=== PATIENT | male | born 1935 | race Caucasian/White ===

== ENCOUNTER → 2017-12-27 12:18 | Outpatient (CLI) | payer OTHER, SELFPAY ==
--- NOTE | 2017-12-27 | DI.CT.S_ITS ---
PROCEDURE: CT CHEST W CON INDICATIONS: SNORING CRONIC TECHNIQUE: After the administration of intravenous contrast, 5 mm thick sections acquired from the pulmonary apices to the posterior costophrenic angles. 7 mm thick coronal and sagittal MIP reformats were acquired. For radiation dose reduction, the following was used: automated exposure control, adjustment of mA and/or kV according to patient size. COMPARISON: [facility], CR, CHEST 2VW, 12/29/2011, 12:04. [facility], , CHEST 1 VIEW, 09/20/2012, 13:29. FINDINGS: Image quality: Excellent. Lungs and pleura: No acute air space opacities. There is mild scarring at the base of the lingula which is also apparent on previous plain film from 2012. No pleural effusions or pneumothorax. Central and peripheral airways are patent and normal in caliber. Mediastinum: Heart size is normal with mild coronary artery calcifications. No pericardial effusion. No mediastinal or hilar adenopathy by size criteria. Thoracic aorta is borderline aneurysmal measuring 4.1 cm AP. The central pulmonary arteries are normal in size. Esophagus is normal in caliber. Small hiatal hernia. Bones and chest wall: No suspicious bony lesions. No vertebral body compression fractures. No axillary or supraclavicular adenopathy by size criteria. Thyroid gland contains a 7 mm hypodense nodule in the inferior pole of the right lobe, otherwise unremarkable. Abdomen: Visualized upper abdominal solid organs appear normal. Calcifications are present within the spleen. Upper abdominal bowel loops are normal in caliber. IMPRESSION: 1. Mild lingular scarring otherwise normal CT chest. 2. Splenic calcifications compatible with prior granulomatous infection. 3. Small hiatal hernia. 4. Borderline aneurysmal ascending aorta. Mild coronary artery calcifications. 5. Subcentimeter right thyroid nodule. Dictated by: Medardo Card M.D. on 12/27/2017 at 13:10 Approved by: Medardo Card M.D. on 12/27/2017 at 13:18
== END ==
PROVIDERS: PCP Physician Assistant Medical; Visit Provider Physician Assistant Medical
DX: R06.83 Snoring (principal)
CPT/HCPCS: 71260; Q9967

== ENCOUNTER → 2017-12-31 11:51 | Outpatient (CLI) | payer MEDICARE, OTHER, SELFPAY ==
--- NOTE | 2017-12-31 | DI.US.S_ITS ---
PROCEDURE: US THYROID INDICATIONS: THYROID NODULE TECHNIQUE: Real-time scanning was performed of the thyroid gland, with image documentation. COMPARISON: [facility], CT, CT CHEST W CON, 12/27/2017, 12:34. FINDINGS: Right: The right lobe measures 1.5 x 1.6 x 5.2 cm and is diffusely heterogenic with a 12 x 13 x 21 mm abdominal a solid, hypoechoic nodule with smooth margins and no calcifications at the inferior pole. No increased vascularity. nodules. Left: The left lobe measures 1.1 x 1.2 x 3.8 cm and shows heterogeneous echogenicity with no measurable nodules. Isthmus: 2.3 mm IMPRESSION: Hypoechoic nodule in the lower pole of the right lobe of thyroid is greater than 15 mm in maximum diameter. Ultrasound guided FNA sampling suggested. Dictated by: Medardo Card M.D. on 12/31/2017 at 12:55 Approved by: Medardo Card M.D. on 12/31/2017 at 13:04
== END ==
PROVIDERS: PCP Physician Assistant Medical; Visit Provider Physician Assistant Medical
DX: E04.1 Nontoxic single thyroid nodule (principal)
CPT/HCPCS: 76536

== ENCOUNTER → 2018-02-03 12:11 | Outpatient (CLI) | payer MEDICARE, OTHER, SELFPAY ==
--- NOTE | 2018-02-03 | DI.US.S_ITS ---
PROCEDURE: US FINE NEEDLE ASPIRATION INDICATIONS: RIGHT THYROID NODULE TECHNIQUE: The indications, alternatives, benefits, risks, and complications of the procedure were explained to the patient. Written informed consent was obtained and placed in the chart. The area of interest was examined sonographically and a site was chosen for ultrasound guided percutaneous sampling. The skin was prepared and draped in the usual fashion, and anesthetized with 1% lidocaine infiltrated from the skin down to the lesion. Multiple passes were then performed, with contents emptied into an appropriate pathology specimen container. A bandage was applied to the area of access at completion of the study. COMPARISON: None. FINDINGS: Location(s) of lesion(s) sampled: Lower pole right lobe of thyroid nodule Clio: 25 gauge hypodermic needles. Number of passes: 13 Medications: 1% lidocaine for local anaesthesia. Complications: None. IMPRESSION: Successful ultrasound-guided 25 gauge fine needle aspiration, with cytology results pending. Dictated by: Medardo Card M.D. on 02/03/2018 at 15:21 Approved by: Medardo Card M.D. on 02/03/2018 at 15:22
--- NOTE | 2018-02-03 | PATH_ITS ---
Note [facility] Accession Number: [id number] TESTS RESULT FLAG UNITS REF RANGE LAB Clinician Provided Cytology Information No. of containers..01 ThinPrep Vial No. of containers..06 Previously Prepared Cytology Slide RIGHT THYROID NODULE DIAGNOSIS: RIGHT THYROID NODULE INADEQUATE, INSUFFICIENT CELLS FOR STUDY. BETHESDA CATEGORY I. UNSATISFACTORY. TOO FEW THYROID FOLLICULAR CELL GROUPS PRESENT FOR EVALUATION. Pathologist ICD10: 02 E04.1 02 Gloria Jenkins MD, Pathologist NPI- [id number] Carolann Nur, Assistant Professor Of Physics ([facility]) 01 30 CC, PINK, CLEAR RECEIVED: 8 ALCOHOL FIXED AND 8 QUICK STAINED SLIDES. /VDU FLAG LEGEND: L-Low Normal,H-High Normal,LL-Alert Low,HH-Alert High <-Panic Low,>-Panic High,A-Abnormal,AA-Critical Abnormal Performed at: 01 =Z [facility] [address], [place] [address] Errol Paul MD, 02 [facility] [id number] [place] [id number] Armen Goldstein MD, A duplicate report has been generated due to demographic updates. Performed at: 01 [facility] [address], [place], [place] [id number] MD Errol Paul MD Phone: [phone]
[2018-02-03 14:02] LABS: Hematocrit 43.9 % (41-53); Hemoglobin 15.4 g/dL (13.5-17.5); Mean Corpuscular HGB Conc 34.9 % (30-36); Mean Corpuscular Hemoglobin 32.8 PG (26-34); Mean Corpuscular Volume 93.8 fL (80-100); Platelet Count 161 X10^3/uL (150-400); Red Blood Cell Count 4.69 X10^6/uL (4.5-5.9); Red Cell Distribution Width 13.8 % (11.6-14.8)
[2018-02-03 14:13] LABS: INR 1.2 (0.9-1.3); Prothrombin Time 13.2 SECONDS (10.1-12.7)
== END ==
PROVIDERS: PCP Physician Assistant Medical; Visit Provider Specialist
DX: E04.1 Nontoxic single thyroid nodule (principal); Z79.01 Long term (current) use of anticoagulants
CPT/HCPCS: 10022; 36415; 76942; 85027; 85610

== ENCOUNTER 2018-09-27 15:23 | Emergency (ER) | payer MEDICARE, OTHER, SELFPAY ==
[2018-09-27 15:26] VITALS: BP 119/69; PULSE 87; RESP 18; TEMP 36.8; O2SAT 94
--- NOTE | 2018-09-27 15:29 | DI.RAD.S_ITS ---
PROCEDURE: XR CHEST 2V INDICATIONS: cough/fever/soa TECHNIQUE: 2 views of the chest were acquired. COMPARISON: [facility], , CHEST 1 VIEW, 09/20/2012, 13:29. FINDINGS: Surgical changes and devices: None. Lungs and pleura: No acute consolidation. Scattered subsegmental atelectasis and/or scarring. Mild patchy right basilar opacity. No pleural effusions or pneumothorax. Mediastinum: Mediastinal contours are normal. Heart size is normal. Bones and chest wall: No suspicious bony abnormalities. Soft tissues appear unremarkable. IMPRESSION: Mild patchy right basilar opacity which could reflect low-grade atelectasis/aspiration however cannot entirely exclude early bronchopneumonia. Dictated by: Conor Bryant M.D. on 09/27/2018 at 16:00 Approved by: Conor Bryant M.D. on 09/27/2018 at 16:02
--- NOTE | 2018-09-27 16:39 | ED_ITS ---
HPI - Fever General Chief Complaint: Fever Stated Complaint: FEVER Time Seen by Provider: 09/27/18 16:12 Source: patient and family Mode of arrival: ambulatory Limitations: no limitations History of Present Illness HPI Narrative: 83-year-old male former smoker with history of COPD hypertension and hyperlipidemia presents with his and a chief complaint of upper respiratory complaints including fever with cough since Wednesday. He has had no headache, sore throat nor nausea or vomiting. He has had no shaking chills and is eating and drinking without difficulty. He has not had any profound shortness of breath and is actually doing relatively well. He does take Coumadin for AFib. He had both flu and pneumonia shots MD complaint: fever Onset (ago): day(s) Temperature Source: oral Associated symptoms: cough Relieving factors: nothing Exacerbating factors: nothing Treatments prior to arrival fever: none Related Data Home Medications Medication Instructions Recorded Confirmed tamsulosin [Flomax] 1 cap PO QPM #0 06/29/11 09/27/18 atorvastatin [Lipitor] 10 mg PO BEDTIME #0 09/20/12 09/27/18 albuterol sulfate [Ventolin HFA] 2 puff INH Q4HP PRN #0 03/18/17 01/26/18 latanoprost 1 drp OPHTH BEDTIME #0 03/18/17 09/27/18 levothyroxine [Synthroid] 0.075 mg PO DAILY #0 03/18/17 09/27/18 metformin [Glucophage] 500 mg PO BIDCC #0 03/18/17 09/27/18 warfarin [Coumadin] 5 mg PO #0 03/19/17 01/26/18 diltiazem HCl 240 mg PO DAILY 09/27/18 09/27/18 Previous Rx's Medication Instructions Recorded amoxicillin-pot clavulanate 1 tab PO BID #20 tab 09/27/18 [Augmentin] Allergies Allergy/AdvReac Type Severity Reaction Status Date / Time No Known Drug Allergies Allergy Unverified 01/26/18 09:42 Review of Systems Constitutional Denies chills, Reports fever(s), Denies lethargy and Denies weakness Eyes Denies change in vision, Denies eye discharge, Denies irritation and Denies loss of vision ENT Ears, Nose, Mouth, and Throat: Denies change in voice, Denies neck pain and Denies sore throat Cardiovascular Denies chest pain, Denies irregular heart rhythm, Denies lightheadedness, Denies palpitations, Denies dyspnea, Denies dyspnea on exertion and Denies orthopnea Respiratory Reports cough, Denies dyspnea, Denies dyspnea on exertion and Denies wheezing Gastrointestinal Gastrointestinal: Denies abdominal pain, Denies change in bowel habits, Denies diarrhea, Denies nausea and Denies vomiting Genitourinary Denies hematuria, Denies flank pain, Denies urinary incontinence and Denies uri nary urgency Musculoskeletal Denies neck pain Integumentary/Breasts Denies pruritus, Denies erythema, Denies rash and Denies wounds Neurologic Denies confusion, Denies loss of vision and Denies weakness Psychiatric Denies anxiety, Denies confusion, Denies depression, Denies homicidal ideation and Denies suicidal ideation Endocrine Denies palpitations Hematologic/Lymphatic Denies easy bruising Allergic/Immunologic Denies wheezing [facility] Medical History Aortic aneurysm (Chronic) Atrial fibrillation with controlled ventricular rate (Chronic) COPD (chronic obstructive pulmonary disease) (Chronic) HTN (hypertension) (Chronic) Surgical History History of appendectomy (Resolved) Family History Other Cancer Social History marital status: household members: spouse Smoking Status: Former smoker alcohol intake: never Family History Other Cancer Social History marital status: household members: spouse Smoking Status: Former smoker alcohol intake: never Exam Narrative Exam Narrative: GENERAL: 83-year-old male appears stated age, in no obvious or significant respiratory distress HEAD: Atraumatic. Normocephalic. No temporal or scalp tenderness. EYES: Pupils equal round and reactive. Extraocular motions intact. No scleral icterus. No injection or drainage. ENT: Nose without bleeding, purulent drainage or septal hematoma. Throat without erythema, tonsillar hypertrophy or exudate. Uvula midline. Airway patent. NECK: Trachea midline. No JVD or lymphadenopathy. Supple, nontender, no meningeal signs. CARDIOVASCULAR: Regular rate and rhythm without murmurs, gallops, or rubs. RESPIRATORY: prolonged expiratory phase no wheeze or rhonchi but very faint crackles in right base GASTROINTESTINAL: Abdomen soft, non-tender, nondistended. No hepato- splenomegaly, or palpable masses. No guarding. EXTREMITIES: No clubbing, cyanosis, or edema. No joint tenderness, effusion, or edema noted. BACK: Nontender without deformity or crepitance. No flank tenderness. NEURO: AOx3. SKIN: No rash or erythema. Initial Vital Signs Initial Vital Signs: Vital Signs Temperature 98.2 F 09/27/18 15:26 Pulse Rate 87 09/27/18 15:26 Respiratory Rate 18 09/27/18 15:26 Blood Pressure 119/69 09/27/18 15:26 Pulse Oximetry 94 09/27/18 15:26 Course Orders Ordered: ED Orders 09/27/18 15:29 Chest [XR chest 2V] Stat 09/27/18 15:31 Influenza A and B by PCR Rapid Stat 09/27/18 16:25 Basic Metabolic Panel Stat Complete Blood Count AUTO DIFF Stat Discontinued Medications Amoxicillin/Clavulanate Potassium (Augmentin 875-125 Mg) 1 tab PO NOW ONE Stop: 09/27/18 17:06 Last Admin: 09/27/18 17:12 Dose: 1 tab Vital Signs - 8 hr 09/27/18 15:26 Temperature 98.2 F Pulse Rate 87 Respiratory Rate 18 Blood Pressure 119/69 Pulse Oximetry 94 MDM - Fever Lab Data Result diagrams: 09/27/18 16:25 09/27/18 16:25 Lab Results 09/27/18 09/27/18 09/27/18 Range/Units 15:31 16:25 16:25 WBC 4.9 (4.5-11.0) X10^3/uL RBC 4.86 (4.5-5.9) X10^6/uL Hgb 15.4 (13.5-17.5) g/dL Hct 46.1 (41-53) % MCV 94.9 (80-100) fL MCH 31.7 (26-34) PG MCHC 33.4 (30-36) % RDW 13.9 (11.6-14.8) % Plt Count 129 L (150-400) X10^3/uL Neut % (Auto) 59.6 (50-75) % Lymph % (Auto) 17.9 L (25-40) % Grand % (Auto) 20.0 H (3-14) % Eos % (Auto) 1.9 L (2-4) % Baso % (Auto) 0.6 (0-2) % Neut # (Auto) 2900 (3477-0242) /uL Lymph # (Auto) 900 L (0476-3867) /uL Grand # (Auto) 1000 H (0-900) /uL Eos # (Auto) 100 (0-450) /uL Baso # (Auto) 0 (0-100) /uL Sodium 139 (137-145) mmol/L Potassium 4.2 (3.4-5.1) mmol/L Chloride 103 (98-107) mmol/L Carbon Dioxide 23 (22-32) mmol/L BUN 15 (9-20) mg/dL Creatinine 0.80 (0.66-1.25) mg/dL Estimated GFR > 60.0 (>60) mL/min BUN/Creatinine Ratio 18.8 (6-22) Glucose 120 H (80-110) mg/dL Calcium 9.2 (8.4-10.2) mg/dL Influenza A & B (PCR) Positive, type a A (Negative) Imaging Data Chest x-ray: Radiologist's impression: [address] [address] XRay Report Signed Patient: Marcelo Ledbetter [facility]#: [id number] : 6Acct:[id number] Age/Sex: 83 / MDate of Service: 09/27/18 Loc: ED Accession Number: [id number] Procedure: XR chest 2V Ordering Provider: Fred Vu D.O. PROCEDURE: XR CHEST 2V INDICATIONS: cough/fever/soa TECHNIQUE: 2 views of the chest were acquired. COMPARISON: [facility], , CHEST 1 VIEW, 09/20/2012, 13:29. FINDINGS: Surgical changes and devices: None. Lungs and pleura: No acute consolidation. Scattered subsegmental atelectasis and/or scarring. Mild patchy right basilar opacity. No pleural effusions or pneumothorax. Mediastinum: Mediastinal contours are normal. Heart size is normal. Bones and chest wall: No suspicious bony abnormalities. Soft tissues appear unremarkable. IMPRESSION: Mild patchy right basilar opacity which could reflect low-grade atelectasis/aspiration however cannot entirely exclude early bronchopneumonia. Dictated by: Conor Bryant M.D. on 09/27/2018 at 16:00 Approved by: Conor Bryant M.D. on 09/27/2018 at 16:02 [facility] Narrative Medical decision making narrative: 83-year-old male with multiple medical problems appears quite well given his diagnosis of flu and the possibility of pneumonia. He has stable vital signs, no measurable fever and is not hypoxic. He demonstrates no signs of respiratory distress. Laboratory values are unremarkable and the patient desperately wants to go home. This is appropriate. I have discussed at length with this patient return precautions and the imp ortant for close follow-up particularly given the fact that he is on Coumadin and will be taking antibiotics. He and understand as is evidenced by his verbalization of understanding Discharge Plan Departure Patient Disposition: Home Clinical Impression: Flu Instructions: DI for Pneumonia -- Adult, DI for Influenza -- Adult Activity Restrictions/Additional Instructions: *You have been diagnosed with [influenza a, possible early pneumonia ] *What to do: *Take medications as directed: Your prescription has been electronically transmitted to the [facility] at your request *Follow up with your primary care provider in 2-3 days, call for an appointment. Let them know you were seen in the Emergency Department and that we ask that you be seen in follow up *Return to ER if you should have any new, worsening or concerning symptoms, such as [ worsening shortness of breath, weakness, shaking chills, chest pain or bleeding complications such as blood in vomit, urine, stools or other bothersome symptoms] Prescriptions: New amoxicillin-pot clavulanate [Augmentin] 875-125 mg tablet 1 tab PO BID Qty: 20 RF: 0 No Action tamsulosin [Flomax] 0.4 MG capsule,extended release 24hr 1 cap PO QPM Qty: 0 RF: 0 atorvastatin [Lipitor] 10 MG tablet 10 mg PO BEDTIME Qty: 0 RF: 0 levothyroxine [Synthroid] 75 MCG tablet 0.075 mg PO DAILY Qty: 0 RF: 0 latanoprost 0.005 % drops 1 drp OPHTH BEDTIME Qty: 0 RF: 0 metformin [Glucophage] 500 MG tablet 500 mg PO BIDCC Qty: 0 RF: 0 albuterol sulfate [Ventolin HFA] 90 MCG/PUFF HFA aerosol inhaler 2 puff INH Q4HP PRNQty: 0 RF: 0 warfarin [Coumadin] 5 MG tablet 5 mg PO Qty: 0 RF: 0 diltiazem HCl 240 mg capsule,extended release 24hr 240 mg PO DAILY RF: 0 Referrals: Alexa Humphrey PA-C [Primary Care Provider] -
[2018-09-27 16:56] LABS: Add Manual Diff / Slide Review NO; Basophils Absolute Auto 0 /uL (0-100); Basophils Percent Auto 0.6 % (0-2); Eosinophils Absolute Auto 100 /uL (0-450); Eosinophils Percent Auto 1.9 % (2-4); Hematocrit 46.1 % (41-53); Hemoglobin 15.4 g/dL (13.5-17.5); Lymphocytes Absolute Auto 900 /uL (1100-4500); Lymphocytes Percent Auto 17.9 % (25-40); Mean Corpuscular HGB Conc 33.4 % (30-36); Mean Corpuscular Hemoglobin 31.7 PG (26-34); Mean Corpuscular Volume 94.9 fL (80-100); Monocytes Absolute Auto 1000 /uL (0-900); Neutrophils Absolute Auto 2900 /uL (1500-7000); Neutrophils Percent Auto 59.6 % (50-75); Platelet Count 129 X10^3/uL (150-400); Red Blood Cell Count 4.86 X10^6/uL (4.5-5.9); Red Cell Distribution Width 13.9 % (11.6-14.8); White Blood Cell Count 4.9 X10^3/uL (4.5-11.0)
[2018-09-27 17:00] LABS: BUN Creatinine Ratio 18.8 (6-22); Blood Urea Nitrogen 15 mg/dL (9-20); Calcium 9.2 mg/dL (8.4-10.2); Carbon Dioxide 23 mmol/L (22-32); Chloride 103 mmol/L (98-107); Estimated Glomerular Filt Rate > 60.0 mL/min (>60); Glucose 120 mg/dL (80-110); HEMOLYSIS 43 (0-50); Potassium 4.2 mmol/L (3.4-5.1); Sodium 139 mmol/L (137-145)
[2018-09-27] MEDS: AMOXICILLIN/CLAV 875/125 MG 1 TAB PO (17:12)
== END 2018-09-27 17:53 | disposition home or self-care (01) ==
PROVIDERS: Emergency Provider Emergency Medicine; Family Provider Physician Assistant Medical; PCP Physician Assistant Medical
DX: J11.1 Influenza due to unidentified influenza virus with other respiratory manifestations (principal)
CPT/HCPCS: 71046; 80048; 85025; 87400; 99282; 99284

== ENCOUNTER → 2018-12-23 11:33 | Outpatient (CLI) | payer MEDICARE, OTHER, SELFPAY ==
--- NOTE | 2018-12-23 11:38 | DI.US.S_ITS ---
PROCEDURE: US THYROID INDICATIONS: F/U TO EVALUATED NODULE STABILITY TECHNIQUE: Real-time scanning was performed of the thyroid gland, with image documentation. COMPARISON: [facility], US, US FINE NEEDLE ASPIRATION, 02/03/2018, 14:06. [facility], US, US THYROID, 12/31/2017, 12:22. FINDINGS: Right: The right thyroid lobe measures 1.5 x 1.2 x 3.7 cm and demonstrates a previously present generalized heterogeneity of glandular parenchyma. At the right inferior thyroid gland a previously present solid hypoechoic smoothly marginated nodule without calcification or other echogenic foci measures 1.9 x 1.2 x 1.1 cm, having slightly decreased in size from the prior evaluation 02/03/18 minute as measured 2.1 x 1.2 x 1.3 cm. Left: The left thyroid lobe measures 1.0 x 1.4 x 3.0 cm and again also demonstrates a mild generalized heterogeneity of the glandular parenchyma. Isthmus: 4.0 mm without nodule. IMPRESSION: Slight interval reduction in size of a single thyroid nodule in the inferior right thyroid lobe, with reference to the prior study from January of last year. No new nodule has developed. The structure measures 1.9 cm in maximal dimension. Prior cytology aspiration of this structure was performed 02/03/18. Dictated by: Manuel Galdamez M.D. on 12/23/2018 at 14:33 Approved by: Manuel Galdamez M.D. on 12/23/2018 at 14:37
== END ==
PROVIDERS: Family Provider Physician Assistant Medical; PCP Physician Assistant Medical; Visit Provider Internal Medicine Endocrinology, Diabetes & Metabolism
DX: E04.1 Nontoxic single thyroid nodule (principal)
CPT/HCPCS: 76536

== ENCOUNTER → 2019-01-18 11:38 | Outpatient (CLI) | payer MEDICARE, OTHER, SELFPAY ==
--- NOTE | 2019-01-18 | DI.RAD.S_ITS ---
PROCEDURE: XR CHEST 2V INDICATIONS: Hemoptysis TECHNIQUE: 2 views of the chest were acquired. COMPARISON: [facility], , XR CHEST 2V, 09/27/2018, 15:39. [facility] With [facility], , CHEST 1 VIEW, 09/20/2012, 13:29. FINDINGS: Surgical changes and devices: None. Lungs and pleura: Lungs are abnormal with a chronic mild interstitial prominence. No pleural effusions or pneumothorax. Mediastinum: Mediastinal contours are normal. Heart size is normal. Bones and chest wall: No suspicious bony abnormalities. Soft tissues appear unremarkable. IMPRESSION: Chronic mild interstitial prominence, no trauma found, no underlying infection or neoplasm seen. Dictated by: Manuel Galdamez M.D. on 01/18/2019 at 14:09 Approved by: Manuel Galdamez M.D. on 01/18/2019 at 14:09
== END ==
PROVIDERS: Family Provider Physician Assistant Medical; PCP Physician Assistant Medical; Visit Provider Physician Assistant Medical
DX: R04.2 Hemoptysis (principal)
CPT/HCPCS: 71046

== ENCOUNTER → 2019-11-28 09:26 | Outpatient (CLI) | payer MEDICARE, OTHER, SELFPAY ==
[2019-11-29 15:10] LABS: COVID19 Sendout NOT DETECTED
== END ==
PROVIDERS: Family Provider Physician Assistant Medical; PCP Physician Assistant Medical; Visit Provider Physician Assistant
DX: Z01.818 Encounter for other preprocedural examination (principal)
CPT/HCPCS: 87635

== ENCOUNTER → 2019-12-01 10:41 | Outpatient (CLI) | payer OTHER, SELFPAY ==
--- NOTE | 2019-12-07 09:00 | P.PFT.S_ITS ---
Pulmonary Function Test Referral & Results Date Patient Seen: 12/01/19 Requesting provider: Alexa Humphrey Results: The spirometry demonstrates an FVC of 3.44 L which is 69% of predicted. The FEV1 was measured at 2.80 L which is 79% of predicted. The FEV1/FVC ratio was 82 which is 114% of predicted. Following the administration of bronchodilator there was a 27% improvement in FEF 25-75%, suggesting minor improvement in small airway flow. Lung volumes show an SVC of 3.52 L which is 67% of predicted. The diffusing capacity was measured at 23.65 which is 58% of predicted. No hemoglobin value was provided, so no correction for potential anemia could be m roberto, if appropriate. The maximum voluntary ventilation was normal Interpretation: This study demonstrates very mild obstructive lung disease with some very limited evidence of benefit following bronchodilator administration based on improvement in FEF 25-75% as above There is more significant reduction in lung volumes suggesting more significant restrictive lung disease is also present. In addition there is a modestly severe reduction in diffusing capacity. Altogether this is consistent with a diagnosis of COPD Compared to PFTs performed in July 2017, current study is essentially unchanged although all lung volumes are slightly diminished compared to previous testing suggesting progression of disease in a mild fashion. Clinical correlation suggested
== END ==
PROVIDERS: Family Provider Physician Assistant Medical; PCP Physician Assistant Medical; Referring Provider Physician Assistant Medical; Visit Provider Physician Assistant Medical
DX: J44.9 Chronic obstructive pulmonary disease, unspecified (principal); Z87.891 Personal history of nicotine dependence
CPT/HCPCS: 94060; 94726; 94729

== ENCOUNTER 2021-11-03 11:01 | Inpatient (IN) | payer MEDICARE, OTHER, SELFPAY ==
[2021-11-03] VITALS (17 sets, daily range): BP systolic 112–140; BP diastolic 59–93; PULSE 70–118; RESP 17–32; TEMP 37.1–38.3; O2SAT 93–99; BMI 31.6
--- NOTE | 2021-11-03 11:10 | DI.RAD.S_ITS ---
PROCEDURE: XR CHEST 1V INDICATIONS: weakness TECHNIQUE: One view of the chest was acquired. COMPARISON: [facility], CR, XR CHEST 2V, 01/18/2019, 11:49. FINDINGS: Surgical changes and devices: None. Lungs and pleura: Patchy bibasilar airspace opacities more pronounced on the left. Hazy opacities of the left costophrenic angle may represent a small pleural effusion. No focal consolidation. Mediastinum: Mediastinal contours appear normal. Heart size is normal. Bones and chest wall: No suspicious bony lesions. Overlying soft tissues appear unremarkable. IMPRESSION: Patchy left greater than right bibasilar airspace opacities which may represent atelectasis and/or developing pneumonia. Suspected small left pleural effusion. Recommend follow up chest radiograph 4-6 weeks after treatment to document resolution of findings and/or return to baseline examination. Dictated by: Surinder Ortiz M.D. on 11/03/2021 at 11:38 Approved by: Surinder Ortiz M.D. on 11/03/2021 at 11:40
--- NOTE | 2021-11-03 11:29 | ED.SEPSIS ---
HPI - Sepsis General Chief Complaint: Weakness Mode of arrival: Family Vehicle Source: patient and family Evaluation Sepsis Screen: Possible Severe Sepsis Risk Sepsis Infection Criteria Present: Suspected New Infection Narrative: 86-year-old male former smoker with history of hypertension, hyperlipidemia and COPD presents with with his in the chief complaint of fever, chills, generalized weakness, episodes of uncontrolled shaking and urinary frequency since last night. He's had no chest pain and does not complain of trouble breathing. He denies nausea, vomiting or diarrhea. He has poor appetite and generally feels unwell. He was sent by his primary care provider for evaluation. He denies runny nose, sore throat. He denies abdominal pain Review of Systems Review of Systems Narrative: GENERAL: See HPI HEENT: Denies sinus pain, ear pain, sore throat, difficulty swallowing, dizziness. RESPIRATORY: Denies dyspnea, cough, wheezing, hemoptysis, sputum. CARDIOVASCULAR: Denies chest pain, palpitations, orthopnea, edema, GASTROINTESTINAL: Denies nausea, vomiting, abdominal pain, diarrhea, constipation, melena. : Denies dysuria, frequency, incontinence, hematuria, urinary retention. MUSCULOSKELETAL: denies weakness, joint pain, or bony pain SKIN: Denies rash, skin lesions, or other NEUROLOGIC: Denies weakness, headache, numbness, change in speech, confusion, seizures, incoordination. PSYCHIATRIC: No concerning psychosocial issues. 12 point review of systems is negative except for those stated above Patient History Medical History (Updated 11/03/21 @ 13:04 by Fred Vu DO) Aortic aneurysm Atrial fibrillation with controlled ventricular rate COPD (chronic obstructive pulmonary disease) HTN (hypertension) Surgical History History of appendectomy Family History Other Cancer Social History marital status: household members: spouse Smoking Status: Former smoker alcohol intake: never Smoking Status: Former smoker alcohol intake frequency: 0-2 drinks per day Substance Use Type: does not use Exam Narrative Exam Narrative: GENERAL: 86 year old patient appears stated age. Well-developed patient, in mild distress. No evidence of hypoxemia HEAD: Atraumatic. Normocephalic. EYES: Pupils equal round and reactive. Extraocular motions intact. No scleral icterus. No injection or drainage. ENT: Nose without bleeding, purulent drainage. Throat without erythema, tonsillar hypertrophy or exudate. Airway patent. NECK: Trachea midline. Non tender CARDIOVASCULAR: Regular rate and rhythm without murmurs, gallops, or rubs. RESPIRATORY: Mild tachypnea, faint crackles in bilateral bases, left greater than right, no use of accessory muscles GASTROINTESTINAL: Abdomen soft, non-tender, nondistended. EXTREMITIES: No edema or joint tenderness. BACK: Nontender without deformity or crepitance. No flank tenderness. NEURO: AOx3. SKIN: No rash or erythema of visible areas Initial Vital Signs Initial Vital Signs: Vital Signs Pulse Rate 102 H 11/03/21 11:13 Pulse Oximetry 95 11/03/21 11:13 Course Course Course Narrative: Sepsis suspected based on history and physical with tachycardia and tachypnea. Sepsis order set including blood cultures and lactate ordered, fluids at 30 cc/kilogram of ideal body weight ordered given patient's BMI greater than 30. Antibiotics ordered for coverage of pneumonia and urine. Orders Ordered: ED Orders 11/03/21 11:10 XR chest 1V Stat 11/03/21 11:11 EKG-12 Lead Stat 11/03/21 11:20 Complete Blood Count AUTO DIFF Stat Comprehensive Metabolic Panel Stat D Dimer Stat Lactate (Lactic Acid) Stat NT-proBNP (BNP-Adult 18+) Stat Procalcitonin Stat Troponin & CK Cardiac Panel Stat 11/03/21 11:24 COVID19 -Nasal RAPID/Pre-Proc Stat 11/03/21 11:44 Blood Culture Stat 11/03/21 12:16 Ictotest Urine Stat Urinalysis and Microscopic Stat Urine Culture Stat Sodium Chloride (Normal Saline 0.9%) 2,535 mls @ 845 mls/hr 30 ml/kg infuse over 3 hr (2535 ml) IV NOW ONE Stop: 11/03/21 14:28 Last Admin: 11/03/21 11:51 Dose: 845 mls/hr Documented by: JACKY Discontinued Medications Ceftriaxone Sodium 1,000 mg/ (Sodium Chloride) 100 mls @ 200 mls/hr IV NOW ONE Stop: 11/03/21 11:30 Last Admin: 11/03/21 12:08 Dose: 200 mls/hr Documented by: ATAYLOR Consultations Consultation #1: Hospitalist happy to accept Vital Signs Vital signs: Vital Signs - 8 hr 11/03/21 11:13 11/03/21 11:16 11/03/21 11:30 Temperature 100.3 F H Pulse Rate 102 H 95 H 98 H Respiratory Rate 24 30 H Blood Pressure 135/63 123/62 Pulse Oximetry 95 96 97 11/03/21 11:45 11/03/21 12:00 11/03/21 12:01 Temperature Pulse Rate 94 H 100 H 98 H Respiratory Rate 30 H 32 H 30 H Blood Pressure 123/60 113/59 L Pulse Oximetry 97 97 96 11/03/21 12:15 Temperature Pulse Rate 97 H Respiratory Rate 30 H Blood Pressure 133/70 Pulse Oximetry 96 Sepsis Guideline Criteria Level 1 - Infection Sepsis Infection Criteria Present: Suspected New Infection Treatment Initiated Antibiotics:: IV antimicrobials will be initiated as soon as possible after recognition of sepsis state and within one hour for both sepsis and septic shock. MDM - Sepsis Lab Data Result diagrams: 11/03/21 11:20 11/03/21 11:20 Labs: Lab Results 11/03/21 11/03/21 11/03/21 Range/Units 11:20 11:20 11:20 WBC 16.9 H (4.5-11.0) X10^3/uL RBC 4.50 (4.5-5.9) X10^6/uL Hgb 14.1 (13.5-17.5) g/dL Hct 41.4 (41-53) % MCV 92.0 (80-100) fL MCH 31.3 (26-34) PG MCHC 34.0 (30-36) % RDW 13.9 (11.6-14.8) % Plt Count 134 L (150-400) X10^3/uL Neut % (Auto) 86.9 H (50-75) % Lymph % (Auto) 4.3 L (25-40) % [place] % (Auto) 8.5 (3-14) % Eos % (Auto) 0.0 L (2-4) % Baso % (Auto) 0.3 (0-2) % Neut # (Auto) 33807 H (2947-9002) /uL Lymph # (Auto) 700 L (8004-7784) /uL [place] # (Auto) 1400 H (0-900) /uL Eos # (Auto) 0 (0-450) /uL Baso # (Auto) 0 (0-100) /uL D-Dimer < 200 (<230) ng/mL Sodium (137-145) mmol/L Potassium (3.4-5.1) mmol/L Chloride (98-107) mmol/L Carbon Dioxide (22-32) mmol/L BUN (9-20) mg/dL Creatinine (0.66-1.25) mg/dL Estimated GFR (>60) mL/min BUN/Creatinine Ratio (6-22) Glucose (80-110) mg/dL Lactate (0.7-2.1) mmol/L Calcium (8.4-10.2) mg/dL Total Bilirubin (0.2-1.3) mg/dL AST (17-59) IU/L ALT (<50) IU/L Alkaline Phosphatase (38-126) U/L Total Creatine Kinase (55-170) U/L CK-MB (CK-2) (<2.37) ng/mL CK-MB (CK-2) Rel Index (1.5-5.0) % Troponin I (0.01-0.034) ng/mL NT-Pro-B Natriuret Pep 963 H (<450) pg/mL Total Protein (6.3-8.2) g/dL Albumin (3.5-5.0) g/dL Globulin (1.7-4.1) g/dL Albumin/Globulin Ratio (1.0-2.8) Procalcitonin (<0.5) ng/mL Urine Color Urine Appearance Urine pH (4.5-8.0) Ur Specific [place] (1.000-1.035) Urine Protein (Negative) Urine Glucose (UA) (Negative) g/dL Urine Ketones (NEGATIVE) Urine Occult Blood (Negative) Urine Nitrate (Negative) Urine Bilirubin (NEGATIVE) Urine Urobilinogen (0.2) E.U./dL Ur Leukocyte Esterase (NEGATIVE) Urine RBC (0-5/HPF) Urine WBC (0-5/HPF) Amorphous Sediment Urine Bacteria (None) Ur Culture Indicated? SARS-CoV-2 (PCR) (Negative) 11/03/21 11/03/21 11/03/21 Range/Units 11:20 11:20 11:24 WBC (4.5-11.0) X10^3/uL RBC (4.5-5.9) X10^6/uL Hgb (13.5-17.5) g/dL Hct (41-53) % MCV (80-100) fL MCH (26-34) PG MCHC (30-36) % RDW (11.6-14.8) % Plt Count (150-400) X10^3/uL Neut % (Auto) (50-75) % Lymph % (Auto) (25-40) % [place] % (Auto) (3-14) % Eos % (Auto) (2-4) % Baso % (Auto) (0-2) % Neut # (Auto) (0223-9831) /uL Lymph # (Auto) (0878-3987) /uL [place] # (Auto) (0-900) /uL Eos # (Auto) (0-450) /uL Baso # (Auto) (0-100) /uL D-Dimer (<230) ng/mL Sodium 135 L (137-145) mmol/L Potassium 4.0 (3.4-5.1) mmol/L Chloride 104 (98-107) mmol/L Carbon Dioxide 18 L (22-32) mmol/L BUN 10 (9-20) mg/dL Creatinine 0.84 (0.66-1.25) mg/dL Estimated GFR > 60 (>60) mL/min BUN/Creatinine Ratio 11.9 (6-22) Glucose 250 H (80-110) mg/dL Lactate 4.8 H* (0.7-2.1) mmol/L Calcium 8.9 (8.4-10.2) mg/dL Total Bilirubin 1.8 H (0.2-1.3) mg/dL AST 30 (17-59) IU/L ALT 27 (<50) IU/L Alkaline Phosphatase 57 (38-126) U/L Total Creatine Kinase 108 (55-170) U/L CK-MB (CK-2) 0.81 (<2.37) ng/mL CK-MB (CK-2) Rel Index 0.8 L (1.5-5.0) % Troponin I 0.013 (0.01-0.034) ng/mL NT-Pro-B Natriuret Pep (<450) pg/mL Total Protein 7.5 (6.3-8.2) g/dL Albumin 4.1 (3.5-5.0) g/dL Globulin 3.4 (1.7-4.1) g/dL Albumin/Globulin Ratio 1.2 (1.0-2.8) Procalcitonin 0.24 (<0.5) ng/mL Urine Color Urine Appearance Urine pH (4.5-8.0) Ur Specific [place] (1.000-1.035) Urine Protein (Negative) Urine Glucose (UA) (Negative) g/dL Urine Ketones (NEGATIVE) Urine Occult Blood (Negative) Urine Nitrate (Negative) Urine Bilirubin (NEGATIVE) Urine Urobilinogen (0.2) E.U./dL Ur Leukocyte Esterase (NEGATIVE) Urine RBC (0-5/HPF) Urine WBC (0-5/HPF) Amorphous Sediment Urine Bacteria (None) Ur Culture Indicated? SARS-CoV-2 (PCR) Negative (Negative) 11/03/21 Range/Units 12:16 WBC (4.5-11.0) X10^3/uL RBC (4.5-5.9) X10^6/uL Hgb (13.5-17.5) g/dL Hct (41-53) % MCV (80-100) fL MCH (26-34) PG MCHC (30-36) % RDW (11.6-14.8) % Plt Count (150-400) X10^3/uL Neut % (Auto) (50-75) % Lymph % (Auto) (25-40) % [place] % (Auto) (3-14) % Eos % (Auto) (2-4) % Baso % (Auto) (0-2) % Neut # (Auto) (7720-0452) /uL Lymph # (Auto) (3319-4960) /uL [place] # (Auto) (0-900) /uL Eos # (Auto) (0-450) /uL Baso # (Auto) (0-100) /uL D-Dimer (<230) ng/mL Sodium (137-145) mmol/L Potassium (3.4-5.1) mmol/L Chloride (98-107) mmol/L Carbon Dioxide (22-32) mmol/L BUN (9-20) mg/dL Creatinine (0.66-1.25) mg/dL Estimated GFR (>60) mL/min BUN/Creatinine Ratio (6-22) Glucose (80-110) mg/dL Lactate (0.7-2.1) mmol/L Calcium (8.4-10.2) mg/dL Total Bilirubin (0.2-1.3) mg/dL AST (17-59) IU/L ALT (<50) IU/L Alkaline Phosphatase (38-126) U/L Total Creatine Kinase (55-170) U/L CK-MB (CK-2) (<2.37) ng/mL CK-MB (CK-2) Rel Index (1.5-5.0) % Troponin I (0.01-0.034) ng/mL NT-Pro-B Natriuret Pep (<450) pg/mL Total Protein (6.3-8.2) g/dL Albumin (3.5-5.0) g/dL Globulin (1.7-4.1) g/dL Albumin/Globulin Ratio (1.0-2.8) Procalcitonin (<0.5) ng/mL Urine Color [place] Urine Appearance Cloudy Urine pH 5.0 (4.5-8.0) Ur Specific [place] >=1.030 H (1.000-1.035) Urine Protein 2+ H (Negative) Urine Glucose (UA) Trace H (Negative) g/dL Urine Ketones 1+ H (NEGATIVE) Urine Occult Blood 2+ H (Negative) Urine Nitrate Positive H (Negative) Urine Bilirubin 1+ H (NEGATIVE) Urine Urobilinogen 0.2 (0.2) E.U./dL Ur Leukocyte Esterase 1+ H (NEGATIVE) Urine RBC 1-5/hpf (0-5/HPF) Urine WBC 5-10/hpf H (0-5/HPF) Amorphous Sediment 1+ Urine Bacteria Occasional (0-1) (None) Ur Culture Indicated? Specimen cultured SARS-CoV-2 (PCR) (Negative) Imaging Data Chest x-ray: Radiologist's Impression: Chart Viewer Diagnostics Subcategory All Activity ??:?? All Time ??:?? All Subcategories Filter Laboratory Imaging Microbiology Pathology Blood Bank Tests Cardiovascular Other Specialty DATE TYPE STATUS REF RANGE/AUTHOR Hx Today 11:10 Chest X-Ray Signed Surinder Ortiz 01/18/19 00:00 Chest X-Ray Signed Manuel Galdamez 12/23/18 11:38 Thyroid Ultrasound Signed Manuel Galdamez 09/27/18 15:29 Chest X-Ray Signed Conor Bryant 02/03/18 00:00 Needle Aspiration US Signed Medardo Card 12/31/17 00:00 Thyroid Ultrasound Signed Medardo Card 12/27/17 00:[address] Signed Medardo Card Jimmy D ED 86, M?1935 MRN#? [id number] ADM JUNG,?Main ED??R01?? 190.5cm 115kg BMI: 31.7kg/m? Acc#? [id number] Resus Status Not Ordered No Hx Avail Special Indicators No Data to Display Home Meds Not Confirmed Prescription Monitoring Program MEDICATIONS (INSTRUCTIONS) LAST TAKEN Active ??albuterol sulfate [Ventolin HFA] ??2 [id number]#0 ??amoxicillin-pot clavulanate [Augmentin] ??1 tabPOBID#20 tab *Product no longer available ??atorvastatin [Lipitor] ??10 mgPOBEDTIME#0 ??diltiazem HCl ??240 mgPODAILY ??latanoprost ??1 drpOPHTHBEDTIME#0 ??levothyroxine [Synthroid] ??0.075 mgPODAILY#0 ??metformin [Glucophage] ??500 mgPOBIDCC#0 *Product no longer available ??tamsulosin [Flomax] ??1 capPOQPM#0 ??warfarin [Coumadin] ??5 mgPO#0 *Product no longer available Allergies No Known Drug Allergies Problems ? ONSET Urinary tract infection Weakness Sepsis Vital Signs Today 12:15 BP 133/70? Pulse 97?H Resp 30?H O2 Sat 96? Delivery Room Air? Diagnostics Reports Marcelo Ledbetter??86??M??1935 ? Allergy/Adv: No Known Drug Allergies Close Chest X-Ray (Signed) Surinder Ortiz - 11/03/21 Chest X-Ray (Signed) Manuel Galdamez - 01/18/19 Thyroid Ultrasound (Signed) Manuel Galdamez - 12/23/18 Chest X-Ray (Signed) Conor Bryant - 09/27/18 Needle Aspiration Ultrasound (Signed) StephieMedardo - 02/03/18 Thyroid Ultrasound (Signed) Medardo Card - 12/31/[address] (Signed) Medardo Card - 12/27/17 Launch?Image [address] [address] XRay Report Signed Patient: Marcelo Ledbetter MR#: [id number] : 1935 Acct:[id number] Age/Sex: 86 / M Date of Service: 11/03/21 Loc: ED Accession Number: [id number] ?? Procedure: XR chest 1V Ordering Provider: Fred Vu D.O. PROCEDURE:? XR CHEST 1V ? INDICATIONS:? weakness ? TECHNIQUE:? One view of the chest was acquired.? ? COMPARISON:? [facility], CR, XR CHEST 2V, 01/18/2019, 11:49. ? FINDINGS:? ? Surgical changes and devices:? None.? ? Lungs and pleura:? Patchy bibasilar airspace opacities more pronounced on the left.? Hazy opacities of the left costophrenic angle may represent a small pleural effusion.? No focal consolidation. ? Mediastinum:? Mediastinal contours appear normal.? Heart size is normal.? ? Bones and chest wall:? No suspicious bony lesions.? Overlying soft tissues appear unremarkable.? ? IMPRESSION:? Patchy left greater than right bibasilar airspace opacities which may represent atelectasis and/or developing pneumonia.? Suspected small left pleural effusion. ? Recommend follow up chest radiograph 4-6 weeks after treatment to document resolution of findings and/or return to baseline examination. ? ? ? Dictated by: Surinder Ortiz M.D. on 11/03/2021 at 11:38 ? ? Approved by: Surinder Ortiz M.D. on 11/03/2021 at 11:40 ? Discharge Plan Departure Patient Disposition: Admitted as Observation Clinical Impression: Sepsis, Urinary tract infection, Weakness, Pneumonia Admit Date/Time: 11/03/21 12:47 Admit Provider: Kris Shore
[2021-11-03 11:30] LABS: Add Manual Diff / Slide Review NO; Basophils Absolute Auto 0 /uL (0-100); Basophils Percent Auto 0.3 % (0-2); Eosinophils Absolute Auto 0 /uL (0-450); Hematocrit 41.4 % (41-53); Hemoglobin 14.1 g/dL (13.5-17.5); Lymphocytes Absolute Auto 700 /uL (1100-4500); Lymphocytes Percent Auto 4.3 % (25-40); Mean Corpuscular Hemoglobin 31.3 PG (26-34); Monocytes Absolute Auto 1400 /uL (0-900); Monocytes Percent Auto 8.5 % (3-14); Neutrophils Absolute Auto 14700 /uL (1500-7000); Neutrophils Percent Auto 86.9 % (50-75); Platelet Count 134 X10^3/uL (150-400); Red Cell Distribution Width 13.9 % (11.6-14.8); White Blood Cell Count 16.9 X10^3/uL (4.5-11.0)
[2021-11-03 11:41] LABS: D Dimer < 200 ng/mL (<230)
[2021-11-03 11:43] LABS: Albumin 4.1 g/dL (3.5-5.0); Albumin Globulin Ratio 1.2 (1.0-2.8); Alkaline Phosphatase 57 U/L (38-126); Aspartate Aminotransferase 30 IU/L (17-59); BUN Creatinine Ratio 11.9 (6-22); Bilirubin Total 1.8 mg/dL (0.2-1.3); Blood Urea Nitrogen 10 mg/dL (9-20); Calcium 8.9 mg/dL (8.4-10.2); Carbon Dioxide 18 mmol/L (22-32); Chloride 104 mmol/L (98-107); Creatine Kinase 108 U/L (55-170); Estimated Glomerular Filt Rate > 60 mL/min (>60); Globulin 3.4 g/dL (1.7-4.1); Glucose 250 mg/dL (80-110); Sodium 135 mmol/L (137-145); Total Protein 7.5 g/dL (6.3-8.2)
[2021-11-03 11:44] LABS: Lactate (Lactic Acid) 4.8 mmol/L (0.7-2.1)
[2021-11-03 11:46] LABS: COVID19 -Nasal RAPID Negative (Negative)
[2021-11-03 11:50] LABS: Alanine Aminotransferase 27 IU/L (<50)
[2021-11-03 11:51] LABS: NT-proBNP (BNP-Adult 18+) 963 pg/mL (<450)
[2021-11-03] MEDS: SODIUM CHLORIDE 0.9% 2,535 ML 845 ML IV (11:51)
[2021-11-03 11:55] LABS: Troponin I 0.013 ng/mL (0.01-0.034)
[2021-11-03 11:58] LABS: CKMB % Relative Index 0.8 % (1.5-5.0); Creatine Kinase MB 0.81 ng/mL (<2.37); HEMOLYSIS 39 (0-50)
[2021-11-03 12:00] LABS: Procalcitonin 0.24 ng/mL (<0.5)
[2021-11-03] MEDS: cefTRIAXone 1,000 MG in SODIUM CHLORIDE 0.9% 100 ML 200 ML IV (12:08)
[2021-11-03 12:40] LABS: Appearance Urine UA CLOUDY; Bilirubin Urine UA 1+ (NEGATIVE); Color Urine UA ORANGE; Glucose Urine UA TRACE g/dL (Negative); Ketones Urine UA 1+ (NEGATIVE); Leukocyte Esterase Urine UA 1+ (NEGATIVE); Nitrite Urine UA POSITIVE (Negative); Occult Blood Urine UA 2+ (Negative); Protein Urine UA 2+ (Negative); Specific Gravity Urine UA >=1.030 (1.000-1.035); Urobilinogen Urine UA 0.2 E.U./dL (0.2)
[2021-11-03 12:51] LABS: Amorphous Sediment Urine 1+; Bacteria Urine Occasional (0-1); Culture Indicated Urine Specimen Cultured; RBC Urine 1-5/HPF (0-5/HPF); WBC Urine 5-10/HPF (0-5/HPF)
[2021-11-03 13:15] LABS: Ictotest Urine Positive (Negative)
[2021-11-03 13:25] LABS: Reflexed Lactate in 2 Hours Y
--- NOTE | 2021-11-03 14:11 | DI.US.S_ITS ---
PROCEDURE: US RENAL COMPLETE INDICATIONS: UTI, SEPSIS TECHNIQUE: Real-time scanning was performed of the kidneys and bladder, with image documentation. COMPARISON: None. FINDINGS: Kidneys: Kidneys are normal in size. Right kidney measures 13.5 cm long; left kidney measures 12.2 cm long. Right renal cortical thickness is 2.0 cm; left renal cortical thickness is 1.8 cm. Renal cortical echotexture is normal. No hydronephrosis or nephrolithiasis. No suspicious solid mass lesions. Bladder: Pre-void bladder volume is 115 mL. Patient unable to void. Pre-void images demonstrate no intraluminal masses or stones. Miscellaneous: No free pelvic fluid. IMPRESSION: Unremarkable ultrasound the kidneys Approved by: Sixto Fernandez M.D. on 11/03/2021 at 16:14
[2021-11-03 14:20] LABS: Lactate 2HR (Lactic Acid Rflx) 3.9 mmol/L (0.7-2.1)
--- NOTE | 2021-11-03 15:34 | P.HP_ITS ---
History of Present Illness History of Present Illness Date Patient Seen: 11/03/21 Time Patient Seen: 15:34 Chief complaint: Thinks UTI or poss Sepsis- sent by Dr. Kaur Narrative: This is an 86-year-old male with a past medical history of hypothyroidism, type 2 diabetes, chronic atrial fibrillation, hypertension, and COPD who presented with fever to 101 at home, along with dysuria and urinary frequency. He endorses intermittent nausea but no vomiting. He denies any chest pain, cough, shortness of breath, recent sick contacts. He denies any diarrhea, or abdominal pain. He has had no rashes. He has a prior history of a prostatitis infection about 5 years ago, though this was only determined by an elevated PSA per chart review. In the emergency room, the patient had a borderline fever with a temperature of 100.3?, he was also mildly tachycardic and tachypneic with normal oxygen saturations. White blood cell count was elevated at 17, platelet count was diminished at 134, though he has chronic thrombocytopenia. Lactic acid was elevated at 3.9, and carbon dioxide level on chemistries was 18. His glucose was noted to be 250. Anion gap was 13. Total bilirubin was also mildly elevated at 1.8, with no significant transaminase elevations. Troponin was within normal limits at 0.013. ProBNP was mildly elevated at 963. Urinalysis shows 2+ occult blood, positive nitrate, and leuk esterase, with 5-10 wbc's per high-power field. Specimen was sent for culture. Blood cultures were drawn. COVID-19 testing was negative. Renal ultrasound was unremarkable. Patient History Medical History Aortic aneurysm Atrial fibrillation with controlled ventricular rate COPD (chronic obstructive pulmonary disease) HTN (hypertension) Surgical History History of appendectomy Family & Social History Family History (Updated 11/03/21 @ 15:42 by Kris Shore DO) Mother Cancer Father Cancer Social History: household members spouse Safety & Behavioral: Feels Safe in Current Yes Environment Been Physically Hurt or No Threatened By a Person Suicidal Ideation Description None Tobacco & Substance use: Smoking Status Former smoker alcohol intake never alcohol intake frequency 0-2 drinks per day Substance Use Type does not use Meds Home Medications and Allergies Home Medications Medication Instructions Recorded Confirmed Type tamsulosin 0.4 mg capsule (Flomax) 1 cap PO QPM #0 06/29/11 11/03/21 History atorvastatin 10 mg tablet (Lipitor) 10 mg PO BEDTIME #0 09/20/12 11/03/21 History albuterol sulfate 90 mcg/actuation 2 puff INH Q4HP PRN #0 03/18/17 11/03/21 History aerosol inhaler (Ventolin HFA) latanoprost 0.005 % eye drops 1 drp OPHTH BEDTIME #0 03/18/17 11/03/21 History levothyroxine 75 mcg tablet 0.075 mg PO DAILY #0 03/18/17 11/03/21 History (Synthroid) metformin 500 mg tablet 500 mg PO BIDCC #0 03/18/17 11/03/21 History (Glucophage) warfarin 5 mg tablet (Coumadin) 5 mg PO DAILY #0 03/19/17 11/03/21 History diltiazem HCl 240 mg 240 mg PO DAILY 09/27/18 11/03/21 History capsule,extended release 24 hr albuterol 90 mcg/actuation aerosol 1 mcg INHALATION BID 11/03/21 11/03/21 History inhaler furosemide 20 mg tablet 20 mg PO DAILY 11/03/21 11/03/21 History Allergies Allergy/AdvReac Type Severity Reaction Status Date / Time No Known Drug Allergies Allergy Unverified 01/26/18 09:42 Review of Systems Review of Systems Narrative: All other systems reviewed with the patient and are negative unless otherwise stated. Exam Vital Signs (past 8 hours): - 11/03/21 11:13 11/03/21 11:16 11/03/21 11:30 Temperature 100.3 F H Pulse Rate 102 H 95 H 98 H Respiratory Rate 24 30 H Blood Pressure 135/63 123/62 Pulse Oximetry 95 96 97 11/03/21 11:45 11/03/21 12:00 11/03/21 12:01 Temperature Pulse Rate 94 H 100 H 98 H Respiratory Rate 30 H 32 H 30 H Blood Pressure 123/60 113/59 L Pulse Oximetry 97 97 96 11/03/21 12:15 11/03/21 12:30 11/03/21 13:00 Temperature Pulse Rate 97 H 92 H 98 H Respiratory Rate 30 H 29 H 27 H Blood Pressure 133/70 133/72 Pulse Oximetry 96 96 95 Oxygen Delivery Method Room Air Narrative Exam Narrative: General:? Patient is well developed and well nourished, in no distress at this time. HEENT:? Normocephalic, atraumatic, extraocular muscles intact, oral pharynx is clear and mucous membranes are moist. Neck: supple and symmetric, trachea is midline, no cervical adenopathy. Negative for JVD Chest:? Normal AP diameter and contour without kyphoscoliosis, no tachypnea, equal chest rise bilaterally. Lungs:? CTA b/l no wheezing rhonchi or rales. Cardio:?RRR no m/r/g. Abdomen: S NT ND. No CVA tenderness. : no rashes or lesions, testicles non-tender. Musculoskeletal:? Muscle strength and tone are equal within normal limits, no deformity. Extremities: No edema or joint effusions. No cyanosis or clubbing. Skin:? Pale,? Warm to touch,dry and intact without rashes, ulcerations or petechiae.? Neuro:? Alert and orientated x3,?though seems lightly confused. sensation to touch intact in all extremities, no gross deficits noted of cranial nerves. Psych:? Patient has a well-kept appearance, appropriate affect, mental status attitude thought context and judgment are appropriate for age. Objective ECG Impression: Atrial fibrillation As interpreted by me Labs Result Diagrams: 11/03/21 11:20 11/03/21 11:20 Labs: Laboratory Results - last 24 hr 11/03/21 11/03/21 11/03/21 11:20 11:20 11:20 WBC 16.9 H RBC 4.50 Hgb 14.1 Hct 41.4 MCV 92.0 MCH 31.3 MCHC 34.0 RDW 13.9 Plt Count 134 L Neut % (Auto) 86.9 H Lymph % (Auto) 4.3 L [place] % (Auto) 8.5 Eos % (Auto) 0.0 L Baso % (Auto) 0.3 Neut # (Auto) 11188 H Lymph # (Auto) 700 L [place] # (Auto) 1400 H Eos # (Auto) 0 Baso # (Auto) 0 D-Dimer < 200 Sodium Potassium Chloride Carbon Dioxide BUN Creatinine Estimated GFR BUN/Creatinine Ratio Glucose Lactate Calcium Total Bilirubin AST ALT Alkaline Phosphatase Total Creatine Kinase CK-MB (CK-2) CK-MB (CK-2) Rel Index Troponin I NT-Pro-B Natriuret Pep 963 H Total Protein Albumin Globulin Albumin/Globulin Ratio Procalcitonin Urine Color Urine Appearance Urine pH Ur Specific [place] Urine Protein Urine Glucose (UA) Urine Ketones Urine Occult Blood Urine Nitrate Urine Bilirubin Ur Bilirubin Confirm Urine Urobilinogen Ur Leukocyte Esterase Urine RBC Urine WBC Amorphous Sediment Urine Bacteria Ur Culture Indicated? SARS-CoV-2 (PCR) 11/03/21 11/03/21 11/03/21 11:20 11:20 11:24 WBC RBC Hgb Hct MCV MCH MCHC RDW Plt Count Neut % (Auto) Lymph % (Auto) [place] % (Auto) Eos % (Auto) Baso % (Auto) Neut # (Auto) Lymph # (Auto) [place] # (Auto) Eos # (Auto) Baso # (Auto) D-Dimer Sodium 135 L Potassium 4.0 Chloride 104 Carbon Dioxide 18 L BUN 10 Creatinine 0.84 Estimated GFR > 60 BUN/Creatinine Ratio 11.9 Glucose 250 H Lactate 4.8 H* Calcium 8.9 Total Bilirubin 1.8 H AST 30 ALT 27 Alkaline Phosphatase 57 Total Creatine Kinase 108 CK-MB (CK-2) 0.81 CK-MB (CK-2) Rel Index 0.8 L Troponin I 0.013 NT-Pro-B Natriuret Pep Total Protein 7.5 Albumin 4.1 Globulin 3.4 Albumin/Globulin Ratio 1.2 Procalcitonin 0.24 Urine Color Urine Appearance Urine pH Ur Specific [place] Urine Protein Urine Glucose (UA) Urine Ketones Urine Occult Blood Urine Nitrate Urine Bilirubin Ur Bilirubin Confirm Urine Urobilinogen Ur Leukocyte Esterase Urine RBC Urine WBC Amorphous Sediment Urine Bacteria Ur Culture Indicated? SARS-CoV-2 (PCR) Negative 11/03/21 11/03/21 12:16 13:55 WBC RBC Hgb Hct MCV MCH MCHC RDW Plt Count Neut % (Auto) Lymph % (Auto) [place] % (Auto) Eos % (Auto) Baso % (Auto) Neut # (Auto) Lymph # (Auto) [place] # (Auto) Eos # (Auto) Baso # (Auto) D-Dimer Sodium Potassium Chloride Carbon Dioxide BUN Creatinine Estimated GFR BUN/Creatinine Ratio Glucose Lactate 3.9 H Calcium Total Bilirubin AST ALT Alkaline Phosphatase Total Creatine Kinase CK-MB (CK-2) CK-MB (CK-2) Rel Index Troponin I NT-Pro-B Natriuret Pep Total Protein Albumin Globulin Albumin/Globulin Ratio Procalcitonin Urine Color [place] Urine Appearance Cloudy Urine pH 5.0 Ur Specific [place] >=1.030 H Urine Protein 2+ H Urine Glucose (UA) Trace H Urine Ketones 1+ H Urine Occult Blood 2+ H Urine Nitrate Positive H Urine Bilirubin 1+ H Ur Bilirubin Confirm Positive H Urine Urobilinogen 0.2 Ur Leukocyte Esterase 1+ H Urine RBC 1-5/hpf Urine WBC 5-10/hpf H Amorphous Sediment 1+ Urine Bacteria Occasional (0-1) Ur Culture Indicated? Specimen cultured SARS-CoV-2 (PCR) Assessment & Plan Assessment & Plan narrative: 1. Sepsis secondary to either acute cystitis or acute prostatitis, with acute encephalopathy. - continue ceftriaxone for now, follow up urine and blood cultures. Has a history of reported prostatitis though this appears more consistent with acute cystitis. - SOFA score is 3 based on mild confusion with GCS 14 indicating an acute encephalopathy, low platelets, and elevated bilirubin indicating hepatic dysfunction. - trend lactate until <2. - renal ultrasound without obstruction or stones. 2. Chronic atrial fibrillation - continue home diltiazem and warfarin - INR check daily 3. Type 2 diabetes - hold home metformin until more stable. - continue MENDY, check A1c. 4. Hypertension - hold home furosemide in setting of sepsis. 5. Hypothyroidism - continue home levothyroxine. 6. BPH - continue home tamsulosin. Code: Full as discussed with the patient, surrogate decision maker is the patient's spouse. Dispo: Patient is admitted under inpatient status as his stay is expected to exceed 2 midnights DVT: Patient is on warfarin therapy I have utilized all available immediate resources to obtain, update, or review the patient's current medications. COVID-19 COVID-19 status: Negative Time Spent With Patient Critical Care time: I spent a total of [] minutes of critical care time on this patient's care today; this time is exclusive of procedural time. Scores SOFA PaO2/FIO2: >=400 mmHg Platelets: < 150 Bilirubin: 1.2-1.9 mg/dL Hypotension: MAP >= 70 mmHg [place] Coma Scale: 13-14 Renal: < 1.2 mg/dL SOFA Score: 3 Quality MIPS - Admit I confirm the patient?s Advance Care Plan is present, Code status is documented, Surrogate decision maker is in patient?s record [If Yes, STOP here]: Yes
[2021-11-03] MEDS: SODIUM CHLORIDE 0.9% 1,000 ML 100 ML IV (16:23)
[2021-11-03] MEDS: LATANOPROST 0.005% OPHTH 2.5 ML 1 DROPS EYE-BOTH (20:30)
[2021-11-03] MEDS: ACETAMINOPHEN 325 MG TABLET 975 MG PO (22:08)
[2021-11-04] VITALS (14 sets, daily range): BP systolic 104–152; BP diastolic 57–75; PULSE 68–115; RESP 18; TEMP 36.4–37.2; O2SAT 93–98
[2021-11-04] MEDS: SODIUM CHLORIDE 0.9% 1,000 ML 100 ML IV (01:24)
[2021-11-04 04:46] LABS: INR 2.7 (0.9-1.3); Prothrombin Time 30.5 SECONDS (10.1-12.7)
[2021-11-04 04:51] LABS: Add Manual Diff / Slide Review NO; Basophils Absolute Auto 0 /uL (0-100); Basophils Percent Auto 0.2 % (0-2); Eosinophils Absolute Auto 0 /uL (0-450); Eosinophils Percent Auto 0.3 % (2-4); Hematocrit 38.4 % (41-53); Hemoglobin 13.1 g/dL (13.5-17.5); Lymphocytes Absolute Auto 700 /uL (1100-4500); Lymphocytes Percent Auto 5.6 % (25-40); Mean Corpuscular HGB Conc 34.1 % (30-36); Mean Corpuscular Hemoglobin 31.3 PG (26-34); Mean Corpuscular Volume 91.9 fL (80-100); Monocytes Absolute Auto 900 /uL (0-900); Monocytes Percent Auto 7.2 % (3-14); Neutrophils Absolute Auto 10500 /uL (1500-7000); Neutrophils Percent Auto 86.7 % (50-75); Platelet Count 111 X10^3/uL (150-400); Red Blood Cell Count 4.18 X10^6/uL (4.5-5.9); Red Cell Distribution Width 13.9 % (11.6-14.8); White Blood Cell Count 12.1 X10^3/uL (4.5-11.0)
[2021-11-04 05:08] LABS: Lactate (Lactic Acid) 2.2 mmol/L (0.7-2.1)
[2021-11-04 05:09] LABS: Alanine Aminotransferase 18 IU/L (<50); Albumin 3.4 g/dL (3.5-5.0); Alkaline Phosphatase 57 U/L (38-126); Aspartate Aminotransferase 23 IU/L (17-59); BUN Creatinine Ratio 10.5 (6-22); Bilirubin Total 1.9 mg/dL (0.2-1.3); Blood Urea Nitrogen 9 mg/dL (9-20); Calcium 8.5 mg/dL (8.4-10.2); Carbon Dioxide 24 mmol/L (22-32); Chloride 107 mmol/L (98-107); Estimated Glomerular Filt Rate > 60 mL/min (>60); Globulin 3.3 g/dL (1.7-4.1); Glucose 176 mg/dL (80-110); HEMOLYSIS < 15 (0-50); Potassium 3.6 mmol/L (3.4-5.1); Sodium 140 mmol/L (137-145); Total Protein 6.7 g/dL (6.3-8.2)
[2021-11-04 05:57] LABS: Hemoglobin A1C% w Est Avg Glu 8.2 % (4.0-6.0)
[2021-11-04] MEDS: LEVOTHYROXINE 75 MCG TABLET PO (06:04)
[2021-11-04 06:39] LABS: Reflexed Lactate in 2 Hours Y
[2021-11-04] MEDS: dilTIAZem CD 240 MG CAP PO (08:37)
[2021-11-04] MEDS: ACETAMINOPHEN 325 MG TABLET 975 MG PO ×2 (08:37→18:51)
[2021-11-04] MEDS: INSULIN LISPRO 100 UNIT/ML 3ML VIAL SUBCUT ×3 (08:45→17:53)
--- NOTE | 2021-11-04 10:57 | PM.PN.1 ---
Subjective Subjective Date Patient Seen: 11/04/21 Time Patient Seen: 10:57 Interval history: 86 year old male admitted with sepsis due to acute cystitis. He is slightly less lethargic but still feels weak. He has no abdominal pain, fever, chills, nausea, or vomiting today. Exam Vital Signs (past 8 hours): - 11/04/21 03:00 11/04/21 03:46 11/04/21 07:20 Temperature 97.6 F 98.9 F Pulse Rate 103 H 102 H Respiratory Rate 18 18 Blood Pressure 141/75 H 131/74 Pulse Oximetry 96 97 96 11/04/21 09:41 Temperature Pulse Rate Respiratory Rate Blood Pressure Pulse Oximetry 94 Oxygen Delivery Method Room Air Oxygen Flow Rate 0 Narrative Exam Narrative: General:? Patient is well developed and well nourished, in no distress at this time. HEENT:? Normocephalic, atraumatic, extraocular muscles intact, oral pharynx is clear and mucous membranes are moist. Neck: supple and symmetric, trachea is midline, no cervical adenopathy. Negative for JVD Chest:? Normal AP diameter and contour without kyphoscoliosis, no tachypnea, equal chest rise bilaterally. Lungs:? CTA b/l no wheezing rhonchi or rales. Cardio:?RRR no m/r/g. Abdomen: S NT ND. No CVA tenderness. : no rashes or lesions, testicles non-tender. Musculoskeletal:? Muscle strength and tone are equal within normal limits, no deformity. Extremities: No edema or joint effusions. No cyanosis or clubbing. Skin:? Pale,? Warm to touch,dry and intact without rashes, ulcerations or petechiae.? Neuro:? Alert and orientated x3,?seems less confused but apparently not back to baseline still per spouse. sensation to touch intact in all extremities, no gross deficits noted of cranial nerves. Psych:? Patient has a well-kept appearance, appropriate affect, mental status attitude thought context and judgment are appropriate for age. Objective Labs Result Diagrams: 11/04/21 04:30 11/04/21 04:30 Labs: Laboratory Results - last 24 hr 11/03/21 11/03/21 11/03/21 11:20 11:20 11:20 WBC 16.9 H RBC 4.50 Hgb 14.1 Hct 41.4 MCV 92.0 MCH 31.3 MCHC 34.0 RDW 13.9 Plt Count 134 L Neut % (Auto) 86.9 H Lymph % (Auto) 4.3 L [place] % (Auto) 8.5 Eos % (Auto) 0.0 L Baso % (Auto) 0.3 Neut # (Auto) 43057 H Lymph # (Auto) 700 L [place] # (Auto) 1400 H Eos # (Auto) 0 Baso # (Auto) 0 PT INR D-Dimer < 200 Sodium Potassium Chloride Carbon Dioxide BUN Creatinine Estimated GFR BUN/Creatinine Ratio Glucose Hemoglobin A1c Lactate Calcium Total Bilirubin AST ALT Alkaline Phosphatase Total Creatine Kinase CK-MB (CK-2) CK-MB (CK-2) Rel Index Troponin I NT-Pro-B Natriuret Pep 963 H Total Protein Albumin Globulin Albumin/Globulin Ratio Procalcitonin Urine Color Urine Appearance Urine pH Ur Specific [place] Urine Protein Urine Glucose (UA) Urine Ketones Urine Occult Blood Urine Nitrate Urine Bilirubin Ur Bilirubin Confirm Urine Urobilinogen Ur Leukocyte Esterase Urine RBC Urine WBC Amorphous Sediment Urine Bacteria Ur Culture Indicated? SARS-CoV-2 (PCR) 11/03/21 11/03/21 11/03/21 11:20 11:20 11:24 WBC RBC Hgb Hct MCV MCH MCHC RDW Plt Count Neut % (Auto) Lymph % (Auto) [place] % (Auto) Eos % (Auto) Baso % (Auto) Neut # (Auto) Lymph # (Auto) [place] # (Auto) Eos # (Auto) Baso # (Auto) PT INR D-Dimer Sodium 135 L Potassium 4.0 Chloride 104 Carbon Dioxide 18 L BUN 10 Creatinine 0.84 Estimated GFR > 60 BUN/Creatinine Ratio 11.9 Glucose 250 H Hemoglobin A1c Lactate 4.8 H* Calcium 8.9 Total Bilirubin 1.8 H AST 30 ALT 27 Alkaline Phosphatase 57 Total Creatine Kinase 108 CK-MB (CK-2) 0.81 CK-MB (CK-2) Rel Index 0.8 L Troponin I 0.013 NT-Pro-B Natriuret Pep Total Protein 7.5 Albumin 4.1 Globulin 3.4 Albumin/Globulin Ratio 1.2 Procalcitonin 0.24 Urine Color Urine Appearance Urine pH Ur Specific [place] Urine Protein Urine Glucose (UA) Urine Ketones Urine Occult Blood Urine Nitrate Urine Bilirubin Ur Bilirubin Confirm Urine Urobilinogen Ur Leukocyte Esterase Urine RBC Urine WBC Amorphous Sediment Urine Bacteria Ur Culture Indicated? SARS-CoV-2 (PCR) Negative 11/03/21 11/03/21 11/04/21 12:16 13:55 04:30 WBC RBC Hgb Hct MCV MCH MCHC RDW Plt Count Neut % (Auto) Lymph % (Auto) [place] % (Auto) Eos % (Auto) Baso % (Auto) Neut # (Auto) Lymph # (Auto) [place] # (Auto) Eos # (Auto) Baso # (Auto) PT 30.5 H INR 2.7 H D-Dimer Sodium Potassium Chloride Carbon Dioxide BUN Creatinine Estimated GFR BUN/Creatinine Ratio Glucose Hemoglobin A1c Lactate 3.9 H Calcium Total Bilirubin AST ALT Alkaline Phosphatase Total Creatine Kinase CK-MB (CK-2) CK-MB (CK-2) Rel Index Troponin I NT-Pro-B Natriuret Pep Total Protein Albumin Globulin Albumin/Globulin Ratio Procalcitonin Urine Color [place] Urine Appearance Cloudy Urine pH 5.0 Ur Specific [place] >=1.030 H Urine Protein 2+ H Urine Glucose (UA) Trace H Urine Ketones 1+ H Urine Occult Blood 2+ H Urine Nitrate Positive H Urine Bilirubin 1+ H Ur Bilirubin Confirm Positive H Urine Urobilinogen 0.2 Ur Leukocyte Esterase 1+ H Urine RBC 1-5/hpf Urine WBC 5-10/hpf H Amorphous Sediment 1+ Urine Bacteria Occasional (0-1) Ur Culture Indicated? Specimen cultured SARS-CoV-2 (PCR) 11/04/21 11/04/21 11/04/21 04:30 04:30 04:30 WBC 12.1 H RBC 4.18 L Hgb 13.1 L Hct 38.4 L MCV 91.9 MCH 31.3 MCHC 34.1 RDW 13.9 Plt Count 111 L Neut % (Auto) 86.7 H Lymph % (Auto) 5.6 L [place] % (Auto) 7.2 Eos % (Auto) 0.3 L Baso % (Auto) 0.2 Neut # (Auto) 42597 H Lymph # (Auto) 700 L [place] # (Auto) 900 Eos # (Auto) 0 Baso # (Auto) 0 PT INR D-Dimer Sodium 140 Potassium 3.6 Chloride 107 Carbon Dioxide 24 BUN 9 Creatinine 0.86 Estimated GFR > 60 BUN/Creatinine Ratio 10.5 Glucose 176 H Hemoglobin A1c 8.2 H Lactate Calcium 8.5 Total Bilirubin 1.9 H AST 23 ALT 18 Alkaline Phosphatase 57 Total Creatine Kinase CK-MB (CK-2) CK-MB (CK-2) Rel Index Troponin I NT-Pro-B Natriuret Pep Total Protein 6.7 Albumin 3.4 L Globulin 3.3 Albumin/Globulin Ratio 1.0 Procalcitonin Urine Color Urine Appearance Urine pH Ur Specific [place] Urine Protein Urine Glucose (UA) Urine Ketones Urine Occult Blood Urine Nitrate Urine Bilirubin Ur Bilirubin Confirm Urine Urobilinogen Ur Leukocyte Esterase Urine RBC Urine WBC Amorphous Sediment Urine Bacteria Ur Culture Indicated? SARS-CoV-2 (PCR) 11/04/21 11/04/21 04:30 06:45 WBC RBC Hgb Hct MCV MCH MCHC RDW Plt Count Neut % (Auto) Lymph % (Auto) [place] % (Auto) Eos % (Auto) Baso % (Auto) Neut # (Auto) Lymph # (Auto) [place] # (Auto) Eos # (Auto) Baso # (Auto) PT INR D-Dimer Sodium Potassium Chloride Carbon Dioxide BUN Creatinine Estimated GFR BUN/Creatinine Ratio Glucose Hemoglobin A1c Lactate 2.2 H 2.0 Calcium Total Bilirubin AST ALT Alkaline Phosphatase Total Creatine Kinase CK-MB (CK-2) CK-MB (CK-2) Rel Index Troponin I NT-Pro-B Natriuret Pep Total Protein Albumin Globulin Albumin/Globulin Ratio Procalcitonin Urine Color Urine Appearance Urine pH Ur Specific [place] Urine Protein Urine Glucose (UA) Urine Ketones Urine Occult Blood Urine Nitrate Urine Bilirubin Ur Bilirubin Confirm Urine Urobilinogen Ur Leukocyte Esterase Urine RBC Urine WBC Amorphous Sediment Urine Bacteria Ur Culture Indicated? SARS-CoV-2 (PCR) [facility] Medical History Aortic aneurysm Atrial fibrillation with controlled ventricular rate COPD (chronic obstructive pulmonary disease) HTN (hypertension) Surgical History History of appendectomy Family History (Updated 11/03/21 @ 15:42 by Kris Shore DO) Mother Cancer Father Cancer Social History marital status: household members: spouse Smoking Status: Former smoker alcohol intake: never Assessment & Plan Assessment & Plan narrative: 1. Sepsis secondary to either acute cystitis or acute prostatitis, with acute encephalopathy. ?- continue ceftriaxone for now, follow up urine and blood cultures. urine cultures now with GNB. Has a history of reported prostatitis though this appears more consistent with acute cystitis. ?- SOFA score is 3 based on mild confusion with GCS 14 indicating an acute encephalopathy, low platelets, and elevated bilirubin indicating hepatic dysfunction. ?- lactate improved to 2.0 this AM, no need to further trend. ?- renal ultrasound without obstruction or stones. 2. Chronic atrial fibrillation on chronic anticoagulation therapy. ?- continue home diltiazem and warfarin ?- INR check daily, today is 2.7 3. Type 2 diabetes ?- hold home metformin for now, can potentially resume tomorrow with continued improvement. ?- continue MENDY. A1c 8.2% which is suboptimal but tolerable given patient's age and possible hypoglycemia risks. 4. Hypertension ?- hold home furosemide in setting of sepsis. 5. Hypothyroidism ?- continue home levothyroxine. 6. BPH ?- continue home tamsulosin. Code:? Full as discussed with the patient, surrogate decision maker is the patient's spouse. Dispo:? Patient is admitted under inpatient status as his stay is expected to exceed 2 midnights DVT:? Patient is on warfarin therapy I have utilized all available immediate resources to obtain, update, or review the patient's current medications.? Time Spent With Patient Critical Care time: I spent a total of [] minutes of critical care time on this patient's care today; this time is exclusive of procedural time.
[2021-11-04] MEDS: cefTRIAXone 1,000 MG in SODIUM CHLORIDE 0.9% 100 ML 200 ML IV (11:05)
--- NOTE | 2021-11-04 14:20 | PT.IIE ---
Current Diagnoses Sepsis, unspecified organism (11/03/21) Medical History (Last Reviewed 11/03/21 @ 15:42 by Kris Shore DO) Aortic aneurysm Atrial fibrillation with controlled ventricular rate COPD (chronic obstructive pulmonary disease) HTN (hypertension) Physical Therapy Inpatient Evaluation/Re-Eval M1 PT/OT-IP Prior Functional Status Start: 11/04/21 16:27 Freq: NEEDED Status: Active Protocol: Document 11/04/21 16:27 AB (Rec: 11/04/21 16:37 AB [email or web address]) Medical Review Prior Functional Status Medical History Reviewed Yes Communication very [place] [employer] Mobility and Gait pt stated that he is modified independent with all mobilities and ambulation using FWW but can only ambuate short distances inside his home; uses a w/c for long distance outdoor mobility Prior Functional Level (Other details) pt stated that he has chronic L knee pain and is bone on bone that is needing surgery but his forepart laster did not clear him for surgery Social History Household Members spouse Living Arrangements House Number of Floors (Floors) One Floor Number of Stairs To Enter/Railing? 1 step to enter Home Environment High Toilet,Tub/Shower Home Equipment Front Wheel Walker,Manual Wheelchair,Shower Seat without Backrest,Hand Held Shower, Grab Bars In Shower M2 PT-IP Current Condition Start: 11/04/21 16:27 Freq: NEEDED Status: Active Protocol: Document 11/04/21 16:27 AB (Rec: 11/04/21 16:37 AB [email or web address]) Physical Therapy Current Condition Current Condition Evaluation Date 11/04/21 Treatment Diagnosis sepsis; difficulty in walking Onset Date 11/03/21 M3 PT-IP Subjective Start: 11/04/21 16:27 Freq: NEEDED Status: Active Protocol: Document 11/04/21 16:27 AB (Rec: 11/04/21 16:37 AB [id number]) Subjective Physical Therapy Visit Type Type Initial Evaluation Visit Start Time 14:20 Visit Stop Time 14:55 Total Visit Minutes 35 Number of SUPERVISOR WEBBING Visits 0 Physical Therapy Visit Comments Patient Comments stated that PT will not do him any good due to his L knee but pt agreed to get up and move with PT M4 PT-IP Mobility and Gait Start: 11/04/21 16:27 Freq: NEEDED Status: Active Protocol: Document 11/04/21 16:27 AB (Rec: 04/26/22 16:37 [email or web address]) PT-Bed Mobility Assessment Supine to Sit Supine to Sit Maximum Assistance,1 Person Assistance,2 Person Assistance ,Bedrails PT-Transfer Assessment Sit to and From Stand Sit to and from Stand Maximum Assistance,1 Person Assistance,Use of Upper Extremities Equipment Transfer Assistive Device Gait Belt,Front Wheeled Walker Orthotic/Prosthetic Devices or Brace: No Transfers Transfer Destination Chair Transfer Technique Stand Step Pivot Transfer Ability Level of Assist Maximum Assistance,1 Person Assistance,Use of Upper Extremities Comments Mobility Comments pt completed supine to sit max A x 1-2 and max cues with 3 attempts to get up. able to sit on EOB SBA. pt completed sit to stand max A and max cues and step transfer to chair max A using FWW. c/o fatigue after transfers and unable to do further activity. pt agreed to sit up on the chair. positioned on the chair. call light and table placed within reach. PT-Balance Assessment Sitting Balance and Reactions Static Sitting Balance Ability Good Dynamic Sitting Balance Ability Fair Standing Balance and Reactions Static Standing Balance Ability Fair Dynamic Standing Balance Ability Poor Device Used FWW M5 PT-IP Objective Assessments Start: 11/04/21 16:27 Freq: NEEDED Status: Active Protocol: Document 11/04/21 16:27 AB (Rec: 11/04/21 16:37 [email or web address]) Orientation Orientation/Cognition Level of Alertness Alert Orientation Name Language Function Ability Hard of Hearing Safety Awareness Decreased Safety Awareness Strength Lower Extremity Strength Assessment Left Impaired Knee 3+/5 Muscle Tone Muscle Tone WNL Yes M6 PT-IP Treatment Start: 11/04/21 16:27 Freq: NEEDED Status: Active Protocol: Document 11/04/21 16:27 AB (Rec: 11/04/21 16:37 [email or web address]) Physical Therapy Treatment Education Education Provided Safety M7 PT-IP Assessment and Plan Start: 11/04/21 16:27 Freq: NEEDED Status: Active Protocol: Document 11/04/21 16:27 AB (Rec: 11/04/21 16:37 [email or web address]) PT Summary Assessment and Plan Potential Rehabilitation Potential Good Status of Condition at Evaluation Evolving Summary Impairments Pain,ROM,Strength,Balance, Coordination,Sensation,Tone, Cognition,Bed Mobility, Transfers,Gait,Activity Tolerance Assessment Summary pt requiring max A with mobility and unable to ambulate at this time due to decrease activity tolerance and c/o fatigue after transfers. pt lives with his spouse. d/c plan depending on progress but will need to be more independent than current level. at this time, pt will require SNF rehab. Goals Bed Mobility Goal Standby Assistance Transfer Goal Standby Assistance,Front Wheeled Walker Gait Goal Standby Assistance,Front Wheel Walker Gait Distance 100 Other Goals up/down 1 step using FWW SBA Days to Meet Goals 10 Frequency of Treatment Frequency Of Treatment Once a Day Treatment Plan Physical Therapy Treatment Plan Bed Mobility Training,Transfer Training,Gait Training, Therapeutic Exercise,Balance Retraining,Post Op Education, Discharge Planning,Hot or Cold Pack,Neuromuscular Re-ed, Coordination Retraining,Manual Therapy Precautions Other Precautions falls Recommendations To Nursing Amount of Assist Needed 2 Person Assist Discharge Recommendations PT Discharge Recommendations SNF Rehab Transportation Needs at Discharge Wheelchair/Cabulance
--- NOTE | 2021-11-04 15:31 | CM.DANOTE ---
DCP/Assessment: Reviewed chart. Patient is a 86yr old male admitted [facility] with [facility]TI/Sepsis. PCP is Dr. Pack. Primary payor is 1)Medicare 2)[employer] supplement. Met with patient and spouse/Liat at bedside explained CM/SW role. At this time d/c needs unknown. However, spouse reports that patient uses FWW on daily basis at home. In addition, patient has weekly nurse visit from agency hired by his previous employer. Patient retired from [employer] approximately 20yrs ago. 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 Therefore, his previous employer pays spouse caregiver hours and pays for weekly RN. Patient with therapy evaluation pending. Patient and spouse open to home health if recommended but at this time feel like he is managing fine at home with FWW and weekly nursing checks. P: Anticipate home when medically stable. GE Fuentes Discharge Planning/Care Management CM Discharge Assessment Start: 11/04/21 15:27 Freq: Status: Active Protocol: Document 11/04/21 15:27 KJS (Rec: 11/04/21 15:31 KJS [id number]) Discharge Planning Assessment Assigned Cable Weaver GE Fuentes Contact Information Liat Ledbetter (spouse) ph# [phone] Advance Directives? No History Provided By Patient,Significant Other, Medical Record Prior Living Arrangements House Household Members spouse Type of transporation used prior to Relies on Others admit Independent with ADL's Yes: Uses walker at baseline Is patient alert and oriented? Yes Caregiver for Another No DME Already Rented / Owned FWW / Walker Barriers to Discharge No Discharge Plan Home Transportation Arrangement Family to provide transport. Referrals Initiated Other Additional Comment Pending. Whiteboard Updated in Patient Room with Yes name and ext. # of Cable Weaver Review Status In Process Next Review Type Continued Stay Review
[2021-11-04] MEDS: WARFARIN 5 MG TABLET PO (17:54)
[2021-11-04] MEDS: TAMSULOSIN 0.4 MG CAPSULE PO (17:54)
[2021-11-04] MEDS: ALBUTEROL 2.5 MG/3 ML NEB (ADULT) INH (18:29)
--- NOTE | 2021-11-04 18:58 | PC.NURSE ---
Patient has temp of 102.8 temporal. Tylenol po given. Patient has 100cc emesis soon after swallowing tylenol. Patient's at bedside.
[2021-11-04] MEDS: ONDANSETRON 4 MG ODT PO (19:03)
[2021-11-04] MEDS: LATANOPROST 0.005% OPHTH 2.5 ML 1 DROPS EYE-BOTH (21:21)
[2021-11-05] VITALS (13 sets, daily range): BP systolic 114–165; BP diastolic 66–76; PULSE 83–110; RESP 18–20; TEMP 36.6–37.9; O2SAT 91–96
[2021-11-05 05:06] LABS: Add Manual Diff / Slide Review NO; Basophils Absolute Auto 0 /uL (0-100); Basophils Percent Auto 0.2 % (0-2); Eosinophils Absolute Auto 100 /uL (0-450); Eosinophils Percent Auto 0.9 % (2-4); Hematocrit 38.5 % (41-53); Hemoglobin 13.5 g/dL (13.5-17.5); Lymphocytes Absolute Auto 600 /uL (1100-4500); Lymphocytes Percent Auto 6.9 % (25-40); Mean Corpuscular HGB Conc 34.9 % (30-36); Mean Corpuscular Hemoglobin 32.2 PG (26-34); Mean Corpuscular Volume 92.1 fL (80-100); Monocytes Absolute Auto 600 /uL (0-900); Monocytes Percent Auto 7.9 % (3-14); Neutrophils Absolute Auto 7000 /uL (1500-7000); Neutrophils Percent Auto 84.1 % (50-75); Platelet Count 110 X10^3/uL (150-400); Red Blood Cell Count 4.18 X10^6/uL (4.5-5.9); Red Cell Distribution Width 14.3 % (11.6-14.8); White Blood Cell Count 8.3 X10^3/uL (4.5-11.0)
[2021-11-05 05:16] LABS: INR 1.9 (0.9-1.3); Prothrombin Time 21.4 SECONDS (10.1-12.7)
[2021-11-05 05:22] LABS: Alanine Aminotransferase 18 IU/L (<50); Albumin 3.8 g/dL (3.5-5.0); Albumin Globulin Ratio 1.1 (1.0-2.8); Alkaline Phosphatase 68 U/L (38-126); Aspartate Aminotransferase 31 IU/L (17-59); BUN Creatinine Ratio 12.8 (6-22); Bilirubin Total 1.1 mg/dL (0.2-1.3); Blood Urea Nitrogen 11 mg/dL (9-20); Calcium 8.7 mg/dL (8.4-10.2); Carbon Dioxide 23 mmol/L (22-32); Chloride 103 mmol/L (98-107); Estimated Glomerular Filt Rate > 60 mL/min (>60); Globulin 3.5 g/dL (1.7-4.1); Glucose 169 mg/dL (80-110); HEMOLYSIS < 15 (0-50); Potassium 3.4 mmol/L (3.4-5.1); Sodium 136 mmol/L (137-145); Total Protein 7.3 g/dL (6.3-8.2)
[2021-11-05] MEDS: LEVOTHYROXINE 75 MCG TABLET PO (05:24)
[2021-11-05] MEDS: INSULIN LISPRO 100 UNIT/ML 3ML VIAL SUBCUT ×3 (08:53→17:21)
[2021-11-05] MEDS: dilTIAZem CD 240 MG CAP PO (08:53)
[2021-11-05] MEDS: ONDANSETRON 4 MG ODT PO (09:01)
[2021-11-05] MEDS: POTASSIUM CHLORIDE 20 MEQ TAB 40 MEQ PO (10:25)
[2021-11-05] MEDS: cefTRIAXone 1,000 MG in SODIUM CHLORIDE 0.9% 100 ML 200 ML IV (11:31)
--- NOTE | 2021-11-05 11:38 | CM.DPC ---
Addendum entered by GE Combs 11/05/21 14:32: ADD: FARM CONSULTANT was able to get pt agreeable to stand and take a couple steps 1PA while spouse was present bedside but pt needed significant assist to bed right away. SW met bedside with pt and spouse and provided SNF/HH Choice list and discussed the two options. Spouse states she is leaning towards taking pt home at d/c with family assist and inquired if pt needs services after d/c what is the process. SW discussed SNF or HH is slightly harder after d/c but not impossible and pt would have a Medicare qualifying stay for SNF but would go through the SNF and PCP and HH would also be set up through PCP. Spouse reviewed Choice list and if [facility] but declines SW making HH or SNF referral yet as she plans to be bedside in the AM by about 0930 for further PT before making decision if she wants SW to make any referrals or just take pt home at discharge. Plan: SW to follow closely in the AM with spouse bedside after AM PT session towards determining SNF vs HH vs just home with outpt follow up. GE Combs Original Note: DCP Cont: Per MD, pt getting close to being medically stable to d/c with oral meds and per PT pt is a 2PA and recommending SNF and MD met bedside with pt and he strongly declines SNF and states he wants home and will refuse further PT. Spouse not yet bedside and SW called spouse to determine when she would be bedside towards possible CG training to confirm safe plan of home with enough support. SW updated on pt's current assist level and recommendation and spouse states their grandson and WENDI live next door and available for assist as well and they have lots of DME including w/c at home and she is aware pt likely will refuse PT due to his bone on bone in his knee and he can't get Ortho surg at this time due to his heart and his rotator cuff is torn and he has so much pain with PT. SW discussed possible options of SNF vs HH and spouse is agreeable with arriving bedside around lunchtime and to encourage pt to participate in at least transfers and some mobility to confirm family can safely manage him at home. Plan: SW to follow closely for spouse to arrive bedside towards determining SNF vs HH at d/c. GE Combs
--- NOTE | 2021-11-05 12:37 | PT.IPTN ---
Current Diagnoses Sepsis, unspecified organism (11/03/21) Physical Therapy Treatment Note M2 PT-IP Current Condition Start: 11/04/21 16:27 Freq: NEEDED Status: Active Protocol: Document 11/04/21 16:27 AB (Rec: 11/04/21 16:37 AB [id number]) Physical Therapy Current Condition Current Condition Evaluation Date 11/04/21 Treatment Diagnosis sepsis; difficulty in walking Onset Date 11/03/21 M3 PT-IP Subjective Start: 11/04/21 16:27 Freq: NEEDED Status: Active Protocol: Document 11/05/21 12:19 KS (Rec: 11/05/21 13:43 KS [id number]) Subjective Physical Therapy Visit Type Type Treatment Note Visit Start Time 12:19 Visit Stop Time 12:37 Total Visit Minutes 18 Notes Pts present during treatment. Number of DIRECTOR EMERGENCY DEPARTMENT Visits 1 Physical Therapy Visit Comments Patient Comments Pt at first adamantly refusing therapy and stating it will not help his knee. Explained to pt and purpose of assessing functional mobility and pt eventually agreeable to participating w/ wifes encouragement. M4 PT-IP Mobility and Gait Start: 11/04/21 16:27 Freq: NEEDED Status: Active Protocol: Document 11/05/21 12:19 KS (Rec: 11/05/21 13:43 KS [id number]) PT-Bed Mobility Assessment Supine to Sit Supine to Sit Moderate Assistance,1 Person Assistance,Bedrails Sit to Supine Sit to Supine Maximum Assistance,2 Person Assistance Scooting Scooting to Edge of Bed Contact Guard Assistance PT-Transfer Assessment Sit to and From Stand Sit to and from Stand Maximum Assistance,1 Person Assistance,Use of Upper Extremities Equipment Transfer Assistive Device Gait Belt,Front Wheeled Walker Orthotic/Prosthetic Devices or Brace: No Transfers Transfer Destination Bed Transfer Technique Pt ambulated w/ FWW Transfer Ability Level of Assist Maximum Assistance,1 Person Assistance,Use of Upper Extremities Comments Mobility Comments Pt in bed upon arrival and agreeable to try ambulating. Mod A for sup<>sit and CGA for scooting EOB. Pt untable while seated EOB occasionally needing Min A for support. Max A for sit<>stand w/ FWW. Pt w / increased difficulty standing upright and has flexed trunk. Pt ambulated ~10 ft around bed w/ FWW Max A for support and FWW management . Pt pushes FWW far in front of him increasing flexed trunk and fall risk. Pt needed to sit quickly and I had to pivot his hips so he mad it to the edge of the bed to sit. Pt c/o fatigue and increased L knee pain. After seated rest break, pt sit<>stand and took lateral steps towards HOB Max A and max cues. Max A x2 for sit<>sup and pt left in bed w/ all needs in reach. Gait Assessment Gait Gait Assistance Required: Maximum Assistance,1 Person Assist Distance (Feet) 10 Assistive Devices Assistive Device Gait Belt,Front Wheeled Walker Gait Deviations General Gait Pattern Antalgic,Decreased Stride Length,Decreased Feet Clearance,Flexed Trunk,Lateral Trunk Lean Factors Limiting Gait Function Factors Limiting Gait Function Decreased Activity Tolerance, Decreased Strength,Limited Range of Motion,Pain,Poor Balance,Poor Safety Awareness, Respiratory Distress Comments Gait Comments Pt only able to ambulate 10 ft w/ FWW Max A and max cues for upright posture and FWW management. Pt limited by pain , weakness, and low activity tolerance. states pt was ambulating better prior to admission but she feels her family will be able to assist pt ambulating short distances. PT-Balance Assessment Sitting Balance and Reactions Static Sitting Balance Ability Fair Dynamic Sitting Balance Ability Fair Standing Balance and Reactions Static Standing Balance Ability Fair Dynamic Standing Balance Ability Poor Device Used FWW M5 PT-IP Objective Assessments Start: 11/04/21 16:27 Freq: NEEDED Status: Active Protocol: Document 11/04/21 16:27 AB (Rec: 11/04/21 16:37 AB [id number]) Orientation Orientation/Cognition Level of Alertness Alert Orientation Name Language Function Ability Hard of Hearing Safety Awareness Decreased Safety Awareness Strength Lower Extremity Strength Assessment Left Impaired Knee 3+/5 Muscle Tone Muscle Tone WNL Yes M6 PT-IP Treatment Start: 11/04/21 16:27 Freq: NEEDED Status: Active Protocol: Document 11/05/21 12:19 KS (Rec: 11/05/21 13:43 KS [id number]) Physical Therapy Treatment Education Education Provided Safety Other Treatments Other Treatment Performed Discussed at home safety and pts increased need for support at length w/ pts . M7 PT-IP Assessment and Plan Start: 11/04/21 16:27 Freq: NEEDED Status: Active Protocol: Document 11/05/21 12:19 KS (Rec: 11/05/21 13:43 MN [id number]) PT Summary Assessment and Plan Potential Rehabilitation Potential Good Status of Condition at Evaluation Evolving Summary Impairments Pain,ROM,Strength,Balance, Coordination,Sensation,Tone, Cognition,Bed Mobility, Transfers,Gait,Activity Tolerance Assessment Summary Pt continues to require Max A for sit<>stand and ambulation. Only able to ambulate 10 ft ambulation w/ FWW and quickly needed to sit resulting in me having to pivot his hips to bring him to sitting on the edge of bed. Pts aware of pts increased needs for assistance and feels their family will be able to support pt. Pt is not safe to go home and should go to SNF to improve activity tolerance and functional mobility. Goals Bed Mobility Goal Standby Assistance Transfer Goal Standby Assistance,Front Wheeled Walker Gait Goal Standby Assistance,Front Wheel Walker Gait Distance 100 Other Goals up/down 1 step using FWW SBA Days to Meet Goals 10 Frequency of Treatment Frequency Of Treatment Once a Day Treatment Plan Physical Therapy Treatment Plan Bed Mobility Training,Transfer Training,Gait Training, Therapeutic Exercise,Balance Retraining,Post Op Education, Discharge Planning,Hot or Cold Pack,Neuromuscular Re-ed, Coordination Retraining,Manual Therapy Precautions Other Precautions falls Recommendations To Nursing Amount of Assist Needed 2 Person Assist Discharge Recommendations PT Discharge Recommendations SNF Rehab Transportation Needs at Discharge Wheelchair/Cabulance
--- NOTE | 2021-11-05 14:34 | P.PN_ITS ---
Subjective Subjective Interval history: Patient reports feeling overall well this morning. He denies any acute co mplaints. Exam Vital Signs (past 8 hours): - 11/05/21 09:00 11/05/21 13:00 11/05/21 13:30 Temperature 99.2 F 100.2 F H Pulse Rate 85 83 Respiratory Rate 20 18 Blood Pressure 153/72 H 121/69 Pulse Oximetry 95 94 91 11/05/21 13:59 Temperature Pulse Rate Respiratory Rate Blood Pressure Pulse Oximetry 92 Oxygen Delivery Method Room Air Oxygen Flow Rate 0 Const Other: Patient laying in bed comfortably upon my entering the room, in no apparent acute distress Eyes Other: No scleral icterus appreciated Resp Other: Lungs clear to auscultation bilaterally Cardio Other: RRR, S1 and S2 heart sounds normal, no extra heart sounds or murmurs appreciated GI Other: Soft, non-distended, non-tender, bowel sounds present Skin Other: No grossly abnormal skin lesions noted Extrem Other: Palpable dorsalis pedis pulses bilaterally Objective Labs Result Diagrams: 11/05/21 04:20 11/05/21 04:20 Labs: Laboratory Results - last 24 hr 11/05/21 11/05/21 11/05/21 04:20 04:20 04:20 WBC 8.3 RBC 4.18 L Hgb 13.5 Hct 38.5 L MCV 92.1 MCH 32.2 MCHC 34.9 RDW 14.3 Plt Count 110 L Neut % (Auto) 84.1 H Lymph % (Auto) 6.9 L Humphreys % (Auto) 7.9 Eos % (Auto) 0.9 L Baso % (Auto) 0.2 Neut # (Auto) 7000 Lymph # (Auto) 600 L Humphreys # (Auto) 600 Eos # (Auto) 100 Baso # (Auto) 0 PT 21.4 H D INR 1.9 H Sodium 136 L Potassium 3.4 Chloride 103 Carbon Dioxide 23 BUN 11 Creatinine 0.86 Estimated GFR > 60 BUN/Creatinine Ratio 12.8 Glucose 169 H Calcium 8.7 Total Bilirubin 1.1 AST 31 ALT 18 Alkaline Phosphatase 68 Total Protein 7.3 Albumin 3.8 Globulin 3.5 Albumin/Globulin Ratio 1.1 PFSH Medical History Aortic aneurysm Atrial fibrillation with controlled ventricular rate COPD (chronic obstructive pulmonary disease) HTN (hypertension) Surgical History History of appendectomy Family History (Updated 11/03/21 @ 15:42 by Kris Shore DO) Mother Cancer Father Cancer Social History marital status: household members: spouse Smoking Status: Former smoker alcohol intake: never Assessment & Plan Assessment & Plan narrative: 1. Sepsis secondary to acute cystitis, with acute encephalopathy, improving, with urine culture growing Enterobacter aerogenes ?- IV ceftriaxone on-board from November 04, 2021 - Can likely transition to PO ciprofloxacin closer to discharge ?- Renal US without obstruction or stones 2. Chronic atrial fibrillation on chronic anticoagulation therapy ?- Continue home diltiazem and warfarin ?- INR check daily 3. Type 2 diabetes ?- A1c 8.2%, which given patient's advanced age, is relatively OK 4. Hypertension ?- Hold home Lasix for now 5. Hypothyroidism ?- Continue home levothyroxine 6. BPH ?- Continue home tamsulosin. Code Status:?Full code, as discussed with the patient, surrogate decision maker is the patient's spouse. I have utilized all available immediate resources to obtain, update, or review the patient's current medications.? Time Spent With Patient Critical Care time: I spent a total of [] minutes of critical care time on this patient's care today; this time is exclusive of procedural time. Quality MIPS - Admit I confirm the patient?s Advance Care Plan is present, Code status is documented, Surrogate decision maker is in patient?s record [If Yes, STOP here]: Yes
[2021-11-05] MEDS: TAMSULOSIN 0.4 MG CAPSULE PO (17:18)
[2021-11-05] MEDS: WARFARIN 5 MG TABLET PO (17:18)
[2021-11-05] MEDS: ACETAMINOPHEN 325 MG TABLET 975 MG PO (17:32)
[2021-11-05] MEDS: LATANOPROST 0.005% OPHTH 2.5 ML 1 DROPS EYE-BOTH (21:04)
[2021-11-06] VITALS (8 sets, daily range): BP systolic 140–164; BP diastolic 84–90; PULSE 80–90; RESP 16–20; TEMP 36.3–37.2; O2SAT 92–96
[2021-11-06] MEDS: LEVOTHYROXINE 75 MCG TABLET PO (06:34)
[2021-11-06 08:19] LABS: Add Manual Diff / Slide Review NO; Basophils Absolute Auto 0 /uL (0-100); Basophils Percent Auto 0.4 % (0-2); Eosinophils Absolute Auto 100 /uL (0-450); Eosinophils Percent Auto 1.3 % (2-4); Hemoglobin 13.4 g/dL (13.5-17.5); Lymphocytes Absolute Auto 600 /uL (1100-4500); Lymphocytes Percent Auto 10.8 % (25-40); Mean Corpuscular HGB Conc 34.2 % (30-36); Mean Corpuscular Hemoglobin 31.7 PG (26-34); Mean Corpuscular Volume 92.6 fL (80-100); Monocytes Absolute Auto 800 /uL (0-900); Monocytes Percent Auto 14.9 % (3-14); Neutrophils Absolute Auto 4000 /uL (1500-7000); Neutrophils Percent Auto 72.6 % (50-75); Platelet Count 143 X10^3/uL (150-400); Red Blood Cell Count 4.22 X10^6/uL (4.5-5.9); Red Cell Distribution Width 14.2 % (11.6-14.8); White Blood Cell Count 5.5 X10^3/uL (4.5-11.0)
[2021-11-06 08:20] LABS: INR 1.7 (0.9-1.3); Prothrombin Time 19.6 SECONDS (10.1-12.7)
[2021-11-06 08:28] LABS: Alanine Aminotransferase 24 IU/L (<50); Albumin 3.8 g/dL (3.5-5.0); Alkaline Phosphatase 65 U/L (38-126); Aspartate Aminotransferase 39 IU/L (17-59); BUN Creatinine Ratio 14.6 (6-22); Blood Urea Nitrogen 13 mg/dL (9-20); Calcium 8.6 mg/dL (8.4-10.2); Carbon Dioxide 26 mmol/L (22-32); Chloride 102 mmol/L (98-107); Estimated Glomerular Filt Rate > 60 mL/min (>60); Globulin 3.8 g/dL (1.7-4.1); Glucose 173 mg/dL (80-110); HEMOLYSIS < 15 (0-50); Potassium 3.6 mmol/L (3.4-5.1); Sodium 137 mmol/L (137-145); Total Protein 7.6 g/dL (6.3-8.2)
[2021-11-06] MEDS: dilTIAZem CD 240 MG CAP PO (09:32)
[2021-11-06] MEDS: INSULIN LISPRO 100 UNIT/ML 3ML VIAL SUBCUT ×3 (09:32→17:11)
--- NOTE | 2021-11-06 10:41 | PT.IPTN ---
Current Diagnoses Sepsis, unspecified organism (11/03/21) Physical Therapy Treatment Note M2 PT-IP Current Condition Start: 11/04/21 16:27 Freq: NEEDED Status: Active Protocol: Document 11/04/21 16:27 AB (Rec: 11/04/21 16:37 AB [id number]) Physical Therapy Current Condition Current Condition Evaluation Date 11/04/21 Treatment Diagnosis sepsis; difficulty in walking Onset Date 11/03/21 M3 PT-IP Subjective Start: 11/04/21 16:27 Freq: NEEDED Status: Active Protocol: Document 11/06/21 10:30 KS (Rec: 11/06/21 13:17 KS [id number]) Subjective Physical Therapy Visit Type Type Treatment Note Visit Start Time 10:30 Visit Stop Time 10:41 Total Visit Minutes 11 Notes Pts present during treatment. Number of INFRASTRUCTURE SOFTWARE ENGINEER Visits 2 M4 PT-IP Mobility and Gait Start: 11/04/21 16:27 Freq: NEEDED Status: Active Protocol: Document 11/06/21 10:30 KS (Rec: 11/06/21 13:17 KS [id number]) PT-Bed Mobility Assessment Sit to Supine Sit to Supine Maximum Assistance,1 Person Assistance Scooting Scooting to Edge of Bed Contact Guard Assistance PT-Transfer Assessment Sit to and From Stand Sit to and from Stand Minimal Assistance,1 Person Assistance,Use of Upper Extremities Equipment Transfer Assistive Device Gait Belt,Front Wheeled Walker Orthotic/Prosthetic Devices or Brace: No Transfers Transfer Destination Chair Transfer Technique Pt ambulated w/ FWW Transfer Ability Level of Assist Maximum Assistance,1 Person Assistance,Use of Upper Extremities Comments Mobility Comments Pt on toilet upon arrival from therapy w/ in room. Pts already assisted pt w/ pericare. Min A for sit<>stand from toilet, pt using hand rail to assist to stand. He then ambulated ~15 ft w/ FWW from toiket to chair, still requiring Max A and cues for FWW management. Max A for sitting in chair, pt w/ poor eccentric control. Pt refused further treatment. Left in chair w/ in room and all needs in reach. Gait Assessment Gait Gait Assistance Required: Maximum Assistance,1 Person Assist Distance (Feet) 15 Assistive Devices Assistive Device Gait Belt,Front Wheeled Walker Factors Limiting Gait Function Factors Limiting Gait Function Decreased Activity Tolerance, Decreased Strength,Limited Range of Motion,Pain,Poor Balance,Poor Safety Awareness, Respiratory Distress Comments Gait Comments Please refer to mobility section for details. PT-Balance Assessment Sitting Balance and Reactions Static Sitting Balance Ability Fair Dynamic Sitting Balance Ability Fair Standing Balance and Reactions Static Standing Balance Ability Fair Dynamic Standing Balance Ability Poor Device Used FWW M5 PT-IP Objective Assessments Start: 11/04/21 16:27 Freq: NEEDED Status: Active Protocol: Document 11/04/21 16:27 AB (Rec: 11/04/21 16:37 AB [id number]) Orientation Orientation/Cognition Level of Alertness Alert Orientation Name Language Function Ability Hard of Hearing Safety Awareness Decreased Safety Awareness Strength Lower Extremity Strength Assessment Left Impaired Knee 3+/5 Muscle Tone Muscle Tone WNL Yes M6 PT-IP Treatment Start: 11/04/21 16:27 Freq: NEEDED Status: Active Protocol: Document 11/06/21 10:30 KS (Rec: 11/06/21 13:17 KS [id number]) Physical Therapy Treatment Education Education Provided Safety Other Treatments Other Treatment Performed Discussed SNF w/ pts . M7 PT-IP Assessment and Plan Start: 11/04/21 16:27 Freq: NEEDED Status: Active Protocol: Document 11/06/21 10:30 KS (Rec: 11/06/21 13:17 KS [id number]) PT Summary Assessment and Plan Potential Rehabilitation Potential Good Status of Condition at Evaluation Evolving Summary Impairments Pain,ROM,Strength,Balance, Coordination,Sensation,Tone, Cognition,Bed Mobility, Transfers,Gait,Activity Tolerance Assessment Summary Pt w/ slight improvement today , but overall still mostly requiring Max A for transfers and ambulation. Only able to tolerate short distances due to knee pain and weakness. Requires max cues for FWW use. Pt does not have assistance required at home and will need SNF to improve strength and functional mobility independence as well as activity tolerance. Goals Bed Mobility Goal Standby Assistance Transfer Goal Standby Assistance,Front Wheeled Walker Gait Goal Standby Assistance,Front Wheel Walker Gait Distance 100 Other Goals up/down 1 step using FWW SBA Days to Meet Goals 10 Frequency of Treatment Frequency Of Treatment Once a Day Treatment Plan Physical Therapy Treatment Plan Bed Mobility Training,Transfer Training,Gait Training, Therapeutic Exercise,Balance Retraining,Post Op Education, Discharge Planning,Hot or Cold Pack,Neuromuscular Re-ed, Coordination Retraining,Manual Therapy Precautions Other Precautions falls Recommendations To Nursing Amount of Assist Needed 2 Person Assist Discharge Recommendations PT Discharge Recommendations SNF Rehab Transportation Needs at Discharge Wheelchair/Cabulance
--- NOTE | 2021-11-06 11:10 | CM.DPNOTE ---
Addendum entered by GE Plascencia 11/06/21 14:28: ADD: [facility] accepts for admission tomorrow 11.07.21. Patient is unvaccinated against C19, December and has arranged a private quarantine room for patient. Updated spouse Liat and she is agreeable, appreciative. Spouse can visit patient at [facility], needs to gown up d/t COVID precautions, spouse states understanding. JW Original Note: DCP Note Spouse requesting referrals to 1. [facility] 2. [facility] Both completed, will await feedback. [facility] completed in anticipation of SNF JW
[2021-11-06] MEDS: cefTRIAXone 1,000 MG in SODIUM CHLORIDE 0.9% 100 ML 200 ML IV (11:16)
--- NOTE | 2021-11-06 11:57 | PM.PN.1 ---
Subjective Subjective Interval history: Patient reports feeling well this morning. He denies any issues with urination or PO intake. He understands that he will need a few more days of PO abx on discharge. is at bedside and understands the diagnosis and treatment plan, too. PT/OT recommends SNF, which both pt and his are OK with, and he's pending placement. Exam Vital Signs (past 8 hours): - 11/06/21 05:00 11/06/21 08:36 11/06/21 09:00 Temperature 98.9 F 97.6 F Pulse Rate 80 85 90 Respiratory Rate 16 20 18 Blood Pressure 143/90 H 157/88 H Pulse Oximetry 94 96 95 Oxygen Delivery Method Room Air Oxygen Flow Rate 0 Narrative Exam Narrative: Const Other: Patient sitting up in chair comfortably upon my entering the room, with at bedside, in no apparent acute distress Eyes Other: No scleral icterus appreciated Resp Other: Lungs clear to auscultation bilaterally Cardio Other: RRR, S1 and S2 heart sounds normal, no extra heart sounds or murmurs appreciated GI Other: Soft, non-distended, non-tender, bowel sounds present Skin Other: No grossly abnormal skin lesions noted Extrem Other: Palpable dorsalis pedis pulses bilaterally Objective Labs Result Diagrams: 11/06/21 07:53 11/06/21 07:53 Labs: Laboratory Results - last 24 hr 11/06/21 11/06/21 11/06/21 07:53 07:53 07:53 WBC 5.5 RBC 4.22 L Hgb 13.4 L Hct 39.0 L MCV 92.6 MCH 31.7 MCHC 34.2 RDW 14.2 Plt Count 143 L Neut % (Auto) 72.6 Lymph % (Auto) 10.8 L [place] % (Auto) 14.9 H Eos % (Auto) 1.3 L Baso % (Auto) 0.4 Neut # (Auto) 4000 Lymph # (Auto) 600 L [place] # (Auto) 800 Eos # (Auto) 100 Baso # (Auto) 0 PT 19.6 H INR 1.7 H Sodium 137 Potassium 3.6 Chloride 102 Carbon Dioxide 26 BUN 13 Creatinine 0.89 Estimated GFR > 60 BUN/Creatinine Ratio 14.6 Glucose 173 H Calcium 8.6 Total Bilirubin 1.0 AST 39 ALT 24 Alkaline Phosphatase 65 Total Protein 7.6 Albumin 3.8 Globulin 3.8 Albumin/Globulin Ratio 1.0 PFSH Medical History Aortic aneurysm Atrial fibrillation with controlled ventricular rate COPD (chronic obstructive pulmonary disease) HTN (hypertension) Surgical History History of appendectomy Family History (Updated 11/03/21 @ 15:42 by Kris Shore DO) Mother Cancer Father Cancer Social History marital status: household members: spouse Smoking Status: Former smoker alcohol intake: never Assessment & Plan Assessment & Plan narrative: 1. Sepsis secondary to acute cystitis, with acute encephalopathy, improving, with urine culture growing Enterobacter aerogenes ?- IV ceftriaxone on-board from November 04, 2021 ?- Can likely transition to PO ciprofloxacin closer to discharge ?- Renal US without obstruction or stones 2. Chronic atrial fibrillation on chronic anticoagulation therapy ?- Continue home diltiazem and warfarin ?- INR check daily 3. Type 2 diabetes ?- A1c 8.2%, which given patient's advanced age, is relatively OK - However, it is likely contributing to his ongoing UTI 4. Hypertension ?- Hold home Lasix for now 5. Hypothyroidism ?- Continue home levothyroxine 6. BPH ?- Continue home tamsulosin. Time Spent With Patient Critical Care time: I spent a total of [] minutes of critical care time on this patient's care today; this time is exclusive of procedural time.
[2021-11-06] MEDS: TAMSULOSIN 0.4 MG CAPSULE PO (16:43)
[2021-11-06] MEDS: WARFARIN 5 MG TABLET PO (16:46)
[2021-11-06] MEDS: LATANOPROST 0.005% OPHTH 2.5 ML 1 DROPS EYE-BOTH (21:52)
[2021-11-07] VITALS (8 sets, daily range): BP systolic 137–141; BP diastolic 76–92; PULSE 79–90; RESP 16–18; TEMP 36.2–36.8; O2SAT 94–97
[2021-11-07] MEDS: ACETAMINOPHEN 325 MG TABLET 975 MG PO (01:50)
[2021-11-07] MEDS: LEVOTHYROXINE 75 MCG TABLET PO (06:30)
[2021-11-07] MEDS: dilTIAZem CD 240 MG CAP PO (09:20)
[2021-11-07] MEDS: INSULIN LISPRO 100 UNIT/ML 3ML VIAL SUBCUT ×2 (09:21→12:27)
--- NOTE | 2021-11-07 12:11 | PM.PN.1 ---
Subjective Subjective Interval history: The patient reports feeling back to his baseline health this morning. is at bedside and both she and the patient endorse wanting to be discharged home instead of SNF. at bedside states that they'll have help from family members at home, and they're OK with home health, too. Exam Vital Signs (past 8 hours): - 11/07/21 05:00 11/07/21 05:30 11/07/21 09:00 Temperature 97.1 F L 97.5 F L Pulse Rate 79 90 Respiratory Rate 16 16 Blood Pressure 140/92 H 141/82 H Pulse Oximetry 95 96 97 11/07/21 10:19 11/07/21 11:53 Temperature Pulse Rate Respiratory Rate Blood Pressure Pulse Oximetry 94 97 Oxygen Delivery Method Room Air Oxygen Flow Rate 0 Narrative Exam Narrative: Const Other: Patient sitting up in bed comfortably upon my entering the room, with at bedside, in no apparent acute distress Eyes Other: No scleral icterus appreciated Resp Other: Lungs clear to auscultation bilaterally Cardio Other: RRR, S1 and S2 heart sounds normal, no extra heart sounds or murmurs appreciated GI Other: Soft, non-distended, non-tender, bowel sounds present Skin Other: No grossly abnormal skin lesions noted Extrem Other: Palpable dorsalis pedis pulses bilaterally Objective Labs Result Diagrams: 11/06/21 07:53 11/06/21 07:53 [facility] Medical History Aortic aneurysm Atrial fibrillation with controlled ventricular rate COPD (chronic obstructive pulmonary disease) HTN (hypertension) Surgical History History of appendectomy Family History (Updated 11/03/21 @ 15:42 by Kris Shore DO) Mother Cancer Father Cancer Social History marital status: household members: spouse Smoking Status: Former smoker alcohol intake: never Assessment & Plan Assessment & Plan narrative: 1. Sepsis secondary to acute cystitis, with acute encephalopathy, resolved, with urine culture growing Enterobacter aerogenes ?- IV ceftriaxone on-board from November 04, 2021 ?- Renal US without obstruction or stones - Will discharge on PO ciprofloxacin 500 mg bid for 5 more days of abx therapy 2. Chronic atrial fibrillation on chronic anticoagulation therapy ?- Continue home diltiazem and warfarin ?- Outpatient INR checks 3. Type 2 diabetes ?- A1c 8.2%, which given patient's advanced age, is relatively OK ?- However, it is likely contributing to his ongoing UTI 4. Hypertension ?- Continue home Lasix 5. Hypothyroidism ?- Continue home levothyroxine 6. BPH ?- Continue home tamsulosin Time Spent With Patient Critical Care time: I spent a total of [] minutes of critical care time on this patient's care today; this time is exclusive of procedural time.
--- NOTE | 2021-11-07 12:17 | PM.DS.1 ---
History of Present Illness History of Present Illness Chief complaint: Thinks UTI or poss Sepsis- sent by Dr. Kaur Narrative: This is an 86-year-old male with a past medical history of hypothyroidism, type 2 diabetes, chronic atrial fibrillation, hypertension, and COPD who presented with fever to 101 at home, along with dysuria and urinary frequency.? He endorses intermittent nausea but no vomiting.? He denies any chest pain, cough, shortness of breath, recent sick contacts.? He denies any diarrhea, or abdominal pain.? He has had no rashes. He has a prior history of a prostatitis infection about 5 years ago, though this was only determined by an elevated PSA per chart review. In the emergency room, the patient had a borderline fever with a temperature of 100.3?, he was also mildly tachycardic and tachypneic with normal oxygen saturations.? White blood cell count was elevated at 17, platelet count was diminished at 134, though he has chronic thrombocytopenia.? Lactic acid was elevated at 3.9, and carbon dioxide level on chemistries was 18.? His glucose was noted to be 250.? Anion gap was 13.? Total bilirubin was also mildly elevated at 1.8, with no significant transaminase elevations.? Troponin was within normal limits at 0.013.? ProBNP was mildly elevated at 963.? Urinalysis shows 2+ occult blood, positive nitrate, and leuk esterase, with 5-10 wbc's per high-power field.? Specimen was sent for culture.? Blood cultures were drawn.? COVID-19 testing was negative.? Renal ultrasound was unremarkable. Written by admitting provider. Discharge Providers Provider Date of admission: 11/03/21 12:47 Discharge Date: 11/07/21 Primary care physician: Alexa Humphrey PA-C Consults: 11/04/21 10:58 Consult to Physical Therapy Evaluate & Treat Comment: Physician Instructions: Evaluate and Treat Discharge provider: Em Abraham MD Summary Hospital Course Discharge Diagnosis: 1. Sepsis secondary to acute cystitis, with acute encephalopathy, resolved, with urine culture growing Enterobacter aerogenes ?- IV ceftriaxone on-board from November 04, 2021 ?- Renal US without obstruction or stones ?- Will discharge on PO ciprofloxacin 500 mg bid for 5 more days of abx therapy 2. Chronic atrial fibrillation on chronic anticoagulation therapy ?- Continue home diltiazem and warfarin ?- Outpatient INR checks 3. Type 2 diabetes ?- A1c 8.2%, which given patient's advanced age, is relatively OK ?- However, it is likely contributing to his ongoing UTI 4. Hypertension ?- Continue home Lasix 5. Hypothyroidism ?- Continue home levothyroxine 6. BPH ?- Continue home tamsulosin Exam Vital Signs (past 8 hours): - 11/07/21 05:00 11/07/21 05:30 11/07/21 09:00 Temperature 97.1 F L 97.5 F L Pulse Rate 79 90 Respiratory Rate 16 16 Blood Pressure 140/92 H 141/82 H Pulse Oximetry 95 96 97 11/07/21 10:19 11/07/21 11:53 Temperature Pulse Rate Respiratory Rate Blood Pressure Pulse Oximetry 94 97 Oxygen Delivery Method Room Air Oxygen Flow Rate 0 Objective Labs Result Diagrams: 11/06/21 07:53 11/06/21 07:53 [facility] Medical History Aortic aneurysm Atrial fibrillation with controlled ventricular rate COPD (chronic obstructive pulmonary disease) HTN (hypertension) Surgical History History of appendectomy Family History (Updated 11/03/21 @ 15:42 by Kris Shore DO) Mother Cancer Father Cancer Social History marital status: household members: spouse Smoking Status: Former smoker alcohol intake: never Discharge Assessment & Plan Assessment and Plan Assessment: 1. Sepsis secondary to acute cystitis, with acute encephalopathy, resolved, with urine culture growing Enterobacter aerogenes ?- IV ceftriaxone on-board from November 04, 2021 ?- Renal US without obstruction or stones ?- Will discharge on PO ciprofloxacin 500 mg bid for 5 more days of abx therapy 2. Chronic atrial fibrillation on chronic anticoagulation therapy ?- Continue home diltiazem and warfarin ?- Outpatient INR checks 3. Type 2 diabetes ?- A1c 8.2%, which given patient's advanced age, is relatively OK ?- However, it is likely contributing to his ongoing UTI 4. Hypertension ?- Continue home Lasix 5. Hypothyroidism ?- Continue home levothyroxine 6. BPH ?- Continue home tamsulosin Discharge Plan Discharge Plan Patient Disposition: Home Discharge orders & Medications Prescriptions: New ciprofloxacin HCl 500 mg tablet 500 mg PO BID 5 Days Qty: 10 0RF Continued tamsulosin [Flomax] 0.4 MG capsule,extended release 24hr 1 cap PO QPM Qty: 0 0RF atorvastatin [Lipitor] 10 MG tablet 10 mg PO BEDTIME Qty: 0 0RF levothyroxine [Synthroid] 75 MCG tablet 0.075 mg PO DAILY Qty: 0 0RF latanoprost 0.005 % drops 1 drp OPHTH BEDTIME Qty: 0 0RF metformin [Glucophage] 500 MG tablet 500 mg PO BIDCC Qty: 0 0RF albuterol sulfate [Ventolin HFA] 90 MCG/PUFF HFA aerosol inhaler 2 puff INH Q4HP PRN (Reason: Bronchospasm) Qty: 0 0RF warfarin [Coumadin] 5 MG tablet 5 mg PO DAILY Qty: 0 0RF diltiazem HCl 240 mg capsule,extended release 24hr 240 mg PO DAILY 0RF furosemide 20 mg tablet 20 mg PO DAILY 0RF Label Comments: TAKE 1 TABLET BY MOUTH TWICE DAILY Discontinued albuterol 90 mcg/actuation Aerosol 1 mcg inhalation BID 0RF Rx Instructions: neb treatment 0.083% Follow up/Referrals: Alexa Humphrey PA-C [Primary Care Provider] - Discharge Data Primary Care Provider: Alexa Humphrey
--- NOTE | 2021-11-07 12:29 | CM.DPNOTE ---
DCP Note Met w/patient and spouse Liat this morning; spouse has decided to take patient home w/assist from a friend that is a Physical Therapist, and has offered to work with patient in his home feather duster winder. Discussed HH services. 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 Liat denies need for HH referral at this time Patient has been given numerous medical equipment items from their visiting nurse, that helps spouse monitor patient's lungs, heart and oxygenation at home Plan: DC home w/spouse and family/friends to assist JW
--- NOTE | 2021-11-07 13:27 | PC.NURSE ---
Day shift: Paperwork signed and all questions answered. Encouraged to manage his DM as best as he can and to drink plenty of water. MD scripts sent to Pt's pharmacy electronic. Pt's spouse in room for d/c teachings. Pt has all personal belongings. Taken to car via WC by RA at approx 1330.
== END 2021-11-07 13:30 | disposition home or self-care (01) | DRG 871 ==
LOC: ED 11:10 → AC 13:04
PROVIDERS: Admitting Provider Internal Medicine; Emergency Provider Emergency Medicine; Family Provider Physician Assistant Medical; PCP Physician Assistant Medical; Referring Provider Family Medicine; Visit Provider Internal Medicine
DX: A41.9 Sepsis, unspecified organism (principal); G93.41 Metabolic encephalopathy; N30.00 Acute cystitis without hematuria; I48.20 Chronic atrial fibrillation, unspecified; R65.20 Severe sepsis without septic shock; E80.6 Other disorders of bilirubin metabolism; D69.59 Other secondary thrombocytopenia; E03.9 Hypothyroidism, unspecified; B96.89 Other specified bacterial agents as the cause of diseases classified elsewhere; I10 Essential (primary) hypertension; J44.9 Chronic obstructive pulmonary disease, unspecified; N40.1 Benign prostatic hyperplasia with lower urinary tract symptoms; E11.9 Type 2 diabetes mellitus without complications; Z79.84 Long term (current) use of oral hypoglycemic drugs; Z79.01 Long term (current) use of anticoagulants; Z20.822 Contact with and (suspected) exposure to COVID-19; Z87.891 Personal history of nicotine dependence
CPT/HCPCS: 36415; 71045; 76770; 80053; 81001; 82550; 82553; 82962; 83036; 83605; 83880; 84145; 84484; 85025; 85379; 85610; 87040; 87077; 87086; 87186; 87635; 93005; 94640; 94760; 96365; 97162; 97530; 99284; 99285; C9803; J0696; J1815; J7613

== ENCOUNTER → 2021-11-27 10:49 | Outpatient (CLI) | payer OTHER, SELFPAY ==
[2021-11-03 14:11] VITALS: BMI 31.6
[2021-11-27 12:13] LABS: COVID19 -Nasal RAPID Negative (Negative)
--- NOTE | 2021-12-14 13:30 | PM.PFT.1 ---
Pulmonary Function Test Referral & Results Date Patient Seen: 11/27/21 Requesting provider: Kris Kaur Results: The spirometry demonstrates an FVC of 3.05 L which is 63% of predicted. The FEV1 was measured at 2.71 L which is 78% of predicted. The FEV1/FVC ratio was 89 which is 127% of predicted. Following the administration of bronchodilator there was no notable change Lung volumes show an SVC of 3.56 L which is 68% of predicted. The diffusing capacity was measured at 21.90 which is 54% of predicted. No hemoglobin value was provided, so no correction for potential anemia could be made, if appropriate. The maximum voluntary ventilation was reduced Interpretation: This study demonstrates possibly very mild obstructive lung disease based on reduction FEV1 alone, FEV1/FVC ratio was preserved and shape a flow volume loop does not support presence of obstructive lung disease. There is minimal if any benefit following bronchodilator. There is mild restrictive lung disease present based on reduction in lung volumes which probably explains the abnormality of the FEV1 above There is a more notable reduction diffusing capacity suggesting disease at the capillary alveolar level as well Compared to PFTs performed in November 2019, current study is unchanged
== END ==
PROVIDERS: Family Provider Physician Assistant Medical; PCP Physician Assistant Medical; Referring Provider Family Medicine; Visit Provider Family Medicine
DX: J44.9 Chronic obstructive pulmonary disease, unspecified (principal); Z87.891 Personal history of nicotine dependence; G62.9 Polyneuropathy, unspecified; E11.9 Type 2 diabetes mellitus without complications; E03.9 Hypothyroidism, unspecified; I48.91 Unspecified atrial fibrillation; I10 Essential (primary) hypertension; Z20.822 Contact with and (suspected) exposure to COVID-19
CPT/HCPCS: 87635; 94060; 94726; 94729; C9803

== ENCOUNTER → 2022-04-15 09:36 | Outpatient (CLI) | payer OTHER, SELFPAY ==
[2021-11-03 14:11] VITALS: BMI 31.6
[2022-04-15 10:24] LABS: COVID19 -Nasal RAPID Negative (Negative)
== END ==
PROVIDERS: Family Provider Physician Assistant Medical; PCP Family Medicine; Referring Provider Internal Medicine; Visit Provider Internal Medicine
DX: Z20.822 Contact with and (suspected) exposure to COVID-19 (principal)
CPT/HCPCS: 87635; C9803

== ENCOUNTER → 2022-04-16 11:59 | Outpatient (CLI) | payer OTHER, SELFPAY ==
[2021-11-03 14:11] VITALS: BMI 31.6
--- NOTE | 2022-04-20 07:47 | PM.PFT.1 ---
Pulmonary Function Test Referral & Results Date Patient Seen: 04/16/22 Requesting provider: Adrian Kumar Results: The spirometry demonstrates an FVC of 3.19 L which is 71% of predicted. The FEV1 was measured at 2.65 L which is 84% of predicted. The FEV1/FVC ratio was 83 which is 118% of predicted. Following the administration of bronchodilator there was no appreciable change. Lung volumes show an SVC of 3.49 L which is 71% of predicted. The diffusing capacity was measured at 18.31 which is 48% of predicted. No hemoglobin value was provided, so no correction for potential anemia could be made, if appropriate. The maximum voluntary ventilation was normal Interpretation: This study demonstrated probably normal forced spirometry but minimal reduction in lung volumes suggesting the presence of minimal restrictive lung disease There is a more significant reduction diffusing capacity was suggest [id number] disease at the capillary alveolar level Compared to PFTs performed in November of 2021, current study is essentially unchanged
== END ==
PROVIDERS: Family Provider Physician Assistant Medical; PCP Family Medicine; Referring Provider Internal Medicine; Visit Provider Internal Medicine
DX: J43.9 Emphysema, unspecified (principal); Z87.891 Personal history of nicotine dependence
CPT/HCPCS: 94060; 94618; 94726; 94729

== ENCOUNTER 2022-08-10 21:36 | Emergency (ER) | payer OTHER, SELFPAY ==
[2021-11-03 14:11] VITALS: BMI 31.6
[2022-08-10 21:45] VITALS: BP 185/105; PULSE 83; RESP 24; TEMP 36.6; O2SAT 99; BMI 30.9
[2022-08-10 22:06] VITALS: PULSE 82; RESP 29; O2SAT 98
[2022-08-10 22:22] LABS: Add Manual Diff / Slide Review NO; Basophils Absolute Auto 0 /uL (0-100); Basophils Percent Auto 0.3 % (0-2); Eosinophils Absolute Auto 0 /uL (0-450); Eosinophils Percent Auto 0.4 % (2-4); Hematocrit 42.3 % (41-53); Hemoglobin 14.5 g/dL (13.5-17.5); Lymphocytes Absolute Auto 900 /uL (1100-4500); Mean Corpuscular HGB Conc 34.3 % (30-36); Mean Corpuscular Hemoglobin 31.6 PG (26-34); Monocytes Absolute Auto 700 /uL (0-900); Monocytes Percent Auto 7.2 % (3-14); Neutrophils Absolute Auto 8000 /uL (1500-7000); Neutrophils Percent Auto 83.1 % (50-75); Platelet Count 153 X10^3/uL (150-400); Red Cell Distribution Width 13.6 % (11.6-14.8); White Blood Cell Count 9.7 X10^3/uL (4.5-11.0)
[2022-08-10 22:30] VITALS: PULSE 80; RESP 18; O2SAT 98
[2022-08-10 22:37] LABS: Alanine Aminotransferase 35 IU/L (<50); Albumin 4.1 g/dL (3.5-5.0); Albumin Globulin Ratio 1.2 (1.0-2.8); Alkaline Phosphatase 78 U/L (38-126); Aspartate Aminotransferase 36 IU/L (17-59); BUN Creatinine Ratio 14.6 (6-22); Bilirubin Total 0.6 mg/dL (0.2-1.3); Blood Urea Nitrogen 13 mg/dL (9-20); Calcium 8.9 mg/dL (8.4-10.2); Carbon Dioxide 23 mmol/L (22-32); Chloride 103 mmol/L (98-107); Estimated Glomerular Filt Rate > 60 mL/min (>60); Globulin 3.3 g/dL (1.7-4.1); Glucose 282 mg/dL (80-110); HEMOLYSIS < 15 (0-50); Lipase 68 U/L (23-300); Potassium 4.7 mmol/L (3.4-5.1); Sodium 140 mmol/L (137-145); Total Protein 7.4 g/dL (6.3-8.2)
--- NOTE | 2022-08-10 22:42 | DI.CT.S_ITS ---
PROCEDURE: CT KIDNEY URETER BLADDER (KUB) INDICATIONS: R flank pain / groin TECHNIQUE: Axial sections were acquired from the lung bases to the pubic symphysis. Coronal and sagittal reformats were performed. For radiation dose reduction, the following was used: automated exposure control, adjustment of mA and/or kV according to patient size. COMPARISON: [facility], CT, KIDNEY/ URETER/BLADDER, 03/29/2014, 5:27. FINDINGS: Image quality: Excellent. Lung bases: There is atelectasis and scarring in the lung bases. Moderate centrilobular emphysematous changes also noted. Heart: Heart is normal in size. There is a small hiatal hernia. URINARY: Right Kidney and Ureter: No stones or hydronephrosis. There is minimal nonspecific perinephric stranding. No hydroureter. Left Kidney and Ureter: No stones or hydronephrosis. There is minimal nonspecific perinephric stranding. No hydroureter. Bladder: The urinary bladder is partially distended. There is mild bladder wall thickening. No stones. ABDOMEN: Liver: Noncontrast evaluation of the liver demonstrates no discrete mass. Gallbladder: There are dependent calcified gallstones in the gallbladder. No wall thickening or pericholecystic fluid. Biliary ducts: No biliary ductal dilatation. Pancreas: Unremarkable. Spleen: Normal in size. Multiple punctate calcifications are demonstrated in the spleen consistent with sequelae of old granulomas disease. Adrenal Glands: No adrenal nodules. Stomach and Bowel: Stomach, small bowel loops, and colon are normal in caliber and wall thickness. No pericecal inflammatory changes to suggest appendicitis. There is colonic diverticulosis throughout the colon without acute diverticulitis. Peritoneum: No abnormal intraperitoneal fluid. No free air. Ventral Wall: There is a small fat-containing umbilical hernia. Abdominal Nodes: No retroperitoneal or mesenteric adenopathy by size criteria. Vessels: Aorta and inferior vena cava are normal in size. PELVIS: Pelvic Organs: There is mild enlargement of the prostate. Pelvic Nodes: No enlarged lymph nodes. Miscellaneous: No inguinal hernias identified. Bones: Visualized osseous structures demonstrate no suspicious focal lesions. IMPRESSION: 1. No nephrolithiasis or obstructive uropathy. 2. Colonic diverticulosis without acute diverticulitis. 3. No pericecal inflammatory changes to suggest appendicitis. 4. Cholelithiasis without CT evidence of acute cholecystitis. 5. Small hiatal hernia. Dictated by: Errol Ayoub M.D. on 08/10/2022 at 23:46 Approved by: Errol Ayoub M.D. on 08/10/2022 at 23:55
--- NOTE | 2022-08-10 22:56 | ED_ITS ---
HPI - Abdominal Pain General Chief Complaint: Abdominal Pain Stated Complaint: Lower R ABD pain Time Seen by Provider: 08/10/22 21:46 Source: patient Mode of arrival: Ambulatory History of Present Illness HPI narrative: 87-year-old male, former smoker with history of type 2 diabetes, chronic AFib on Coumadin, hypertension, COPD who presents with his in the chief complaint of what sounds like a relatively sudden onset right flank pain that started in his right side and has been working its way around to his groin over the course of the day. He has severe pain that at times worsens without obvious provocation or palliation and at other times seems to worsen motion. He denies any fever, chills nor nausea or vomiting. He has no runny nose, sore throat or cough. Denies chest pain or shortness of breath. He is had no trauma or injury. He does report perhaps a history of kidney stones but is unclear. He denies any urinary complaints such as dysuria, frequency or urgency and denies any constipation or diarrhea. Related Data Home Medications Medication Instructions Recorded Confirmed tamsulosin 0.4 mg capsule (Flomax) 1 cap PO QPM ##0 06/29/11 11/03/21 atorvastatin 10 mg tablet (Lipitor) 10 mg PO BEDTIME ##0 09/20/12 11/03/21 albuterol sulfate 90 mcg/actuation 2 puff INH Q4HP PRN Bronchospasm 03/18/17 11/03/21 aerosol inhaler (Ventolin HFA) ##0 latanoprost 0.005 % eye drops 1 drp OPHTH BEDTIME ##0 03/18/17 11/03/21 levothyroxine 75 mcg tablet 0.075 mg PO DAILY ##0 03/18/17 11/03/21 (Synthroid) metformin 500 mg tablet 500 mg PO BIDCC ##0 03/18/17 11/03/21 (Glucophage) warfarin 5 mg tablet (Coumadin) 5 mg PO DAILY ##0 03/19/17 11/03/21 diltiazem HCl 240 mg 240 mg PO DAILY 09/27/18 11/03/21 capsule,extended release 24 hr furosemide 20 mg tablet 20 mg PO DAILY 11/03/21 11/03/21 Previous Rx's Medication Instructions Recorded hydrocodone 5 mg-acetaminophen 325 1 tab PO Q4-6H PRN pain #10 tabs 08/11/22 mg tablet lidocaine 5 % topical patch 1 patch topical DAILY #15 ea 08/11/22 (Lidoderm) ondansetron 4 mg disintegrating 4 mg PO TID-QID PRN nausea and 08/11/22 tablet vomiting #10 tabs Allergies Allergy/AdvReac Type Severity Reaction Status Date / Time No Known Drug Allergies Allergy Unverified 01/26/18 09:42 Review of Systems Review of Systems Narrative: GENERAL: Denies chills, fatigue, malaise, fever, sweats. HEENT: Denies sinus pain, ear pain, sore throat, difficulty swallowing, dizziness. RESPIRATORY: Denies dyspnea, cough, wheezing, hemoptysis, sputum. CARDIOVASCULAR: Denies chest pain, palpitations, orthopnea, edema, GASTROINTESTINAL: See HPI : See HPI MUSCULOSKELETAL: denies weakness, joint pain, or bony pain SKIN: Denies rash, skin lesions, or other NEUROLOGIC: Denies weakness, headache, numbness, change in speech, confusion, seizures, incoordination. PSYCHIATRIC: No concerning psychosocial issues. 12 point review of systems is negative except for those stated above Patient History Medical History (Updated 08/11/22 @ 01:12 by Fred Vu DO) Aortic aneurysm Atrial fibrillation with controlled ventricular rate COPD (chronic obstructive pulmonary disease) HTN (hypertension) Surgical History History of appendectomy Family History Mother Cancer Father Cancer Social History marital status: household members: spouse Smoking Status: Former smoker alcohol intake: never Smoking Status: Former smoker alcohol intake frequency: 0-2 drinks per day Substance Use Type: does not use Exam Narrative Exam Narrative: GENERAL: 87[] year old patient appears stated age. Well-developed patient, in mild distress. HEAD: Atraumatic. Normocephalic. EYES: Pupils equal round and reactive. Extraocular motions intact. No scleral icterus. No injection or drainage. ENT: Nose without bleeding, purulent drainage. Throat without erythema, tonsillar hypertrophy or exudate. Airway patent. NECK: Trachea midline. Non tender CARDIOVASCULAR: Regular rate and rhythm without murmurs, gallops, or rubs. RESPIRATORY: Clear to auscultation. Breath sounds equal bilaterally. No wheezes, rales, or rhonchi. GASTROINTESTINAL: Abdomen soft, non-tender, nondistended. EXTREMITIES: No edema or joint tenderness. BACK: Nontender without deformity or crepitance. No flank tenderness. NEURO: AOx3. SKIN: No rash or erythema of visible areas Initial Vital Signs Initial Vital Signs: Vital Signs Temperature 97.8 F 08/10/22 21:45 Pulse Rate 83 08/10/22 21:45 Respiratory Rate 24 08/10/22 21:45 Blood Pressure 185/105 H 08/10/22 21:45 Pulse Oximetry 99 08/10/22 21:45 Oxygen Delivery Method 08/10/22 21:45 Course Orders Ordered: ED Orders 08/10/22 21:52 EKG-12 Lead Stat 08/10/22 22:15 Complete Blood Count AUTO DIFF Stat Comprehensive Metabolic Panel Stat Lipase Stat 08/10/22 22:42 CT kidney ureter bladder (KUB) Stat 08/10/22 22:55 Urinalysis and Microscopic Stat Discontinued Medications Diltiazem HCl (Diltiazem Cd 240 Mg Cap) 240 mg PO NOW ONE Stop: 08/10/22 23:17 Last Admin: 08/10/22 23:34 Dose: 240 mg Documented By: ALANA Sodium Chloride (Normal Saline 0.9%) 500 mls @ 1,000 mls/hr IV BOLUS ONE Stop: 08/10/22 23:11 Last Infusion: 08/10/22 23:44 Dose: 0 mls/hr Documented By: Admin: 08/10/22 23:07 Dose: 1,000 mls/hr Documented By: ALANA Lidocaine (Lidocaine Patch 1 Each Adh..Patch) 1 each TOP NOW ONE Stop: 08/11/22 00:20 Last Admin: 08/11/22 00:26 Dose: 1 each Documented By: ALANA Morphine Sulfate (Morphine 4 Mg/Ml Inj) 4 mg IV NOW ONE Stop: 08/10/22 22:43 Last Admin: 08/10/22 23:08 Dose: 4 mg Documented By: ALANA Ondansetron HCl (Ondansetron 4 Mg Odt) 4 mg PO NOW PRN PRN Reason: Nausea And Vomiting Ondansetron HCl (Ondansetron 4 Mg/2 Ml Inj) 4 mg IV NOW PRN PRN Reason: Nausea And Vomiting Ondansetron HCl (Ondansetron 4 Mg/2 Ml Inj) 4 mg IV NOW ONE Stop: 08/10/22 22:43 Last Admin: 08/10/22 23:08 Dose: 4 mg Documented By: ALANA Vital Signs Vital signs: Vital Signs - 8 hr 08/10/22 21:45 08/10/22 22:06 08/10/22 22:30 Temperature 97.8 F Pulse Rate 83 82 80 Respiratory Rate 24 29 H 18 Blood Pressure 185/105 H Pulse Oximetry 99 98 98 Oxygen Delivery Method Room Air 08/10/22 23:03 08/10/22 23:12 08/10/22 23:12 Temperature Pulse Rate 87 90 Respiratory Rate Blood Pressure 183/108 H Pulse Oximetry 96 98 Oxygen Delivery Method 08/10/22 23:30 08/10/22 23:30 08/11/22 00:00 Temperature Pulse Rate 86 87 Respiratory Rate 20 22 Blood Pressure 189/101 H Pulse Oximetry 97 98 Oxygen Delivery Method 08/11/22 00:30 08/11/22 00:30 08/11/22 01:00 Temperature Pulse Rate 89 87 Respiratory Rate 23 20 Blood Pressure 235/169 H Pulse Oximetry 98 97 Oxygen Delivery Method 08/11/22 01:01 08/11/22 01:01 08/11/22 01:30 Temperature Pulse Rate 87 85 Respiratory Rate 22 20 Blood Pressure 181/100 H Pulse Oximetry 96 96 Oxygen Delivery Method 08/11/22 01:31 08/11/22 01:31 Temperature Pulse Rate 85 Respiratory Rate 33 H Blood Pressure 174/88 H Pulse Oximetry 97 Oxygen Delivery Method MDM - Abdominal Pain Lab Data 08/10/22 22:15 08/10/22 22:15 Labs: Lab Results 08/10/22 08/10/22 08/10/22 Range/Units 22:15 22:15 22:55 WBC 9.7 (4.5-11.0) X10^3/uL RBC 4.60 (4.5-5.9) X10^6/uL Hgb 14.5 (13.5-17.5) g/dL Hct 42.3 (41-53) % MCV 92.0 (80-100) fL MCH 31.6 (26-34) PG MCHC 34.3 (30-36) % RDW 13.6 (11.6-14.8) % Plt Count 153 (150-400) X10^3/uL Neut % (Auto) 83.1 H (50-75) % Lymph % (Auto) 9.0 L (25-40) % Ashley % (Auto) 7.2 (3-14) % Eos % (Auto) 0.4 L (2-4) % Baso % (Auto) 0.3 (0-2) % Neut # (Auto) 8000 H (3503-9346) /uL Lymph # (Auto) 900 L (3370-4977) /uL Ashley # (Auto) 700 (0-900) /uL Eos # (Auto) 0 (0-450) /uL Baso # (Auto) 0 (0-100) /uL Sodium 140 (137-145) mmol/L Potassium 4.7 (3.4-5.1) mmol/L Chloride 103 (98-107) mmol/L Carbon Dioxide 23 (22-32) mmol/L BUN 13 (9-20) mg/dL Creatinine 0.89 (0.66-1.25) mg/dL Estimated GFR > 60 (>60) mL/min BUN/Creatinine Ratio 14.6 (6-22) Glucose 282 H (80-110) mg/dL Calcium 8.9 (8.4-10.2) mg/dL Total Bilirubin 0.6 (0.2-1.3) mg/dL AST 36 (17-59) IU/L ALT 35 (<50) IU/L Alkaline Phosphatase 78 (38-126) U/L Total Protein 7.4 (6.3-8.2) g/dL Albumin 4.1 (3.5-5.0) g/dL Globulin 3.3 (1.7-4.1) g/dL Albumin/Globulin Ratio 1.2 (1.0-2.8) Lipase 68 (23-300) U/L Urine Color Yellow Urine Appearance Clear Urine pH 5.5 (4.5-8.0) Ur Specific [place] 1.025 (1.000-1.035) Urine Protein Negative (Negative) Urine Glucose (UA) 3+ H (Negative) g/dL Urine Ketones Trace H (NEGATIVE) Urine Occult Blood Negative (Negative) Urine Nitrate Negative (Negative) Urine Bilirubin Negative (NEGATIVE) Urine Urobilinogen 0.2 (0.2) E.U./dL Ur Leukocyte Esterase Negative (NEGATIVE) Urine RBC None seen (0-5/HPF) Urine WBC None seen (0-5/HPF) Urine Bacteria None seen (None) Ur Culture Indicated? Cult not indicated Imaging Data CT scan - abdomen/pelvis: Radiologist's Impression: [address] [address] [address] Scan Report Signed Patient: Marcelo Ledbetter MR#: [id number] : 1935 Acct:[id number] Age/Sex: 87 / M Date of Service: 08/10/22 Loc: ED Accession Number: [id number] ?? Procedure: CT kidney ureter bladder (KUB) Ordering Provider: Fred Vu D.O. PROCEDURE:? CT KIDNEY URETER BLADDER (KUB) ? INDICATIONS:? R flank pain / groin ? TECHNIQUE:? Axial sections were acquired from the lung bases to the pubic symphysis.? Coronal and sagittal reformats were performed.? For radiation dose reduction, the following was used: ?automated exposure control, adjustment of mA and/or kV according to patient size.? ? COMPARISON:? [facility], CT, KIDNEY/ URETER/BLADDER, 03/29/2014, 5:27. ? FINDINGS:? Image quality:? Excellent.? ? Lung bases:? There is atelectasis and scarring in the lung bases.? Moderate cent rilobular emphysematous changes also noted. Heart:? Heart is normal in size.? There is a small hiatal hernia. ? URINARY: Right Kidney and Ureter: ? No stones or hydronephrosis.? There is minimal nonsp ecific perinephric stranding.? No hydroureter.? ? Left Kidney and Ureter: ? No stones or hydronephrosis.? There is minimal nonspecific perinephric stranding.? No hydroureter. ? Bladder:? The urinary bladder is partially distended.? There is mild bladder wall thickening.? No stones. ? ? ? ABDOMEN: Liver:? Noncontrast evaluation of the liver demonstrates no discrete? mass. Gallbladder:? There are dependent calcified gallstones in the gallbladder.? No wall thickening or pericholecystic fluid. Biliary ducts:? No biliary ductal dilatation.? ? Pancreas:? Unremarkable.? ? Spleen:? Normal in size.? Multiple punctate calcifications are demonstrated in the spleen consistent with sequelae of old granulomas disease. ? Adrenal Glands:? No adrenal nodules.? ? ? Stomach and Bowel:? Stomach, small bowel loops, and colon are normal in caliber and wall thickness.? No pericecal inflammatory changes to suggest appendicitis.? There is colonic diverticulosis throughout the colon without acute diverticulitis.? Peritoneum:? No abnormal intraperitoneal fluid.? No free air.? ? Ventral Wall: ? There is a small fat-containing umbilical hernia. Abdominal Nodes:? No retroperitoneal or mesenteric adenopathy by size criteria.? Vessels:? Aorta and inferior vena cava are normal in size.? ? PELVIS: Pelvic Organs:? There is mild enlargement of the prostate.? ? Pelvic Nodes: No enlarged lymph nodes.? Miscellaneous: No inguinal hernias identified. ? ? ? Bones:? Visualized osseous structures demonstrate no suspicious focal lesions. IMPRESSION:? ? 1. No nephrolithiasis or obstructive uropathy. ? 2. Colonic diverticulosis without acute diverticulitis. ? 3. No pericecal inflammatory changes to suggest appendicitis. ? 4. Cholelithiasis without CT evidence of acute cholecystitis. ? 5. Small hiatal hernia.? ? Dictated by: Errol Ayoub M.D. on 08/10/2022 at 23:46 ? ? Approved by: Errol Ayoub M.D. on 08/10/2022 at 23:55 ? MDM Narrative Medical decision making narrative: CC: 87-year-old male with relatively sudden onset right flank pain with radiation around into his groin Complicating co-morbidities: Age, hypertension, hyperlipidemia, anticoagulation, diabetes Data collected from: Patient and Medical records reviewed: Prior ER notes evaluated Differential considered, but not limited to: Kidney stone, pyelonephritis, bowel obstruction, gallbladder disease versus other Exam documented above, pertinent findings include: Lab Test results independently reviewed as above. Pertinent findings: Independently reviewed EKG as above Imaging studies independently reviewed: No kidney stone, bowel obstruction or other significant abnormal finding Treatments: Pain control, fluids, antiemetics, Lidoderm Re-evaluations: Patient has significant improvement in symptoms after above- stated therapies. Pain is well controlled, he is tolerating orals. Discussion: 87-year-old male with relatively sudden onset right flank pain in the absence of injury has improvement with above-stated therapies. Urine shows no sign of infection or blood, imaging demonstrates no stone or obstructive process. There is a palpable muscle spasm in the posterior flank with significant improvement symptoms after use of Lidoderm. Disposition: see below, along with detailed discharge instructions that have been reviewed with patient as well as indications for ED re-evaluation and additional outpatient follow up Discharge Plan Departure Patient Disposition: Home Clinical Impression: Acute flank pain Instructions: DI for Flank Pain Activity Restrictions/Additional Instructions: *You have been diagnosed with [acute right-sided flank pain. As we discussed your history physical exam as well as labs and CT scan are reassuring and there is no evidence of bowel obstruction, kidney stone, urine infection or other significant abnormal finding that would require a specific or immediate intervention] *What to do: *Please continue to take your regular medications as directed. [ x] New medication prescriptions sent to your pharmacy: [ [facility]] [ ] New medication written as a paper prescription [ ] No new medications given *Please follow up with your primary care provider in 2-3 days, call for an appointment. Let them know you were seen in the Emergency Department and that we ask that you be seen in follow up. We will electronically transmit a record of today's note if your PCP is in our system *If you do not have a primary care provider please contact the [facility] Resource line at [phone]. They will ask some questions about your medical history and help get you set up with a doctor in the community. *Return to Emergency Department if you should have any new, worsening or concerning symptoms, such as [fever greater than 101 F, shaking chills, worsening pain, persistent vomiting or other bothersome symptoms] You have been prescribed a short course of narcotic medications. These are potentially dangerous and addictive medications that should be used carefully. While on these medications you cannot drive or operate heavy machinery. Additionally, you cannot sign legal documents or perform any duties such as this. 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 Please understand that we cannot provide further refills of narcotics or con trolled substances through the ED and your pain management will need to be through your Primary Care Provider Prescriptions: New hydrocodone-acetaminophen 5-325 mg tablet 1 tab PO Q4-6H PRN (Reason: pain) Qty: 10 0RF lidocaine [Lidoderm] 5 % adhesive patch,medicated 1 patch TOP DAILY Qty: 15 0RF Rx Instructions: leave on most painful area for 12 hrs ondansetron 4 mg tablet,disintegrating 4 mg PO TID-QID PRN (Reason: nausea and vomiting) Qty: 10 0RF No Action tamsulosin [Flomax] 0.4 MG capsule,extended release 24hr 1 cap PO QPM Qty: 0 atorvastatin [Lipitor] 10 MG tablet 10 mg PO BEDTIME Qty: 0 levothyroxine [Synthroid] 75 MCG tablet 0.075 mg PO DAILY Qty: 0 latanoprost 0.005 % drops 1 drp OPHTH BEDTIME Qty: 0 metformin [Glucophage] 500 MG tablet 500 mg PO BIDCC Qty: 0 albuterol sulfate [Ventolin HFA] 90 MCG/PUFF HFA aerosol inhaler 2 puff INH Q4HP PRN (Reason: Bronchospasm) Qty: 0 warfarin [Coumadin] 5 MG tablet 5 mg PO DAILY Qty: 0 diltiazem HCl 240 mg capsule,extended release 24hr 240 mg PO DAILY furosemide 20 mg tablet 20 mg PO DAILY Label Comments: TAKE 1 TABLET BY MOUTH TWICE DAILY Referrals: Kris Kaur MD [Primary Care Provider] - Stand Alone Forms: Patient Portal/API
[2022-08-10 23:02] LABS: Appearance Urine UA CLEAR; Bilirubin Urine UA NEGATIVE (NEGATIVE); Color Urine UA YELLOW; Glucose Urine UA 3+ g/dL (Negative); Ketones Urine UA TRACE (NEGATIVE); Leukocyte Esterase Urine UA NEGATIVE (NEGATIVE); Nitrite Urine UA NEGATIVE (Negative); Occult Blood Urine UA NEGATIVE (Negative); Protein Urine UA NEGATIVE (Negative); Specific Gravity Urine UA 1.025 (1.000-1.035); Urobilinogen Urine UA 0.2 E.U./dL (0.2); pH Urine UA 5.5 (4.5-8.0)
[2022-08-10 23:03] VITALS: PULSE 87; O2SAT 96
[2022-08-10] MEDS: SODIUM CHLORIDE 0.9% 500 ML 1000 ML IV (23:07)
[2022-08-10] MEDS: ONDANSETRON 4 MG/2 ML INJ IV (23:08)
[2022-08-10] MEDS: MORPHINE 4 MG/ML INJ IV (23:08)
[2022-08-10 23:12] VITALS: BP 183/108; PULSE 90; O2SAT 98
[2022-08-10 23:16] LABS: Bacteria Urine None Seen; Culture Indicated Urine Cult Not Indicated; RBC Urine None Seen (0-5/HPF); WBC Urine None Seen (0-5/HPF)
[2022-08-10 23:30] VITALS: BP 189/101; PULSE 86; RESP 20; O2SAT 97
[2022-08-10] MEDS: dilTIAZem CD 240 MG CAP PO (23:34)
[2022-08-11] VITALS: PULSE 87; RESP 22; O2SAT 98
[2022-08-11] MEDS: LIDOCAINE PATCH 1 EACH ADH..PATCH TOP (00:26)
[2022-08-11 00:30] VITALS: BP 235/169; PULSE 89; RESP 23; O2SAT 98
[2022-08-11 01:00] VITALS: PULSE 87; RESP 20; O2SAT 97
[2022-08-11 01:01] VITALS: BP 181/100; PULSE 87; RESP 22; O2SAT 96
[2022-08-11 01:30] VITALS: PULSE 85; RESP 20; O2SAT 96
[2022-08-11 01:31] VITALS: BP 174/88; PULSE 85; RESP 33; O2SAT 97
== END 2022-08-11 01:56 | disposition home or self-care (01) ==
PROVIDERS: Emergency Provider Emergency Medicine; Family Provider Physician Assistant Medical; PCP Family Medicine
DX: R10.31 Right lower quadrant pain (principal); Z79.01 Long term (current) use of anticoagulants; Z79.899 Other long term (current) drug therapy
CPT/HCPCS: 36415; 74176; 80053; 81001; 83690; 85025; 93005; 96361; 96374; 96375; 99284; J2270; J2405

== ENCOUNTER 2023-01-15 11:26 | Emergency (ER) | payer OTHER, SELFPAY ==
[2021-11-03 14:11] VITALS: BMI 31.6
[2023-01-15] VITALS (16 sets, daily range): BP systolic 135–177; BP diastolic 82–106; PULSE 78–87; RESP 16–25; TEMP 36.9; O2SAT 93–97; BMI 30.6
--- NOTE | 2023-01-15 11:40 | DI.RAD.S_ITS ---
PROCEDURE: XR CHEST 1V INDICATIONS: chest pain TECHNIQUE: One view of the chest was acquired. COMPARISON: [facility], CR, XR CHEST 1V, 11/03/2021, 11:21. FINDINGS: Surgical changes and devices: None. Lungs and pleura: Ill-defined opacities are noted within the right base. Mediastinum: Mediastinal contours appear normal. Heart size is enlarged. Bones and chest wall: No suspicious bony lesions. Overlying soft tissues appear unremarkable. IMPRESSION: Ill-defined right basilar opacities. This could represent dependent change, atelectasis or potentially developing airspace disease such as pneumonia. Dictated by: Angela Soares M.D. on 01/15/2023 at 13:36 Approved by: Angela Soares M.D. on 01/15/2023 at 13:38
--- NOTE | 2023-01-15 11:54 | PC.NURSE ---
patient's stated that the patient was difficult to rouse this am. She witheld his medications this morning. She also stated that towards the end of December the patient had a moment of sudden confusion but that seemed to resolve. Then on the the patient again had an episode where he became sluggish to speak and almost confused. That also seemed to be resolved.
[2023-01-15 12:03] LABS: Add Manual Diff / Slide Review NO; Basophils Absolute Auto 0 /uL (0-100); Basophils Percent Auto 0.4 % (0-2); Eosinophils Absolute Auto 100 /uL (0-450); Eosinophils Percent Auto 1.2 % (2-4); Hematocrit 44.9 % (41-53); INR 2.2 (0.9-1.3); Lymphocytes Absolute Auto 1600 /uL (1100-4500); Lymphocytes Percent Auto 22.9 % (25-40); Mean Corpuscular HGB Conc 33.3 % (30-36); Mean Corpuscular Hemoglobin 32.1 PG (26-34); Mean Corpuscular Volume 96.4 fL (80-100); Monocytes Absolute Auto 900 /uL (0-900); Monocytes Percent Auto 13.2 % (3-14); Neutrophils Absolute Auto 4200 /uL (1500-7000); Neutrophils Percent Auto 62.3 % (50-75); Platelet Count 164 X10^3/uL (150-400); Red Blood Cell Count 4.66 X10^6/uL (4.5-5.9); Red Cell Distribution Width 14.6 % (11.6-14.8); White Blood Cell Count 6.8 X10^3/uL (4.5-11.0)
[2023-01-15 12:06] LABS: PTT Partial Thromboplastin Tim 35 SECONDS (26-36)
--- NOTE | 2023-01-15 12:07 | PC.NURSE ---
The patient's states that the patient has been dealing with COPD at home for over a year. He has a home kamala nurse who is helping to manage his home care. The patient has an inhaler that he uses PRN and a nebulizer that he uses 2x/day. He stats that he cannot sleep on his left side or his back due to his sinus issues and when he gets back up he can breathe again. His lungs are clear today bilaterally and his stated that he usually has crackles in his right lower lobe. He stated today that his weakness is largely due to bone on bone in his bad left knee. The patient's Fast exam was negative and the does not report any neurological abnormalities. The patient has also been consistent with taking his warfarin.
[2023-01-15 12:43] LABS: Alanine Aminotransferase 30 IU/L (<50); Albumin 4.2 g/dL (3.5-5.0); Albumin Globulin Ratio 1.2 (1.0-2.8); Alkaline Phosphatase 70 U/L (38-126); Aspartate Aminotransferase 37 IU/L (17-59); BUN Creatinine Ratio 17.6 (6-22); Bilirubin Total 0.9 mg/dL (0.2-1.3); Blood Urea Nitrogen 15 mg/dL (9-20); Calcium 9.2 mg/dL (8.4-10.2); Carbon Dioxide 27 mmol/L (22-32); Chloride 105 mmol/L (98-107); Creatine Kinase 66 U/L (55-170); Estimated Glomerular Filt Rate > 60 mL/min (>60); Globulin 3.4 g/dL (1.7-4.1); Glucose 138 mg/dL (80-110); HEMOLYSIS < 15 (0-50); Lipase 40 U/L (23-300); Magnesium 1.8 mg/dL (1.6-2.3); Potassium 4.7 mmol/L (3.4-5.1); Sodium 141 mmol/L (137-145); Total Protein 7.6 g/dL (6.3-8.2)
[2023-01-15 12:52] LABS: NT-proBNP (BNP-Adult 18+) 448 pg/mL (<450)
[2023-01-15 12:55] LABS: Troponin I < 0.012 ng/mL (0.01-0.034)
[2023-01-15] MEDS: ALBUTEROL/IPRATROPIUM 3 ML AMPUL INH (12:55)
[2023-01-15] MEDS: FUROSEMIDE 20 MG TABLET PO (13:08)
[2023-01-15] MEDS: METFORMIN HCL 500 MG TABLET PO (13:08)
--- NOTE | 2023-01-15 14:10 | ED_ITS ---
HPI - General Adult General Chief complaint: Weakness Stated complaint: Sent by Greg BP is high then dropped/chest pressure Time Seen by Provider: 01/15/23 11:40 History of Present Illness HPI narrative: 87-year-old male former smoker with history of hypertension, hyperlipidemia, and atrial fibrillation presents from though would be walk-in clinic with a chief complaint high blood pressure and generalized weakness. The patient has been feeling a bit under the weather for the past week or so. He has been generally weak and a bit fatigued. He denies any dizziness or lightheadedness. He denies blurred vision or trouble with speech. She denies any chest pain or shortness of breath. He denies any nausea, vomiting or diarrhea. He frequently has bilateral leg pain that makes it difficult for him to ambulate but he has been having more trouble than normal. He denies any lateralizing symptoms. He went to the walk-in clinic and they found his blood pressure to be elevated and noted that he was in AFib and they sent him here for evaluation. He denies any change in his medications or diet Related Data Home Medications Medication Instructions Recorded Confirmed tamsulosin 0.4 mg capsule (Flomax) 1 cap PO QPM ##0 06/29/11 11/03/21 atorvastatin 10 mg tablet (Lipitor) 10 mg PO BEDTIME ##0 09/20/12 11/03/21 albuterol sulfate 90 mcg/actuation 2 puff INH Q4HP PRN Bronchospasm 03/18/17 11/03/21 aerosol inhaler (Ventolin HFA) ##0 latanoprost 0.005 % eye drops 1 drp OPHTH BEDTIME ##0 03/18/17 11/03/21 levothyroxine 75 mcg tablet 0.075 mg PO DAILY ##0 03/18/17 11/03/21 (Synthroid) metformin 500 mg tablet 500 mg PO BIDCC ##0 03/18/17 11/03/21 (Glucophage) warfarin 5 mg tablet (Coumadin) 5 mg PO DAILY ##0 03/19/17 11/03/21 diltiazem HCl 240 mg 240 mg PO DAILY 09/27/18 11/03/21 capsule,extended release 24 hr furosemide 20 mg tablet 20 mg PO DAILY 11/03/21 11/03/21 Previous Rx's Medication Instructions Recorded hydrocodone 5 mg-acetaminophen 325 1 tab PO Q4-6H PRN pain #10 tabs 08/11/22 mg tablet lidocaine 5 % topical patch 1 patch topical DAILY #15 ea 08/11/22 (Lidoderm) ondansetron 4 mg disintegrating 4 mg PO TID-QID PRN nausea and 08/11/22 tablet vomiting #10 tabs Allergies Allergy/AdvReac Type Severity Reaction Status Date / Time No Known Drug Allergies Allergy Unverified 01/26/18 09:42 Review of Systems Review of Systems Narrative: GENERAL: See HPI HEENT: Denies sinus pain, ear pain, sore throat, difficulty swallowing, dizziness. RESPIRATORY: Denies dyspnea, cough, wheezing, hemoptysis, sputum. CARDIOVASCULAR: Denies chest pain, palpitations, orthopnea, edema, GASTROINTESTINAL: Denies nausea, vomiting, abdominal pain, diarrhea, constipation, melena. : Denies dysuria, frequency, incontinence, hematuria, urinary retention. MUSCULOSKELETAL: See HPI SKIN: Denies rash, skin lesions, or other NEUROLOGIC: Denies weakness, headache, numbness, change in speech, confusion, se izures, incoordination. PSYCHIATRIC: No concerning psychosocial issues. 12 point review of systems is negative except for those stated above Patient History Medical History (Updated 01/15/23 @ 16:23 by Fred Vu DO) Aortic aneurysm Atrial fibrillation with controlled ventricular rate COPD (chronic obstructive pulmonary disease) HTN (hypertension) Surgical History History of appendectomy Family History Mother Cancer Father Cancer Social History marital status: household members: spouse Smoking Status: Former smoker alcohol intake: never Smoking Status: Former smoker alcohol intake frequency: 0-2 drinks per day Substance Use Type: does not use Exam Narrative Exam Narrative: GENERAL: [87] year old patient appears stated age. Well-developed patient, in mild distress. Very hard of hearing, GCS 15 HEAD: Atraumatic. Normocephalic. EYES: Pupils equal round and reactive. Extraocular motions intact. No scleral icterus. No injection or drainage. ENT: Nose without bleeding, purulent drainage. Throat without erythema, tonsillar hypertrophy or exudate. Airway patent. NECK: Trachea midline. Non tender CARDIOVASCULAR: Regular rate and rhythm without murmurs, gallops, or rubs. RESPIRATORY: Clear to auscultation. Breath sounds equal bilaterally. No wheezes, rales, or rhonchi. GASTROINTESTINAL: Abdomen soft, non-tender, nondistended. EXTREMITIES: No edema or joint tenderness. BACK: Nontender without deformity or crepitance. No flank tenderness. NEURO: AOx3. SKIN: No rash or erythema of visible areas Initial Vital Signs Initial Vital Signs: Vital Signs Pulse Rate 83 01/15/23 11:37 Respiratory Rate 18 01/15/23 11:37 Pulse Oximetry 97 01/15/23 11:37 Course Orders Ordered: ED Orders 01/15/23 11:40 XR chest 1V Stat EKG-12 Lead Stat 01/15/23 11:47 Complete Blood Count AUTO DIFF Stat PTT Partial Thromboplastin Paulie Stat Prothrombin Time INR Stat 01/15/23 12:22 Comprehensive Metabolic Panel Stat Lipase Stat Magnesium Stat NT-proBNP (BNP-Adult 18+) Stat Troponin & CK Cardiac Panel Stat 01/15/23 12:39 RT Consult Eval and Treat NOW 01/15/23 14:51 CT head/brain wo con Stat 01/15/23 15:35 Troponin & CK Cardiac Panel Stat Discontinued Medications Albuterol/Ipratropium (Albuterol/Ipratropium 3 Ml Ampul) 3 ml INH NOW ONE Stop: 01/15/23 12:51 Last Admin: 01/15/23 12:55 Dose: 3 ml Documented By: SUNSHINE Aspirin (Aspirin 81 Mg Chew Tab) 324 mg PO NOW ONE Stop: 01/15/23 11:41 Last Admin: 01/15/23 11:45 Dose: Not Given Documented By: CTS Furosemide (Furosemide 20 Mg Tablet) 20 mg PO NOW ONE Stop: 01/15/23 12:58 Last Admin: 01/15/23 13:08 Dose: 20 mg Documented By: FACUNDO Metformin HCl (Metformin Hcl 500 Mg Tablet) 500 mg PO 0800 FARAZ Metformin HCl (Metformin Hcl 500 Mg Tablet) 500 mg PO NOW ONE Stop: 01/15/23 13:07 Last Admin: 01/15/23 13:08 Dose: 500 mg Documented By: FACUNDO Vital Signs Vital signs: Vital Signs - 8 hr 01/15/23 12:30 01/15/23 12:30 01/15/23 13:00 Pulse Rate 79 Respiratory Rate 21 Blood Pressure 172/102 H 140/106 H Pulse Oximetry 97 Oxygen Delivery Method 01/15/23 13:00 01/15/23 13:30 01/15/23 13:30 Pulse Rate 81 84 Respiratory Rate 17 22 Blood Pressure 143/96 H Pulse Oximetry 96 95 Oxygen Delivery Method 01/15/23 14:00 01/15/23 14:00 01/15/23 14:30 Pulse Rate 84 Respiratory Rate 16 Blood Pressure 151/98 H 169/92 H Pulse Oximetry 93 Oxygen Delivery Method Room Air 01/15/23 14:30 01/15/23 15:00 01/15/23 15:03 Pulse Rate 83 87 82 Respiratory Rate 23 25 H 24 Blood Pressure Pulse Oximetry 97 93 94 Oxygen Delivery Method 01/15/23 15:03 01/15/23 15:27 01/15/23 15:27 Pulse Rate 86 Respiratory Rate Blood Pressure 135/82 177/102 H Pulse Oximetry 97 Oxygen Delivery Method 01/15/23 15:30 01/15/23 15:30 01/15/23 16:00 Pulse Rate 78 85 Respiratory Rate Blood Pressure 174/85 H Pulse Oximetry 96 96 Oxygen Delivery Method Room Air Room Air 01/15/23 16:01 01/15/23 16:01 01/15/23 16:30 Pulse Rate 79 Respiratory Rate Blood Pressure 175/85 H 165/84 H Pulse Oximetry 95 Oxygen Delivery Method 01/15/23 16:30 Pulse Rate 87 Respiratory Rate 21 Blood Pressure Pulse Oximetry 94 Oxygen Delivery Method Medical Decision Making Lab Data 01/15/23 11:47 01/15/23 12:22 Labs: Lab Results 01/15/23 01/15/23 01/15/23 Range/Units 11:47 11:47 12:22 WBC 6.8 (4.5-11.0) X10^3/uL RBC 4.66 (4.5-5.9) X10^6/uL Hgb 15.0 (13.5-17.5) g/dL Hct 44.9 (41-53) % MCV 96.4 (80-100) fL MCH 32.1 (26-34) PG MCHC 33.3 (30-36) % RDW 14.6 (11.6-14.8) % Plt Count 164 (150-400) X10^3/uL Neut % (Auto) 62.3 (50-75) % Lymph % (Auto) 22.9 L (25-40) % Mccone % (Auto) 13.2 (3-14) % Eos % (Auto) 1.2 L (2-4) % Baso % (Auto) 0.4 (0-2) % Neut # (Auto) 4200 (4673-3506) /uL Lymph # (Auto) 1600 (6542-0995) /uL Mccone # (Auto) 900 (0-900) /uL Eos # (Auto) 100 (0-450) /uL Baso # (Auto) 0 (0-100) /uL PT 25.0 H (10.1-12.7) SECONDS INR 2.2 H (0.9-1.3) APTT 35 (26-36) SECONDS Sodium 141 (137-145) mmol/L Potassium 4.7 (3.4-5.1) mmol/L Chloride 105 (98-107) mmol/L Carbon Dioxide 27 (22-32) mmol/L BUN 15 (9-20) mg/dL Creatinine 0.85 (0.66-1.25) mg/dL Estimated GFR > 60 (>60) mL/min BUN/Creatinine Ratio 17.6 (6-22) Glucose 138 H (80-110) mg/dL Calcium 9.2 (8.4-10.2) mg/dL Magnesium 1.8 (1.6-2.3) mg/dL Total Bilirubin 0.9 (0.2-1.3) mg/dL AST 37 (17-59) IU/L ALT 30 (<50) IU/L Alkaline Phosphatase 70 (38-126) U/L Total Creatine Kinase 66 (55-170) U/L Troponin I < 0.012 (0.01-0.034) ng/mL NT-Pro-B Natriuret Pep (<450) pg/mL Total Protein 7.6 (6.3-8.2) g/dL Albumin 4.2 (3.5-5.0) g/dL Globulin 3.4 (1.7-4.1) g/dL Albumin/Globulin Ratio 1.2 (1.0-2.8) Lipase 40 (23-300) U/L 01/15/23 01/15/23 Range/Units 12:22 15:35 WBC (4.5-11.0) X10^3/uL RBC (4.5-5.9) X10^6/uL Hgb (13.5-17.5) g/dL Hct (41-53) % MCV (80-100) fL MCH (26-34) PG MCHC (30-36) % RDW (11.6-14.8) % Plt Count (150-400) X10^3/uL Neut % (Auto) (50-75) % Lymph % (Auto) (25-40) % Mccone % (Auto) (3-14) % Eos % (Auto) (2-4) % Baso % (Auto) (0-2) % Neut # (Auto) (0567-2716) /uL Lymph # (Auto) (9721-5847) /uL Mccone # (Auto) (0-900) /uL Eos # (Auto) (0-450) /uL Baso # (Auto) (0-100) /uL PT (10.1-12.7) SECONDS INR (0.9-1.3) APTT (26-36) SECONDS Sodium (137-145) mmol/L Potassium (3.4-5.1) mmol/L Chloride (98-107) mmol/L Carbon Dioxide (22-32) mmol/L BUN (9-20) mg/dL Creatinine (0.66-1.25) mg/dL Estimated GFR (>60) mL/min BUN/Creatinine Ratio (6-22) Glucose (80-110) mg/dL Calcium (8.4-10.2) mg/dL Magnesium (1.6-2.3) mg/dL Total Bilirubin (0.2-1.3) mg/dL AST (17-59) IU/L ALT (<50) IU/L Alkaline Phosphatase (38-126) U/L Total Creatine Kinase 61 (55-170) U/L Troponin I < 0.012 (0.01-0.034) ng/mL NT-Pro-B Natriuret Pep 448 (<450) pg/mL Total Protein (6.3-8.2) g/dL Albumin (3.5-5.0) g/dL Globulin (1.7-4.1) g/dL Albumin/Globulin Ratio (1.0-2.8) Lipase (23-300) U/L Urine Dip Bedside Urine Glucose Negative Bedside Urine Bilirubin - Negative Bedside Urine Ketone +/- 5 Urine Specific [place] 1.020 Bedside Urine Occult Blood - Negative Bedside Urine pH 5.5 Bedside Urine Protein - Negative Bedside Urine Urobilinogen - Negative Bedside Urine Nitrite - Negative Bedside Urine Leukocytes - Negative Esterase Point of care testing: Urine Dip Bedside Urine Glucose Negative Bedside Urine Bilirubin - Negative Bedside Urine Ketone +/- 5 Urine Specific [place] 1.020 Bedside Urine Occult Blood - Negative Bedside Urine pH 5.5 Bedside Urine Protein - Negative Bedside Urine Urobilinogen - Negative Bedside Urine Nitrite - Negative Bedside Urine Leukocytes - Negative Esterase MDM Narrative Medical decision making narrative: [87] year old patient presents with high blood pressure and generalized weakness Multiple etiologies for patient's symptoms considered including, but not limited to: [Asymptomatic hypertension, electrolyte abnormality, cardiac ischemia, dehydration, UTI, pneumonia versus other] Prior Charts reviewed in our EMR Primary Historian: patient Labs reviewed and interpreted by myself: No leukocytosis or left shift, no signs of anemia. Electrolytes within normal limit, troponin x2 negative Imaging reviewed: Chest x-ray with nonspecific bibasilar opacities. Of note patient has no fever, no cough, no shortness of breath, no abnormal lung sounds and no leukocytosis. Head CT is unremarkable Patient's symptoms improved over duration of stay with above-stated therapies. Findings and discharge diagnosis discussed with patient/family followed by verbalization of understanding Return precautions discussed with patient/family whom verbalize understanding of diagnosis and plan Discharge Plan Departure Patient Disposition: Home Clinical Impression: HTN (hypertension), Atrial fibrillation Instructions: High Blood Pressure, DI for Atrial Fibrillation Activity Restrictions/Additional Instructions: *You have been diagnosed with [high blood pressure and atrial fibrillation. As we discussed your labs are very reassuring, there is no sign of heart attack, electrolyte abnormality or kidney failure. Your brain scan showed no abnormal findings.] *What to do: *Please continue to take your regular medications as directed. *Please follow up with your primary care provider in 2-3 days, call for an appointment. Let them know you were seen in the Emergency Department and that we ask that you be seen in follow up. We will electronically transmit a record of today's note if your PCP is in our system *If you do not have a primary care provider please contact the [facility] Resource line at [phone]. They will ask some questions about your medical history and help get you set up with a doctor in the community. *Return to Emergency Department if you should have any new, worsening or concerning symptoms, such as [fever greater than 101 F, shaking chills, worsening pain, persistent vomiting or other bothersome symptoms] Prescriptions: No Action tamsulosin [Flomax] 0.4 MG capsule,extended release 24hr 1 cap PO QPM Qty: 0 atorvastatin [Lipitor] 10 MG tablet 10 mg PO BEDTIME Qty: 0 levothyroxine [Synthroid] 75 MCG tablet 0.075 mg PO DAILY Qty: 0 latanoprost 0.005 % drops 1 drp OPHTH BEDTIME Qty: 0 metformin [Glucophage] 500 MG tablet 500 mg PO BIDCC Qty: 0 albuterol sulfate [Ventolin HFA] 90 MCG/PUFF HFA aerosol inhaler 2 puff INH Q4HP PRN (Reason: Bronchospasm) Qty: 0 warfarin [Coumadin] 5 MG tablet 5 mg PO DAILY Qty: 0 diltiazem HCl 240 mg capsule,extended release 24hr 240 mg PO DAILY furosemide 20 mg tablet 20 mg PO DAILY Patient Comments: TAKE 1 TABLET BY MOUTH TWICE DAILY hydrocodone-acetaminophen 5-325 mg tablet 1 tab PO Q4-6H PRN (Reason: pain) Qty: 10 0RF lidocaine [Lidoderm] 5 % adhesive patch,medicated 1 patch TOP DAILY Qty: 15 0RF Rx Instructions: leave on most painful area for 12 hrs ondansetron 4 mg tablet,disintegrating 4 mg PO TID-QID PRN (Reason: nausea and vomiting) Qty: 10 0RF Referrals: Kris Kaur MD [Primary Care Provider] - Stand Alone Forms: Patient Portal/API
--- NOTE | 2023-01-15 14:51 | DI.CT.S_ITS ---
PROCEDURE: CT HEAD/BRAIN WO CON INDICATIONS: weakness TECHNIQUE: Noncontrast 4.5 mm thick angled axial sections acquired from the foramen magnum to the vertex, with coronal and sagittal reformats. For radiation dose reduction, the following was used: automated exposure control, adjustment of mA and/or kV according to patient size. COMPARISON: None. FINDINGS: Image quality: Excellent. CSF spaces: Basal cisterns are patent. No extra-axial fluid collections. The ventricles are symmetric in size and shape. Brain: No intracranial bleeds or masses. There is cerebral volume loss for age, with resultant ventricular and sulcal prominence. There are moderate periventricular and deep white matter chronic small vessel ischemic changes. There is intracranial internal carotid artery atherosclerosis. Skull and face: Calvarium and visualized facial bones appear intact, without suspicious lesions. Sinuses: Right maxillary sinus air-fluid level. Other visualized paranasal sinuses and mastoids are clear. IMPRESSION: 1. Age-appropriate volume loss and small vessel ischemic change. 2. No acute intracranial process. 3. Right maxillary sinusitis. Dictated by: Greg Giordano M.D. on 01/15/2023 at 15:38 Approved by: Greg Giordano M.D. on 01/15/2023 at 15:40
[2023-01-15 15:56] LABS: Creatine Kinase 61 U/L (55-170)
[2023-01-15 16:08] LABS: Troponin I < 0.012 ng/mL (0.01-0.034)
== END 2023-01-15 17:24 | disposition home or self-care (01) ==
PROVIDERS: Emergency Provider Emergency Medicine; Family Provider Physician Assistant Medical; PCP Family Medicine
DX: I10 Essential (primary) hypertension (principal); I48.91 Unspecified atrial fibrillation; Z87.891 Personal history of nicotine dependence; R07.9 Chest pain, unspecified; R53.1 Weakness; Z79.01 Long term (current) use of anticoagulants
CPT/HCPCS: 36415; 70450; 71045; 80053; 81003; 82550; 83690; 83735; 83880; 84484; 85025; 85610; 85730; 93005; 93010; 99284

== ENCOUNTER 2024-08-28 23:55 | Inpatient (IN) | payer MEDICARE, SELFPAY ==
[2021-11-03 14:11] VITALS: BMI 31.6
[2024-08-29] VITALS (15 sets, daily range): BP systolic 107–144; BP diastolic 60–81; PULSE 75–101; RESP 12–29; TEMP 36.4–37.1; O2SAT 89–98; BMI 31.6; BMI 29.9
--- NOTE | 2024-08-29 00:22 | DI.RAD.S_ITS ---
PROCEDURE: XR CHEST 1V INDICATIONS: altered mental status TECHNIQUE: One view of the chest was acquired. COMPARISON: [facility], CR, XR CHEST 1V, 01/15/2023, 12:37. [facility], CR, XR CHEST 1V, 11/03/2021, 11:21. [facility], CR, XR CHEST 2V, 09/27/2018, 15:39. FINDINGS: Surgical changes and devices: None. Lungs and pleura: Lungs are clear. No pleural effusions or pneumothorax. Mediastinum: Mediastinal contours appear normal. Heart size is normal. Bones and chest wall: No suspicious bony lesions. Overlying soft tissues appear unremarkable. IMPRESSION: No acute cardiothoracic process. Dictated by: Albaro Roca M.D. on 08/29/2024 at 1:20 Approved by: Albaro Roca M.D. on 08/29/2024 at 1:21
--- NOTE | 2024-08-29 00:26 | EKG_ITS ---
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
[2024-08-29 00:37] LABS: Add Manual Diff / Slide Review NO; Basophils Absolute Auto 0 /uL (0-100); Basophils Percent Auto 0.1 % (0-2); Eosinophils Absolute Auto 0 /uL (0-450); Eosinophils Percent Auto 0.1 % (2-4); Hematocrit 39.7 % (41-53); Hemoglobin 13.2 g/dL (13.5-17.5); Lymphocytes Absolute Auto 600 /uL (1100-4500); Lymphocytes Percent Auto 3.2 % (25-40); Mean Corpuscular HGB Conc 33.4 % (30-36); Mean Corpuscular Hemoglobin 31.4 PG (26-34); Mean Corpuscular Volume 94.1 fL (80-100); Monocytes Absolute Auto 1400 /uL (0-900); Monocytes Percent Auto 6.8 % (3-14); Neutrophils Absolute Auto 18200 /uL (1500-7000); Neutrophils Percent Auto 89.8 % (50-75); Platelet Count 233 X10^3/uL (150-400); Red Blood Cell Count 4.22 X10^6/uL (4.5-5.9); Red Cell Distribution Width 14.1 % (11.6-14.8); White Blood Cell Count 20.3 X10^3/uL (4.5-11.0)
[2024-08-29 00:45] LABS: Alanine Aminotransferase 50 IU/L (<50); Albumin 3.7 g/dL (3.5-5.0); Albumin Globulin Ratio 1.1 (1.0-2.8); Alkaline Phosphatase 106 U/L (38-126); Aspartate Aminotransferase 48 IU/L (17-59); BUN Creatinine Ratio 20.5 (6-22); Bilirubin Total 1.7 mg/dL (0.2-1.3); Blood Urea Nitrogen 16 mg/dL (9-20); Calcium 9.1 mg/dL (8.4-10.2); Carbon Dioxide 18 mmol/L (22-32); Chloride 102 mmol/L (98-107); Estimated Glomerular Filt Rate > 60 mL/min (>60); Globulin 3.4 g/dL (1.7-4.1); Glucose 235 mg/dL (80-110); HEMOLYSIS 15 (0-50); Potassium 4.5 mmol/L (3.4-5.1); Sodium 133 mmol/L (137-145); Total Protein 7.1 g/dL (6.3-8.2)
[2024-08-29 00:54] LABS: Ammonia (NH3) < 9 umol/L (9-30)
[2024-08-29 01:24] LABS: Appearance Urine UA CLEAR; Bilirubin Urine UA NEGATIVE (NEGATIVE); Color Urine UA YELLOW; Glucose Urine UA TRACE g/dL (Negative); Ketones Urine UA TRACE (NEGATIVE); Leukocyte Esterase Urine UA TRACE (NEGATIVE); Nitrite Urine UA POSITIVE (Negative); Occult Blood Urine UA 3+ (Negative); Protein Urine UA 1+ (Negative); Specific Gravity Urine UA >=1.030 (1.000-1.035); UR Morphine/Opiate cutoff 300 Negative (Negative); Ur Creatinine Normal (Normal); Ur Specific Gravity Normal (Normal); Urine Amphetamines Negative (Negative); Urine Barbiturates Negative (Negative); Urine Benzodiazepines Negative (Negative); Urine Cocaine Negative (Negative); Urine MDMA Negative (Negative); Urine Methadone Negative (Negative); Urine Methamphetamines Negative (Negative); Urine Oxycodone Negative (Negative); Urine Phencyclidine Negative (Negative); Urine Tetrahydrocannabinol Negative (Negative); Urine Tricyclic Antidepressant Negative (Negative); Urine pH Normal (Normal); Urobilinogen Urine UA 0.2 E.U./dL (0.2); pH Urine UA 5.5 (4.5-8.0)
[2024-08-29 01:44] LABS: Bacteria Urine Many (>30); Culture Indicated Urine Specimen Cultured; RBC Urine >100/HPF (0-5/HPF); Squamous Epithelial Cell Urine 0-1 /HPF (0-5/HPF); Urine Volume 10mL (spun); WBC Urine 5-10/HPF (0-5/HPF)
--- NOTE | 2024-08-29 01:57 | ED.AMS ---
HPI - Altered Mental Status General Chief Complaint: Altered Mental Status Stated Complaint: AMS Time Seen by Provider: 08/29/24 00:26 Source: patient and EMS Mode of arrival: EMS History of Present Illness HPI narrative: 89-year-old male with recent increased urinary frequency in confusion, concerning to family members, who report patient was seen at [facility] emergency department 2 weeks ago with negative workup and was sent home. No injury or trauma. No change in medications. No fevers. No cough or shortness of breath. He is not urinating this frequently at baseline, family concerned about urinary tract infection. Related Data Home Medications Medication Instructions Recorded Confirmed tamsulosin 0.4 mg capsule (Flomax) 1 cap PO QPM ##0 06/29/11 08/29/24 atorvastatin 10 mg tablet (Lipitor) 10 mg PO BEDTIME ##0 09/20/12 08/29/24 albuterol sulfate 90 mcg/actuation 2 puff INH Q4HP PRN Bronchospasm 03/18/17 08/29/24 aerosol inhaler (Ventolin HFA) ##0 latanoprost 0.005 % eye drops 1 drp OPHTH BEDTIME ##0 03/18/17 08/29/24 levothyroxine 75 mcg tablet 75 mcg PO DAILY ##0 03/18/17 08/29/24 (Synthroid) metformin 500 mg tablet 500 mg PO BIDCC ##0 03/18/17 08/29/24 (Glucophage) warfarin 5 mg tablet (Coumadin) 5 mg PO DAILY ##0 03/19/17 08/29/24 diltiazem HCl 240 mg 240 mg PO DAILY 09/27/18 08/29/24 capsule,extended release 24 hr furosemide 20 mg tablet 20 mg PO DAILY 11/03/21 08/29/24 gabapentin 100 mg capsule 100 mg PO BEDTIME 08/29/24 08/29/24 glimepiride 2 mg tablet 2 mg DAILY 08/29/24 08/29/24 Allergies Allergy/AdvReac Type Severity Reaction Status Date / Time No Known Drug Allergies Allergy Unverified 01/26/18 09:42 Patient History Medical History Atrial fibrillation with controlled ventricular rate HTN (hypertension) Aortic aneurysm COPD (chronic obstructive pulmonary disease) Surgical History History of appendectomy Family History Mother Cancer Father Cancer Social History marital status: household members: spouse Smoking Status: Former smoker alcohol intake: never Smoking Status: Former smoker alcohol intake frequency: 0-2 drinks per day Exam Narrative Exam Narrative: GENERAL: Well-developed patient, in mild distress. HEAD: Atraumatic. Normocephalic. EYES: Pupils equal round and reactive. Extraocular motions intact. No scleral icterus. No injection or drainage. ENT: Nose without bleeding, purulent drainage. Throat without erythema, tonsillar hypertrophy or exudate. Airway patent. NECK: Trachea midline. Non tender CARDIOVASCULAR: Regular rate and rhythm without murmurs, gallops, or rubs. RESPIRATORY: Clear to auscultation. Breath sounds equal bilaterally. No wheezes, rales, or rhonchi. GASTROINTESTINAL: Abdomen soft, non-tender, nondistended. EXTREMITIES: No edema or joint tenderness. BACK: Nontender without deformity or crepitance. No flank tenderness. NEURO: Slow speech, clear however, cooperative. Motor functions grossly nonfocal SKIN: No rash or erythema of visible areas Initial Vital Signs Initial Vital Signs: Vital Signs Pulse Rate 90 08/29/24 00:01 Pulse Oximetry 94 08/29/24 00:01 Course Orders Ordered: Acetaminophen (Acetaminophen 325 Mg Tablet) 650 mg PO Q6H PRN PRN Reason: Fever/Mild Pain (1-3) Last Admin: 08/29/24 17:56 Dose: 650 mg Documented By: JUSTICE Albuterol (Albuterol 2.5 Mg/3 Ml Neb (Adult)) 2.5 mg INH Q4H PRN PRN Reason: Bronchospasm Atorvastatin Calcium (Atorvastatin 20 Mg Tablet) 10 mg PO BEDTIME [facility] Last Admin: 08/29/24 21:53 Dose: 10 mg Documented By: KACIE Dextrose (Dextrose 50 % In Water 25 Gm/50 Ml Syringe) 12.5 gm IV PRN PRN PRN Reason: Hypoglycemia Diltiazem HCl (Diltiazem Cd 120 Mg Cap) 240 mg PO DAILY [facility] Last Admin: 08/29/24 08:08 Dose: 240 mg Documented By: JUSTICE Ceftriaxone Sodium 1,000 mg/ (Sodium Chloride) 100 mls @ 200 mls/hr IV BEDTIME [facility] Last Infusion: 08/29/24 22:25 Dose: Infused Documented By: Admin: 08/29/24 21:53 Dose: 200 mls/hr Documented By: KACIE Sodium Chloride (Normal Saline 0.9%) 1,000 mls @ 100 mls/hr IV CONT [facility] Last Admin: 08/30/24 03:45 Dose: 100 mls/hr Documented By: Infusion: 08/30/24 03:45 Dose: Infused Documented By: Admin: 08/29/24 17:55 Dose: 100 mls/hr Documented By: Infusion: 08/29/24 16:30 Dose: Infused Documented By: Admin: 08/29/24 06:30 Dose: 100 mls/hr Documented By: DAYSI Insulin Human Lispro (Insulin Lispro 100 Unit/Ml 3ml Vial) 0 unit SUBCUT ACHS [facility]; Protocol Last Admin: 08/29/24 21:57 Dose: 1 unit Documented By: KACIE Co-signed By: MARIO Admin: 08/29/24 18:03 Dose: 2 unit Documented By: JUSTICE Co-signed By: CUATE Admin: 08/29/24 12:06 Dose: 2 unit Documented By: JUSTICE Co-signed By: CUATE Latanoprost (Latanoprost 0.005% Ophth 2.5 Ml) 1 drops EYE-BOTH BEDTIME [facility] Last Admin: 08/29/24 21:58 Dose: Not Given Documented By: KACIE Levothyroxine Sodium (Levothyroxine 75 Mcg Tablet) 75 mcg PO DAILY@0600 [facility] Last Admin: 08/30/24 05:40 Dose: 75 mcg Documented By: Admin: 08/29/24 08:07 Dose: 75 mcg Documented By: JUSTICE Naloxone HCl (Naloxone 0.4 Mg/Ml Vial) 0.2 mg IV Q2MIN PRN PRN Reason: Opiate Reversal Ondansetron HCl (Ondansetron 4 Mg/2 Ml Inj) 4 mg IV Q8HR PRN PRN Reason: Nausea And Vomiting Tamsulosin HCl (Tamsulosin 0.4 Mg Capsule) 0.4 mg PO QPM [facility] Last Admin: 08/29/24 17:56 Dose: 0.4 mg Documented By: JUSTICE Warfarin Sodium (Warfarin 5 Mg Tablet) 5 mg PO SuTuThFr@1700 [facility] Last Admin: 08/29/24 17:56 Dose: 5 mg Documented By: JUSTICE Warfarin Sodium (Warfarin 2.5 Mg Tablet) 2.5 mg PO MoWeSa@1700 [facility] Discontinued Medications Dextrose (Dextrose 50 % In Water 25 Gm/50 Ml Syringe) 25 gm IV PRN PRN PRN Reason: Hypoglycemia Ceftriaxone Sodium 1,000 mg/ (Sodium Chloride) 100 mls @ 200 mls/hr IV NOW ONE Stop: 08/29/24 02:03 Last Infusion: 08/29/24 03:57 Dose: Infused Documented By: Infusion: 08/29/24 03:22 Dose: 200 mls/hr Documented By: DEE DEE Admin: 08/29/24 02:57 Dose: 200 mls/hr Documented By: DEE DEE Sodium Chloride (Normal Saline 0.9%) 1,000 mls @ 1,000 mls/hr IV BOLUS ONE Stop: 08/29/24 03:31 Last Infusion: 08/29/24 04:36 Dose: Infused Documented By: Infusion: 08/29/24 03:22 Dose: 1,000 mls/hr Documented By: DEE DEE Admin: 08/29/24 02:56 Dose: 1,000 mls/hr Documented By: DEE DEE Sodium Chloride (Normal Saline 0.9%) 1,000 mls @ 100 mls/hr IV CONT [facility] Last Admin: 08/29/24 05:03 Dose: Not Given Documented By: DAYSI Sodium Chloride (Normal Saline 0.9%) 1,000 mls @ 1,000 mls/hr IV BOLUS ONE Stop: 08/29/24 03:34 Last Infusion: 08/29/24 06:59 Dose: Infused Documented By: Admin: 08/29/24 04:36 Dose: 1,000 mls/hr Documented By: DAYSI Vital Signs Vital signs: Vital Signs - 8 hr 08/29/24 00:01 08/29/24 00:07 08/29/24 00:30 Temperature 98.3 F Pulse Rate 90 95 H Respiratory Rate 18 Blood Pressure 140/81 133/64 Pulse Oximetry 94 94 Oxygen Delivery Method Room Air Oxygen Flow Rate 08/29/24 00:30 08/29/24 00:32 08/29/24 01:00 Temperature Pulse Rate 91 H 88 Respiratory Rate 20 Blood Pressure Pulse Oximetry 89 L 94 97 Oxygen Delivery Method Room Air Nasal Cannula Nasal Cannula Oxygen Flow Rate 2 2 08/29/24 01:00 Temperature Pulse Rate Respiratory Rate Blood Pressure 144/67 H Pulse Oximetry Oxygen Delivery Method Oxygen Flow Rate MDM - Altered Mental Status Lab Data Attestation: I reviewed the patient's lab results. Lab results narrative: White blood cell count 32799, hemoglobin 13.2, platelets adequate. Glucose 235. BUN sixteen, creatinine 0.78. Electrolytes show potassium 4.5 normal, sodium 133 with glucose 235. Serum CO2 18 decreased. Ammonia level negative. Urine drug screen negative. Urinalysis suspicious for infection, urine culture requested. Blood cultures requested. 08/30/24 04:50 08/29/24 06:00 Labs: Lab Results 08/29/24 08/29/24 08/29/24 Range/Units 00:21 00:28 01:00 WBC 20.3 H (4.5-11.0) X10^3/uL RBC 4.22 L (4.5-5.9) X10^6/uL Hgb 13.2 L (13.5-17.5) g/dL Hct 39.7 L (41-53) % MCV 94.1 (80-100) fL MCH 31.4 (26-34) PG MCHC 33.4 (30-36) % RDW 14.1 (11.6-14.8) % Plt Count 233 (150-400) X10^3/uL Neut % (Auto) 89.8 H (50-75) % Lymph % (Auto) 3.2 L (25-40) % Archer % (Auto) 6.8 (3-14) % Eos % (Auto) 0.1 L (2-4) % Baso % (Auto) 0.1 (0-2) % Neut # (Auto) 49570 H (4944-5577) /uL Lymph # (Auto) 600 L (5038-5434) /uL Archer # (Auto) 1400 H (0-900) /uL Eos # (Auto) 0 (0-450) /uL Baso # (Auto) 0 (0-100) /uL PT 21.1 H (9.4-12.5) SECONDS INR 1.9 H (0.9-1.3) Sodium 133 L (137-145) mmol/L Potassium 4.5 (3.4-5.1) mmol/L Chloride 102 (98-107) mmol/L Carbon Dioxide 18 L (22-32) mmol/L BUN 16 (9-20) mg/dL Creatinine 0.78 (0.66-1.25) mg/dL Estimated GFR > 60 (>60) mL/min BUN/Creatinine Ratio 20.5 (6-22) Glucose 235 H (80-110) mg/dL Calcium 9.1 (8.4-10.2) mg/dL Total Bilirubin 1.7 H (0.2-1.3) mg/dL AST 48 (17-59) IU/L ALT 50 H (<50) IU/L Alkaline Phosphatase 106 (38-126) U/L Ammonia < 9 L (9-30) umol/L Total Protein 7.1 (6.3-8.2) g/dL Albumin 3.7 (3.5-5.0) g/dL Globulin 3.4 (1.7-4.1) g/dL Albumin/Globulin Ratio 1.1 (1.0-2.8) TSH 3.17 (0.47-4.68) uIU/mL Urine Color Yellow Urine Appearance Clear Urine pH 5.5 (4.5-8.0) Ur Specific [place] >=1.030 H (1.000-1.035) Urine Protein 1+ H (Negative) Urine Glucose (UA) Trace H (Negative) g/dL Urine Ketones Trace H (NEGATIVE) Urine Occult Blood 3+ H (Negative) Urine Nitrate Positive H (Negative) Urine Bilirubin Negative (NEGATIVE) Urine Urobilinogen 0.2 (0.2) E.U./dL Ur Leukocyte Esterase Trace H (NEGATIVE) Urine RBC >100/hpf H (0-5/HPF) Urine WBC 5-10/hpf H (0-5/HPF) Ur Squamous Epith Cells 0-1 /hpf (0-5/HPF) Urine Bacteria Many (>30) H (None) Ur Culture Indicated? Specimen cultured Vol Urine Centrifuged 10ml (spun) U Opiates 300ng/mL cut Negative (Negative) Ur Oxycodone Screen Negative (Negative) Urine Methadone Screen Negative (Negative) Ur Barbiturates Screen Negative (Negative) U Tricyclic Antidepress Negative (Negative) Ur Phencyclidine Scrn Negative (Negative) Ur Amphetamines Screen Negative (Negative) U Methamphetamines Scrn Negative (Negative) Ur MDMA Scrn (Ecstasy) Negative (Negative) U Benzodiazepines Scrn Negative (Negative) Urine Cocaine Screen Negative (Negative) U Marijuana (THC) Screen Negative (Negative) Urine Specific [place] (Normal) Ur Creatinine (Normal) 08/29/24 Range/Units 01:00 WBC (4.5-11.0) X10^3/uL RBC (4.5-5.9) X10^6/uL Hgb (13.5-17.5) g/dL Hct (41-53) % MCV (80-100) fL MCH (26-34) PG MCHC (30-36) % RDW (11.6-14.8) % Plt Count (150-400) X10^3/uL Neut % (Auto) (50-75) % Lymph % (Auto) (25-40) % Archer % (Auto) (3-14) % Eos % (Auto) (2-4) % Baso % (Auto) (0-2) % Neut # (Auto) (8263-0159) /uL Lymph # (Auto) (5121-9214) /uL Archer # (Auto) (0-900) /uL Eos # (Auto) (0-450) /uL Baso # (Auto) (0-100) /uL PT (9.4-12.5) SECONDS INR (0.9-1.3) Sodium (137-145) mmol/L Potassium (3.4-5.1) mmol/L Chloride (98-107) mmol/L Carbon Dioxide (22-32) mmol/L BUN (9-20) mg/dL Creatinine (0.66-1.25) mg/dL Estimated GFR (>60) mL/min BUN/Creatinine Ratio (6-22) Glucose (80-110) mg/dL Calcium (8.4-10.2) mg/dL Total Bilirubin (0.2-1.3) mg/dL AST (17-59) IU/L ALT (<50) IU/L Alkaline Phosphatase (38-126) U/L Ammonia (9-30) umol/L Total Protein (6.3-8.2) g/dL Albumin (3.5-5.0) g/dL Globulin (1.7-4.1) g/dL Albumin/Globulin Ratio (1.0-2.8) TSH (0.47-4.68) uIU/mL Urine Color Urine Appearance Urine pH Normal (4.5-8.0) Ur Specific [place] (1.000-1.035) Urine Protein (Negative) Urine Glucose (UA) (Negative) g/dL Urine Ketones (NEGATIVE) Urine Occult Blood (Negative) Urine Nitrate (Negative) Urine Bilirubin (NEGATIVE) Urine Urobilinogen (0.2) E.U./dL Ur Leukocyte Esterase (NEGATIVE) Urine RBC (0-5/HPF) Urine WBC (0-5/HPF) Ur Squamous Epith Cells (0-5/HPF) Urine Bacteria (None) Ur Culture Indicated? Vol Urine Centrifuged U Opiates 300ng/mL cut (Negative) Ur Oxycodone Screen (Negative) Urine Methadone Screen (Negative) Ur Barbiturates Screen (Negative) U Tricyclic Antidepress (Negative) Ur Phencyclidine Scrn (Negative) Ur Amphetamines Screen (Negative) U Methamphetamines Scrn (Negative) Ur MDMA Scrn (Ecstasy) (Negative) U Benzodiazepines Scrn (Negative) Urine Cocaine Screen (Negative) U Marijuana (THC) Screen (Negative) Urine Specific [place] Normal (Normal) Ur Creatinine Normal (Normal) Point of Care Testing Glucose POC [address] scan - head: Radiologist's Impression: [place] [address] CT Scan Report Signed Patient: Marcelo Ledbetter MR#: [id number] : 1935 Acct:[id number] Age/Sex: 89 / M Date of Service: 08/29/24 Loc: 223-1 Accession Number: [id number] Procedure: CT head/brain wo con Ordering Provider: Carlin Suarez MD PROCEDURE: CT HEAD/BRAIN WO CON INDICATIONS: alt MSE, takes warfarin TECHNIQUE: Noncontrast 4.5 mm thick angled axial sections acquired from the foramen magnum to the vertex, with coronal and sagittal reformats. For radiation dose reduction, the following was used: automated exposure control, adjustment of mA and/or kV according to patient size. COMPARISON: [facility], CT, CT HEAD/BRAIN WO CON, 01/15/2023, 15:26. FINDINGS: Image quality: Motion degraded. CSF spaces: Basal cisterns are patent. No extra-axial fluid collections. The ventricles are symmetric in size and shape. Brain: No intracranial bleeds or mass effect. There is cerebral volume loss for age, with resultant ventricular and sulcal prominence. There are periventricular and deep white matter chronic small vessel ischemic changes. There is intracranial internal carotid artery atherosclerosis. Skull and face: Calvarium and visualized facial bones appear intact, without suspicious lesions. Sinuses: Moderate mucosal thickening of the right maxillary sinus. Visualized sinuses and mastoids are otherwise clear. IMPRESSION: Motion degraded exam. Within these limitations, no acute intracranial pathology. Findings are concordant with preliminary interpretation provided by [facility]. Dictated by: Zeke Paredes M.D. on 08/29/2024 at 8:19 Approved by: Zeke Paredes M.D. on 08/29/2024 at 8:20 Chest x-ray: Radiologist's Impression: [place] [address] XRay Report Signed Patient: Marcelo Ledbetter MR#: [id number] : 1935 Acct:[id number] Age/Sex: 89 / M Date of Service: 08/29/24 Loc: ED Accession Number: [id number] Procedure: XR chest 1V Ordering Provider: Carlin Suarez MD PROCEDURE: XR CHEST 1V INDICATIONS: altered mental status TECHNIQUE: One view of the chest was acquired. COMPARISON: [facility], CR, XR CHEST 1V, 01/15/2023, 12:37. [facility], CR, XR CHEST 1V, 11/03/2021, 11:21. [facility], CR, XR CHEST 2V, 09/27/2018, 15:39. FINDINGS: Surgical changes and devices: None. Lungs and pleura: Lungs are clear. No pleural effusions or pneumothorax. Mediastinum: Mediastinal contours appear normal. Heart size is normal. Bones and chest wall: No suspicious bony lesions. Overlying soft tissues appear unremarkable. IMPRESSION: No acute cardiothoracic process. Dictated by: Albaro Roca M.D. on 08/29/2024 at 1:20 Approved by: Albaro Roca M.D. on 08/29/2024 at 1:21 ECG Data Attestation: I personally reviewed and interpreted this ECG as follows: Interpretation: Atrial fibrillation with ventricular response rate 84. No obvious ST segment elevation or depression changes. QRS 86, QTC 449. MDM Narrative Medical decision making narrative: 81-year-old male with confusion, subjective fevers, recent urinary frequency. No trauma obvious. Afebrile, sirs screen negative. Labs pending. CT head and chest x-ray pending. CT head no acute changes, limited by motion artifact. See radiology report. Chest x-ray no acute changes. See radiology report. Labs screening suspicious for infection urine, urine culture requested, blood cultures, IV ceftriaxone given. Confusion in setting of urinary tract infection, family requests admission, we will consult hospitalist. Case discussed with hospitalist Dr. Herr who accepts patient for admission Discharge Plan Departure Patient Disposition: Admitted as Observation Clinical Impression: Urinary tract infection, Confusion, Hypoxia Admit Date/Time: 08/29/24 02:38 Admit Provider: Hieu Herr
[2024-08-29] MEDS: SODIUM CHLORIDE 0.9% 1,000 ML 1000 ML IV ×2 (02:56→04:36)
[2024-08-29] MEDS: cefTRIAXone 1,000 MG in SODIUM CHLORIDE 0.9% 100 ML 200 MG IV ×2 (02:57→21:53)
[2024-08-29 03:04] LABS: INR 1.9 (0.9-1.3); Prothrombin Time 21.1 SECONDS (9.4-12.5)
--- NOTE | 2024-08-29 03:09 | DI.CT.S_ITS ---
PROCEDURE: CT HEAD/BRAIN WO CON INDICATIONS: alt MSE, takes warfarin TECHNIQUE: Noncontrast 4.5 mm thick angled axial sections acquired from the foramen magnum to the vertex, with coronal and sagittal reformats. For radiation dose reduction, the following was used: automated exposure control, adjustment of mA and/or kV according to patient size. COMPARISON: [facility], CT, CT HEAD/BRAIN WO CON, 01/15/2023, 15:26. FINDINGS: Image quality: Motion degraded. CSF spaces: Basal cisterns are patent. No extra-axial fluid collections. The ventricles are symmetric in size and shape. Brain: No intracranial bleeds or mass effect. There is cerebral volume loss for age, with resultant ventricular and sulcal prominence. There are periventricular and deep white matter chronic small vessel ischemic changes. There is intracranial internal carotid artery atherosclerosis. Skull and face: Calvarium and visualized facial bones appear intact, without suspicious lesions. Sinuses: Moderate mucosal thickening of the right maxillary sinus. Visualized sinuses and mastoids are otherwise clear. IMPRESSION: Motion degraded exam. Within these limitations, no acute intracranial pathology. Findings are concordant with preliminary interpretation provided by [facility]. Dictated by: Zeke Paredes M.D. on 08/29/2024 at 8:19 Approved by: Zeke Paredes M.D. on 08/29/2024 at 8:20
[2024-08-29 03:17] LABS: Lactate (Lactic Acid) 2.3 mmol/L (0.7-2.1)
[2024-08-29 04:34] LABS: Reflexed Lactate in 2 Hours Y
[2024-08-29] MEDS: SODIUM CHLORIDE 0.9% 1,000 ML 100 ML IV ×2 (06:30→17:55)
--- NOTE | 2024-08-29 06:37 | P.HP_ITS ---
History of Present Illness History of Present Illness Chief complaint: AMS Narrative: 89-year-old male with past medical history of atrial fibrillation on Coumadin, hypertension, COPD non-O2 dependent, hyperlipidemia, hypothyroidism, fyv-iqyhvdy-dtbhxpuuk diabetes and BPH presents with confusion. Per the patient's family report, about 3 weeks ago the patient was found to be confused and was brought into the ER. The patient did not have any sign of infection at that time including a negative UA and a chest x-ray per report. CT scan at that time was also negative. However the patient was noted to be quite confused again since yesterday per the patient's . At baseline the patient is alert and oriented x 3. Otherwise there is no report of any focal deficit, fever, chills, nausea, vomiting, diarrhea, chest pain or shortness of breath. In the emergency room, the patient was hemodynamically stable. WBC was 20 and UA suggested UTI. Lactic acid 2.3. IV ceftriaxone given. CT head was negative again. Patient mentation did improve slightly with IV fluid antibiotic. [facility] Medical History (Updated 08/29/24 @ 02:39 by Carlin Suarez MD) Atrial fibrillation with controlled ventricular rate HTN (hypertension) Aortic aneurysm COPD (chronic obstructive pulmonary disease) Surgical History History of appendectomy Family History Mother Cancer Father Cancer Social History marital status: household members: spouse Smoking Status: Former smoker alcohol intake: never Meds Home Medications and Allergies Home Medications Medication Instructions Recorded Confirmed Type tamsulosin 0.4 mg capsule (Flomax) 1 cap PO QPM ##0 06/29/11 08/29/24 History atorvastatin 10 mg tablet (Lipitor) 10 mg PO BEDTIME ##0 09/20/12 08/29/24 History albuterol sulfate 90 mcg/actuation 2 puff INH Q4HP PRN Bronchospasm 03/18/17 08/29/24 History aerosol inhaler (Ventolin HFA) ##0 latanoprost 0.005 % eye drops 1 drp OPHTH BEDTIME ##0 03/18/17 08/29/24 History levothyroxine 75 mcg tablet 75 mcg PO DAILY ##0 03/18/17 08/29/24 History (Synthroid) metformin 500 mg tablet 500 mg PO BIDCC ##0 03/18/17 08/29/24 History (Glucophage) warfarin 5 mg tablet (Coumadin) 5 mg PO DAILY ##0 03/19/17 08/29/24 History diltiazem HCl 240 mg 240 mg PO DAILY 09/27/18 08/29/24 History capsule,extended release 24 hr furosemide 20 mg tablet 20 mg PO DAILY 11/03/21 08/29/24 History gabapentin 100 mg capsule 100 mg PO BEDTIME 08/29/24 08/29/24 History glimepiride 2 mg tablet 2 mg DAILY 08/29/24 08/29/24 History Allergies Allergy/AdvReac Type Severity Reaction Status Date / Time No Known Drug Allergies Allergy Unverified 01/26/18 09:42 Review of Systems Review of Systems Narrative: Limited due to confusion. Exam Vital Signs (past 8 hours): - 08/29/24 00:01 08/29/24 00:07 08/29/24 00:30 Temperature 98.3 F Pulse Rate 90 95 H Respiratory Rate 18 Blood Pressure 140/81 133/64 Pulse Oximetry 94 94 Oxygen Delivery Method Room Air Oxygen Flow Rate 08/29/24 00:30 08/29/24 00:32 08/29/24 01:00 Temperature Pulse Rate 91 H 88 Respiratory Rate 20 Blood Pressure Pulse Oximetry 89 L 94 97 Oxygen Delivery Method Room Air Nasal Cannula Nasal Cannula Oxygen Flow Rate 2 2 08/29/24 01:00 08/29/24 01:30 08/29/24 01:30 Temperature Pulse Rate 84 Respiratory Rate 25 H Blood Pressure 144/67 H 136/66 Pulse Oximetry 96 Oxygen Delivery Method Oxygen Flow Rate 08/29/24 02:00 08/29/24 02:00 08/29/24 02:30 Temperature Pulse Rate 93 H 93 H Respiratory Rate 24 24 Blood Pressure 135/70 Pulse Oximetry 97 97 Oxygen Delivery Method Nasal Cannula Nasal Cannula Oxygen Flow Rate 2 2 08/29/24 02:39 08/29/24 02:39 08/29/24 03:00 Temperature Pulse Rate 94 H 90 Respiratory Rate 29 H 25 H Blood Pressure 130/64 Pulse Oximetry 95 98 Oxygen Delivery Method Nasal Cannula Oxygen Flow Rate 2 08/29/24 03:00 08/29/24 04:00 08/29/24 04:05 Temperature 97.9 F Pulse Rate 80 Respiratory Rate 18 Blood Pressure 137/62 140/69 Pulse Oximetry 96 Oxygen Delivery Method Room Air Oxygen Flow Rate 0 Oxygen Delivery Method Room Air Oxygen Flow Rate 0 Narrative Exam Narrative: Physical Exam: GENERAL: The patient is not in any acute distressed. awake but confuse HEENT: Nonicteric sclerae, PERRLA, EOMI. Oropharynx clear. Moist mucous membranes. Conjunctivae appear well perfused. HEART: Regular rate and rhythm without murmurs. No lower extremities edema. LUNGS: Clear to auscultation bilaterally. No wheezing, crackles or rhonchi ABDOMEN: Soft, positive bowel sounds, nontender. SKIN: No rash, no excessive bruising, petechiae, or purpura. NEUROLOGIC: AxO x self only.. Cranial nerves II-XII intact without motor/sensory deficit. Objective Labs 08/29/24 00:21 08/29/24 00:21 Labs: Laboratory Results - last 24 hr 08/29/24 08/29/24 08/29/24 00:21 00:28 01:00 WBC 20.3 H RBC 4.22 L Hgb 13.2 L Hct 39.7 L MCV 94.1 MCH 31.4 MCHC 33.4 RDW 14.1 Plt Count 233 Neut % (Auto) 89.8 H Lymph % (Auto) 3.2 L [place] % (Auto) 6.8 Eos % (Auto) 0.1 L Baso % (Auto) 0.1 Neut # (Auto) 66550 H Lymph # (Auto) 600 L [place] # (Auto) 1400 H Eos # (Auto) 0 Baso # (Auto) 0 PT 21.1 H INR 1.9 H Sodium 133 L Potassium 4.5 Chloride 102 Carbon Dioxide 18 L BUN 16 Creatinine 0.78 Estimated GFR > 60 BUN/Creatinine Ratio 20.5 Glucose 235 H Lactate Calcium 9.1 Total Bilirubin 1.7 H AST 48 ALT 50 H Alkaline Phosphatase 106 Ammonia < 9 L Total Protein 7.1 Albumin 3.7 Globulin 3.4 Albumin/Globulin Ratio 1.1 Urine Color Yellow Urine Appearance Clear Urine pH 5.5 Ur Specific [place] >=1.030 H Urine Protein 1+ H Urine Glucose (UA) Trace H Urine Ketones Trace H Urine Occult Blood 3+ H Urine Nitrate Positive H Urine Bilirubin Negative Urine Urobilinogen 0.2 Ur Leukocyte Esterase Trace H Urine RBC >100/hpf H Urine WBC 5-10/hpf H Ur Squamous Epith Cells 0-1 /hpf Urine Bacteria Many (>30) H Ur Culture Indicated? Specimen cultured Vol Urine Centrifuged 10ml (spun) U Opiates 300ng/mL cut Negative Ur Oxycodone Screen Negative Urine Methadone Screen Negative Ur Barbiturates Screen Negative U Tricyclic Antidepress Negative Ur Phencyclidine Scrn Negative Ur Amphetamines Screen Negative U Methamphetamines Scrn Negative Ur MDMA Scrn (Ecstasy) Negative U Benzodiazepines Scrn Negative Urine Cocaine Screen Negative U Marijuana (THC) Screen Negative Urine Specific [place] Ur Creatinine 08/29/24 08/29/24 01:00 02:57 WBC RBC Hgb Hct MCV MCH MCHC RDW Plt Count Neut % (Auto) Lymph % (Auto) [place] % (Auto) Eos % (Auto) Baso % (Auto) Neut # (Auto) Lymph # (Auto) [place] # (Auto) Eos # (Auto) Baso # (Auto) PT INR Sodium Potassium Chloride Carbon Dioxide BUN Creatinine Estimated GFR BUN/Creatinine Ratio Glucose Lactate 2.3 H Calcium Total Bilirubin AST ALT Alkaline Phosphatase Ammonia Total Protein Albumin Globulin Albumin/Globulin Ratio Urine Color Urine Appearance Urine pH Normal Ur Specific [place] Urine Protein Urine Glucose (UA) Urine Ketones Urine Occult Blood Urine Nitrate Urine Bilirubin Urine Urobilinogen Ur Leukocyte Esterase Urine RBC Urine WBC Ur Squamous Epith Cells Urine Bacteria Ur Culture Indicated? Vol Urine Centrifuged U Opiates 300ng/mL cut Ur Oxycodone Screen Urine Methadone Screen Ur Barbiturates Screen U Tricyclic Antidepress Ur Phencyclidine Scrn Ur Amphetamines Screen U Methamphetamines Scrn Ur MDMA Scrn (Ecstasy) U Benzodiazepines Scrn Urine Cocaine Screen U Marijuana (THC) Screen Urine Specific [place] Normal Ur Creatinine Normal Assessment & Plan Assessment & Plan narrative: Sepsis. Admit the patient to medical telemetry as inpatient. Of note patient is still hemodynamically stable. Source likely from urine. Treat underlying infection with IV fluid and monitor hemodynamic. UTI. Continue IV ceftriaxone and follow-up cultures. Acute encephalopathy. Could be due to underlying infection. CT head is negative. Recent TSH negative normal. Patient mentation seems to be improving with current treatment. Continue to treat underlying infection and monitor mental status. Of note patient is nonfocal on exam. PT/OT. Blk-hpcvwzk-onwwqklel diabetes. Continue to monitor glucose with subcu insulin. Hold home metformin. Lactic acid elevation. Mild. 2.3. Could be sepsis versus metformin. Treat as above to monitor and trend lactic acid to normal. Hypothyroidism. He had recent TSH normal. Will resume home Synthroid. Hyperlipidemia. Resume home statin. COPD. No sign of exacerbation. Monitor for now. If mentation does not improve consider getting VBG. Resume home inhalers. Hypertension. Monitor blood pressure and resume home medication accordingly. Atrial fibrillation. Will check INR and will resume Coumadin in the morning accordingly. Continue home diltiazem. BPH. Resume home flomax. DVT prophylaxis Coumadin. CODE STATUS DNR/DNI Disposition likely home in 2 to 3 days. Time-Based Coding :: [TOTAL MINUTES] spent with patient and on the chart (including review of chart, obtaining history, exam, reviewing outside data, placing orders, documenting exam and treatment plan, and counseling patient) on [DATE].
[2024-08-29 06:44] LABS: Add Manual Diff / Slide Review NO; Basophils Absolute Auto 200 /uL (0-100); Basophils Percent Auto 0.8 % (0-2); Eosinophils Absolute Auto 0 /uL (0-450); Hematocrit 40.9 % (41-53); Hemoglobin 13.7 g/dL (13.5-17.5); Lymphocytes Absolute Auto 1000 /uL (1100-4500); Lymphocytes Percent Auto 4.8 % (25-40); Mean Corpuscular HGB Conc 33.4 % (30-36); Mean Corpuscular Hemoglobin 31.9 PG (26-34); Mean Corpuscular Volume 95.3 fL (80-100); Monocytes Absolute Auto 1300 /uL (0-900); Neutrophils Absolute Auto 18800 /uL (1500-7000); Neutrophils Percent Auto 88.4 % (50-75); Platelet Count 216 X10^3/uL (150-400); Red Blood Cell Count 4.29 X10^6/uL (4.5-5.9); Red Cell Distribution Width 14.3 % (11.6-14.8); White Blood Cell Count 21.3 X10^3/uL (4.5-11.0)
[2024-08-29 06:57] LABS: Lactate 2HR (Lactic Acid Rflx) 2.6 mmol/L (0.7-2.1)
[2024-08-29 06:58] LABS: Alanine Aminotransferase 43 IU/L (<50); Albumin 3.7 g/dL (3.5-5.0); Albumin Globulin Ratio 1.1 (1.0-2.8); Alkaline Phosphatase 98 U/L (38-126); Aspartate Aminotransferase 40 IU/L (17-59); BUN Creatinine Ratio 16.3 (6-22); Bilirubin Total 1.6 mg/dL (0.2-1.3); Blood Urea Nitrogen 13 mg/dL (9-20); Calcium 8.7 mg/dL (8.4-10.2); Carbon Dioxide 21 mmol/L (22-32); Chloride 104 mmol/L (98-107); Estimated Glomerular Filt Rate > 60 mL/min (>60); Globulin 3.3 g/dL (1.7-4.1); Glucose 199 mg/dL (80-110); HEMOLYSIS 25 (0-50); Potassium 4.3 mmol/L (3.4-5.1); Sodium 136 mmol/L (137-145)
--- NOTE | 2024-08-29 07:33 | PC.WOUNDPHOT ---
^ redness on sacrum with some non-blanchable areas bilaterally
[2024-08-29 07:38] LABS: TSH w/ Reflex to FT4 3.17 uIU/mL (0.47-4.68)
--- NOTE | 2024-08-29 07:41 | PC.NURSE ---
Patient arrived onto floor @ approximately 0330 accompanied by & daughter, slid from stretcher to bed. Patient is alert and oriented to self, place, and accurately stated current president (unable to state year). Reports chronic back pain, repositioned for comfort. VSS, SpO2 in mid 90's on 2LNC when sleeping. Cont tele in place. Condom catheter in place. Notified MD of increasing lactate. 2L NS bolused overnight, IV abx given. Patient tolerated well, denies SOB.
[2024-08-29] MEDS: LEVOTHYROXINE 75 MCG TABLET PO (08:07)
[2024-08-29] MEDS: dilTIAZem CD 120 MG CAP 240 MG PO (08:08)
--- NOTE | 2024-08-29 08:30 | P.HP_ITS ---
History of Present Illness History of Present Illness Date Patient Seen: 08/29/24 Chief complaint: AMS Narrative: From night doctor: 89-year-old male with past medical history of atrial fibrillation on Coumadin, hypertension, COPD non-O2 dependent, hyperlipidemia, hypothyroidism, rax-hkmvwwj-vfowpaudt diabetes and BPH presents with confusion. Per the patient's family report, about 3 weeks ago the patient was found to be confused and was brought into the ER. The patient did not have any sign of infection at that time including a negative UA and a chest x-ray per report. CT scan at that time was also negative. However the patient was noted to be quite confused again since yesterday per the patient's . At baseline the patient is alert and oriented x 3. Otherwise there is no report of any focal deficit, fever, chills, nausea, vomiting, diarrhea, chest pain or shortness of breath. In the emergency room, the patient was hemodynamically stable. WBC was 20 and UA suggested UTI. Lactic acid 2.3. IV ceftriaxone given. CT head was negative again. Patient mentation did improve slightly with IV fluid antibiotic. S: He was awake and alert, he denies any pain. He knows where he is. No dyspnea or chest pain. He was clinically improving. He is very hard of hearing. [facility] Medical History Atrial fibrillation with controlled ventricular rate HTN (hypertension) Aortic aneurysm COPD (chronic obstructive pulmonary disease) Surgical History History of appendectomy Family History Mother Cancer Father Cancer Social History marital status: household members: spouse Smoking Status: Former smoker alcohol intake: never Meds Home Medications and Allergies Home Medications Medication Instructions Recorded Confirmed Type tamsulosin 0.4 mg capsule (Flomax) 1 cap PO QPM ##0 06/29/11 08/29/24 History atorvastatin 10 mg tablet (Lipitor) 10 mg PO BEDTIME ##0 09/20/12 08/29/24 History albuterol sulfate 90 mcg/actuation 2 puff INH Q4HP PRN Bronchospasm 03/18/17 08/29/24 History aerosol inhaler (Ventolin HFA) ##0 latanoprost 0.005 % eye drops 1 drp OPHTH BEDTIME ##0 03/18/17 08/29/24 History levothyroxine 75 mcg tablet 75 mcg PO DAILY ##0 03/18/17 08/29/24 History (Synthroid) metformin 500 mg tablet 500 mg PO BIDCC ##0 03/18/17 08/29/24 History (Glucophage) warfarin 5 mg tablet (Coumadin) 5 mg PO DAILY ##0 03/19/17 08/29/24 History diltiazem HCl 240 mg 240 mg PO DAILY 09/27/18 08/29/24 History capsule,extended release 24 hr furosemide 20 mg tablet 20 mg PO DAILY 11/03/21 08/29/24 History gabapentin 100 mg capsule 100 mg PO BEDTIME 08/29/24 08/29/24 History glimepiride 2 mg tablet 2 mg DAILY 08/29/24 08/29/24 History Allergies Allergy/AdvReac Type Severity Reaction Status Date / Time No Known Drug Allergies Allergy Unverified 01/26/18 09:42 Review of Systems Review of Systems Narrative: All else reviewed and otherwise unremarkable except as noted in the history and physical. Exam Vital Signs (past 8 hours): - 08/29/24 00:32 08/29/24 01:00 08/29/24 01:00 Temperature Pulse Rate 88 Respiratory Rate 20 Blood Pressure 144/67 H Pulse Oximetry 94 97 Oxygen Delivery Method Nasal Cannula Nasal Cannula Oxygen Flow Rate 2 2 08/29/24 01:30 08/29/24 01:30 08/29/24 02:00 Temperature Pulse Rate 84 93 H Respiratory Rate 25 H 24 Blood Pressure 136/66 Pulse Oximetry 96 97 Oxygen Delivery Method Nasal Cannula Oxygen Flow Rate 2 08/29/24 02:00 08/29/24 02:30 08/29/24 02:39 Temperature Pulse Rate 93 H Respiratory Rate 24 Blood Pressure 135/70 130/64 Pulse Oximetry 97 Oxygen Delivery Method Nasal Cannula Oxygen Flow Rate 2 08/29/24 02:39 08/29/24 03:00 08/29/24 03:00 Temperature Pulse Rate 94 H 90 Respiratory Rate 29 H 25 H Blood Pressure 137/62 Pulse Oximetry 95 98 Oxygen Delivery Method Nasal Cannula Oxygen Flow Rate 2 08/29/24 04:00 08/29/24 04:05 Temperature 97.9 F Pulse Rate 80 Respiratory Rate 18 Blood Pressure 140/69 Pulse Oximetry 96 Oxygen Delivery Method Room Air Oxygen Flow Rate 0 Oxygen Delivery Method Room Air Oxygen Flow Rate 0 Narrative Exam Narrative: NAD, alert and oriented, fluent speech, calm. Hearing impaired. Normocephalic skull, EOMI, anicteric sclera, symmetric pupils. Oropharynx unremarkable, no droop. Neck supple, midline trachea, no adenopathy. Lungs clear, normal rate and effort. Heart regular, no murmur gallop or rub. Abdomen is soft, non distended and non tender. Extremities are free of edema. Skin is free of rash or lesions. Joints are not swollen or deformed. Judgment appears to be normal. Objective ECG Impression: Atrial fibrillation Imaging CT scan - head: Radiologist's impression: Motion degraded exam. Within these limitations, no acute intracranial pathology. Findings are concordant with preliminary interpretation provided by [facility]. Chest x-ray: Radiologist's impression: No acute cardiothoracic process. Labs 08/29/24 06:00 08/29/24 06:00 Labs: Laboratory Results - last 24 hr 08/29/24 08/29/24 08/29/24 00:21 00:28 01:00 WBC 20.3 H RBC 4.22 L Hgb 13.2 L Hct 39.7 L MCV 94.1 MCH 31.4 MCHC 33.4 RDW 14.1 Plt Count 233 Neut % (Auto) 89.8 H Lymph % (Auto) 3.2 L [place] % (Auto) 6.8 Eos % (Auto) 0.1 L Baso % (Auto) 0.1 Neut # (Auto) 29880 H Lymph # (Auto) 600 L [place] # (Auto) 1400 H Eos # (Auto) 0 Baso # (Auto) 0 PT 21.1 H INR 1.9 H Sodium 133 L Potassium 4.5 Chloride 102 Carbon Dioxide 18 L BUN 16 Creatinine 0.78 Estimated GFR > 60 BUN/Creatinine Ratio 20.5 Glucose 235 H Lactate Calcium 9.1 Total Bilirubin 1.7 H AST 48 ALT 50 H Alkaline Phosphatase 106 Ammonia < 9 L Total Protein 7.1 Albumin 3.7 Globulin 3.4 Albumin/Globulin Ratio 1.1 TSH 3.17 Urine Color Yellow Urine Appearance Clear Urine pH 5.5 Ur Specific [place] >=1.030 H Urine Protein 1+ H Urine Glucose (UA) Trace H Urine Ketones Trace H Urine Occult Blood 3+ H Urine Nitrate Positive H Urine Bilirubin Negative Urine Urobilinogen 0.2 Ur Leukocyte Esterase Trace H Urine RBC >100/hpf H Urine WBC 5-10/hpf H Ur Squamous Epith Cells 0-1 /hpf Urine Bacteria Many (>30) H Ur Culture Indicated? Specimen cultured Vol Urine Centrifuged 10ml (spun) U Opiates 300ng/mL cut Negative Ur Oxycodone Screen Negative Urine Methadone Screen Negative Ur Barbiturates Screen Negative U Tricyclic Antidepress Negative Ur Phencyclidine Scrn Negative Ur Amphetamines Screen Negative U Methamphetamines Scrn Negative Ur MDMA Scrn (Ecstasy) Negative U Benzodiazepines Scrn Negative Urine Cocaine Screen Negative U Marijuana (THC) Screen Negative Urine Specific [place] Ur Creatinine 08/29/24 08/29/24 08/29/24 01:00 02:57 06:00 WBC 21.3 H RBC 4.29 L Hgb 13.7 Hct 40.9 L MCV 95.3 MCH 31.9 MCHC 33.4 RDW 14.3 Plt Count 216 Neut % (Auto) 88.4 H Lymph % (Auto) 4.8 L [place] % (Auto) 6.0 Eos % (Auto) 0.0 L Baso % (Auto) 0.8 Neut # (Auto) 55924 H Lymph # (Auto) 1000 L [place] # (Auto) 1300 H Eos # (Auto) 0 Baso # (Auto) 200 H PT INR Sodium 136 L Potassium 4.3 Chloride 104 Carbon Dioxide 21 L BUN 13 Creatinine 0.80 Estimated GFR > 60 BUN/Creatinine Ratio 16.3 Glucose 199 H Lactate 2.3 H 2.6 H Calcium 8.7 Total Bilirubin 1.6 H AST 40 ALT 43 Alkaline Phosphatase 98 Ammonia Total Protein 7.0 Albumin 3.7 Globulin 3.3 Albumin/Globulin Ratio 1.1 TSH Urine Color Urine Appearance Urine pH Normal Ur Specific [place] Urine Protein Urine Glucose (UA) Urine Ketones Urine Occult Blood Urine Nitrate Urine Bilirubin Urine Urobilinogen Ur Leukocyte Esterase Urine RBC Urine WBC Ur Squamous Epith Cells Urine Bacteria Ur Culture Indicated? Vol Urine Centrifuged U Opiates 300ng/mL cut Ur Oxycodone Screen Urine Methadone Screen Ur Barbiturates Screen U Tricyclic Antidepress Ur Phencyclidine Scrn Ur Amphetamines Screen U Methamphetamines Scrn Ur MDMA Scrn (Ecstasy) U Benzodiazepines Scrn Urine Cocaine Screen U Marijuana (THC) Screen Urine Specific [place] Normal Ur Creatinine Normal Assessment & Plan Assessment & Plan narrative: 1. Sepsis. Present on admission and active. 2. UTI. Present on admission and active. 3. Acute septic encephalopathy. Present on admission and active. 4. Yxq-xnxiylw-wsqjuptoo diabetes. Stable. 5. Lactic acid elevation. Mild. 2.3. Present on admission and improving. 6. Hypothyroidism. Stable. 7. Hyperlipidemia. Stable. 8. COPD. Stable. 9. Hypertension. Stable. 10. Atrial fibrillation. Stable. 11. BPH. Stable. Plan: -continue IV ceftriaxone and follow cultures. -continue IV fluids, repeat lactic acid 10:00 a.m.. -resume usual medications with the exception of blood pressure meds. -carb controlled diet and sliding scale insulin. DVT prophylaxis Coumadin. CODE STATUS DNR/DNI IHRO: 08/31. Anticipate a 2 midnight stay for treatment of encephalopathy and UTI. Time-Based Coding :: 35 min spent with patient and on the chart (including review of chart, obtaining history, exam, reviewing outside data, placing orders, documenting exam and treatment plan, and counseling patient) on 08/29. Quality MIPS - Admit The patient?s Advance Care plan is not present because I confirmed today that the patient does not wish or was not able to name a surrogate decision maker or provide an Advance Care Plan.: Yes MIPS - Meds 'Current medications' to include all prescriptions, [id number] products, herbals, cannabis/cannabidiol products, and vitamin/mineral/dietary (nutritional) supplements. I have utilized all available resources to obtain, update, or review the patient?s current medications. [If Yes, STOP here]: Yes
--- NOTE | 2024-08-29 09:40 | PT.IIE ---
Current Diagnoses Sepsis, unspecified organism (08/29/24) Surgical History (Last Reviewed 08/29/24 @ 08:31 by Raji Padgett MD) History of appendectomy Medical History (Last Reviewed 08/29/24 @ 08:31 by Raji Padgett MD) Aortic aneurysm Atrial fibrillation with controlled ventricular rate COPD (chronic obstructive pulmonary disease) HTN (hypertension) Physical Therapy Inpatient Evaluation/Re-Eval M1 PT/OT-IP Prior Functional Status Start: 08/29/24 12:40 Freq: NEEDED Status: Active Protocol: Document 08/29/24 09:40 AB (Rec: 08/29/24 12:52 AB [id number]) Medical Review Prior Functional Status Medical History Reviewed Yes Communication able to make needs known Mobility and Gait pt stated that he was modified independent with all mobiltiies and ambulation using a FWW Social History Household Members spouse Living Arrangements House Number of Floors (Floors) One Floor Number of Stairs To Enter/Railing? 1 step to enter Home Environment Standard Height Toilet,Tub/ Shower Home Equipment Front Wheel Walker,Manual Wheelchair,Shower Seat with Backrest,Hand Held Shower,Grab Bars In Shower M2 PT-IP Current Condition Start: 08/29/24 12:40 Freq: NEEDED Status: Active Protocol: Document 08/29/24 09:40 AB (Rec: 08/29/24 12:52 AB [id number]) Physical Therapy Current Condition Current Condition Evaluation Date 08/29/24 Treatment Diagnosis UTI; hypoxia; difficulty in walking Onset Date M3 PT-IP Subjective Start: 08/29/24 12:40 Freq: NEEDED Status: Active Protocol: Document 08/29/24 09:40 AB (Rec: 08/29/24 12:52 AB [id number]) Subjective Physical Therapy Visit Type Type Initial Evaluation Visit Start Time 09:40 Visit Stop Time 10:20 Number of INFANT ROOM TEACHER Visits 0 Physical Therapy Visit Comments Patient Comments agreeable to do PT M4 PT-IP Mobility and Gait Start: 08/29/24 12:40 Freq: NEEDED Status: Active Protocol: Document 08/29/24 09:40 AB (Rec: 08/29/24 12:52 AB [id number]) PT-Bed Mobility Assessment Supine to Sit Supine to Sit Maximum Assistance,2 Person Assistance,Head of Bed Elevated,Bedrails Sit to Supine Sit to Supine Total Assistance,2 Person Assistance,Head of Bed Elevated,Bedrails PT-Transfer Assessment Sit to and From Stand Sit to and from Stand Maximum Assistance,2 Person Assistance,Use of Upper Extremities Equipment Transfer Assistive Device Gait Belt,Front Wheeled Walker Orthotic/Prosthetic Devices or Brace: No Comments Mobility Comments pt in bed. obtained PLOF and home set up. BP: 132/66 O2 sat 96%. completed supine to sit max A x 2 and max cues. HOB elevated. pt requiring max Ax 1-2 for sitting balance. presents with increase posterior leaning and lateral leaning to the L. O2 sat: 88-90%. provided pt 2L/ min O2: O2 sat increased to 91 %. pt rested. attempted to stand but unable despite max A x 2provided. assisted pt back to bed total A x 2 and max cues. positioned pt in bed . BP checked: 127/55. O2 sat at RA: 97% Gait Assessment Comments Gait Comments unable at this time PT-Balance Assessment Sitting Balance and Reactions Static Sitting Balance Ability Poor Dynamic Sitting Balance Ability Poor Standing Balance and Reactions Static Standing Balance Ability Poor Dynamic Standing Balance Ability Poor Device Used FWW M5 PT-IP Objective Assessments Start: 08/29/24 12:40 Freq: NEEDED Status: Active Protocol: Document 08/29/24 09:40 AB (Rec: 08/29/24 12:52 AB [id number]) Orientation Orientation/Cognition Level of Alertness Alert Orientation Name,Place,Situation Language Function Ability Hard of Hearing Safety Awareness Decreased Safety Awareness Memory Description Short Term Impaired,Usp Impaired Gross Range of Motion Lower Extremity ROM Assessment Within Functional Limits Strength Lower Extremity Strength Hip 3+/5 Knee 4-/5 Muscle Tone Muscle Tone WNL Yes M6 PT-IP Treatment Start: 08/29/24 12:40 Freq: NEEDED Status: Active Protocol: Document 08/29/24 09:40 AB (Rec: 08/29/24 12:52 AB [id number]) Physical Therapy Treatment Education Education Provided Safety M7 PT-IP Assessment and Plan Start: 08/29/24 12:40 Freq: NEEDED Status: Active Protocol: Document 08/29/24 09:40 AB (Rec: 08/29/24 12:52 AB [id number]) PT Summary Assessment and Plan Potential Rehabilitation Potential Fair Status of Condition at Evaluation Evolving Summary Impairments Pain,ROM,Strength,Balance, Coordination,Sensation,Tone, Cognition,Bed Mobility, Transfers,Gait,Activity Tolerance Assessment Summary pt is an 89 y/o M who is admitted for UTI and hypoxia. pt requiring max A x 2 to total Ax 2 with mobility and unable to stand to transfer at this time. pt will need SNF rehab to improve overall strength and mobility. Goals Bed Mobility Goal Minimal Assistance Transfer Goal Minimal Assistance,Front Wheeled Walker Gait Goal Minimal Assistance,Front Wheel Walker Gait Distance 50 Other Goals improve bed mobility, transfers and ambulation using FWW ~ 100 ft SBA up/down 1 step SBA Days to Meet Goals 10 Frequency of Treatment Frequency Of Treatment Once a Day Treatment Plan Physical Therapy Treatment Plan Bed Mobility Training,Transfer Training,Gait Training, Therapeutic Exercise,Balance Retraining,Discharge Planning, Hot or Cold Pack,Neuromuscular Re-ed,Coordination Retraining ,Manual Therapy Precautions Other Precautions falls Recommendations To Nursing Amount of Assist Needed Mechanical Lift Discharge Recommendations PT Discharge Recommendations SNF Rehab Transportation Needs at Discharge Wheelchair/Cabulance,Stretcher /Ambulance
[2024-08-29] MEDS: INSULIN LISPRO 100 UNIT/ML 3ML VIAL SUBCUT ×3 (12:06→21:57)
--- NOTE | 2024-08-29 14:51 | CM.DANOTE ---
Patient is an 89 yo male who was admitted INPT Status on 08/29/24 for UTI/Sepsis. Pt has [employer] M[employer] for insurance and his PCP is Kris Kaur. EMR was reviewed. Per MD, pt with hx of AFIB and COPD and DM and admitted with AMS from UTI and sepsis. Cultures pending. Per PT, pt currently 2P max assist and recommend dary for nursing staff and SNF. Pt was last admitted in October 2021 and was accepted at [facility] but at the last minute spouse was able to take pt home with hired caregivers. SW met bedside with pt and explained role and pt very sleepy and somewhat groggy and confirms he is agreeable with SW calling his Liat to discuss d/c needs and spouse was bedside earlier and went home but will return this evening. SW called spouse Liat who confirms she is pt's POA and their Dtr was also on speaker phone and they confirm that pt lives at home with spouse and pt is mostly independent with ADLs at baseline and uses FWW and A&Ox3 at baseline. Pt has a private RN that comes to the house 2x week through pt's [email or web address] (previous job where he was exposed to chemicals) since COPD was from job related injury. Spouse confirms that her preference would be for pt to d/c home if possible and wants to see how pt progresses with PT/OT and his confusion clears before making determination on SNF vs Home. Spouse plans to call his home RN to determine if additional care could be increased/added. SW explained the need for beginning to work on SNF plan to secure bed and insurance auth in case SNF needed and spouse acknowledges understanding and agreeable with SNF referrals to determine which could accept in case SNF needed. Preference is [facility] due to location. PASRR done in anticipation of SNF. [facility] confirms they are not contracted with [employer]. Michelet Zepeda confirms they are contracted with [employer] and referral sent to review in case SNF needed. Referral also sent to Crystal Avila to review so spouse has options. Plan: SW to follow closely for further PT to determine SNF vs home with increased assist and Michelet and Crystal Avila reviews. GE Combs Discharge Planning/Care Management CM Discharge Assessment Start: 08/29/24 14:47 Freq: Status: Active Protocol: Document 08/29/24 14:47 BF (Rec: 08/29/24 14:51 [id number]) Discharge Planning Assessment Assigned Air Pollution Specialist GE Roach DPOA/Assigned Designee Name spouse Liat Contact Information [phone] Advance Directives? No Advance Directives on File No History Provided By Patient,Family Member, Significant Other,Medical Record Has Patient been admitted in last 30 No days? Prior Living Arrangements House Household Members spouse Type of transporation used prior to Relies on Others admit Independent with ADL's Yes: mostly Is patient alert and oriented? Yes: currently confused Needs Assistance With Managing Medications,Home Chores / Shopping Caregiver for Another No DME Already Rented / Owned FWW / Walker Patient/Family Preference [facility] Facility,Home with Home Health Comment SNF vs HH pending progress. Family preferece is home Barriers to Discharge Yes Comment [employer] and family wants home but currently 2PA Discharge Plan [facility] Facility Transportation Arrangement Family to provide transport if home vs Facility van Referrals Initiated [facility] If patient plan is SNF: Has PASSR been Yes completed? Medicare Choice List Provided Yes Medicare choice list reviewed on patient,family electronic tablet with SNF/HH Preference [facility] if SNF but they are not contracted Has Agency SNF been contacted Yes Whiteboard Updated in Patient Room with Yes name and ext. # of Air Pollution Specialist Review Status In Process Please Provide Date Initial DC 08/29/24 Assessment Was Performed Next Review Type Continued Stay Review
--- NOTE | 2024-08-29 15:03 | OT.IPNOTE ---
Attempted OT eval, pt still very groggy and falling asleep, to try again tomorrow.
--- NOTE | 2024-08-29 15:04 | OT.IPNOTE ---
Per nurse best to see pt tomorrow as pt's wanting to be present for therapy. Pt did move this morning and needing extensive assist per nursing when seen together with PT.
[2024-08-29] MEDS: TAMSULOSIN 0.4 MG CAPSULE PO (17:56)
[2024-08-29] MEDS: WARFARIN 5 MG TABLET PO (17:56)
[2024-08-29] MEDS: ACETAMINOPHEN 325 MG TABLET 650 MG PO (17:56)
[2024-08-29] MEDS: ATORVASTATIN 20 MG TABLET 10 MG PO (21:53)
[2024-08-30] VITALS: BP 119/82; PULSE 83; RESP 18; TEMP 36.1; O2SAT 97
[2024-08-30] MEDS: SODIUM CHLORIDE 0.9% 1,000 ML 100 ML IV (03:45)
[2024-08-30 04:00] VITALS: BP 117/60; PULSE 76; RESP 18; TEMP 36.5; O2SAT 95
[2024-08-30] MEDS: LEVOTHYROXINE 75 MCG TABLET PO (05:40)
[2024-08-30 06:03] LABS: Hematocrit 37.4 % (41-53); Hemoglobin 12.5 g/dL (13.5-17.5); Mean Corpuscular HGB Conc 33.4 % (30-36); Mean Corpuscular Hemoglobin 31.6 PG (26-34); Mean Corpuscular Volume 94.5 fL (80-100); Platelet Count 191 X10^3/uL (150-400); Red Blood Cell Count 3.95 X10^6/uL (4.5-5.9); White Blood Cell Count 15.3 X10^3/uL (4.5-11.0)
[2024-08-30 06:09] LABS: Add Manual Diff / Slide Review YES
[2024-08-30 06:18] LABS: INR 1.9 (0.9-1.3); Prothrombin Time 21.3 SECONDS (9.4-12.5)
[2024-08-30 06:24] LABS: Neutrophils Absolute Manual 13311 /uL (3000-5900); RBC Morphology Normal Morphology; Total Cells Counted 100
[2024-08-30 06:25] LABS: BUN Creatinine Ratio 12.9 (6-22); Blood Urea Nitrogen 12 mg/dL (9-20); Calcium 8.8 mg/dL (8.4-10.2); Carbon Dioxide 21 mmol/L (22-32); Chloride 108 mmol/L (98-107); Estimated Glomerular Filt Rate > 60 mL/min (>60); Glucose 186 mg/dL (80-110); HEMOLYSIS < 15 (0-50); Potassium 4.2 mmol/L (3.4-5.1); Sodium 138 mmol/L (137-145)
--- NOTE | 2024-08-30 07:01 | PC.NURSE ---
Pt had 3 episodes of incontinence during shift, but at 0650 called and requested to use urinal. This RN noticed the pt's feet to be more edematous than earlier in the shift, and upon auscultation fine crackles were heard to the bilateral bases of his lungs (and expiratory wheezes throughout). Hospitalist Dr. Shore notified, and order received to d/c fluids.
[2024-08-30] MEDS: INSULIN LISPRO 100 UNIT/ML 3ML VIAL SUBCUT ×4 (08:46→20:17)
[2024-08-30] MEDS: dilTIAZem CD 120 MG CAP 240 MG PO (08:47)
--- NOTE | 2024-08-30 09:48 | OT.IP.EVAL ---
Current Diagnoses Sepsis, unspecified organism (08/29/24) Past Medical History (Last Reviewed 08/29/24 @ 08:31 by Raji Padgett MD) Aortic aneurysm Atrial fibrillation with controlled ventricular rate COPD (chronic obstructive pulmonary disease) HTN (hypertension) Surgical History (Last Reviewed 08/29/24 @ 08:31 by Raji Padgett MD) History of appendectomy Occupational Therapy Inpatient Evaluation/Re-Eval M1 PT/OT-IP Prior Functional Status Start: 08/29/24 12:40 Freq: NEEDED Status: Active Protocol: Document 08/30/24 09:50 [facility] (Rec: 08/30/24 10:07 [facility] [id number]) Medical Review Prior Functional Status Medical History Reviewed Yes Communication able to make needs known Mobility and Gait pt stated that he was modified independent with all mobilities and ambulation using a FWW Pt's family states would walk behind him and assist for the step and outside. Pt's states pt has been sleeping in a lift chair for the past 2-3 weeks and needing JENNY to stand at times. Activities of Daily Living and IADL's Pt's assist with dressing , showering, and all ADL needs . Prior Functional Level (Other details) Per has lots of family that live around her to be able to assist her. Social History Household Members spouse Living Arrangements House Number of Floors (Floors) One Floor Number of Stairs To Enter/Railing? 1 step to enter Home Environment Standard Height Toilet,Tub/ Shower Home Equipment Front Wheel Walker,Manual Wheelchair,Bedside Commode, Shower Seat with Backrest,Hand Held Shower,Grab Bars In Shower M2 OT-IP Current Condition Start: 08/30/24 09:49 Freq: Status: Active Protocol: Document 08/30/24 09:50 [facility] (Rec: 08/30/24 10:07 [facility] [id number]) Occupational Therapy Current Condition Current Condition Evaluation Date 08/30/24 Treatment Diagnosis UTI Diagnosis Onset Date 08/29/24 M3 OT- IP Subjective and Pain Start: 08/30/24 09:49 Freq: Status: Active Protocol: Document 08/30/24 09:50 [facility] (Rec: 08/30/24 10:07 [facility] [id number]) OT- Subjective Occupational Therapy Visit Type Type Initial Evaluation Visit Start Time 09:05 Visit Stop Time 09:48 Occupational Therapy Visit Comments Patient Comments Pt agreed to get up. Pt's and grandson present in the room. Patient/Caregiver Goals TO go home. OT Pain Assessment Pain When Pain Assessed During Mobility Pain Present Pain Present Pain Reported Location Right Knee Pain Behaviors Facial Grimacing,Holding Area M4 OT- IP ADL's Start: 08/30/24 09:49 Freq: Status: Active Protocol: Document 08/30/24 09:50 [facility] (Rec: 08/30/24 10:07 [facility] [id number]) OT [id number] Comments OT Self-Feeding Comments Not at meal time. OT ADL-Grooming Comments OT Grooming Comments Pt states did prior. OT ADL-Oral Care Comments Oral Care Comments Pt states did prior. OT ADL-Dressing General Eval Lower Body Dressing Ability Total Assistance Areas Needing Assistance Underpants/Brief,Socks OT ADL-Toileting General Evaluation Toileting Ability Total Assistance Areas Needing Assistance Manage Clothing,Perform Perineal Hygiene Comments OT Toileting Comments MODA to stand with pt to the FWW and another person to assist with hygiene and brief management needs. OT ADL-Bathing Comments OT Bathing Comments Sponge bath more appropriate at this time. M5 OT- IP IADL's Start: 08/30/24 09:49 Freq: Status: Active Protocol: Document 08/30/24 09:50 [facility] (Rec: 08/30/24 10:07 [facility] [id number]) OT-Instrumental Activities of Daily Living Home Safety Awareness Awareness of Need for Assistance at Home Good Awareness Home Safety Comments Pt needing reminders to be sure to call for assist if needed. Chair alarm placed on pt and call light in front of him. Medication Management Medication Management Caregiver Administers Money Management Money Management Caregiver Provides Assistance Meal Preparation Meal Preparation Caregiver Provides Assist Bacteriology Research Assistant Bacteriology Research Assistant Caregiver Provides Assist Driving Driving Caregiver Provides Assist M6 OT- IP Functional Cognition Start: 08/30/24 09:49 Freq: Status: Active Protocol: Document 08/30/24 09:50 [facility] (Rec: 08/30/24 10:07 [facility] [id number]) Cognitive Factors Limiting Selfcare Function Cognitive Ability Level of Alertness Alert Patient Orientation Name,Place Attention Span Ability Capable of Focused Attention, Unable to Sustain Attention Ability to Follow Commands Able to Follow One Step Commands with Increased Time, Able to Follow One Step Commands with Repetition Memory Description Short Term Impaired,Halfway Impaired Cognitive Comments Cognitive Assessment Comments Pt is very RAMONA. Pt needing simple cues to follow for ADL and mobility needs. Pt's mainly answering house set-up and prior level of assist. OT- Vision and Hearing OT- Hearing Assessment OT- Hearing Assessment Hearing Impaired OT- Vision Assessment Visual Acuity No Vision Aides At Hospital M7 OT- IP Mobility and Balance Start: 08/30/24 09:49 Freq: Status: Active Protocol: Document 08/30/24 09:50 [facility] (Rec: 08/30/24 10:07 [facility] [id number]) OT- Bed Mobility Assessment Supine to Sit Supine to Sit Assist Moderate Assistance,1 Person Assistance Scooting Scooting to Edge of Bed Contact Guard Assistance OT-Transfer Assessment Sit to and From Stand Sit to and from Stand Moderate Assistance,1 Person Assistance,2 Person Assistance Transfers Transfer Ability Minimal Assistance,Moderate Assistance,2 Person Assistance Technique Transfer Destination Bed,Bedside Commode Comments Mobility Comments MODA as pt needing to pull on therapist to help get upright with HOB up. MODA x1 to stand to the FWW, pt like to pull on the FWW to stand and educated best to push from bed. MODA x1 to transfer to the BSC. As pt tires, needing more assist as his knees tend to buckle and needing MODA X 2 for sit to stand and transfers. OT- Balance Assessment Sitting Balance and Reactions Static Sitting Balance Ability Good Dynamic Sitting Balance Ability Fair Standing Balance and Reactions Static Standing Balance Ability Fair Dynamic Standing Balance Ability Poor M8 OT- IP Objective Assessments Start: 08/30/24 09:49 Freq: Status: Active Protocol: Document 08/30/24 09:50 [facility] (Rec: 08/30/24 10:07 [facility] [id number]) OT Gross Range of Motion Upper Extremity Range of Motion Assessment Within Functional Limits OT Strength Upper Extremity Strength Assessment Within Functional Limits M9 OT- IP Assessment and Plan Start: 08/30/24 09:49 Freq: Status: Active Protocol: Document 08/30/24 09:50 [facility] (Rec: 08/30/24 10:07 [facility] [id number]) OT Summary Assessment and Plan Potential Rehabilitation Potential Good Analytic Complexity at Evaluation Moderate Summary OT Impairments Pain,Strength,Balance, Functional Cognition, Functional Mobility,Self- Feeding,Grooming,Dressing, Toileting,Bathing,Toilet Transfers,Shower Transfers, Activity Tolerance Progress Towards Goals Progressing Toward Goals Assessment Summary Pt MOD complexity and here due to UTI, main barriers are pain, step to get into the house and needing two person assist when he tires and as his knees tend to buckle as well. Pending assist at home SNF versus home with 24/7 assist and home health. Goals Self-Feeding Goal Independent Grooming Goal Independent Dressing Goal Moderate Assistance Toileting Goal Standby Assistance Bathing Goal Moderate Assistance Toilet Transfer Goal Contact Guard Assistance Shower Transfer Goal Minimal Assistance Days to Meet Goals 20 Frequency of Treatment Other frequency 5x/week Treatment Plan OT Treatment Plan ADL Training,Functional Mobility,Patient/Family Education,Discharge Planning Other Treatment Recommendations and [place] [facility] [place] Focus with FWW. Discharge Recommendations OT Discharge Recommendations Home vs SNF Other Discharge Recommendations Pending progress and assist from his family- hopeful pt to go home with 24/7 assist and home health. Transportation Needs at Discharge Private Vehicle,Wheelchair/ Cabulance
--- NOTE | 2024-08-30 11:55 | CM.DPNOTE ---
Addendum entered by GE Plascencia 08/30/24 12:27: ADD: [facility] has clinically accepted. Abida, admissions started auth request yesterday. Unfortunately a miscommunication between [employer] and [employer] has delayed the auth approval. Abida has been instructed to call [employer] again 08/31 for status update on SNF auth. CM team following closely. Original Note: DCP Cont Reviewed chart. Patient discussed in multidisciplinary rounds. Patient's mentation is improving. Culture results pending. According to Renita at [facility]; they are NOT contracted with [employer] [facility]. Email sent to Abida at [facility] checking in re clinical review of this referral. Plan: Family hopeful to take patient home if mentation has improved, add HH PT (?) vs SNF if one cane be secured and [employer] auth obtained. CM team following clinical course closely. BUTCH
[2024-08-30 12:00] VITALS: BP 121/74; PULSE 85; RESP 20; TEMP 36.9; O2SAT 95
--- NOTE | 2024-08-30 12:00 | PT.IPTN ---
Current Diagnoses Sepsis, unspecified organism (08/29/24) Physical Therapy Treatment Note M2 PT-IP Current Condition Start: 08/29/24 12:40 Freq: NEEDED Status: Active Protocol: Document 08/29/24 09:40 AB (Rec: 08/29/24 12:52 AB [id number]) Physical Therapy Current Condition Current Condition Evaluation Date 08/29/24 Treatment Diagnosis UTI; hypoxia; difficulty in walking Onset Date M3 PT-IP Subjective Start: 08/29/24 12:40 Freq: NEEDED Status: Active Protocol: Document 08/30/24 12:00 AB (Rec: 08/30/24 15:44 AB [id number]) Subjective Physical Therapy Visit Type Type Treatment Note Visit Start Time 12:00 Visit Stop Time 12:25 Number of FAST FOOD CREW MEMBER Visits 0 Physical Therapy Visit Comments Patient Comments pt agreed to do PT Therapy Pain Assessment Location Left Knee Scale Used pain scale not stated Pain Management Techniques Distraction,Modification of Treatment,Re-positioning M4 PT-IP Mobility and Gait Start: 08/29/24 12:40 Freq: NEEDED Status: Active Protocol: Document 08/30/24 12:00 AB (Rec: 08/30/24 15:44 AB [id number]) PT-Transfer Assessment Sit to and From Stand Sit to and from Stand Maximum Assistance,1 Person Assistance,2 Person Assistance ,Use of Upper Extremities Equipment Transfer Assistive Device Gait Belt,Front Wheeled Walker Orthotic/Prosthetic Devices or Brace: No Comments Mobility Comments pt sitting on the chair and agreed to walk. pt is with confusion and impulsive. completed sit to stand max A and max cues. increase lateral leaning to the L with LOB requiring max A x 1-2 to sit back on chair. educated pt on safety and standing upright. completed sit to stand again max A x 1-2 and max cues. pt ambulated ~ 10 + 12 ft using FWW max A x 1-2 and max cues and with chair follow. presents with unsteady gait. positioned pt on chair for lunch. call light and table placed within reach. Left pt with spouse in room. Gait Assessment Gait Gait Assistance Required: Maximum Assistance,1 Person Assist,2 Person Assist Distance (Feet) 12 Able to Maintain Weight Bearing Status Yes During Gait Assistive Devices Assistive Device Gait Belt,Front Wheeled Walker Orthotic/Prosthetic Devices or Brace: No Gait Deviations General Gait Pattern Antalgic,Decreased Stride Length,Decreased Feet Clearance,Step-to Gait Factors Limiting Gait Function Factors Limiting Gait Function Decreased Activity Tolerance, Decreased Strength,Difficulty Following Directions,Limited Range of Motion,Pain,Poor Balance,Poor Safety Awareness M5 PT-IP Objective Assessments Start: 08/29/24 12:40 Freq: NEEDED Status: Active Protocol: Document 08/29/24 09:40 AB (Rec: 08/29/24 12:52 AB [id number]) Orientation Orientation/Cognition Level of Alertness Alert Orientation Name,Place,Situation Language Function Ability Hard of Hearing Safety Awareness Decreased Safety Awareness Memory Description Short Term Impaired,Correction Impaired Gross Range of Motion Lower Extremity ROM Assessment Within Functional Limits Strength Lower Extremity Strength Hip 3+/5 Knee 4-/5 Muscle Tone Muscle Tone WNL Yes M6 PT-IP Treatment Start: 08/29/24 12:40 Freq: NEEDED Status: Active Protocol: Document 08/30/24 12:00 AB (Rec: 08/30/24 15:44 AB [id number]) Physical Therapy Treatment Education Education Provided Safety M7 PT-IP Assessment and Plan Start: 08/29/24 12:40 Freq: NEEDED Status: Active Protocol: Document 08/30/24 12:00 AB (Rec: 08/30/24 15:44 AB [id number]) PT Summary Assessment and Plan Potential Rehabilitation Potential Fair Summary Impairments Pain,ROM,Strength,Balance, Coordination,Sensation,Tone, Cognition,Bed Mobility, Transfers,Gait,Activity Tolerance Progress Towards Goals Slow Progress due to Pain,Slow Progress due to Medical Issues,Slow Progress due to Activity Tolerance Assessment Summary pt improving slowly but continues max A x 1-2 and max cues. pt will need 24/7 assist and will benefit from SNF rehab. Goals Bed Mobility Goal Minimal Assistance Transfer Goal Minimal Assistance,Front Wheeled Walker Gait Goal Minimal Assistance,Front Wheel Walker Gait Distance 50 Other Goals improve bed mobility, transfers and ambulation using FWW ~ 100 ft SBA up/down 1 step SBA Days to Meet Goals 10 Frequency of Treatment Frequency Of Treatment Once a Day Treatment Plan Physical Therapy Treatment Plan Bed Mobility Training,Transfer Training,Gait Training, Therapeutic Exercise,Balance Retraining,Discharge Planning, Hot or Cold Pack,Neuromuscular Re-ed,Coordination Retraining ,Manual Therapy Precautions Other Precautions falls Recommendations To Nursing Amount of Assist Needed 2 Person Assist Discharge Recommendations PT Discharge Recommendations SNF Rehab Transportation Needs at Discharge Wheelchair/Cabulance
[2024-08-30 16:00] VITALS: BP 126/55; PULSE 79; RESP 15; TEMP 36.8; O2SAT 95
[2024-08-30] MEDS: WARFARIN 2.5 MG TABLET PO (16:15)
[2024-08-30] MEDS: TAMSULOSIN 0.4 MG CAPSULE PO (16:15)
--- NOTE | 2024-08-30 17:39 | PC.NURSE ---
Received a call from Judy-work # [phone]/ cell # [phone]. Judy is patient's case packer and sealer with [facility]. She is stating that the patient is able to have 24 hr/ day Home Health provider paid for by [employer]. He has a White Card (due to exposure to chemicals during his occupation). Information given to family/daughter -Bonnie.
[2024-08-30 20:00] VITALS: BP 123/75; PULSE 78; RESP 18; TEMP 36.8; O2SAT 93
[2024-08-30] MEDS: LATANOPROST 0.005% OPHTH 2.5 ML 1 DROPS EYE-BOTH (20:00)
[2024-08-30] MEDS: ATORVASTATIN 20 MG TABLET 10 MG PO (20:01)
[2024-08-30] MEDS: GABAPENTIN 100 MG CAPSULE PO (20:01)
[2024-08-30] MEDS: cefTRIAXone 1,000 MG in SODIUM CHLORIDE 0.9% 100 ML 200 MG IV (20:01)
--- NOTE | 2024-08-30 20:13 | P.PN_ITS ---
Subjective Subjective Interval history: 89-year-old male with past medical history of atrial fibrillation on Coumadin, hypertension, COPD non-O2 dependent, hyperlipidemia, hypothyroidism, ftz-zhsdbmf-stmzbkdar diabetes and BPH presents with confusion. Likely due to recurrent UTI. Cultures with GNB, WBC is improving today on ceftriaxone. Exam Vital Signs (past 8 hours): - 08/30/24 16:00 Temperature 98.2 F Pulse Rate 79 Respiratory Rate 15 Blood Pressure 126/55 L Pulse Oximetry 95 Oxygen Flow Rate 0 Oxygen Delivery Method Nasal Cannula Oxygen Flow Rate 0 Narrative Exam Narrative: NAD, alert and oriented, fluent speech, calm. Hearing impaired. Normocephalic skull, EOMI, anicteric sclera, symmetric pupils. Oropharynx unremarkable, no droop. Neck supple, midline trachea, no adenopathy. Lungs clear, normal rate and effort. Heart regular, no murmur gallop or rub. Abdomen is soft, non distended and non tender. Extremities are free of edema. Skin is free of rash or lesions. Joints are not swollen or deformed. Judgment appears to be normal. Objective Labs 08/30/24 04:50 08/30/24 04:50 Labs: Laboratory Results - last 24 hr 08/30/24 04:50 WBC 15.3 H RBC 3.95 L Hgb 12.5 L Hct 37.4 L MCV 94.5 MCH 31.6 MCHC 33.4 RDW 14.0 Plt Count 191 Neut % (Auto) Not Reportable Lymph % (Auto) Not Reportable [place] % (Auto) Not Reportable Eos % (Auto) Not Reportable Baso % (Auto) Not Reportable Lymph # (Auto) Not Reportable [place] # (Auto) Not Reportable Baso # (Auto) Not Reportable Total Counted 100 Seg Neutrophils % 83.0 H Band Neutrophils % 4.0 Lymphocytes % (Manual) 1.0 L Monocytes % (Manual) 11.0 Basophils % (Manual) 1.0 Neutrophils # (Manual) 06488 H RBC Morphology Normal morphology PT 21.3 H INR 1.9 H Sodium 138 Potassium 4.2 Chloride 108 H Carbon Dioxide 21 L BUN 12 Creatinine 0.93 Estimated GFR > 60 BUN/Creatinine Ratio 12.9 Glucose 186 H Calcium 8.8 PFSH Medical History Atrial fibrillation with controlled ventricular rate HTN (hypertension) Aortic aneurysm COPD (chronic obstructive pulmonary disease) Surgical History History of appendectomy Family History Mother Cancer Father Cancer Social History marital status: household members: spouse Smoking Status: Former smoker alcohol intake: never Assessment & Plan Assessment & Plan narrative: 1. Sepsis secondary to acute cystitis with acute metabolic encephalopathy and acute respiratory failure with hypoxai. Present on admission and active but improving. 2. Gzk-pnojikx-skmsctkwz diabetes. Stable. 3. Lactic acid elevation. Mild. 2.3. Present on admission and improving. 4. Hypothyroidism. Stable. 5. Hyperlipidemia. Stable. 6. COPD. Stable. 7. Hypertension. Stable. 8. Chronic Atrial fibrillation. Stable. 9. BPH. Stable. Plan: -continue IV ceftriaxone and follow cultures. -can stop additional IV fluids, watch BP with cessation -continue home diltiazem for afib, continue furosemide -carb controlled diet and sliding scale insulin. -warfarin per pharmacy for chronic anticoagulation -likely ready for discharge tomorrow, awaiting urine cultures at this time but he is clinically improving thus far on ceftriaxone. Also planning for SNF but currently awaiting authorization, He requires significant assistance with PT and OT today. DVT prophylaxis Coumadin. CODE STATUS DNR/DNI HIRO: 08/31. Anticipate a 2 midnight stay for treatment of encephalopathy and UTI. Time-Based Coding :: [TOTAL MINUTES] spent with patient and on the chart (including review of chart, obtaining history, exam, reviewing outside data, placing orders, documenting exam and treatment plan, and counseling patient) on [DATE].
[2024-08-31] VITALS (8 sets, daily range): BP systolic 126–139; BP diastolic 63–87; PULSE 66–94; RESP 14–22; TEMP 36.3–38; O2SAT 92–98
[2024-08-31] MEDS: ACETAMINOPHEN 325 MG TABLET 650 MG PO ×2 (01:52→17:01)
[2024-08-31 04:29] LABS: INR 1.9 (0.9-1.3); Prothrombin Time 21.1 SECONDS (9.4-12.5)
[2024-08-31 04:33] LABS: Add Manual Diff / Slide Review NO; Basophils Absolute Auto 0 /uL (0-100); Basophils Percent Auto 0.5 % (0-2); Eosinophils Absolute Auto 100 /uL (0-450); Eosinophils Percent Auto 1.3 % (2-4); Hematocrit 35.5 % (41-53); Hemoglobin 12.1 g/dL (13.5-17.5); Lymphocytes Absolute Auto 500 /uL (1100-4500); Mean Corpuscular HGB Conc 34.2 % (30-36); Mean Corpuscular Hemoglobin 32.2 PG (26-34); Mean Corpuscular Volume 94.1 fL (80-100); Monocytes Absolute Auto 800 /uL (0-900); Monocytes Percent Auto 10.3 % (3-14); Neutrophils Absolute Auto 6100 /uL (1500-7000); Neutrophils Percent Auto 80.9 % (50-75); Platelet Count 197 X10^3/uL (150-400); Red Blood Cell Count 3.77 X10^6/uL (4.5-5.9); Red Cell Distribution Width 14.2 % (11.6-14.8); White Blood Cell Count 7.5 X10^3/uL (4.5-11.0)
[2024-08-31 04:34] LABS: Hemoglobin A1C% w Est Avg Glu 7.9 % (4.0-6.0)
[2024-08-31 04:37] LABS: BUN Creatinine Ratio 14.3 (6-22); Blood Urea Nitrogen 12 mg/dL (9-20); Calcium 8.8 mg/dL (8.4-10.2); Carbon Dioxide 23 mmol/L (22-32); Chloride 105 mmol/L (98-107); Estimated Glomerular Filt Rate > 60 mL/min (>60); Glucose 185 mg/dL (80-110); HEMOLYSIS < 15 (0-50); Sodium 136 mmol/L (137-145)
[2024-08-31] MEDS: LEVOTHYROXINE 75 MCG TABLET PO (05:31)
[2024-08-31] MEDS: INSULIN LISPRO 100 UNIT/ML 3ML VIAL SUBCUT ×4 (08:35→21:05)
[2024-08-31] MEDS: dilTIAZem CD 120 MG CAP 240 MG PO (08:39)
--- NOTE | 2024-08-31 09:43 | PT.IPTN ---
Current Diagnoses Sepsis, unspecified organism (08/29/24) Physical Therapy Treatment Note M2 PT-IP Current Condition Start: 08/29/24 12:40 Freq: NEEDED Status: Active Protocol: Document 08/31/24 09:25 SP (Rec: 08/31/24 10:47 SP [id number]) Physical Therapy Current Condition Current Condition Evaluation Date 08/29/24 Treatment Diagnosis UTI; hypoxia; difficulty in walking Onset Date M3 PT-IP Subjective Start: 08/29/24 12:40 Freq: NEEDED Status: Active Protocol: Document 08/31/24 09:25 SP (Rec: 08/31/24 10:47 SP [id number]) Subjective Physical Therapy Visit Type Type Treatment Note Visit Start Time :25 Visit Stop Time :43 Notes Family in room ( and grandson) with OT when arrived . Number of TECHNICAL SYSTEM ANALYST Visits 1 Physical Therapy Visit Comments Patient Comments Pt agreeable to working with TECHNICAL SYSTEM ANALYST. M4 PT-IP Mobility and Gait Start: 08/29/24 12:40 Freq: NEEDED Status: Active Protocol: Document 08/31/24 09:25 SP (Rec: 08/31/24 10:47 SP [id number]) PT-Transfer Assessment Sit to and From Stand Sit to and from Stand Minimal Assistance,1 Person Assistance,Use of Upper Extremities Equipment Transfer Assistive Device Gait Belt,Front Wheeled Walker Orthotic/Prosthetic Devices or Brace: No Transfers Transfer Destination Chair Transfer Technique pt ambulated with FWW Transfer Ability Level of Assist Minimal Assistance,1 Person Assistance,Use of Upper Extremities Comments Mobility Comments Pt on BSC at bedside with OT and family in room when arrived. Pt completed STS Min A (10%), CGA static stand with FWW, OT assisted pericare and brief mgt support. Pt progressed gait 10 steps forward then back step to HOB, continued further distance around end of bed to chair approx 15 ft, CG/Min A 15%A x1 , chair follow by OT, Mod cues for sequencing BLE and FWW advancement and upright posture as distance progressed decreased RLE stride and flexed trunk posturing increase to 15%A. Cues for back step fully to chair with FWW and reach back slow descend sit in chair 10%A slower control support via gait belt, then scoot back fully. TECHNICAL SYSTEM ANALYST elevated reclined leg rests with pillow under BLE for comfort support. TECHNICAL SYSTEM ANALYST donned chair alarm,provided pt call light and all needs inreach before left. TECHNICAL SYSTEM ANALYST discussed with family and pt decreased weakness in LLE, due to tiring unable to assess 1 step mgt needs to enter home assess. Suggested to family install ramp and or add rails to 1 step for assist support step mgt. Jackie stated might be able to install this, will contact family to see. Gait Assessment Gait Gait Assistance Required: Minimum Assistance,1 Person Assist Distance (Feet) 20 Able to Maintain Weight Bearing Status Yes During Gait Assistive Devices Assistive Device Gait Belt,Front Wheeled Walker Orthotic/Prosthetic Devices or Brace: No Gait Deviations General Gait Pattern Antalgic,Decreased Stride Length,Decreased Feet Clearance,Flexed Trunk,Step-to Gait Factors Limiting Gait Function Factors Limiting Gait Function Decreased Activity Tolerance, Decreased Strength,Difficulty Following Directions,Limited Range of Motion,Poor Balance, Poor Safety Awareness Comments Gait Comments see mobility comments Stair Climbing Assessment Comments Stair Climbing Comments decreased strength and endurance standing, unable assess 1 step mgt has to enter home. PT-Balance Assessment Sitting Balance and Reactions Static Sitting Balance Ability Normal Dynamic Sitting Balance Ability Good Standing Balance and Reactions Static Standing Balance Ability Good Dynamic Standing Balance Ability Fair Device Used FWW M5 PT-IP Objective Assessments Start: 08/29/24 12:40 Freq: NEEDED Status: Active Protocol: Document 08/29/24 09:40 AB (Rec: 08/29/24 12:52 AB [id number]) Orientation Orientation/Cognition Level of Alertness Alert Orientation Name,Place,Situation Language Function Ability Hard of Hearing Safety Awareness Decreased Safety Awareness Memory Description Short Term Impaired,Fdc Impaired Gross Range of Motion Lower Extremity ROM Assessment Within Functional Limits Strength Lower Extremity Strength Hip 3+/5 Knee 4-/5 Muscle Tone Muscle Tone WNL Yes M6 PT-IP Treatment Start: 08/29/24 12:40 Freq: NEEDED Status: Active Protocol: Document 08/31/24 09:25 SP (Rec: 08/31/24 10:47 SP [id number]) Physical Therapy Treatment Education Education Provided Safety M7 PT-IP Assessment and Plan Start: 08/29/24 12:40 Freq: NEEDED Status: Active Protocol: Document 08/31/24 09:25 SP (Rec: 08/31/24 10:47 SP [id number]) PT Summary Assessment and Plan Potential Rehabilitation Potential Fair Summary Impairments Pain,ROM,Strength,Balance, Coordination,Sensation,Tone, Cognition,Bed Mobility, Transfers,Gait,Activity Tolerance Progress Towards Goals Slow Progress due to Activity Tolerance Assessment Summary Pt improved Min A for transfers and mobility after use BSC, 2nd person required for pericare/brief mgt while 1 person support standing CG/ MIn A /c FWW. Progressed gait further in room step to max cues and Min A x1 person /c FWW chair follow inroom 20 ft total. TECHNICAL SYSTEM ANALYST recommending 24/ family available, 2 persons for mobility support vs SNF, not consistant mobility. Pt needs to complete 1 step to enter home unless grandson can install ramp. Will continue to assess progress. Goals Bed Mobility Goal Minimal Assistance Transfer Goal Minimal Assistance,Front Wheeled Walker Gait Goal Minimal Assistance,Front Wheel Walker Gait Distance 50 Other Goals improve bed mobility, transfers and ambulation using FWW ~ 100 ft SBA up/down 1 step SBA Days to Meet Goals 10 Frequency of Treatment Frequency Of Treatment Once a Day Treatment Plan Physical Therapy Treatment Plan Bed Mobility Training,Transfer Training,Gait Training, Therapeutic Exercise,Balance Retraining,Discharge Planning, Hot or Cold Pack,Neuromuscular Re-ed,Coordination Retraining ,Manual Therapy Other Recommendations and Next Treatment Gait, transfers, 1 step mgt /c Focus FWW if safe/able. Precautions Other Precautions falls Recommendations To Nursing Amount of Assist Needed 2 Person Assist Discharge Recommendations PT Discharge Recommendations Home with 01/02 Assist Available,Home Health,SNF Rehab,Home vs SNF Transportation Needs at Discharge Private Vehicle,Wheelchair/ Cabulance
--- NOTE | 2024-08-31 09:49 | OT.IP.TRT ---
Current Diagnoses Sepsis, unspecified organism (08/29/24) Occupational Therapy Treatment Note M2 OT-IP Current Condition Start: 08/30/24 09:49 Freq: Status: Active Protocol: Document 08/30/24 09:50 [facility] (Rec: 08/30/24 10:07 [facility] [id number]) Occupational Therapy Current Condition Current Condition Evaluation Date 08/30/24 Treatment Diagnosis UTI Diagnosis Onset Date 08/29/24 M3 OT- IP Subjective and Pain Start: 08/30/24 09:49 Freq: Status: Active Protocol: Document 08/31/24 10:15 [facility] (Rec: 08/31/24 10:26 [facility] [id number]) OT- Subjective Occupational Therapy Visit Type Type Treatment Note Visit Start Time 09:16 Visit Stop Time 09:49 Occupational Therapy Visit Comments Patient Comments Pt wanting to get up to use the BSC. Patient/Caregiver Goals TO go home. OT Pain Assessment Pain When Pain Assessed During Mobility Pain Present Pain Present Pain Reported Location Left Knee Pain Behaviors Facial Grimacing,Holding Area M4 OT- IP ADL's Start: 08/30/24 09:49 Freq: Status: Active Protocol: Document 08/31/24 10:15 [facility] (Rec: 08/31/24 10:26 [facility] [id number]) OT [id number]-Olcrldl Comments OT Self-Feeding Comments Not at meal time. OT ADL-Dressing General Eval Lower Body Dressing Ability Total Assistance Areas Needing Assistance Underpants/Brief,Socks OT ADL-Toileting General Evaluation Toileting Ability Total Assistance Areas Needing Assistance Manage Clothing,Perform Perineal Hygiene Comments OT Toileting Comments JENNY to stand when up on his feet with FWW and another to assist with all clothing and hygiene needs. OT ADL-Bathing Comments OT Bathing Comments Sponge bath more appropriate at this time or use of rolling shower chair. M5 OT- IP IADL's Start: 08/30/24 09:49 Freq: Status: Active Protocol: Document 08/30/24 09:50 [facility] (Rec: 08/30/24 10:07 [facility] [id number]) OT-Instrumental Activities of Daily Living Home Safety Awareness Awareness of Need for Assistance at Home Good Awareness Home Safety Comments Pt needing reminders to be sure to call for assist if needed. Chair alarm placed on pt and call light in front of him. Medication Management Medication Management Caregiver Administers Money Management Money Management Caregiver Provides Assistance Meal Preparation Meal Preparation Caregiver Provides Assist Gluer Machine Setup Operator Gluer Machine Setup Operator Caregiver Provides Assist Driving Driving Caregiver Provides Assist M6 OT- IP Functional Cognition Start: 08/30/24 09:49 Freq: Status: Active Protocol: Document 08/31/24 10:15 [facility] (Rec: 08/31/24 10:26 [facility] [id number]) Cognitive Factors Limiting Selfcare Function Cognitive Comments Cognitive Assessment Comments Pt thinking better but still very hard of hearing. M7 OT- IP Mobility and Balance Start: 08/30/24 09:49 Freq: Status: Active Protocol: Document 08/31/24 10:15 [facility] (Rec: 08/31/24 10:26 [facility] [id number]) OT- Bed Mobility Assessment Supine to Sit Supine to Sit Assist Standby Assistance,Head of Bed Elevated,Bedrails Scooting Scooting to Edge of Bed Standby Assistance OT-Transfer Assessment Sit to and From Stand Sit to and from Stand Minimal Assistance,Moderate Assistance,1 Person Assistance ,2 Person Assistance Transfers Transfer Ability Minimal Assistance,Moderate Assistance,1 Person Assistance ,2 Person Assistance Technique Transfer Destination Bed,Bedside Commode,Chair Transfer Technique Stand Step Pivot Devices Transfer Assistive Devices Gait Belt,Front Wheeled Walker Comments Mobility Comments Pt today able to get to the edge of the bed on his own with HOB up. MODA 1-2 to stand from lower bed surface. Once on his feet starting off with JENNY x1 with FWW and then as tiring needing 2 person assist as his knees tend to buckle. Pt's family states pt uses a standard walker at home. Pt states considering putting a ramp for the step at home. OT- Balance Assessment Sitting Balance and Reactions Static Sitting Balance Ability Normal Dynamic Sitting Balance Ability Good Standing Balance and Reactions Static Standing Balance Ability Fair Dynamic Standing Balance Ability Poor M8 OT- IP Objective Assessments Start: 08/30/24 09:49 Freq: Status: Active Protocol: Document 08/30/24 09:50 [facility] (Rec: 08/30/24 10:07 [facility] [id number]) OT Gross Range of Motion Upper Extremity Range of Motion Assessment Within Functional Limits OT Strength Upper Extremity Strength Assessment Within Functional Limits M9 OT- IP Assessment and Plan Start: 08/30/24 09:49 Freq: Status: Active Protocol: Document 08/31/24 10:15 [facility] (Rec: 08/31/24 10:26 [facility] [id number]) OT Summary Assessment and Plan Potential Rehabilitation Potential Good Analytic Complexity at Evaluation Moderate Summary OT Impairments Pain,Strength,Balance, Functional Cognition, Functional Mobility,Self- Feeding,Grooming,Dressing, Toileting,Bathing,Toilet Transfers,Shower Transfers, Activity Tolerance Progress Towards Goals Progressing Toward Goals Assessment Summary Pt doing much better today with bed mobility and up with the FWW. However as pt tires his knees buckle and will need two person assist. Pt main barriers are the one step at home. Pt to go to skilled rehab versus home with 2person assist available 01/02 and home health. Goals Self-Feeding Goal Independent Grooming Goal Independent Dressing Goal Moderate Assistance Toileting Goal Standby Assistance Bathing Goal Moderate Assistance Toilet Transfer Goal Contact Guard Assistance Shower Transfer Goal Minimal Assistance Days to Meet Goals 19 Frequency of Treatment Other frequency 5x/week Treatment Plan OT Treatment Plan ADL Training,Functional Mobility,Patient/Family Education,Discharge Planning Other Treatment Recommendations and Next Transfer to [facility] [place] with MIN A x1 Treatment Focus with FWW. Discharge Recommendations OT Discharge Recommendations Home vs SNF Other Discharge Recommendations Pending progress and assist from his family- hopeful pt to go home with 01/02 assist and home health. Transportation Needs at Discharge Private Vehicle,Wheelchair/ Cabulance
[2024-08-31] MEDS: ALBUTEROL 2.5 MG/3 ML NEB (ADULT) INH (16:51)
[2024-08-31] MEDS: TAMSULOSIN 0.4 MG CAPSULE PO (17:02)
[2024-08-31] MEDS: WARFARIN 5 MG TABLET PO (17:03)
--- NOTE | 2024-08-31 18:29 | PM.PN.1 ---
Subjective Subjective Interval history: 89-year-old male with past medical history of atrial fibrillation on Coumadin, hypertension, COPD non-O2 dependent, hyperlipidemia, hypothyroidism, xoq-glqjhuc-guxwwkrbx diabetes and BPH presents with confusion. Likely due to recurrent UTI. Cultures with Klebsiella, sensitive to all but amoxicillin. Exam Vital Signs (past 8 hours): - 08/31/24 15:42 08/31/24 16:00 08/31/24 16:51 Temperature 100.4 F H Pulse Rate 80 94 H Respiratory Rate 14 22 Blood Pressure 134/63 Pulse Oximetry 94 95 Oxygen Delivery Method Room Air Nasal Cannula Oxygen Flow Rate 1 1 08/31/24 17:01 08/31/24 17:47 Temperature 100.4 F H 99.7 F H Pulse Rate Respiratory Rate Blood Pressure Pulse Oximetry Oxygen Delivery Method Oxygen Flow Rate Oxygen Delivery Method Nasal Cannula Oxygen Flow Rate 1 Narrative Exam Narrative: NAD, alert and oriented, fluent speech, calm. Hearing impaired. Normocephalic skull, EOMI, anicteric sclera, symmetric pupils. Oropharynx unremarkable, no droop. Neck supple, midline trachea, no adenopathy. Lungs clear, normal rate and effort. Heart regular, no murmur gallop or rub. Abdomen is soft, non distended and non tender. Extremities are free of edema. Skin is free of rash or lesions. Joints are not swollen or deformed. Judgment appears to be normal. Objective Labs 08/31/24 03:50 08/31/24 03:50 Labs: Laboratory Results - last 24 hr 08/31/24 03:50 WBC 7.5 D RBC 3.77 L Hgb 12.1 L Hct 35.5 L MCV 94.1 MCH 32.2 MCHC 34.2 RDW 14.2 Plt Count 197 Neut % (Auto) 80.9 H Lymph % (Auto) 7.0 L [place] % (Auto) 10.3 Eos % (Auto) 1.3 L Baso % (Auto) 0.5 Neut # (Auto) 6100 Lymph # (Auto) 500 L [place] # (Auto) 800 Eos # (Auto) 100 Baso # (Auto) 0 PT 21.1 H INR 1.9 H Sodium 136 L Potassium 4.0 Chloride 105 Carbon Dioxide 23 BUN 12 Creatinine 0.84 Estimated GFR > 60 BUN/Creatinine Ratio 14.3 Glucose 185 H Hemoglobin A1c 7.9 H Calcium 8.8 PFSH Medical History Atrial fibrillation with controlled ventricular rate HTN (hypertension) Aortic aneurysm COPD (chronic obstructive pulmonary disease) Surgical History History of appendectomy Family History Mother Cancer Father Cancer Social History marital status: household members: spouse Smoking Status: Former smoker alcohol intake: never Assessment & Plan Assessment & Plan narrative: 1. Sepsis secondary to acute cystitis with acute metabolic encephalopathy and acute respiratory failure with hypoxia. Present on admission and active but improving. 2. Xmu-taxcdvg-upayadutk diabetes. Stable. 3. Lactic acid elevation. Mild. 2.3. Present on admission and improving. 4. Hypothyroidism. Stable. 5. Hyperlipidemia. Stable. 6. COPD. Stable. 7. Hypertension. Stable. 8. Chronic Atrial fibrillation. Stable. 9. BPH. Stable. Plan: -continue IV ceftriaxone, transition to PO on discharge. -continue home diltiazem for afib, continue furosemide -carb controlled diet and sliding scale insulin. -warfarin per pharmacy for chronic anticoagulation -awaiting SNF aurthorization, hopeful for discharge tomorrow. DVT prophylaxis Coumadin. CODE STATUS DNR/DNI HIRO: pending SNF authorization Anticipate a 2 midnight stay for treatment of encephalopathy and UTI. Time-Based Coding :: [TOTAL MINUTES] spent with patient and on the chart (including review of chart, obtaining history, exam, reviewing outside data, placing orders, documenting exam and treatment plan, and counseling patient) on [DATE].
[2024-08-31] MEDS: cefTRIAXone 1,000 MG in SODIUM CHLORIDE 0.9% 100 ML 200 MG IV (21:02)
[2024-08-31] MEDS: ATORVASTATIN 20 MG TABLET 10 MG PO (21:03)
[2024-08-31] MEDS: GABAPENTIN 100 MG CAPSULE PO (21:03)
[2024-08-31] MEDS: LATANOPROST 0.005% OPHTH 2.5 ML 1 DROPS EYE-BOTH (21:04)
[2024-09-01 05:05] VITALS: BP 149/65; PULSE 92; RESP 18; TEMP 37; O2SAT 93
[2024-09-01] MEDS: LEVOTHYROXINE 75 MCG TABLET PO (06:28)
[2024-09-01] MEDS: dilTIAZem CD 120 MG CAP 240 MG PO (08:14)
--- NOTE | 2024-09-01 08:14 | DI.RAD.S_ITS ---
PROCEDURE: XR CHEST 1V INDICATIONS: increased cough, lethargy TECHNIQUE: One view of the chest was acquired. COMPARISON: [facility], CR, XR CHEST 1V, 08/29/2024, 1:03. FINDINGS: Surgical changes and devices: None. Lungs and pleura: Moderate diffuse pulmonary edema. No pleural effusions or pneumothorax. Mediastinum: Mediastinal contours appear normal. Heart size is enlarged. Bones and chest wall: No suspicious bony lesions. Moderate multilevel spinal degeneration. Overlying soft tissues appear unremarkable. IMPRESSION: Moderate diffuse pulmonary edema with cardiomegaly consistent with CHF exacerbation. Dictated by: Errol Contreras M.D. on 09/01/2024 at 9:54 Approved by: Errol Contreras M.D. on 09/01/2024 at 9:56
[2024-09-01] MEDS: INSULIN LISPRO 100 UNIT/ML 3ML VIAL SUBCUT ×4 (08:16→20:35)
[2024-09-01 08:35] VITALS: BP 126/114; PULSE 96; RESP 26; TEMP 36.7; O2SAT 91
[2024-09-01 09:14] LABS: Add Manual Diff / Slide Review NO; Basophils Absolute Auto 0 /uL (0-100); Basophils Percent Auto 0.8 % (0-2); Eosinophils Absolute Auto 0 /uL (0-450); Eosinophils Percent Auto 0.4 % (2-4); Hematocrit 37.8 % (41-53); Hemoglobin 12.7 g/dL (13.5-17.5); Lymphocytes Absolute Auto 600 /uL (1100-4500); Lymphocytes Percent Auto 11.5 % (25-40); Mean Corpuscular HGB Conc 33.6 % (30-36); Mean Corpuscular Hemoglobin 31.7 PG (26-34); Mean Corpuscular Volume 94.3 fL (80-100); Monocytes Absolute Auto 700 /uL (0-900); Monocytes Percent Auto 14.2 % (3-14); Neutrophils Absolute Auto 3800 /uL (1500-7000); Neutrophils Percent Auto 73.1 % (50-75); Platelet Count 238 X10^3/uL (150-400); Red Cell Distribution Width 13.9 % (11.6-14.8); White Blood Cell Count 5.2 X10^3/uL (4.5-11.0)
[2024-09-01 09:16] LABS: INR 1.5 (0.9-1.3); Prothrombin Time 17.3 SECONDS (9.4-12.5)
[2024-09-01 09:22] LABS: BUN Creatinine Ratio 12.1 (6-22); Blood Urea Nitrogen 11 mg/dL (9-20); Calcium 8.9 mg/dL (8.4-10.2); Carbon Dioxide 24 mmol/L (22-32); Chloride 102 mmol/L (98-107); Estimated Glomerular Filt Rate > 60 mL/min (>60); Glucose 194 mg/dL (80-110); HEMOLYSIS < 15 (0-50); Magnesium 1.7 mg/dL (1.6-2.3); Potassium 4.4 mmol/L (3.4-5.1); Sodium 136 mmol/L (137-145)
[2024-09-01 10:24] LABS: Adenovirus Not Detected (Not Detect); B. parapertussis Not Detected (Not Detecte); Bordetella pertussis Not Detected (Not Detect); Chlamydophila pneumoniae Not Detected (Not Detect); Coronavirus 229E Not Detected (Not Detect); Coronavirus HKU1 Not Detected (Not Detect); Coronavirus NL 63 Not Detected (Not Detect); Coronavirus OC43 Not Detected (Not Detect); Human Metapneumovirus Not Detected (Not Detect); Human Rhinovirus/Enterovirus Not Detected (Not Detect); Influenza A H1-2009 Detected (Not Detect); Influenza B Not Detected (Not Detect); Mycoplasma pneumoniae Not Detected (Not Detect); Parainfluenza Virus 1 Not Detected (Not Detect); Parainfluenza Virus 2 Not Detected (Not Detect); Parainfluenza Virus 3 Not Detected (Not Detect); Parainfluenza Virus 4 Not Detected (Not Detect); Respiratory Syncytial Virus Not Detected (Not Detect); SARS- CoV-2 Not Detected (Not Detecte)
--- NOTE | 2024-09-01 11:06 | PT.IPTN ---
Current Diagnoses Sepsis, unspecified organism (08/29/24) Physical Therapy Treatment Note M2 PT-IP Current Condition Start: 08/29/24 12:40 Freq: NEEDED Status: Active Protocol: Document 08/31/24 09:25 SP (Rec: 08/31/24 10:47 SP [id number]) Physical Therapy Current Condition Current Condition Evaluation Date 08/29/24 Treatment Diagnosis UTI; hypoxia; difficulty in walking Onset Date M3 PT-IP Subjective Start: 08/29/24 12:40 Freq: NEEDED Status: Active Protocol: Document 09/01/24 11:06 AB (Rec: 09/01/24 12:24 AB [id number]) Subjective Physical Therapy Visit Type Type Treatment Note Visit Start Time 11:06 Visit Stop Time 11:36 Number of STOCK PARTS FABRICATOR Visits 0 M4 PT-IP Mobility and Gait Start: 08/29/24 12:40 Freq: NEEDED Status: Active Protocol: Document 09/01/24 11:06 AB (Rec: 09/01/24 12:24 AB [id number]) PT-Bed Mobility Assessment Supine to Sit Supine to Sit Moderate Assistance,2 Person Assistance,Head of Bed Elevated,Bedrails Sit to Supine Sit to Supine Total Assistance,2 Person Assistance PT-Transfer Assessment Sit to and From Stand Sit to and from Stand Maximum Assistance,2 Person Assistance,Use of Upper Extremities Comments Mobility Comments pt in bed. family in room. BP : 141/68. O2 sat with 1 1/2 L O2: 94-96% pt completed supine to sit max A x 2 and max cues. pt requiring increase time to complete task. pt with confusion and with difficulty following instructions needing repetitions and max cues. pt requiring max A x 1-2 for sitting balance. pt presents with increase posterior trunk lean and lateral L sided leaning. unable to maintain upright position without assistance. pt needing assist with brief management. completed sit to stand max A x 2 and max cues but pt stated that he is peeing. instructed pt to sit back down. pt needed to be clean up. attempted to scoot sideways to position towards HOB requiring max A but unable. assisted pt back in bed requiring total A x 2 for sit to supine. positioned pt in bed total A x 2. Left pt with nurse in room. M5 PT-IP Objective Assessments Start: 08/29/24 12:40 Freq: NEEDED Status: Active Protocol: Document 08/29/24 09:40 AB (Rec: 08/29/24 12:52 AB [id number]) Orientation Orientation/Cognition Level of Alertness Alert Orientation Name,Place,Situation Language Function Ability Hard of Hearing Safety Awareness Decreased Safety Awareness Memory Description Short Term Impaired,Mcfp Impaired Gross Range of Motion Lower Extremity ROM Assessment Within Functional Limits Strength Lower Extremity Strength Hip 3+/5 Knee 4-/5 Muscle Tone Muscle Tone WNL Yes M6 PT-IP Treatment Start: 08/29/24 12:40 Freq: NEEDED Status: Active Protocol: Document 09/01/24 11:06 AB (Rec: 09/01/24 12:24 AB [id number]) Physical Therapy Treatment Education Education Provided Safety M7 PT-IP Assessment and Plan Start: 08/29/24 12:40 Freq: NEEDED Status: Active Protocol: Document 09/01/24 11:06 AB (Rec: 09/01/24 12:24 AB [id number]) PT Summary Assessment and Plan Potential Rehabilitation Potential Fair Summary Impairments Pain,ROM,Strength,Balance, Coordination,Sensation,Tone, Cognition,Bed Mobility, Transfers,Gait,Activity Tolerance Progress Towards Goals Slow Progress due to Medical Issues,Slow Progress due to Activity Tolerance,Slow Progress - Other Assessment Summary pt requiring more assistance today and with increase confusion requiring max cues for all tasks. pt needing max A x 2 total A x 2 with bed mobility. pt will need SNF rehab to improve strength and mobility. Goals Bed Mobility Goal Minimal Assistance Transfer Goal Minimal Assistance,Front Wheeled Walker Gait Goal Minimal Assistance,Front Wheel Walker Gait Distance 50 Other Goals improve bed mobility, transfers and ambulation using FWW ~ 100 ft SBA up/down 1 step SBA Days to Meet Goals 10 Frequency of Treatment Frequency Of Treatment Once a Day Treatment Plan Physical Therapy Treatment Plan Bed Mobility Training,Transfer Training,Gait Training, Therapeutic Exercise,Balance Retraining,Discharge Planning, Hot or Cold Pack,Neuromuscular Re-ed,Coordination Retraining ,Manual Therapy Precautions Other Precautions falls Recommendations To Nursing Amount of Assist Needed 2 Person Assist Discharge Recommendations PT Discharge Recommendations SNF Rehab Transportation Needs at Discharge Wheelchair/Cabulance,Stretcher /Ambulance
[2024-09-01] MEDS: FUROSEMIDE 40 MG/4 ML VIAL IV (11:47)
[2024-09-01] MEDS: OSELTAMIVIR 75 MG CAPSULE PO ×2 (11:47→20:33)
--- NOTE | 2024-09-01 13:00 | OT.IPNOTE ---
Check on pt earlier and pt's wanting pt to rest and second time pt was asleep.
--- NOTE | 2024-09-01 13:43 | PM.PN.1 ---
Subjective Subjective Interval history: 89-year-old male with past medical history of atrial fibrillation on Coumadin, hypertension, COPD non-O2 dependent, hyperlipidemia, hypothyroidism, ozk-igiaxhp-pazcfdfxk diabetes and BPH presented w/ confusion. Likely due to recurrent UTI. Cultures with Klebsiella, sensitive to all but amoxicillin. Today he was a bit more lethargic, worsening cough and new recurrent hypoxia developed. CXR showed mild volume overload ordered a single dose of furosemide today since his lasix had been held. Respiratory panel done as well which showed new influenza A. Exam Vital Signs (past 8 hours): - 09/01/24 08:35 Temperature 98.1 F Pulse Rate 96 H Respiratory Rate 26 H Blood Pressure 126/114 H Pulse Oximetry 91 Oxygen Flow Rate 1 Oxygen Delivery Method Room Air Oxygen Flow Rate 1 Narrative Exam Narrative: NAD, alert and oriented, fluent speech, calm but lethargic today and mildly ill appearing. Worsened cough. Hearing impaired. Normocephalic skull, EOMI, anicteric sclera, symmetric pupils. Oropharynx unremarkable, no droop. Neck supple, midline trachea, no adenopathy. Lungs clear, normal rate and effort. Heart regular, no murmur gallop or rub. Abdomen is soft, non distended and non tender. Extremities are free of edema. Skin is free of rash or lesions. Joints are not swollen or deformed. Judgment appears to be normal. Objective Labs 09/01/24 09:00 09/01/24 09:00 Labs: Laboratory Results - last 24 hr 09/01/24 09/01/24 08:45 09:00 WBC 5.2 RBC 4.00 L Hgb 12.7 L Hct 37.8 L MCV 94.3 MCH 31.7 MCHC 33.6 RDW 13.9 Plt Count 238 Neut % (Auto) 73.1 Lymph % (Auto) 11.5 L [place] % (Auto) 14.2 H Eos % (Auto) 0.4 L Baso % (Auto) 0.8 Neut # (Auto) 3800 Lymph # (Auto) 600 L [place] # (Auto) 700 Eos # (Auto) 0 Baso # (Auto) 0 PT 17.3 H INR 1.5 H Sodium 136 L Potassium 4.4 Chloride 102 Carbon Dioxide 24 BUN 11 Creatinine 0.91 Estimated GFR > 60 BUN/Creatinine Ratio 12.1 Glucose 194 H Calcium 8.9 Magnesium 1.7 Chlamy pneumoniae PCR Not detected Adenovirus (PCR) Not detected B. pertussis DNA (PCR) Not detected B.parapertussis DNA PCR Not detected Coronavirus OC43 (PCR) Not detected Coronavirus HKU1 (PCR) Not detected Coronavirus 229E (PCR) Not detected SARS-CoV-2 (PCR) Not detected Coronavirus NL63 (PCR) Not detected Human Metapneumovir PCR Not detected Influ A (H1N1 Se[place]) PCR Detected H Influenza Type B (PCR) Not detected M. pneumoniae (PCR) Not detected Parainfluenza 1 (PCR) Not detected Parainfluenza 2 (PCR) Not detected Parainfluenza 3 (PCR) Not detected Parainfluenza 4 (PCR) Not detected RSV (PCR) Not detected Entero/Rhino (PCR) Not detected PFSH Medical History Atrial fibrillation with controlled ventricular rate HTN (hypertension) Aortic aneurysm COPD (chronic obstructive pulmonary disease) Surgical History History of appendectomy Family History Mother Cancer Father Cancer Social History marital status: household members: spouse Smoking Status: Former smoker alcohol intake: never Assessment & Plan Assessment & Plan narrative: 1. Sepsis secondary to acute cystitis (and now influenza A with recurrent symptoms) with acute metabolic encephalopathy and acute respiratory failure with hypoxia. Present on admission and active. 2. Qoo-aegvaxg-fzdprlwhv diabetes. Stable. 3. Lactic acid elevation. Mild. 2.3. Present on admission and improved 4. Hypothyroidism. Stable. 5. Hyperlipidemia. Stable. 6. COPD. Stable. 7. Hypertension. Stable. 8. Chronic Atrial fibrillation. Stable. 9. BPH. Stable. 10. Influenza A, not present on admission. 11. Acute pulmonary edema, not present on admission. Plan: -continue IV ceftriaxone, transition to PO on discharge or to complete 7 days of treatment in the hospital. -started tamiflu on 09/01 with new dx of influenza A -continue home diltiazem for afib. -carb controlled diet and sliding scale insulin. -warfarin per pharmacy for chronic anticoagulation -accepted to SNF, however will monitor day to day with new flu diagnosis today and hypoxia. If off supplemental oxygen can discharge to SNF if feeling improved. DVT prophylaxis Coumadin. CODE STATUS DNR/DNI HIRO: 1-2 days likely to SNF, need resolution of hypoxia and symptomatic influenza A Anticipate a 2 midnight stay for treatment of encephalopathy and UTI. Time-Based Coding :: [TOTAL MINUTES] spent with patient and on the chart (including review of chart, obtaining history, exam, reviewing outside data, placing orders, documenting exam and treatment plan, and counseling patient) on [DATE].
--- NOTE | 2024-09-01 14:55 | CM.DPNOTE ---
PACHECO Tai at [facility] has secured an authorization for patient's SNF stay. Patient is not medically stable for discharge today. Michelet Tai is reachable by phone this weekend at P [phone]. Abida requests COVID swab be done prior to patient's admission. [facility] does have COVID in the building, these residents are in ISO beds. Updated spouse Liat and she feels she cannot take patient home safely at this time; agreeable to patient's discharge to [facility] when patient is medically stable. Updated provider; too early to tell HIRO, patient is now Flu+. If patient is ready for DC Wednesday- Abida instructs team to schedule wheelchair van and [facility] will pay. Wednesday -wheelchair van options may be more limited. CM team following closely for coordination of discharge plan. BUTCH
[2024-09-01 16:00] VITALS: BP 126/66; PULSE 91; RESP 23; TEMP 36.7; O2SAT 96
[2024-09-01] MEDS: WARFARIN 5 MG TABLET PO (17:18)
[2024-09-01] MEDS: TAMSULOSIN 0.4 MG CAPSULE PO (17:18)
[2024-09-01 19:44] VITALS: BP 145/78; PULSE 93; RESP 16; TEMP 36.8; O2SAT 95
[2024-09-01] MEDS: ATORVASTATIN 20 MG TABLET 10 MG PO (20:33)
[2024-09-01] MEDS: GABAPENTIN 100 MG CAPSULE PO (20:33)
[2024-09-01] MEDS: LATANOPROST 0.005% OPHTH 2.5 ML 1 DROPS EYE-BOTH (20:34)
[2024-09-01] MEDS: INSULIN GLARGINE 100 UNIT/ML 3ML PEN 10 UNIT SUBCUT (20:35)
[2024-09-01] MEDS: cefTRIAXone 1,000 MG in SODIUM CHLORIDE 0.9% 100 ML 200 MG IV (20:36)
[2024-09-01] MEDS: SODIUM CHLORIDE 0.9% FLUSH 10 ML IV (20:37)
[2024-09-01] MEDS: ALBUTEROL 2.5 MG/3 ML NEB (ADULT) INH (22:27)
[2024-09-01 22:30] VITALS: PULSE 88; RESP 20; O2SAT 97
[2024-09-01] MEDS: ACETAMINOPHEN 325 MG TABLET 650 MG PO (22:39)
[2024-09-02 04:11] VITALS: BP 126/76; PULSE 81; RESP 16; TEMP 36.1; O2SAT 96
[2024-09-02] MEDS: LEVOTHYROXINE 75 MCG TABLET PO (05:58)
[2024-09-02 08:00] VITALS: BP 141/86; PULSE 91; RESP 21; TEMP 36.4; O2SAT 94
[2024-09-02] MEDS: INSULIN LISPRO 100 UNIT/ML 3ML VIAL SUBCUT ×4 (09:10→20:35)
[2024-09-02] MEDS: dilTIAZem CD 120 MG CAP 240 MG PO (09:10)
[2024-09-02] MEDS: SODIUM CHLORIDE 0.9% FLUSH 10 ML IV ×2 (09:10→20:31)
[2024-09-02] MEDS: OSELTAMIVIR 75 MG CAPSULE PO ×2 (09:10→20:31)
[2024-09-02] MEDS: cefTRIAXone 1,000 MG in SODIUM CHLORIDE 0.9% 100 ML 200 MG IV (11:29)
--- NOTE | 2024-09-02 12:00 | PT.IPTN ---
Current Diagnoses Sepsis, unspecified organism (08/29/24) Physical Therapy Treatment Note M2 PT-IP Current Condition Start: 08/29/24 12:40 Freq: NEEDED Status: Active Protocol: Document 08/31/24 09:25 SP (Rec: 08/31/24 10:47 SP [id number]) Physical Therapy Current Condition Current Condition Evaluation Date 08/29/24 Treatment Diagnosis UTI; hypoxia; difficulty in walking Onset Date M3 PT-IP Subjective Start: 08/29/24 12:40 Freq: NEEDED Status: Active Protocol: Document 09/02/24 12:00 AB (Rec: 09/02/24 13:25 AB [id number]) Subjective Physical Therapy Visit Type Type Treatment Note Visit Start Time 12:00 Visit Stop Time 12:35 Number of WINE AND SPIRITS CLERK Visits 0 M4 PT-IP Mobility and Gait Start: 08/29/24 12:40 Freq: NEEDED Status: Active Protocol: Document 09/02/24 12:00 AB (Rec: 09/02/24 13:25 AB [id number]) PT-Bed Mobility Assessment Supine to Sit Supine to Sit Maximum Assistance,1 Person Assistance,Head of Bed Elevated,Bedrails PT-Transfer Assessment Sit to and From Stand Sit to and from Stand Maximum Assistance,1 Person Assistance,2 Person Assistance ,Use of Upper Extremities Equipment Transfer Assistive Device Gait Belt,Front Wheeled Walker Orthotic/Prosthetic Devices or Brace: No Transfers Transfer Destination Chair Transfer Technique Stand Step Pivot Transfer Ability Level of Assist Maximum Assistance,1 Person Assistance,2 Person Assistance ,Use of Upper Extremities Comments Mobility Comments pt in bed. spouse in room. O2 sat with 2L/min O2: 96%. pt completed supine to sit max A and max cues. min A for sitting balance on EOB and max cues to decrease posterior trunk lean. sit to stand from EOB max A x 1-2 and max cues . pt completed step transfer to chair using FWW max A x 1-2 and max cues. O2 sat: 96%. pt rested. agreed to walk. sit to stand from chair max A x 2 and max cues. ambulated ~ 8 ft using fWW max A x 1-2 and with chair follow. slight L knee buckling and cued and assisted to stabilize L knee. positioned pt on the chair and set up for lunch. call light and table placed within reach . chair alarm on. Left pt with spouse. Gait Assessment Gait Gait Assistance Required: Maximum Assistance,1 Person Assist,2 Person Assist Distance (Feet) 8 Able to Maintain Weight Bearing Status Yes During Gait Assistive Devices Assistive Device Gait Belt,Front Wheeled Walker Orthotic/Prosthetic Devices or Brace: No Gait Deviations General Gait Pattern Antalgic,Decreased Stride Length,Decreased Feet Clearance,Narrow Based Gait Factors Limiting Gait Function Factors Limiting Gait Function Decreased Activity Tolerance, Decreased Strength,Difficulty Following Directions,Limited Range of Motion,Pain,Poor Balance,Poor Safety Awareness M5 PT-IP Objective Assessments Start: 08/29/24 12:40 Freq: NEEDED Status: Active Protocol: Document 08/29/24 09:40 AB (Rec: 08/29/24 12:52 AB [id number]) Orientation Orientation/Cognition Level of Alertness Alert Orientation Name,Place,Situation Language Function Ability Hard of Hearing Safety Awareness Decreased Safety Awareness Memory Description Short Term Impaired,Sheep Sorter Impaired Gross Range of Motion Lower Extremity ROM Assessment Within Functional Limits Strength Lower Extremity Strength Hip 3+/5 Knee 4-/5 Muscle Tone Muscle Tone WNL Yes M6 PT-IP Treatment Start: 08/29/24 12:40 Freq: NEEDED Status: Active Protocol: Document 09/02/24 12:00 AB (Rec: 09/02/24 13:25 AB [id number]) Physical Therapy Treatment Education Education Provided Safety M7 PT-IP Assessment and Plan Start: 08/29/24 12:40 Freq: NEEDED Status: Active Protocol: Document 09/02/24 12:00 AB (Rec: 09/02/24 13:25 AB [id number]) PT Summary Assessment and Plan Potential Rehabilitation Potential Fair Summary Impairments Pain,ROM,Strength,Balance, Coordination,Sensation,Tone, Cognition,Bed Mobility, Transfers,Gait,Activity Tolerance Progress Towards Goals Slow Progress due to Medical Issues,Slow Progress due to Activity Tolerance Assessment Summary pt requiring max A with bed mobility and max A x 1-2 for transfers using FWW. pt continues to have decrease activity tolerance affecting mobility. pt will benefit from SNF rehab. Goals Bed Mobility Goal Minimal Assistance Transfer Goal Minimal Assistance,Front Wheeled Walker Gait Goal Minimal Assistance,Front Wheel Walker Gait Distance 50 Other Goals improve bed mobility, transfers and ambulation using FWW ~ 100 ft SBA up/down 1 step SBA Days to Meet Goals 10 Frequency of Treatment Frequency Of Treatment Once a Day Treatment Plan Physical Therapy Treatment Plan Bed Mobility Training,Transfer Training,Gait Training, Therapeutic Exercise,Balance Retraining,Discharge Planning, Hot or Cold Pack,Neuromuscular Re-ed,Coordination Retraining ,Manual Therapy Precautions Other Precautions falls; droplet Flu precautions Recommendations To Nursing Amount of Assist Needed 2 Person Assist Discharge Recommendations PT Discharge Recommendations SNF Rehab Transportation Needs at Discharge Wheelchair/Cabulance
--- NOTE | 2024-09-02 12:12 | CM.DPC ---
DCP SNF Planning: Per , pt likely medically stable to d/c to SNF this weekend on 2LO2 and tested Influenza A yesterday 09/01/24 and started on Tamiflu. MIKE called Abida at [facility] and she confirms they obtained auth for SNF and have staff to accept pt this weekend but were not aware of the Flu A+ and currently do not have a private/iso room available this weekend. They will work on moving pt's around Wednesday morning to see if they can accept pt into a private room Wednesday. Otherwise, would not be able to accept until this week once done with Tamiflu. MIKE also confirmed that no transport available with [facility] or [facility] transport today either. MIKE updated MD and will continue attempting further SNF referrals in case [facility] cannot accept Mon to private room. GE Combs
[2024-09-02 12:22] LABS: INR 1.4 (0.9-1.3); Prothrombin Time 16.2 SECONDS (9.4-12.5)
[2024-09-02 14:03] VITALS: PULSE 83; RESP 16; O2SAT 97
[2024-09-02] MEDS: ALBUTEROL 2.5 MG/3 ML NEB (ADULT) INH (14:03)
--- NOTE | 2024-09-02 14:35 | PC.NURSE ---
pt called to get help getting back into bed from chair around 1330. Pt very weak, needs gaitbelt and 1-2 person assist, Pt was coughing and asked for a breathing treatment so RN called RT they came right up to see pt.
[2024-09-02 16:00] VITALS: BP 115/71; PULSE 74; RESP 14; TEMP 36.5; O2SAT 97
--- NOTE | 2024-09-02 16:31 | PM.PN.1 ---
Subjective Subjective Interval history: 89-year-old male with atrial fibrillation on warfarin anticoagulation, hypertension, COPD, hyperlipidemia, hypothyroidism, diabetes mellitus type 2 and BPH who was admitted with Klebsiella UTI, and subsequently was diagnosed with influenza a on September 01. Patient reports he is feeling frustrated with the need to go to correction. He wants to go home. His daughters are present and note that prior to admission he was doing reasonably well. He was ambulating to the bathroom with a walker without assistance. He was able to get up today and walk to the commode. He has been awake all day and is getting tired. He has been coughing intermittently. Exam Vital Signs (past 8 hours): - 09/02/24 14:03 Pulse Rate 83 Respiratory Rate 16 Pulse Oximetry 97 Oxygen Delivery Method Nasal Cannula Oxygen Flow Rate 2 Fraction of Inspired Oxygen 28 SaO2/FiO2 Ratio 346 Oxygen Delivery Method Nasal Cannula Oxygen Flow Rate 2 Narrative Exam Narrative: GEN: Elderly male, hard of hearing, Alert and oriented x 3, NAD HEENT:NC, Face symmetric CHEST: Respiratory excursions symmetric, initially, crackles in the left lateral lung field in base, cleared after coughing, otherwise coarse but CTAB CV: RRR, no M/R/G ABD: Soft, NT/ND, BT present in all 4 quadrants, body habitus limits exam EXTR: warm, well perfused, no C/C/trace bilateral lower extremity pitting edema SKIN: warm and dry, no rash NEURO: Alert and oriented x 3, nonfocal Objective Labs 09/01/24 09:00 09/01/24 09:00 Labs: Laboratory Results - last 24 hr 09/02/24 12:00 PT 16.2 H INR 1.4 H PFSH Medical History Atrial fibrillation with controlled ventricular rate HTN (hypertension) Aortic aneurysm COPD (chronic obstructive pulmonary disease) Surgical History History of appendectomy Family History Mother Cancer Father Cancer Social History marital status: household members: spouse Smoking Status: Former smoker alcohol intake: never Assessment & Plan Assessment & Plan narrative: 1. Sepsis secondary to Klebsiella pneumoniae UTI (resistant to ampicillin, intermediate sensitivity to nitrofurantoin, otherwise pansensitive to everything tested) Patient remains on ceftriaxone, presently day 5. 2. Influenza a Continues on Tamiflu, day 08/16. 3. Acute hypoxic respiratory failure Saturating well on 2 L of oxygen via nasal cannula. Chest x-ray done yesterday did reveal pulmonary edema. At baseline, he is on furosemide 20 mg orally b.i.d.. Will resume this. He did receive 2 doses of furosemide 40 mg IV yesterday. Intake and output not well documented as he has not had urine output monitored closely. 4. Diabetes mellitus type 2 Blood sugars have ranged from 165-233. Continue fingersticks and sliding scale. 5. COPD Continue as needed albuterol nebulizers. 6. Hypertension Continues diltiazem 240 mg daily extended release. 7. Chronic atrial fibrillation Rate controlled on diltiazem. INR remained subtherapeutic on current warfarin dosing. Will continue daily monitoring until discharge 8. Hypothyroidism Continue levothyroxine 9. Hyperlipidemia Continue atorvastatin 10. BPH Continue tamsulosin Code status DNR Prophylaxis On warfarin Disposition Patient was accepted to [facility] today, but they did not have a private room for droplet precautions. Await private room availability. If he is able to improve enough in the interim to ambulate about the room and safely discharged home with home health, this could be considered as well. Time-Based Coding :: [TOTAL MINUTES] spent with patient and on the chart (including review of chart, obtaining history, exam, reviewing outside data, placing orders, documenting exam and treatment plan, and counseling patient) on [DATE].
[2024-09-02] MEDS: WARFARIN 2.5 MG TABLET PO (18:16)
[2024-09-02] MEDS: TAMSULOSIN 0.4 MG CAPSULE PO (18:16)
[2024-09-02] MEDS: FUROSEMIDE 20 MG TABLET PO (18:19)
[2024-09-02] MEDS: WARFARIN 5 MG TABLET PO (18:21)
[2024-09-02 19:27] VITALS: BP 141/76; PULSE 82; RESP 19; TEMP 36.3; O2SAT 95
[2024-09-02] MEDS: ATORVASTATIN 20 MG TABLET 10 MG PO (20:30)
[2024-09-02] MEDS: GABAPENTIN 100 MG CAPSULE PO (20:30)
[2024-09-02] MEDS: LATANOPROST 0.005% OPHTH 2.5 ML 1 DROPS EYE-BOTH (20:31)
[2024-09-02] MEDS: INSULIN GLARGINE 100 UNIT/ML 3ML PEN 12 UNIT SUBCUT (20:36)
[2024-09-03 03:27] VITALS: BP 126/76; PULSE 87; RESP 17; TEMP 36.5; O2SAT 96
[2024-09-03 05:13] LABS: BUN Creatinine Ratio 19.8 (6-22); Blood Urea Nitrogen 16 mg/dL (9-20); Calcium 8.8 mg/dL (8.4-10.2); Carbon Dioxide 24 mmol/L (22-32); Chloride 100 mmol/L (98-107); Estimated Glomerular Filt Rate > 60 mL/min (>60); Glucose 192 mg/dL (80-110); HEMOLYSIS < 15 (0-50); Potassium 3.9 mmol/L (3.4-5.1); Sodium 134 mmol/L (137-145)
[2024-09-03 05:15] LABS: INR 1.4 (0.9-1.3); Prothrombin Time 16.1 SECONDS (9.4-12.5)
[2024-09-03] MEDS: LEVOTHYROXINE 75 MCG TABLET PO (06:16)
[2024-09-03] MEDS: INSULIN LISPRO 100 UNIT/ML 3ML VIAL SUBCUT ×3 (07:59→17:28)
[2024-09-03 08:00] VITALS: BP 148/86; PULSE 86; RESP 27; TEMP 36.2; O2SAT 96
[2024-09-03] MEDS: FUROSEMIDE 20 MG TABLET PO ×2 (08:02→17:27)
[2024-09-03] MEDS: dilTIAZem CD 120 MG CAP 240 MG PO (08:02)
[2024-09-03] MEDS: OSELTAMIVIR 75 MG CAPSULE PO ×2 (08:03→20:24)
[2024-09-03] MEDS: cefTRIAXone 1,000 MG in SODIUM CHLORIDE 0.9% 100 ML 200 MG IV (08:13)
[2024-09-03] MEDS: SODIUM CHLORIDE 0.9% FLUSH 10 ML IV ×2 (08:15→20:27)
[2024-09-03] MEDS: ACETAMINOPHEN 325 MG TABLET 650 MG PO ×2 (09:32→20:24)
--- NOTE | 2024-09-03 09:34 | CM.DPC ---
Addendum entered by GE Combs 09/03/24 15:24: ADD: PT worked with pt with Dtr bedside and then they had a family meeting and decision made to have patient discharge home with new HH referral and increase their family support. SW spoke to spouse via phone and she confirms and provided HH Choice list via phone and no HH preference and discussed HH services and frequency. Spouse confirms Dtr Bonnie or Daphne will provide transport home for pt at discharge and aware it might be tomorrow. Preference for HH is [facility] as they already have RN in the home twice a week that has a relationship with pt already. [facility] referral made based on V[facility] Calendar and they are contracted with [facility] and [facility], reviewing today. F2F completed but not sent yet. BF Original Note: DCP SNF vs Home Cont: SW met bedside with pt and adult Dtr Bonnie and explained role and updated on [facility] SNF needing to try to move rooms tomorrow Mon to accommodate pt in an isolation room due to Flu A+. After further discussion with Dtr, pt preference is really home and plan is for PT to work with pt this morning while Dtr bedside and then Dtr will meet with her other sister Daphne and pt's spouse/their mom to discuss if it is safe for d/c home to their very small living situation with increased family assist and HH. Dtr aware that pt likely stable for discharge once safe plan of SNF or home secured and Dtr aiming for likely d/c tomorrow Mon. PT kindly agreeable to work with pt this morning while Dtr bedside to help determine SNF vs home with family assist and HH. GE Combs
--- NOTE | 2024-09-03 10:38 | PT.IPTN ---
Current Diagnoses Sepsis, unspecified organism (08/29/24) Physical Therapy Treatment Note M2 PT-IP Current Condition Start: 08/29/24 12:40 Freq: NEEDED Status: Active Protocol: Document 08/31/24 09:25 SP (Rec: 08/31/24 10:47 SP [id number]) Physical Therapy Current Condition Current Condition Evaluation Date 08/29/24 Treatment Diagnosis UTI; hypoxia; difficulty in walking Onset Date M3 PT-IP Subjective Start: 08/29/24 12:40 Freq: NEEDED Status: Active Protocol: Document 09/03/24 09:21 MB (Rec: 09/03/24 10:37 MB [id number]) Subjective Physical Therapy Visit Type Type Treatment Note Visit Start Time 09:21 Visit Stop Time 09:44 Number of FURNITURE BUILDER Visits 0 Physical Therapy Visit Comments Patient Comments Pt is agreeable to PT and daughter is nearby. She verbalizes hoping to take pt home and pt also has this as a goal. She states pt's , with whom he lives, is also sick with the flu. Therapy Pain Assessment Pain When Pain Assessed At Rest Pain Present Pain Present Denied Pain M4 PT-IP Mobility and Gait Start: 08/29/24 12:40 Freq: NEEDED Status: Active Protocol: Document 09/03/24 09:21 MB (Rec: 09/03/24 10:37 MB [id number]) PT-Bed Mobility Assessment Rolling Type of Rolling Roll to Right Level of Assist Contact Guard Assistance Supine to Sit Supine to Sit Contact Guard Assistance, Bedrails Sit to Supine Sit to Supine Contact Guard Assistance, Bedrails Scooting Scooting to Edge of Bed Contact Guard Assistance PT-Transfer Assessment Sit to and From Stand Sit to and from Stand Contact Guard Assistance, Minimal Assistance,1 Person Assistance,Use of Upper Extremities Equipment Transfer Assistive Device Gait Belt,Front Wheeled Walker Orthotic/Prosthetic Devices or Brace: No Transfers Transfer Destination Bed,Chair Transfer Technique Stepping Transfer Ability Level of Assist Contact Guard Assistance, Minimal Assistance,1 Person Assistance,Use of Upper Extremities Comments Mobility Comments O2 sats on RA drop to 88% with mobility and HR up to 135 BPM and then sats improve to 92% at rest and HR 119 BPM. Daughter in room for mobility, cues to use elbow and bed rail to push up to sitting from side lying, cues to back up to the chair, to look up/ stand tall, and to reach back for the chair Gait Assessment Gait Gait Assistance Required: Minimum Assistance,1 Person Assist Distance (Feet) 5 Able to Maintain Weight Bearing Status Yes During Gait Assistive Devices Assistive Device Gait Belt,Front Wheeled Walker Orthotic/Prosthetic Devices or Brace: No Gait Deviations General Gait Pattern Decreased Stride Length, Decreased Feet Clearance, Flexed Trunk,Step-to Gait Factors Limiting Gait Function Factors Limiting Gait Function Decreased Activity Tolerance, Decreased Strength,Difficulty Following Directions,Limited Range of Motion,Pain,Poor Balance,Poor Safety Awareness Comments Gait Comments WALSH, forward and backward stepping x3: 2'x1 and 5'x1 M5 PT-IP Objective Assessments Start: 08/29/24 12:40 Freq: NEEDED Status: Active Protocol: Document 08/29/24 09:40 AB (Rec: 08/29/24 12:52 AB [id number]) Orientation Orientation/Cognition Level of Alertness Alert Orientation Name,Place,Situation Language Function Ability Hard of Hearing Safety Awareness Decreased Safety Awareness Memory Description Short Term Impaired,Angle Roll Operator Impaired Gross Range of Motion Lower Extremity ROM Assessment Within Functional Limits Strength Lower Extremity Strength Hip 3+/5 Knee 4-/5 Muscle Tone Muscle Tone WNL Yes M6 PT-IP Treatment Start: 08/29/24 12:40 Freq: NEEDED Status: Active Protocol: Document 09/03/24 09:21 MB (Rec: 09/03/24 10:37 [id number]) Physical Therapy Treatment Education Education Provided Safety M7 PT-IP Assessment and Plan Start: 08/29/24 12:40 Freq: NEEDED Status: Active Protocol: Document 09/03/24 09:21 MB (Rec: 09/03/24 10:37 [id number]) PT Summary Assessment and Plan Potential Rehabilitation Potential Fair Status of Condition at Evaluation Evolving Summary Impairments Pain,ROM,Strength,Balance, Coordination,Bed Mobility, Transfers,Gait,Activity Tolerance Progress Towards Goals Slow Progress due to Activity Tolerance Assessment Summary Pt requires less physical assistance for mobility today and he does require cues for safe hand placement, stepping and bed mobility. He has decreased activity tolerance and WALSH with dropping O2 sats and increasing HR with minimal mobility. He lives at home with who also has the flu and daughter states family and other caregivers can assist him and she is interested in services. He will require 24 hour assistance and PT consult at d /c. Daughter states pt has a standard walker at home. Pt is unable to perform stair training today d/t decreased endurance. Hips and knees are flexed and weak with mobility. Goals Bed Mobility Goal Standby Assistance Transfer Goal Standby Assistance,Front Wheeled Walker Gait Goal Standby Assistance,Front Wheel Walker Gait Distance 50 Other Goals Pt will ascend and descend 1 step with LRAD and no more than CGA. Days to Meet Goals 5 Frequency of Treatment Frequency Of Treatment Once a Day Other frequency 1-2x Treatment Plan Physical Therapy Treatment Plan Bed Mobility Training,Transfer Training,Gait Training, Therapeutic Exercise,Balance Retraining,Discharge Planning, Hot or Cold Pack,Neuromuscular Re-ed,Coordination Retraining ,Manual Therapy Precautions Other Precautions Droplet for flu A, falls Recommendations To Nursing Amount of Assist Needed 2 Person Assist Discharge Recommendations PT Discharge Recommendations Home with 24/7 Assist Available,SNF Rehab,Home vs SNF Other Discharge Recommendations 24 hour assistance and PT at d /c Equipment Needed for Home Before Rolling walker Discharge Transportation Needs at Discharge Wheelchair/Cabulance
--- NOTE | 2024-09-03 14:06 | PM.PN.1 ---
Subjective Subjective Interval history: 89-year-old male with atrial fibrillation on warfarin anticoagulation, hypertension, COPD, hyperlipidemia, hypothyroidism, diabetes mellitus type 2 and BPH who was admitted with Klebsiella UTI, and subsequently was diagnosed with influenza a on September 01. Pt is very tearful. He has told his dtr he is unwilling to go to SNF. He wants to return home. Denies any SOB. Looks forward to getting out of the hospital. Exam Vital Signs (past 8 hours): - 09/02/24 14:03 09/02/24 16:00 Temperature 97.7 F Pulse Rate 83 74 Respiratory Rate 16 14 Blood Pressure 115/71 Pulse Oximetry 97 97 Oxygen Delivery Method Nasal Cannula Oxygen Flow Rate 2 2 Fraction of Inspired Oxygen 28 SaO2/FiO2 Ratio 346 Oxygen Delivery Method Nasal Cannula Oxygen Flow Rate 2 Narrative Exam Narrative: GEN: Elderly male, hard of hearing, Alert and oriented x 3, NAD HEENT:NC, Face symmetric CHEST: Respiratory excursions symmetric, initially, crackles in the left lateral lung field in base, coarse but CTAB CV: RRR, no M/R/G ABD: Soft, NT/ND, BT present in all 4 quadrants, body habitus limits exam EXTR: warm, well perfused, no C/C/E SKIN: warm and dry, no rash NEURO: Alert and oriented x 3, nonfocal Objective Labs 09/01/24 09:00 09/03/24 04:25 Labs: Laboratory Results - last 24 hr 09/02/24 12:00 PT 16.2 H INR 1.4 H PFSH Medical History Atrial fibrillation with controlled ventricular rate HTN (hypertension) Aortic aneurysm COPD (chronic obstructive pulmonary disease) Surgical History History of appendectomy Family History Mother Cancer Father Cancer Social History marital status: household members: spouse Smoking Status: Former smoker alcohol intake: never Assessment & Plan Assessment & Plan narrative: 1. Sepsis secondary to Klebsiella pneumoniae UTI (resistant to ampicillin, intermediate sensitivity to nitrofurantoin, otherwise pansensitive to everything tested) Completed a course of ceftriaxone. 2. Influenza a Continues on Tamiflu, day 3/5. 3. Acute hypoxic respiratory failure Saturating well on 2 L of oxygen via nasal cannula. Chest x-ray done 09/01/24 did reveal pulmonary edema. Restarted his usual furosemide 20 mg orally b.i.d yesterday. He did receive 2 doses of furosemide 40 mg IV on 09/01/24. Intake and output not well documented as he has not had urine output monitored closely. 4. Diabetes mellitus type 2 Blood sugars have ranged from 192-235. Continue fingersticks and sliding scale. Given his advanced age, will not seek tight glycemic control. 5. COPD Continue as needed albuterol nebulizers. 6. Hypertension Continues diltiazem 240 mg daily extended release. 7. Chronic atrial fibrillation Rate controlled on diltiazem. INR remained subtherapeutic on current warfarin dosing. Will continue daily monitoring until discharge 8. Hypothyroidism Continue levothyroxine 9. Hyperlipidemia Continue atorvastatin 10. BPH Continue tamsulosin Code status DNR Prophylaxis On warfarin Disposition Pt now has declined SNF placement for rehab. Dtr is agreeable to him returning home. She will meet w/her mom and other family members and make arrangements today to bring him home tomorrow. Time-Based Coding :: [TOTAL MINUTES] spent with patient and on the chart (including review of chart, obtaining history, exam, reviewing outside data, placing orders, documenting exam and treatment plan, and counseling patient) on [DATE].
[2024-09-03 16:00] VITALS: BP 147/86; PULSE 71; RESP 18; TEMP 36.2; O2SAT 91
[2024-09-03] MEDS: TAMSULOSIN 0.4 MG CAPSULE PO (17:27)
[2024-09-03] MEDS: WARFARIN 5 MG, WARFARIN 2.5 MG 7.5 MG PO (17:27)
[2024-09-03 20:00] VITALS: BP 133/77; PULSE 83; RESP 19; TEMP 35.9; O2SAT 96
[2024-09-03] MEDS: GABAPENTIN 100 MG CAPSULE PO (20:24)
[2024-09-03] MEDS: ATORVASTATIN 20 MG TABLET 10 MG PO (20:24)
[2024-09-03] MEDS: INSULIN GLARGINE 100 UNIT/ML 3ML PEN 15 UNIT SUBCUT (20:25)
[2024-09-03] MEDS: LATANOPROST 0.005% OPHTH 2.5 ML 1 DROPS EYE-BOTH (20:25)
[2024-09-04 03:08] VITALS: BP 148/73; PULSE 91; RESP 20; TEMP 36.1; O2SAT 94
[2024-09-04] MEDS: LEVOTHYROXINE 75 MCG TABLET PO (05:11)
[2024-09-04 05:41] LABS: INR 1.6 (0.9-1.3); Prothrombin Time 17.9 SECONDS (9.4-12.5)
[2024-09-04 08:00] VITALS: BP 138/76; PULSE 83; RESP 18; TEMP 35.9; O2SAT 97
[2024-09-04] MEDS: OSELTAMIVIR 75 MG CAPSULE PO (08:24)
[2024-09-04] MEDS: INSULIN LISPRO 100 UNIT/ML 3ML VIAL SUBCUT (08:24)
[2024-09-04] MEDS: dilTIAZem CD 120 MG CAP 240 MG PO (08:24)
[2024-09-04] MEDS: FUROSEMIDE 20 MG TABLET PO (08:24)
[2024-09-04 08:58] VITALS: O2SAT 93
--- NOTE | 2024-09-04 10:47 | P.DS_ITS ---
History of Present Illness History of Present Illness Chief complaint: AMS Narrative: From night doctor: 89-year-old male with past medical history of atrial fibrillation on Coumadin, hypertension, COPD non-O2 dependent, hyperlipidemia, hypothyroidism, [id number] diabetes and BPH presents with confusion. Per the patient's family report, about 3 weeks ago the patient was found to be confused and was brought into the ER. The patient did not have any sign of infection at that time including a negative UA and a chest x-ray per report. CT scan at that time was also negative. However the patient was noted to be quite confused again since yesterday per the patient's . At baseline the patient is alert and oriented x 3. Otherwise there is no report of any focal deficit, fever, chills, nausea, vomiting, diarrhea, chest pain or shortness of breath. In the emergency room, the patient was hemodynamically stable. WBC was 20 and UA suggested UTI. Lactic acid 2.3. IV ceftriaxone given. CT head was negative again. Patient mentation did improve slightly with IV fluid antibiotic. Code status DNR Discharge Providers Provider Date of admission: 08/29/24 02:38 Discharge Date: 09/04/24 Primary care physician: Kris Kaur MD Consults: 08/29/24 02:34 Consult to Occupational Therapy Evaluate & Treat Comment: Physician Instructions: Evaluate and treat Consult to Physical Therapy Evaluate & Treat Comment: Pls be cautious w/L knee as he has severe OA Physician Instructions: Evaluate and Treat Discharge provider: Raji Padgett MD Summary Hospital Course Discharge Diagnosis: 1. Sepsis secondary to Klebsiella pneumoniae UTI (resistant to ampicillin, intermediate sensitivity to nitrofurantoin, otherwise pansensitive to everything tested). Resolved. Completed a course of ceftriaxone. 2. Influenza A, improved. Continues on Tamiflu, day 4/5. 3. Acute hypoxic respiratory failure, resolved. 4. Diabetes mellitus type 2, stable. Blood sugars have ranged from 192-235. Continue fingersticks and sliding scale. Given his advanced age, will not seek tight glycemic control. 5. COPD, stable. Continue as needed albuterol nebulizers. 6. Hypertension, stable. Continues diltiazem 240 mg daily extended release. 7. Chronic atrial fibrillation, stable. Rate controlled on diltiazem. INR remained subtherapeutic on current warfarin dosing. Will continue daily monitoring until discharge 8. Hypothyroidism, stable. Continue levothyroxine 9. Hyperlipidemia, stable. Continue atorvastatin 10. BPH, stable. Continue tamsulosin Hospital Course: He was admitted with sepsis and UTI and treated with ceftriaxone with good improvement of his infection. Cultures as noted above. The patient did develop hypoxia, cough, and lethargy. Chest x-ray revealed pulmonary edema, he was diuresed. Influenza a was positive on PCR and he was treated with Tamiflu. He improved. He came off from oxygen as well. On the day of discharge he was stable for discharge home to finish Tamiflu at home. He would completed antibiotics. Status at Discharge Cognitive/behavioral status at discharge: oriented Functional status at discharge: uses cane/walker Overall status at discharge: patient is back to baseline Time Spent with Patient Time spent: Greater than 30 minutes Exam Vital Signs (past 8 hours): - 09/04/24 03:08 09/04/24 08:00 09/04/24 08:58 Temperature 97 F L 96.7 F L Pulse Rate 91 H 83 Respiratory Rate 20 18 Blood Pressure 148/73 H 138/76 Pulse Oximetry 94 97 93 Oxygen Delivery Method Room Air Oxygen Flow Rate 0 0 Fraction of Inspired Oxygen 28 SaO2/FiO2 Ratio 346 Oxygen Delivery Method Room Air Oxygen Flow Rate 0 Narrative Exam Narrative: NAD, alert and oriented. Fluent speech. Lungs are clear, normal rate and effort. Heart is regular, no murmur gallop or rub. Abdomen is soft, non distended. Extremities are free of edema. Objective ECG Impression: Atrial fibrillation Imaging Multiple studies: : Radiologist's impression: Chest x-ray: Moderate diffuse pulmonary edema with cardiomegaly consistent with CHF exacerbation. Head CT: Motion degraded exam. Within these limitations, no acute intracranial pathology. Labs 09/01/24 09:00 09/03/24 04:25 Labs: Laboratory Results - last 24 hr 09/04/24 05:16 PT 17.9 H INR 1.6 H [facility] Medical History Atrial fibrillation with controlled ventricular rate HTN (hypertension) Aortic aneurysm COPD (chronic obstructive pulmonary disease) Surgical History History of appendectomy Family History Mother Cancer Father Cancer Social History marital status: household members: spouse Smoking Status: Former smoker alcohol intake: never Discharge Assessment & Plan Assessment and Plan Assessment: 1. Sepsis secondary to Klebsiella pneumoniae UTI (resistant to ampicillin, intermediate sensitivity to nitrofurantoin, otherwise pansensitive to everything tested). Resolved. Completed a course of ceftriaxone. 2. Influenza A, improved. Continues on Tamiflu, day 09/13. 3. Acute hypoxic respiratory failure, resolved. Saturating well on 2 L of oxygen via nasal cannula. Chest x-ray done 09/01/24 did reveal pulmonary edema. Restarted his usual furosemide 20 mg orally b.i.d yesterday. He did receive 2 doses of furosemide 40 mg IV on 09/01/24. Intake and output not well documented as he has not had urine output monitored closely. Plan of Treatment: Stable for discharge home to complete Tamiflu. He will resume other. He will follow up with PCP within 6 days. Discharge Plan Discharge Plan Patient Disposition: Home Health Service Transfer to: [facility] Provider Discharge Comment: 1) you were admitted with a urinary tract infection which has now been treated. 2) While in the hospital, you tested positive for influenza A. 3) You are being treated with Tamiflu for 5 days for the influenza infection F/u PT/INR on 09/08/24. KENNETH Humphrey to receive results and manage. (INR: 08/29 through 08/31 was 1.9, 09/01 was 1.5, 09/02 1.4) Discharge orders & Medications Prescriptions: New latanoprost 0.005 % Drops 1 drops EYE-BOTH BEDTIME 30 Days Qty: 30 0RF acetaminophen 325 mg Tablet 650 mg PO Q6H PRN (Reason: Fever/Mild Pain (1-3)) Qty: 30 0RF albuterol sulfate 2.5 mg /3 mL (0.083 %) Solution For Nebulization 2.5 mg INH Q4H PRN (Reason: Bronchospasm) 30 Days Qty: 180 0RF warfarin 2.5 mg Tablet 2.5 mg PO MoWeSa@1700 Qty: 15 0RF warfarin 5 mg Tablet 5 mg PO SuTuThFr@1700 Qty: 30 0RF insulin lispro [Admelog U-100 Insulin lispro] 100 unit/mL Solution 0 unit SUBCUT ACHS 30 Days Qty: 100 0RF oseltamivir [Tamiflu] 75 mg capsule 75 mg PO BID 5 Days Qty: 3 0RF Rx Instructions: To complete a total of 5 days Continued tamsulosin [Flomax] 0.4 MG capsule,extended release 24hr 1 cap PO QPM Qty: 0 atorvastatin [Lipitor] 10 MG tablet 10 mg PO BEDTIME Qty: 0 levothyroxine [Synthroid] 75 MCG tablet 75 mcg PO DAILY Qty: 0 metformin [Glucophage] 500 MG tablet 500 mg PO BIDCC Qty: 0 diltiazem HCl 240 mg capsule,extended release 24hr 240 mg PO DAILY furosemide 20 mg tablet 20 mg PO DAILY Patient Comments: TAKE 1 TABLET BY MOUTH TWICE DAILY glimepiride 2 mg tablet 2 mg DAILY gabapentin 100 mg capsule 100 mg PO BEDTIME Patient Comments: [NO ORIGINAL SIG] Discontinued latanoprost 0.005 % drops 1 drp OPHTH BEDTIME Qty: 0 albuterol sulfate [Ventolin HFA] 90 MCG/PUFF HFA aerosol inhaler 2 puff INH Q4HP PRN (Reason: Bronchospasm) Qty: 0 warfarin [Coumadin] 5 MG tablet 5 mg PO DAILY Qty: 0 Rx Instructions: verified with pt on 08/29/24, current dose = 2.5mg Mo/We/Sa and 5mg all other days Follow up/Referrals: Kris Kaur MD [Primary Care Provider] - Diet/Activity/Treatments Diet: Diet as Tolerated and Carb-consistent/Diabetic Activity: As tolerated; per Home Health PT/OT - please note pt has bone on bone arthritis to L knee and has limited ROM to L knee, also his COPD limits his endurance Oxygen: 2lpm continuous; wean to keep sats>92% Visit Report/Discharge Packet Instructions: DI for Urinary Tract Infection (UTI), DI for Influenza -- Adult Stand Alone Forms: Patient Portal/API, Stroke Signs & Symptoms Discharge Data Primary Care Provider: Kris Kaur
--- NOTE | 2024-09-04 11:22 | PC.NURSE ---
Patient is A&OX4, VSS, afebrile on RA. He expresses eagerness to discharge home today. He is able to use FWW with assist to BSC.Daughter is supportive at bedside. MD, Daughter and patient and DAYSI Mcfarland discuss discharge home with [employer] [employer]. Picc line removed. Patient is assisted to get dressed and escorted via w/ch with all of his belongings by SUPERVISOR HISTOLOGY to private vehicle with family at approximately 1130 this a.m.
--- NOTE | 2024-09-04 11:23 | OT.IPNOTE ---
Chart reviewed for OT eval and treat. Pt is planned for discharge home today. Will hold for discharge.
--- NOTE | 2024-09-04 11:55 | CM.DPNOTE ---
Addendum entered by GE Perry 09/04/24 13:13: Per Tiffanie at [facility], should be good to accept eval,, just in final processing. SL Original Note: DCP note OPERATIONS CONSULTANT reviewed EMR Per chart review, PT clearing him for dc home with family support and HH today. Per provider in morning rounds, dc today. Per Tiffanie at [facility], unable to open HH referral sent over weekend (encryption error?). BRIAN Wei faxed initial referral information, [facility] reviewing. OPERATIONS CONSULTANT emailed HH order, f2f, and dc summary draft to Tiffanie and June at [facility] in case able to accept. OPERATIONS CONSULTANT spoke with spouse Liat via phone ([phone]) confirm agreement with plan. deny questions at this time. report dtr will transport pt home. Per Liat, pt has RN from previously employer that comes in 2x/week but can come in more often if needed, employer pays for as a result of him getting COPD from where he worked. OPERATIONS CONSULTANT briefly met with dtr outside of room, handed her [facility] brochure. denied questions at this time. OPERATIONS CONSULTANT lvm with Abida from [facility] to cancel referral. P: dc home with family support and [facility] to follow for PT/OT/AUTOMATION APPLICATION ENGINEER pending official acceptance. need to send dc sum when signed. no further CM needs at this time, will continue to follow as needed. GE Perry
== END 2024-09-04 11:30 | disposition home health service (06) | DRG 871 ==
LOC: ED 08-29 00:26 → AC 08-29 02:39
PROVIDERS: Family Medicine; Hospitalist; Internal Medicine; Admitting Provider Internal Medicine; Emergency Provider Emergency Medicine; Family Provider Physician Assistant Medical; PCP Family Medicine; Referring Provider Emergency Medicine; Visit Provider Internal Medicine
DX: A41.59 Other Gram-negative sepsis (principal); G93.41 Metabolic encephalopathy; J96.01 Acute respiratory failure with hypoxia; J81.0 Acute pulmonary edema; N30.00 Acute cystitis without hematuria; Z16.11 Resistance to penicillins; I48.20 Chronic atrial fibrillation, unspecified; J44.9 Chronic obstructive pulmonary disease, unspecified; I10 Essential (primary) hypertension; E11.9 Type 2 diabetes mellitus without complications; E03.9 Hypothyroidism, unspecified; E78.5 Hyperlipidemia, unspecified; N40.0 Benign prostatic hyperplasia without lower urinary tract symptoms; B96.1 Klebsiella pneumoniae [K. pneumoniae] as the cause of diseases classified elsewhere; R65.20 Severe sepsis without septic shock; J10.1 Influenza due to other identified influenza virus with other respiratory manifestations; Z79.84 Long term (current) use of oral hypoglycemic drugs; Z79.01 Long term (current) use of anticoagulants; Z66 Do not resuscitate; Z87.891 Personal history of nicotine dependence; Z79.890 Hormone replacement therapy
CPT/HCPCS: 36415; 51701; 70450; 71045; 80048; 80053; 80305; 81001; 82140; 82962; 83036; 83605; 83735; 84443; 85007; 85025; 85610; 87040; 87070; 87077; 87086; 87147; 87186; 87205; 87633; 93005; 93010; 94640; 96365; 97116; 97162; 97166; 97530; 99284; 99285; J0696; J1815; J1940; J7613

== ENCOUNTER → 2024-10-25 15:58 | Outpatient (CLI) | payer OTHER, SELFPAY ==
[2024-08-29 04:01] VITALS: BMI 29.9
== END ==
PROVIDERS: Family Provider Physician Assistant Medical; PCP Family Medicine; Referring Provider Family Medicine; Visit Provider Family Medicine
DX: J44.9 Chronic obstructive pulmonary disease, unspecified (principal); R94.2 Abnormal results of pulmonary function studies
CPT/HCPCS: 94060; 94726; 94729

== ENCOUNTER 2024-12-17 15:37 | Inpatient (IN) | payer MEDICARE, SELFPAY ==
[2024-08-29 04:01] VITALS: BMI 29.9
[2024-12-17] VITALS (29 sets, daily range): BP systolic 98–158; BP diastolic 46–81; PULSE 92–126; RESP 18–44; TEMP 36.5–39.3; O2SAT 91–97; BMI 30.2
--- NOTE | 2024-12-17 15:24 | ED_ITS ---
HPI - General Adult <Soraya Bedoya DO - Last Filed: 12/20/24 17:35> General Chief complaint: Abdominal Pain Stated complaint: Abd Pain, nausea Time Seen by Provider: 12/17/24 15:38 Source: patient, RN notes reviewed and old records reviewed Mode of arrival: EMS Limitations: no limitations History of Present Illness HPI narrative: 89-year-old male history of atrial fibrillation on warfarin, hypertension, COPD, aortic aneurysm who presents with complaint of sudden onset of abdominal pain nausea and vomiting. Patient also describes chills and rigors. No fevers that they are aware of. Patient's family arrived states he was normal until about 10:00 a.m. this morning while at [employer]. Had abrupt onset of abdominal discomfort patient states that is sort of generalized mid abdomen. Denies any radiation elsewhere. He denies any chest pain or pressure. He states he does not feel short of breath although he was tachypneic. He was had nausea and vomiting. Family states that it looks like food no black or blood. He had a bowel movement earlier today no diarrhea or constipation appreciated. No dysuria urgency frequency no new urinary symptoms. Patient has a known aortic aneurysm that is been monitored last check was about a year ago. He was had prior appendectomy. No known drug allergies. Patient transported via EMS. Smoker, occasional alcohol, no recreational drugs. KENNETH ham as his primary care physician. His and family arrrived shortly after patient and patient defers majority of history to his . Related Data Home Medications ?Medication ?Instructions ?Recorded ?Confirmed tamsulosin 0.4 mg capsule (Flomax) 1 cap PO QPM ##0 12/17/24 atorvastatin 10 mg tablet (Lipitor) 10 mg PO BEDTIME # #0 09/20/12 12/17/24 levothyroxine 75 mcg tablet 75 mcg PO DAILY ##0 12/17/24 (Synthroid) metformin 500 mg tablet 500 mg PO BIDCC ##0 03/18/17 12/17/24 (Glucophage) diltiazem HCl 240 mg 240 mg PO DAILY 09/27/1803/05 capsule,extended release 24 hr furosemide 20 mg tablet 20 mg PO DAILY 11/03/2103/05 gabapentin 100 mg capsule 100 mg PO BEDTIME 08/29/24 0 12/17/24 glimepiride 2 mg tablet 2 mg PO DAILY 08/29/2412/20 Previous Rx's ?Medication ?Instructions ?Recorded acetaminophen 325 mg tablet 650 mg (2 x 325 mg) PO Q6H PRN 09/02/24 Fever/Mild Pain (1-3) #30 tabs warfarin 2.5 mg tablet 2.5 mg PO MoWeSa@1700 #15 ta bs 09/02/24 warfarin 5 mg tablet 5 mg PO SuTuThFr@1700 #30 ta bs 09/02/24 Allergies Allergy/AdvReac Type Severity Reaction Status Date / Time No Known Drug Allergies Allergy Unverified 01/26/18 09:42 Review of Systems <Soraya Bedoya DO - Last Filed: 12/20/24 17:35> Review of Systems ROS Unobtainable: All systems reviewed & are unremarkable except as noted in HPI and below Patient History <Soraya Bedoya DO - Last Filed: 12/20/24 17:35> Medical History (Updated 12/17/24 @ 20:27 by Carlin Suarez MD) Atrial fibrillation with controlled ventricular rate HTN (hypertension) Aortic aneurysm COPD (chronic obstructive pulmonary disease) Surgical History History of appendectomy Family History Mother Cancer Father Cancer Social History marital status: household members: spouse Smoking Status: Former smoker alcohol intake: never alcohol intake frequency: 0-2 drinks per day Exam <Soraya Bedoya DO - Last Filed: 12/20/24 17:35> Narrative Exam Narrative: GEN: Elderly appearing male, alert and oriented, patient appears to be in moderate distress. HEENT: Atraumatic, pupils are equal round reactive to light, extraocular movements are intact, nares are clear, there is no conjunctival pallor. Throat is clear without any exudates, erythema, tonsillar enlargement or uvular deviation HEART: Irregularly irregular tachycardic rate and rhythm without murmur, clicks, rubs. No carotid bruits, pulses are equal in upper and lower extremities. Patient was have some edema bilateral lower extremities. LUNGS:Lungs clear to auscultation, no wheezes, rales, crackles, chest moves symmetrically, positive for tachypnea no accessory muscle use. ABD:bowel sounds normal, soft, nontender on exam. Distended, no guarding, rebound, rigidity, no masses noted, no hepatosplenomegaly, no pulsatile bruit or mass appreciated. :No CVA tenderness MSCL: Non-tender, no muscle atrophy, muscles strength 5/5 upper and lower extremities, full range of motion. 2+ pulses bilateral lower extremities, no cyanosis, no pallor or other changes. NEURO:CN 2-12 intact, sensation normal SKIN: No rash, erythema or other skin changes noted. Initial Vital Signs Initial Vital Signs: Vital Signs Temperature 99.6 F 12/17/24 15:21 Pulse Rate 126 H 12/17/24 15:21 Respiratory Rate 44 H 12/17/24 15:21 Pulse Oximetry 92 12/17/24 15:21 Oxygen Delivery Method Room Air 12/17/24 15:21 <Carlin Suarez MD - Last Filed: 12/18/24 03:00> Initial Vital Signs Initial Vital Signs: Vital Signs Temperature 99.6 F 12/17/24 15:21 Pulse Rate 126 H 12/17/24 15:21 Respiratory Rate 44 H 12/17/24 15:21 Pulse Oximetry 92 12/17/24 15:21 Oxygen Delivery Method Room Air 12/17/24 15:21 Course <Soraya Bedoya DO - Last Filed: 12/20/24 17:35> Orders Ordered: Acetaminophen (Acetaminophen 325 Mg Tablet) 650 mg PO Q6H PRN PRN Reason: Fever/Mild Pain (1-3) Last Admin: 12/20/24 02:57 Dose: 650 mg Documented By: CT Albuterol (Albuterol 2.5 Mg/3 Ml Neb (Adult)) 2.5 mg INH [id number] [facility] Last Admin: 12/20/24 13:35 Dose: Not Given Documented By: Admin: 12/20/24 07:42 Dose: Not Given Documented By: Admin: 12/19/24 20:31 Dose: 2.5 mg Documented By: Admin: 12/19/24 13:26 Dose: 2.5 mg Documented By: SAT Albuterol/Ipratropium (Albuterol/Ipratropium 3 Ml Ampul) 3 ml INH RTQ4HR PRN PRN Reason: Shortness Of Breath Last Admin: 12/20/24 10:22 Dose: 3 ml Documented By: Admin: 12/20/24 02:42 Dose: 3 ml Documented By: Admin: 12/19/24 06:13 Dose: 3 ml Documented By: KHALIDA Atorvastatin Calcium (Atorvastatin 20 Mg Tablet) 10 mg PO BEDTIME [facility] Last Admin: 12/19/24 21:15 Dose: Not Given Documented By: Admin: 12/18/24 21:47 Dose: 10 mg Documented By: KHALIDA Benzonatate (Benzonatate 100 Mg Capsule) 100 mg PO TID PRN PRN Reason: Cough Last Admin: 12/20/24 02:57 Dose: 100 mg Documented By: Admin: 12/19/24 21:14 Dose: 100 mg Documented By: Admin: 12/19/24 06:37 Dose: 100 mg Documented By: KHALIDA Diltiazem HCl (Diltiazem Cd 120 Mg Cap) 240 mg PO DAILY [facility] Last Admin: 12/20/24 08:49 Dose: 240 mg Documented By: Admin: 12/19/24 08:20 Dose: 240 mg Documented By: Admin: 12/18/24 10:42 Dose: Not Given Documented By: SHARA Gabapentin (Gabapentin 100 Mg Capsule) 100 mg PO BEDTIME [facility] Last Admin: 12/19/24 21:15 Dose: Not Given Documented By: Admin: 12/18/24 21:47 Dose: 100 mg Documented By: Admin: 12/17/24 21:54 Dose: Not Given Documented By: DAYSI Guaifenesin (Guaifenesin Solution 100 Mg/5 Ml Udc) 200 mg PO Q4HR PRN PRN Reason: Cough Last Admin: 12/20/24 02:56 Dose: 200 mg Documented By: Admin: 12/19/24 11:02 Dose: 200 mg Documented By: Admin: 12/19/24 06:36 Dose: 200 mg Documented By: KHALIDA Dextrose (D10w) 100 mls @ 999 mls/hr IV PRN PRN PRN Reason: Hypoglycemia Doxycycline Hyclate 100 mg/ (Sodium Chloride) 100 mls @ 100 mls/hr IV BID [facility] Last Infusion: 12/20/24 11:31 Dose: Infused Documented By: Admin: 12/20/24 10:05 Dose: 100 mls/hr Documented By: Infusion: 12/19/24 23:40 Dose: Infused Documented By: Admin: 12/19/24 22:39 Dose: 100 mls/hr Documented By: CT Ceftriaxone Sodium 2,000 mg/ (Sodium Chloride) 100 mls @ 200 mls/hr IV Q24H [facility] Last Infusion: 12/20/24 12:40 Dose: Infused Documented By: Admin: 12/20/24 11:25 Dose: 200 mls/hr Documented By: ANDREA Insulin Human Lispro (Insulin Lispro 100 Unit/Ml 3ml Vial) 0 unit SUBCUT ACHS [facility]; Protocol Last Admin: 12/20/24 14:02 Dose: Not Given Documented By: Admin: 12/20/24 10:19 Dose: Not Given Documented By: Admin: 12/19/24 21:15 Dose: Not Given Documented By: Admin: 12/19/24 17:13 Dose: 1 unit Documented By: ANDREA Co-signed By: CUATE Admin: 12/19/24 12:22 Dose: 1 unit Documented By: ANDREA Co-signed By: ABDULKADIR Levothyroxine Sodium (Levothyroxine 75 Mcg Tablet) 75 mcg PO 0600 [facility] Last Admin: 12/20/24 07:00 Dose: Not Given Documented By: Admin: 12/19/24 05:29 Dose: 75 mcg Documented By: Admin: 12/18/24 04:39 Dose: Not Given Documented By: DAYSI Metoprolol Tartrate (Metoprolol Tartrate 5 Mg/5 Ml Inj) 5 mg IV Q2HR PRN PRN Reason: Heart Rate- High HR > 120 sust Last Admin: 12/20/24 12:11 Dose: 5 mg Documented By: Admin: 12/19/24 21:16 Dose: 5 mg Documented By: Admin: 12/19/24 06:39 Dose: 5 mg Documented By: KHALIDA Morphine Sulfate (Morphine 2 Mg/Ml Inj) 2 mg IV Q2HR PRN PRN Reason: Pain, Moderate (4-6) Last Admin: 12/19/24 06:15 Dose: 2 mg Documented By: Admin: 12/18/24 17:52 Dose: 2 mg Documented By: SHARA Naloxone HCl (Naloxone 0.4 Mg/Ml Vial) 0.2 mg IV Q2MIN PRN PRN Reason: Opiate Reversal Ondansetron HCl (Ondansetron 4 Mg/2 Ml Inj) 4 mg IV Q8HR PRN PRN Reason: Nausea And Vomiting Last Admin: 12/18/24 17:52 Dose: 4 mg Documented By: SHARA Quetiapine Fumarate (Quetiapine 25 Mg Tablet) 25 mg PO BEDTIME [facility] Tamsulosin HCl (Tamsulosin 0.4 Mg Capsule) 0.4 mg PO QPM [facility] Last Admin: 12/19/24 17:13 Dose: 0.4 mg Documented By: Admin: 12/18/24 16:53 Dose: 0.4 mg Documented By: SHARA Warfarin Sodium (Warfarin 2.5 Mg Tablet) 2.5 mg PO MoWeSa@1700 [facility] Last Admin: 12/18/24 18:29 Dose: 2.5 mg Documented By: SHARA Warfarin Sodium (Warfarin 5 Mg Tablet) 5 mg PO SuTuThFr@1700 [facility] Last Admin: 12/19/24 17:13 Dose: 5 mg Documented By: ANDREA Discontinued Medications Acetaminophen (Acetaminophen 325 Mg Tablet) 650 mg PO Q6H PRN PRN Reason: Fever/Mild Pain (1-3) Albuterol/Ipratropium (Albuterol/Ipratropium 3 Ml Ampul) 3 ml INH RTQ4HR PRN PRN Reason: Shortness Of Breath Last Admin: 12/18/24 06:35 Dose: 3 ml Documented By: Admin: 12/17/24 21:07 Dose: 3 ml Documented By: JAYSHREE Atorvastatin Calcium (Atorvastatin 20 Mg Tablet) 10 mg PO NOW ONE Stop: 12/17/24 20:01 Last Admin: 12/17/24 21:53 Dose: Not Given Documented By: DAYSI Diltiazem HCl (Diltiazem Cd 120 Mg Cap) 240 mg PO NOW ONE Stop: 12/17/24 20:01 Last Admin: 12/17/24 21:53 Dose: Not Given Documented By: DAYSI Diltiazem HCl (Diltiazem 25 Mg/5 Ml Sdv) 10 mg IV NOW ONE Stop: 12/17/24 20:13 Last Admin: 12/17/24 20:17 Dose: 10 mg Documented By: FACUNDO Diltiazem HCl (Diltiazem 25 Mg/5 Ml Sdv) 10 mg IV NOW ONE Stop: 12/17/24 20:16 Last Admin: 12/17/24 20:30 Dose: Not Given Documented By: FACUNDO Doxycycline Hyclate (Doxycycline Hyclate 100 Mg Tablet) 100 mg PO BID [facility] Last Admin: 12/19/24 21:27 Dose: Not Given Documented By: CT Furosemide (Furosemide 20 Mg Tablet) 20 mg PO NOW ONE Stop: 12/18/24 08:01 Last Admin: 12/18/24 10:41 Dose: Not Given Documented By: CLP Furosemide (Furosemide 40 Mg/4 Ml Vial) 40 mg IV NOW ONE Stop: 12/18/24 04:32 Last Admin: 12/18/24 04:45 Dose: 40 mg Documented By: DAYSI Sodium Chloride (Normal Saline 0.9%) 1,000 mls @ 1,000 mls/hr IV BOLUS ONE Stop: 12/17/24 16:26 Last Infusion: 12/17/24 17:07 Dose: Infused Documented By: Admin: 12/17/24 15:48 Dose: 1,000 mls/hr Documented By: FACUNDO Acetaminophen (Ofirmev) 1,000 mg in 100 mls @ 400 mls/hr IV NOW ONE Stop: 12/17/24 16:42 Last Infusion: 12/17/24 17:00 Dose: Infused Documented By: Admin: 12/17/24 16:40 Dose: 400 mls/hr Documented By: FACUNDO Piperacillin Sod/Tazobactam (Sod 4.5 gm/ Sodium Chloride) 100 mls @ 200 mls/hr IV NOW ONE Stop: 12/17/24 16:33 Last Infusion: 12/17/24 18:21 Dose: Infused Documented By: Admin: 12/17/24 17:02 Dose: 200 mls/hr Documented By: VJ Sodium Chloride (Normal Saline 0.9%) 1,000 mls @ 1,000 mls/hr IV BOLUS ONE Stop: 12/17/24 21:26 Last Infusion: 12/17/24 22:00 Dose: Infused Documented By: Admin: 12/17/24 20:33 Dose: 1,000 mls/hr Documented By: FACUNDO Sodium Chloride (Normal Saline 0.9%) 1,000 mls @ 75 mls/hr IV CONT [facility]AZ Last Infusion: 12/19/24 19:00 Dose: 0 mls/hr Documented By: Infusion: 12/18/24 03:46 Dose: 0 mls/hr Documented By: Admin: 12/17/24 21:43 Dose: 75 mls/hr Documented By: DAYSI Doxycycline Hyclate 100 mg/ (Sodium Chloride) 100 mls @ 100 mls/hr IV Q12H [facility] Last Admin: 12/17/24 23:22 Dose: Not Given Documented By: DAYSI Piperacillin Sod/Tazobactam (Sod 3.375 gm/ Sodium Chloride) 100 mls @ 25 mls/hr IV Q8H [facility] Last Infusion: 12/19/24 14:20 Dose: Infused Documented By: Admin: 12/19/24 08:20 Dose: 25 mls/hr Documented By: Infusion: 12/19/24 04:38 Dose: Infused Documented By: Admin: 12/19/24 00:38 Dose: 25 mls/hr Documented By: Infusion: 12/18/24 20:53 Dose: Infused Documented By: Admin: 12/18/24 16:53 Dose: 25 mls/hr Documented By: Infusion: 12/18/24 13:30 Dose: Infused Documented By: Admin: 12/18/24 09:27 Dose: 25 mls/hr Documented By: Infusion: 12/18/24 04:38 Dose: Infused Documented By: Admin: 12/18/24 00:06 Dose: 25 mls/hr Documented By: DAYSI Doxycycline Hyclate 100 mg/ (Sodium Chloride) 100 mls @ 100 mls/hr IV Q12H [facility] Last Infusion: 12/19/24 15:43 Dose: Infused Documented By: Admin: 12/19/24 12:22 Dose: 100 mls/hr Documented By: Infusion: 12/19/24 00:08 Dose: Infused Documented By: Admin: 12/18/24 23:08 Dose: 100 mls/hr Documented By: Infusion: 12/18/24 12:24 Dose: Infused Documented By: Admin: 12/18/24 11:24 Dose: 100 mls/hr Documented By: Infusion: 12/18/24 01:00 Dose: Infused Documented By: Admin: 12/17/24 23:16 Dose: 100 mls/hr Documented By: DAYSI Piperacillin Sod/Tazobactam (Sod 3.375 gm/ Sodium Chloride) 100 mls @ 25 mls/hr IV Q8H [facility] Last Admin: 12/18/24 03:48 Dose: Not Given Documented By: DAYSI Vancomycin HCl/Dextrose (Vancomycin) 2,000 mg in 400 mls @ 200 mls/hr IV NOW [facility] Vancomycin HCl 750 mg/ Sodium (Chloride) 250 mls @ 250 mls/hr IV Q12H [facility] Sodium Chloride (Normal Saline 0.9%) 500 mls @ 1,000 mls/hr IV BOLUS ONE Stop: 12/18/24 00:14 Last Infusion: 12/18/24 00:37 Dose: Infused Documented By: Admin: 12/18/24 00:07 Dose: 1,000 mls/hr Documented By: DAYSI Vancomycin HCl/Dextrose (Vancomycin) 2,000 mg in 400 mls @ 200 mls/hr IV NOW ONE Stop: 12/18/24 01:59 Last Infusion: 12/18/24 02:00 Dose: Infused Documented By: Admin: 12/17/24 23:54 Dose: 200 mls/hr Documented By: DAYSI Vancomycin HCl/Dextrose (Vancomycin) 1,500 mg in 300 mls @ 200 mls/hr IV Q24H [facility] Last Admin: 12/19/24 22:48 Dose: Not Given Documented By: KACIE Vancomycin HCl/Dextrose (Vancomycin) 1,500 mg in 300 mls @ 200 mls/hr IV Q24H [facility] Piperacillin Sod/Tazobactam (Sod 3.375 gm/ Sodium Chloride) 100 mls @ 25 mls/hr IV Q8H [facility] Last Infusion: 12/20/24 11:31 Dose: Infused Documented By: Admin: 12/20/24 07:06 Dose: 25 mls/hr Documented By: Infusion: 12/20/24 03:40 Dose: Infused Documented By: Admin: 12/19/24 23:40 Dose: 25 mls/hr Documented By: Infusion: 12/19/24 19:05 Dose: Infused Documented By: Admin: 12/19/24 14:52 Dose: 25 mls/hr Documented By: ANDREA Magnesium Sulfate (Magnesium Sulfate) 2 gm in 50 mls @ 25 mls/hr IV NOW ONE Stop: 12/20/24 15:44 Last Admin: 12/20/24 14:03 Dose: 25 mls/hr Documented By: ANDREA Co-signed By: CUATE Insulin Human Lispro (Insulin Lispro 100 Unit/Ml 3ml Vial) 0 unit SUBCUT ACHS [facility]; Protocol Last Admin: 12/19/24 08:19 Dose: 1 unit Documented By: ANDREA Co-signed By: SHARA Admin: 12/18/24 21:48 Dose: 1 unit Documented By: KHALIDA Co-signed By: JOSE Admin: 12/18/24 17:06 Dose: 2 unit Documented By: SHARA Co-signed By: CUATE Admin: 12/18/24 13:17 Dose: 3 unit Documented By: SHARA Co-signed By: GARRISON Admin: 12/18/24 09:23 Dose: Not Given Documented By: SHARA Levothyroxine Sodium (Levothyroxine 75 Mcg Tablet) 75 mcg PO 1999 [facility] Stop: 12/18/24 20:00 Magnesium Chloride (Magnesium Chloride 64 Mg Tablet) 128 mg PO NOW ONE Stop: 12/19/24 10:46 Last Admin: 12/19/24 11:02 Dose: 128 mg Documented By: ANDREA Metformin HCl (Metformin Hcl 500 Mg Tablet) 500 mg PO 0800,1700 [facility] Methylprednisolone (Methylprednisolone 125 Mg/2 Ml Vial) 60 mg IV Q8H [facility] Last Admin: 12/18/24 02:34 Dose: 60 mg Documented By: DAYSI Metoclopramide HCl (Metoclopramide 10 Mg/2 Ml Inj) 10 mg IV NOW ONE Stop: 12/17/24 16:01 Last Admin: 12/17/24 16:13 Dose: 10 mg Documented By: FACUNDO Morphine Sulfate (Morphine 4 Mg/Ml Inj) 4 mg IV NOW ONE Stop: 12/17/24 15:38 Last Admin: 12/17/24 15:48 Dose: 4 mg Documented By: FACUNDO Ondansetron HCl (Ondansetron 4 Mg/2 Ml Inj) 4 mg IV NOW PRN PRN Reason: Nausea And Vomiting Ondansetron HCl (Ondansetron 4 Mg Odt) 4 mg PO NOW PRN PRN Reason: Nausea And Vomiting Ondansetron HCl (Ondansetron 4 Mg/2 Ml Inj) 4 mg IV NOW ONE Stop: 12/17/24 15:39 Last Admin: 12/17/24 15:48 Dose: 4 mg Documented By: FACUNDO Quetiapine Fumarate (Quetiapine 25 Mg Tablet) 25 mg PO NOW ONE Stop: 12/20/24 08:28 Last Admin: 12/20/24 08:49 Dose: 25 mg Documented By: ANDREA Tamsulosin HCl (Tamsulosin 0.4 Mg Capsule) 0.4 mg PO NOW ONE Stop: 12/17/24 20:01 Last Admin: 12/17/24 21:53 Dose: Not Given Documented By: DAYSI Vancomycin HCl (Vancomycin Per Pharmacy) 1 request MISC NOW STA Stop: 12/17/24 23:18 Vancomycin HCl (Vancomycin Trough) 1 request MISC NOW ONE Stop: 12/20/24 05:31 Vancomycin HCl (Vancomycin Peak) 1 request MISC NOW ONE Stop: 12/20/24 08:31 Warfarin Sodium (Warfarin 5 Mg Tablet) 5 mg PO NOW ONE Stop: 12/17/24 19:57 Last Admin: 12/17/24 21:53 Dose: Not Given Documented By: DAYSI Vital Signs Vital signs: Vital Signs - 8 hr 12/17/24 19:00 12/17/24 19:00 12/17/24 19:20 Pulse Rate 104 H 105 H Respiratory Rate 20 26 H Blood Pressure 120/57 L Pulse Oximetry 93 92 Oxygen Delivery Method Nasal Cannula Oxygen Flow Rate 2 12/17/24 19:20 12/17/24 19:30 12/17/24 19:40 Pulse Rate 103 H Respiratory Rate 25 H Blood Pressure 129/58 L 131/60 Pulse Oximetry 93 Oxygen Delivery Method Nasal Cannula Oxygen Flow Rate 2 12/17/24 19:40 12/17/24 19:59 12/17/24 20:00 Pulse Rate 107 H 114 H Respiratory Rate 18 20 Blood Pressure 152/69 H Pulse Oximetry 92 93 Oxygen Delivery Method Nasal Cannula Nasal Cannula Oxygen Flow Rate 2 2 12/17/24 20:17 Pulse Rate 125 H Respiratory Rate Blood Pressure 152/69 H Pulse Oximetry Oxygen Delivery Method Oxygen Flow Rate <Carlin Suarez MD - Last Filed: 12/18/24 03:00> Orders Ordered: Acetaminophen (Acetaminophen 325 Mg Tablet) 650 mg PO Q6H PRN PRN Reason: Fever/Mild Pain (1-3) Last Admin: 12/20/24 02:57 Dose: 650 mg Documented By: CT Albuterol (Albuterol 2.5 Mg/3 Ml Neb (Adult)) 2.5 mg INH [id number] [facility] Last Admin: 12/20/24 13:35 Dose: Not Given Documented By: Admin: 12/20/24 07:42 Dose: Not Given Documented By: Admin: 12/19/24 20:31 Dose: 2.5 mg Documented By: Admin: 12/19/24 13:26 Dose: 2.5 mg Documented By: SAT Albuterol/Ipratropium (Albuterol/Ipratropium 3 Ml Ampul) 3 ml INH RTQ4HR PRN PRN Reason: Shortness Of Breath Last Admin: 12/20/24 10:22 Dose: 3 ml Documented By: Admin: 12/20/24 02:42 Dose: 3 ml Documented By: Admin: 12/19/24 06:13 Dose: 3 ml Documented By: KHALIDA Atorvastatin Calcium (Atorvastatin 20 Mg Tablet) 10 mg PO BEDTIME [facility] Last Admin: 12/19/24 21:15 Dose: Not Given Documented By: Admin: 12/18/24 21:47 Dose: 10 mg Documented By: KHALIDA Benzonatate (Benzonatate 100 Mg Capsule) 100 mg PO TID PRN PRN Reason: Cough Last Admin: 12/20/24 02:57 Dose: 100 mg Documented By: Admin: 12/19/24 21:14 Dose: 100 mg Documented By: Admin: 12/19/24 06:37 Dose: 100 mg Documented By: KHALIDA Diltiazem HCl (Diltiazem Cd 120 Mg Cap) 240 mg PO DAILY [facility] Last Admin: 12/20/24 08:49 Dose: 240 mg Documented By: Admin: 12/19/24 08:20 Dose: 240 mg Documented By: Admin: 12/18/24 10:42 Dose: Not Given Documented By: SHARA Gabapentin (Gabapentin 100 Mg Capsule) 100 mg PO BEDTIME [facility] Last Admin: 12/19/24 21:15 Dose: Not Given Documented By: Admin: 12/18/24 21:47 Dose: 100 mg Documented By: Admin: 12/17/24 21:54 Dose: Not Given Documented By: DAYSI Guaifenesin (Guaifenesin Solution 100 Mg/5 Ml Udc) 200 mg PO Q4HR PRN PRN Reason: Cough Last Admin: 12/20/24 02:56 Dose: 200 mg Documented By: Admin: 12/19/24 11:02 Dose: 200 mg Documented By: Admin: 12/19/24 06:36 Dose: 200 mg Documented By: KHALIDA Dextrose (D10w) 100 mls @ 999 mls/hr IV PRN PRN PRN Reason: Hypoglycemia Doxycycline Hyclate 100 mg/ (Sodium Chloride) 100 mls @ 100 mls/hr IV BID [facility] Last Infusion: 12/20/24 11:31 Dose: Infused Documented By: Admin: 12/20/24 10:05 Dose: 100 mls/hr Documented By: Infusion: 12/19/24 23:40 Dose: Infused Documented By: Admin: 12/19/24 22:39 Dose: 100 mls/hr Documented By: CT Ceftriaxone Sodium 2,000 mg/ (Sodium Chloride) 100 mls @ 200 mls/hr IV Q24H [facility] Last Infusion: 12/20/24 12:40 Dose: Infused Documented By: Admin: 12/20/24 11:25 Dose: 200 mls/hr Documented By: ANDREA Insulin Human Lispro (Insulin Lispro 100 Unit/Ml 3ml Vial) 0 unit SUBCUT ACHS [facility]; Protocol Last Admin: 12/20/24 14:02 Dose: Not Given Documented By: Admin: 12/20/24 10:19 Dose: Not Given Documented By: Admin: 12/19/24 21:15 Dose: Not Given Documented By: Admin: 12/19/24 17:13 Dose: 1 unit Documented By: ANDREA Co-signed By: CUATE Admin: 12/19/24 12:22 Dose: 1 unit Documented By: ANDREA Co-signed By: ABDULKADIR Levothyroxine Sodium (Levothyroxine 75 Mcg Tablet) 75 mcg PO 0600 [facility] Last Admin: 12/20/24 07:00 Dose: Not Given Documented By: Admin: 12/19/24 05:29 Dose: 75 mcg Documented By: Admin: 12/18/24 04:39 Dose: Not Given Documented By: DAYSI Metoprolol Tartrate (Metoprolol Tartrate 5 Mg/5 Ml Inj) 5 mg IV Q2HR PRN PRN Reason: Heart Rate- High HR > 120 sust Last Admin: 12/20/24 12:11 Dose: 5 mg Documented By: Admin: 12/19/24 21:16 Dose: 5 mg Documented By: Admin: 12/19/24 06:39 Dose: 5 mg Documented By: KHALIDA Morphine Sulfate (Morphine 2 Mg/Ml Inj) 2 mg IV Q2HR PRN PRN Reason: Pain, Moderate (4-6) Last Admin: 12/19/24 06:15 Dose: 2 mg Documented By: Admin: 12/18/24 17:52 Dose: 2 mg Documented By: SHARA Naloxone HCl (Naloxone 0.4 Mg/Ml Vial) 0.2 mg IV Q2MIN PRN PRN Reason: Opiate Reversal Ondansetron HCl (Ondansetron 4 Mg/2 Ml Inj) 4 mg IV Q8HR PRN PRN Reason: Nausea And Vomiting Last Admin: 12/18/24 17:52 Dose: 4 mg Documented By: SHARA Quetiapine Fumarate (Quetiapine 25 Mg Tablet) 25 mg PO BEDTIME [facility] Tamsulosin HCl (Tamsulosin 0.4 Mg Capsule) 0.4 mg PO QPM [facility] Last Admin: 12/19/24 17:13 Dose: 0.4 mg Documented By: Admin: 12/18/24 16:53 Dose: 0.4 mg Documented By: SHARA Warfarin Sodium (Warfarin 2.5 Mg Tablet) 2.5 mg PO [email or web address] [facility] Last Admin: 12/18/24 18:29 Dose: 2.5 mg Documented By: SHARA Warfarin Sodium (Warfarin 5 Mg Tablet) 5 mg PO [email or web address] [facility] Last Admin: 12/19/24 17:13 Dose: 5 mg Documented By: ANDREA Discontinued Medications Acetaminophen (Acetaminophen 325 Mg Tablet) 650 mg PO Q6H PRN PRN Reason: Fever/Mild Pain (1-3) Albuterol/Ipratropium (Albuterol/Ipratropium 3 Ml Ampul) 3 ml INH RTQ4HR PRN PRN Reason: Shortness Of Breath Last Admin: 12/18/24 06:35 Dose: 3 ml Documented By: Admin: 12/17/24 21:07 Dose: 3 ml Documented By: [email or web address] Atorvastatin Calcium (Atorvastatin 20 Mg Tablet) 10 mg PO NOW ONE Stop: 12/17/24 20:01 Last Admin: 12/17/24 21:53 Dose: Not Given Documented By: DAYSI Diltiazem HCl (Diltiazem Cd 120 Mg Cap) 240 mg PO NOW ONE Stop: 12/17/24 20:01 Last Admin: 12/17/24 21:53 Dose: Not Given Documented By: DAYSI Diltiazem HCl (Diltiazem 25 Mg/5 Ml Sdv) 10 mg IV NOW ONE Stop: 12/17/24 20:13 Last Admin: 12/17/24 20:17 Dose: 10 mg Documented By: FACUNDO Diltiazem HCl (Diltiazem 25 Mg/5 Ml Sdv) 10 mg IV NOW ONE Stop: 12/17/24 20:16 Last Admin: 12/17/24 20:30 Dose: Not Given Documented By: FACUNDO Doxycycline Hyclate (Doxycycline Hyclate 100 Mg Tablet) 100 mg PO BID FARAZ Last Admin: 12/19/24 21:27 Dose: Not Given Documented By: CT Furosemide (Furosemide 20 Mg Tablet) 20 mg PO NOW ONE Stop: 12/18/24 08:01 Last Admin: 12/18/24 10:41 Dose: Not Given Documented By: SHARA Furosemide (Furosemide 40 Mg/4 Ml Vial) 40 mg IV NOW ONE Stop: 12/18/24 04:32 Last Admin: 12/18/24 04:45 Dose: 40 mg Documented By: DAYSI Sodium Chloride (Normal Saline 0.9%) 1,000 mls @ 1,000 mls/hr IV BOLUS ONE Stop: 12/17/24 16:26 Last Infusion: 12/17/24 17:07 Dose: Infused Documented By: Admin: 12/17/24 15:48 Dose: 1,000 mls/hr Documented By: FACUNDO Acetaminophen (Ofirmev) 1,000 mg in 100 mls @ 400 mls/hr IV NOW ONE Stop: 12/17/24 16:42 Last Infusion: 12/17/24 17:00 Dose: Infused Documented By: Admin: 12/17/24 16:40 Dose: 400 mls/hr Documented By: FACUNDO Piperacillin Sod/Tazobactam (Sod 4.5 gm/ Sodium Chloride) 100 mls @ 200 mls/hr IV NOW ONE Stop: 12/17/24 16:33 Last Infusion: 12/17/24 18:21 Dose: Infused Documented By: Admin: 12/17/24 17:02 Dose: 200 mls/hr Documented By: VJ Sodium Chloride (Normal Saline 0.9%) 1,000 mls @ 1,000 mls/hr IV BOLUS ONE Stop: 12/17/24 21:26 Last Infusion: 12/17/24 22:00 Dose: Infused Documented By: Admin: 12/17/24 20:33 Dose: 1,000 mls/hr Documented By: FACUNDO Sodium Chloride (Normal Saline 0.9%) 1,000 mls @ 75 mls/hr IV CONT FARAZ Last Infusion: 12/19/24 19:00 Dose: 0 mls/hr Documented By: Infusion: 12/18/24 03:46 Dose: 0 mls/hr Documented By: Admin: 12/17/24 21:43 Dose: 75 mls/hr Documented By: DAYSI Doxycycline Hyclate 100 mg/ (Sodium Chloride) 100 mls @ 100 mls/hr IV Q12H [facility] Last Admin: 12/17/24 23:22 Dose: Not Given Documented By: DAYSI Piperacillin Sod/Tazobactam (Sod 3.375 gm/ Sodium Chloride) 100 mls @ 25 mls/hr IV Q8H [facility] Last Infusion: 12/19/24 14:20 Dose: Infused Documented By: Admin: 12/19/24 08:20 Dose: 25 mls/hr Documented By: Infusion: 12/19/24 04:38 Dose: Infused Documented By: Admin: 12/19/24 00:38 Dose: 25 mls/hr Documented By: Infusion: 12/18/24 20:53 Dose: Infused Documented By: Admin: 12/18/24 16:53 Dose: 25 mls/hr Documented By: Infusion: 12/18/24 13:30 Dose: Infused Documented By: Admin: 12/18/24 09:27 Dose: 25 mls/hr Documented By: Infusion: 12/18/24 04:38 Dose: Infused Documented By: Admin: 12/18/24 00:06 Dose: 25 mls/hr Documented By: DAYSI Doxycycline Hyclate 100 mg/ (Sodium Chloride) 100 mls @ 100 mls/hr IV Q12H FARAZ Last Infusion: 12/19/24 15:43 Dose: Infused Documented By: Admin: 12/19/24 12:22 Dose: 100 mls/hr Documented By: Infusion: 12/19/24 00:08 Dose: Infused Documented By: Admin: 12/18/24 23:08 Dose: 100 mls/hr Documented By: Infusion: 12/18/24 12:24 Dose: Infused Documented By: Admin: 12/18/24 11:24 Dose: 100 mls/hr Documented By: Infusion: 12/18/24 01:00 Dose: Infused Documented By: Admin: 12/17/24 23:16 Dose: 100 mls/hr Documented By: DAYSI Piperacillin Sod/Tazobactam (Sod 3.375 gm/ Sodium Chloride) 100 mls @ 25 mls/hr IV Q8H FARAZ Last Admin: 12/18/24 03:48 Dose: Not Given Documented By: DAYSI Vancomycin HCl/Dextrose (Vancomycin) 2,000 mg in 400 mls @ 200 mls/hr IV NOW FARAZ Vancomycin HCl 750 mg/ Sodium (Chloride) 250 mls @ 250 mls/hr IV Q12H FARAZ Sodium Chloride (Normal Saline 0.9%) 500 mls @ 1,000 mls/hr IV BOLUS ONE Stop: 12/18/24 00:14 Last Infusion: 12/18/24 00:37 Dose: Infused Documented By: Admin: 12/18/24 00:07 Dose: 1,000 mls/hr Documented By: DAYSI Vancomycin HCl/Dextrose (Vancomycin) 2,000 mg in 400 mls @ 200 mls/hr IV NOW ONE Stop: 12/18/24 01:59 Last Infusion: 12/18/24 02:00 Dose: Infused Documented By: Admin: 12/17/24 23:54 Dose: 200 mls/hr Documented By: DAYSI Vancomycin HCl/Dextrose (Vancomycin) 1,500 mg in 300 mls @ 200 mls/hr IV Q24H FARAZ Last Admin: 12/19/24 22:48 Dose: Not Given Documented By: CT Vancomycin HCl/Dextrose (Vancomycin) 1,500 mg in 300 mls @ 200 mls/hr IV Q24H FARAZ Piperacillin Sod/Tazobactam (Sod 3.375 gm/ Sodium Chloride) 100 mls @ 25 mls/hr IV Q8H [facility] Last Infusion: 12/20/24 11:31 Dose: Infused Documented By: Admin: 12/20/24 07:06 Dose: 25 mls/hr Documented By: Infusion: 12/20/24 03:40 Dose: Infused Documented By: Admin: 12/19/24 23:40 Dose: 25 mls/hr Documented By: Infusion: 12/19/24 19:05 Dose: Infused Documented By: Admin: 12/19/24 14:52 Dose: 25 mls/hr Documented By: ANDREA Magnesium Sulfate (Magnesium Sulfate) 2 gm in 50 mls @ 25 mls/hr IV NOW ONE Stop: 12/20/24 15:44 Last Admin: 12/20/24 14:03 Dose: 25 mls/hr Documented By: ANDREA Co-signed By: CUATE Insulin Human Lispro (Insulin Lispro 100 Unit/Ml 3ml Vial) 0 unit SUBCUT ACHS [facility]; Protocol Last Admin: 12/19/24 08:19 Dose: 1 unit Documented By: ANDREA Co-signed By: SHARA Admin: 12/18/24 21:48 Dose: 1 unit Documented By: KHALIDA Co-signed By: JOSE Admin: 12/18/24 17:06 Dose: 2 unit Documented By: SHARA Co-signed By: CAUTE Admin: 12/18/24 13:17 Dose: 3 unit Documented By: SHARA Co-signed By: GARRISON Admin: 12/18/24 09:23 Dose: Not Given Documented By: SHARA Levothyroxine Sodium (Levothyroxine 75 Mcg Tablet) 75 mcg PO 1999 [facility] Stop: 12/18/24 20:00 Magnesium Chloride (Magnesium Chloride 64 Mg Tablet) 128 mg PO NOW ONE Stop: 12/19/24 10:46 Last Admin: 12/19/24 11:02 Dose: 128 mg Documented By: ANDREA Metformin HCl (Metformin Hcl 500 Mg Tablet) 500 mg PO 0800,1700 [facility] Methylprednisolone (Methylprednisolone 125 Mg/2 Ml Vial) 60 mg IV Q8H [facility] Last Admin: 12/18/24 02:34 Dose: 60 mg Documented By: DAYSI Metoclopramide HCl (Metoclopramide 10 Mg/2 Ml Inj) 10 mg IV NOW ONE Stop: 12/17/24 16:01 Last Admin: 12/17/24 16:13 Dose: 10 mg Documented By: FACUNDO Morphine Sulfate (Morphine 4 Mg/Ml Inj) 4 mg IV NOW ONE Stop: 12/17/24 15:38 Last Admin: 12/17/24 15:48 Dose: 4 mg Documented By: FACUNDO Ondansetron HCl (Ondansetron 4 Mg/2 Ml Inj) 4 mg IV NOW PRN PRN Reason: Nausea And Vomiting Ondansetron HCl (Ondansetron 4 Mg Odt) 4 mg PO NOW PRN PRN Reason: Nausea And Vomiting Ondansetron HCl (Ondansetron 4 Mg/2 Ml Inj) 4 mg IV NOW ONE Stop: 12/17/24 15:39 Last Admin: 12/17/24 15:48 Dose: 4 mg Documented By: FACUNDO Quetiapine Fumarate (Quetiapine 25 Mg Tablet) 25 mg PO NOW ONE Stop: 12/20/24 08:28 Last Admin: 12/20/24 08:49 Dose: 25 mg Documented By: ANDREA Tamsulosin HCl (Tamsulosin 0.4 Mg Capsule) 0.4 mg PO NOW ONE Stop: 12/17/24 20:01 Last Admin: 12/17/24 21:53 Dose: Not Given Documented By: DAYSI Vancomycin HCl (Vancomycin Per Pharmacy) 1 request MISC NOW STA Stop: 12/17/24 23:18 Vancomycin HCl (Vancomycin Trough) 1 request MISC NOW ONE Stop: 12/20/24 05:31 Vancomycin HCl (Vancomycin Peak) 1 request MISC NOW ONE Stop: 12/20/24 08:31 Warfarin Sodium (Warfarin 5 Mg Tablet) 5 mg PO NOW ONE Stop: 12/17/24 19:57 Last Admin: 12/17/24 21:53 Dose: Not Given Documented By: DAYSI Vital Signs Vital signs: Vital Signs - 8 hr 12/17/24 19:00 12/17/24 19:00 12/17/24 19:20 Pulse Rate 104 H 105 H Respiratory Rate 20 26 H Blood Pressure 120/57 L Pulse Oximetry 93 92 Oxygen Delivery Method Nasal Cannula Oxygen Flow Rate 2 12/17/24 19:20 12/17/24 19:30 12/17/24 19:40 Pulse Rate 103 H Respiratory Rate 25 H Blood Pressure 129/58 L 131/60 Pulse Oximetry 93 Oxygen Delivery Method Nasal Cannula Oxygen Flow Rate 2 12/17/24 19:40 12/17/24 19:59 12/17/24 20:00 Pulse Rate 107 H 114 H Respiratory Rate 18 20 Blood Pressure 152/69 H Pulse Oximetry 92 93 Oxygen Delivery Method Nasal Cannula Nasal Cannula Oxygen Flow Rate 2 2 12/17/24 20:17 Pulse Rate 125 H Respiratory Rate Blood Pressure 152/69 H Pulse Oximetry Oxygen Delivery Method Oxygen Flow Rate Medical Decision Making <Soraya C Mank, DO - Last Filed: 12/20/24 17:35> Lab Data 12/20/24 05:02 12/20/24 05:02 Labs: Lab Results 12/17/24 12/17/24 12/17/24 Range/Units 15:35 16:20 16:36 WBC 9.1 (4.5-11.0) X10^3/uL RBC 4.66 (4.5-5.9) X10^6/uL Hgb 14.6 (13.5-17.5) g/dL Hct 43.2 (41-53) % MCV 92.8 (80-100) fL MCH 31.4 (26-34) PG MCHC 33.8 (30-36) % RDW 14.4 (11.6-14.8) % Plt Count 163 (150-400) X10^3/uL Neut % (Auto) 88.2 H (50-75) % Lymph % (Auto) 8.6 L (25-40) % Pepin % (Auto) 2.6 L (3-14) % Eos % (Auto) 0.2 L (2-4) % Baso % (Auto) 0.4 (0-2) % Neut # (Auto) 8000 H (7146-2981) /uL Lymph # (Auto) 800 L (4435-0439) /uL Pepin # (Auto) 200 (0-900) /uL Eos # (Auto) 0 (0-450) /uL Baso # (Auto) 0 (0-100) /uL PT 27.3 H (9.4-12.5) SECONDS INR 2.5 H (0.9-1.3) APTT 39 H (25.1-36.5) SECONDS ABG Sample Site ABG pH (7.35-7.45) ABG pCO2 (35-45) mmHg ABG pO2 (80-100) mmHg ABG HCO3 (23-27) mmol/L ABG Total CO2 (23-27) mmol/L ABG O2 Saturation (95-100) % ABG Base Excess (-2-3) mmol/L Raji Test O2 Delivery Device FiO2 % % Sodium 138 (137-145) mmol/L Potassium 4.2 (3.4-5.1) mmol/L Chloride 104 (98-107) mmol/L Carbon Dioxide 19 L (22-32) mmol/L BUN 13 (9-20) mg/dL Creatinine 0.87 (0.66-1.25) mg/dL Estimated GFR > 60 (>60) mL/min BUN/Creatinine Ratio 14.9 (6-22) Glucose 268 H (70-99) mg/dL Lactate 4.2 H* (0.7-2.1) mmol/L Calcium 9.4 (8.4-10.2) mg/dL Total Bilirubin 2.6 H (0.2-1.3) mg/dL AST 291 H (17-59) IU/L ALT 104 H (<50) IU/L Alkaline Phosphatase 115 (38-126) U/L Ammonia (9-30) umol/L Total Creatine Kinase 57 (55-170) U/L Troponin I < 0.012 (0.01-0.034) ng/mL NT-Pro-B Natriuret Pep 409 (<450) pg/mL Total Protein 8.1 (6.3-8.2) g/dL Albumin 4.4 (3.5-5.0) g/dL Globulin 3.7 (1.7-4.1) g/dL Albumin/Globulin Ratio 1.2 (1.0-2.8) Lipase 56 (23-300) U/L Procalcitonin 0.163 (<0.5) ng/mL Urine RBC (0-5/HPF) Urine WBC (0-5/HPF) Ur Squamous Epith Cells (0-5/HPF) Urine Bacteria (None) Ur Culture Indicated? Vol Urine Centrifuged A.calcoaceticus-baumannii cmplx PCR Not detected (Not Detect) Bacteroides fragilis Not detected (Not Detect) Talia albicans (PCR) Not detected (Not Detect) Talia auris (PCR) Not detected (Not Detect) C. glabrata (PCR) Not detected (Not Detect) C. krusei (PCR) Not detected (Not Detect) C. parapsilosis (PCR) Not detected (Not Detect) C. tropicalis (PCR) Not detected (Not Detect) SARS-CoV-2 (PCR) Negative (Negative) C. neoform/gattii (PCR) Not detected (Not Detect) Enterobacterales (PCR) Detected (Not Detect) E. cloacae complex PCR Not detected (Not Detect) Enterococc faecalis PCR Not detected (Not Detect) Enterococc faecium PCR Not detected (Not Detect) E. coli (PCR) Not detected (Not Detect) H. influenzae (PCR) Not detected (Not Detect) Influenza A (RT-PCR) Flu a negative (NEGATIVE) Influenza B (RT-PCR) Flu b negative (NEGATIVE) Klebsiella aerogenes (PCR) Not detected (Not Detect) Klebsiella oxytoca PCR Not detected (Not Detect) Klebsiella pneumoniae Detected (Not Detect) List. monocytogenes PCR Not detected (Not Detect) N. meningitidis (PCR) Not detected (Not Detect) Proteus species (PCR) Not detected (Not Detect) RSV (PCR) Negative (Negative) Salmonella spp. (PCR) Not detected (Not Detect) Serratia marcescens PCR Not detected (Not Detect) Staphylococcus sp PCR Not detected (Not Detect) Staph aureus (PCR) Not detected (Not Detect) mecA/C & MREJ Resist Gene Not applicable (Not Detect) mecA/C-Methicil Resis Gene Not applicable (Not Detect) mcr-1 Colistin Res Gene PCR Not detected (Not Detect) Staph epidermidis (PCR) Not detected (Not Detect) Staph lugdunensis PCR Not detected (Not Detect) S. maltophilia (PCR) Not detected (Not Detect) Streptococcus sp PCR Not detected (Not Detect) Group A Strep (PCR) Not detected (Not Detect) Strep agalactiae (PCR) Not detected (Not Detect) Strep pneumoniae (PCR) Not detected (Not Detect) P. aeruginosa (PCR) Not detected (Not Detect) Sharan/B-Vanco Res Genes Not applicable (Not Detect) blaIMP Car res Gene PCR Not detected (Not Detect) KPC-Carbap Res Gene PCR Not detected (Not Detect) blaNDM Car Res Gene PCR Not detected (Not Detect) OXA-48 Carbapenem Resis Gene (PCR) Not detected (Not Detect) blaVIM Car Res Gene PCR Not detected (Not Detect) CTX-M Gene Resistance (PCR) Not detected (Not Detect) 12/17/24 12/17/24 12/17/24 Range/Units 17:47 17:48 18:10 WBC (4.5-11.0) X10^3/uL RBC (4.5-5.9) X10^6/uL Hgb (13.5-17.5) g/dL Hct (41-53) % MCV (80-100) fL MCH (26-34) PG MCHC (30-36) % RDW (11.6-14.8) % Plt Count (150-400) X10^3/uL Neut % (Auto) (50-75) % Lymph % (Auto) (25-40) % Pepin % (Auto) (3-14) % Eos % (Auto) (2-4) % Baso % (Auto) (0-2) % Neut # (Auto) (9220-6572) /uL Lymph # (Auto) (6001-0848) /uL Pepin # (Auto) (0-900) /uL Eos # (Auto) (0-450) /uL Baso # (Auto) (0-100) /uL PT (9.4-12.5) SECONDS INR (0.9-1.3) APTT (25.1-36.5) SECONDS ABG Sample Site Right radial ABG pH 7.40 (7.35-7.45) ABG pCO2 31.0 L (35-45) mmHg ABG pO2 60 L (80-100) mmHg ABG HCO3 19 L (23-27) mmol/L ABG Total CO2 18 L (23-27) mmol/L ABG O2 Saturation 91 L (95-100) % ABG Base Excess -4.5 L (-2-3) mmol/L Raji Test Positive O2 Delivery Device Cannula FiO2 % 28.0 % % Sodium (137-145) mmol/L Potassium (3.4-5.1) mmol/L Chloride (98-107) mmol/L Carbon Dioxide (22-32) mmol/L BUN (9-20) mg/dL Creatinine (0.66-1.25) mg/dL Estimated GFR (>60) mL/min BUN/Creatinine Ratio (6-22) Glucose (70-99) mg/dL Lactate 3.9 H (0.7-2.1) mmol/L Calcium (8.4-10.2) mg/dL Total Bilirubin (0.2-1.3) mg/dL AST (17-59) IU/L ALT (<50) IU/L Alkaline Phosphatase (38-126) U/L Ammonia < 9 L (9-30) umol/L Total Creatine Kinase (55-170) U/L Troponin I (0.01-0.034) ng/mL NT-Pro-B Natriuret Pep (<450) pg/mL Total Protein (6.3-8.2) g/dL Albumin (3.5-5.0) g/dL Globulin (1.7-4.1) g/dL Albumin/Globulin Ratio (1.0-2.8) Lipase (23-300) U/L Procalcitonin (<0.5) ng/mL Urine RBC None seen (0-5/HPF) Urine WBC None seen (0-5/HPF) Ur Squamous Epith Cells 0-1 /hpf (0-5/HPF) Urine Bacteria Occasional (0-1) D (None) Ur Culture Indicated? Cult not indicated Vol Urine Centrifuged 10ml (spun) A.calcoaceticus-baumannii cmplx PCR (Not Detect) Bacteroides fragilis (Not Detect) Talia albicans (PCR) (Not Detect) Talia auris (PCR) (Not Detect) C. glabrata (PCR) (Not Detect) C. krusei (PCR) (Not Detect) C. parapsilosis (PCR) (Not Detect) C. tropicalis (PCR) (Not Detect) SARS-CoV-2 (PCR) (Negative) C. neoform/gattii (PCR) (Not Detect) Enterobacterales (PCR) (Not Detect) E. cloacae complex PCR (Not Detect) Enterococc faecalis PCR (Not Detect) Enterococc faecium PCR (Not Detect) E. coli (PCR) (Not Detect) H. influenzae (PCR) (Not Detect) Influenza A (RT-PCR) (NEGATIVE) Influenza B (RT-PCR) (NEGATIVE) Klebsiella aerogenes (PCR) (Not Detect) Klebsiella oxytoca PCR (Not Detect) Klebsiella pneumoniae (Not Detect) List. monocytogenes PCR (Not Detect) N. meningitidis (PCR) (Not Detect) Proteus species (PCR) (Not Detect) RSV (PCR) (Negative) Salmonella spp. (PCR) (Not Detect) Serratia marcescens PCR (Not Detect) Staphylococcus sp PCR (Not Detect) Staph aureus (PCR) (Not Detect) mecA/C & MREJ Resist Gene (Not Detect) mecA/C-Methicil Resis Gene (Not Detect) mcr-1 Colistin Res Gene PCR (Not Detect) Staph epidermidis (PCR) (Not Detect) Staph lugdunensis PCR (Not Detect) S. maltophilia (PCR) (Not Detect) Streptococcus sp PCR (Not Detect) Group A Strep (PCR) (Not Detect) Strep agalactiae (PCR) (Not Detect) Strep pneumoniae (PCR) (Not Detect) P. aeruginosa (PCR) (Not Detect) Sharan/B-Vanco Res Genes (Not Detect) blaIMP Car res Gene PCR (Not Detect) KPC-Carbap Res Gene PCR (Not Detect) blaNDM Car Res Gene PCR (Not Detect) OXA-48 Carbapenem Resis Gene (PCR) (Not Detect) blaVIM Car Res Gene PCR (Not Detect) CTX-M Gene Resistance (PCR) (Not Detect) Urine Dip Bedside Urine Glucose 250 mg/dl Bedside Urine Bilirubin - Negative Bedside Urine Ketone + 15 Urine Specific Perkins 1.015 Bedside Urine Occult Blood - Negative Bedside Urine pH 5.0 Bedside Urine Protein +/- 15 Bedside Urine Urobilinogen - Negative Bedside Urine Nitrite - Negative Bedside Urine Leukocytes - Negative Esterase Point of care testing: Urine Dip Bedside Urine Glucose 250 mg/dl Bedside Urine Bilirubin - Negative Bedside Urine Ketone + 15 Urine Specific Perkins 1.015 Bedside Urine Occult Blood - Negative Bedside Urine pH 5.0 Bedside Urine Protein +/- 15 Bedside Urine Urobilinogen - Negative Bedside Urine Nitrite - Negative Bedside Urine Leukocytes - Negative Esterase ECG Data Attestation: I personally reviewed and interpreted this ECG as follows: Prior ECG tracings: available for review Interpretation: AFib rapid ventricular rate 102, QRS is 78 QTC of 435, no acute ST elevation depression nonspecific change patient does have some rigors and shaking that is likely interfering. Patient was prior from 08/29/2024 that showed AFib with a rate [address] segments appears similar today. MDM Narrative Medical decision making narrative: 81-year-old male with the above problem set of abdominal pain nausea or vomiting appears to be in AFib with RVR tachypneic does have a history of aortic aneurysm as well as atrial fibrillation is reportedly anticoagulated on warfarin. Patient was old CT with contrast of the abdomen which does not show any change no recent CTs are upper chest imaging but family notes that they have had a check in the past year that noted he was aneurysm with stable. Labs labs show normal white count hemoglobin and platelets, INR is 2.5 patient is anticoagulated on warfarin, CO2 is 19 BUN creatinine are normal electrolytes are otherwise appropriate glucose is 268 initial lactate 4.2. Bilirubin is 2.6 with a AST is 291, ALT is 104, alk-phos is 115 total CK is 57 troponin less than 0.012 and a BNP of 409. Lipase is 56 with a procalcitonin 0.163. Repeat lactate he was improved but mildly at 3.9. Ammonia is negative. Urine positive for glucose, ketones negative for nitrates or leuks.? Urine micro pendin COVID/influenza/RSV is negative. ABG shows pH of 7 4 CO2 of 31 PO2 of [address] angio chest abdomen pelvis dissection protocol shows no aortic aneurysm no acute aortic syndrome. Bowel bilateral ground-glass densities well interlobular septal thickening. No consolidation. Cardiomegaly with left atrial prominence. No pericardial effusion. Top normal caliber via ascending aorta measures 4 mm no saccular aneurysm multiple mildly enlarged bilateral mediastinal nodes as well as right hilar node measuring up to 0.3 cm likely reactive to chronic heart disease. Patient has no tenderness on exam but LFTs with a bilirubin AST ALT are elevated no obvious changes on CT to the gallbladder but we will obtain as patient has a abdominal pain nausea or vomiting axillary fever although not oral fever here. Patient received fluids, Zofran and pain medication and acetaminophen, patient was covered with the IV antibiotic for presumptive bacterial infection. Patient signed out to Dr. Suarez while awaiting RUQ US and urine microscopy. <Carlin Suarez MD - Last Filed: 12/18/24 03:00> Lab Data Labs: Lab Results 12/17/24 12/17/24 12/17/24 Range/Units 15:35 16:20 16:36 WBC 9.1 (4.5-11.0) X10^3/uL RBC 4.66 (4.5-5.9) X10^6/uL Hgb 14.6 (13.5-17.5) g/dL Hct 43.2 (41-53) % MCV 92.8 (80-100) fL MCH 31.4 (26-34) PG MCHC 33.8 (30-36) % RDW 14.4 (11.6-14.8) % Plt Count 163 (150-400) X10^3/uL Neut % (Auto) 88.2 H (50-75) % Lymph % (Auto) 8.6 L (25-40) % Pepin % (Auto) 2.6 L (3-14) % Eos % (Auto) 0.2 L (2-4) % Baso % (Auto) 0.4 (0-2) % Neut # (Auto) 8000 H (9052-8246) /uL Lymph # (Auto) 800 L (9035-7519) /uL Pepin # (Auto) 200 (0-900) /uL Eos # (Auto) 0 (0-450) /uL Baso # (Auto) 0 (0-100) /uL PT 27.3 H (9.4-12.5) SECONDS INR 2.5 H (0.9-1.3) APTT 39 H (25.1-36.5) SECONDS ABG Sample Site ABG pH (7.35-7.45) ABG pCO2 (35-45) mmHg ABG pO2 (80-100) mmHg ABG HCO3 (23-27) mmol/L ABG Total CO2 (23-27) mmol/L ABG O2 Saturation (95-100) % ABG Base Excess (-2-3) mmol/L Raji Test O2 Delivery Device FiO2 % % Sodium 138 (137-145) mmol/L Potassium 4.2 (3.4-5.1) mmol/L Chloride 104 (98-107) mmol/L Carbon Dioxide 19 L (22-32) mmol/L BUN 13 (9-20) mg/dL Creatinine 0.87 (0.66-1.25) mg/dL Estimated GFR > 60 (>60) mL/min BUN/Creatinine Ratio 14.9 (6-22) Glucose 268 H (70-99) mg/dL Lactate 4.2 H* (0.7-2.1) mmol/L Calcium 9.4 (8.4-10.2) mg/dL Total Bilirubin 2.6 H (0.2-1.3) mg/dL AST 291 H (17-59) IU/L ALT 104 H (<50) IU/L Alkaline Phosphatase 115 (38-126) U/L Ammonia (9-30) umol/L Total Creatine Kinase 57 (55-170) U/L Troponin I < 0.012 (0.01-0.034) ng/mL NT-Pro-B Natriuret Pep 409 (<450) pg/mL Total Protein 8.1 (6.3-8.2) g/dL Albumin 4.4 (3.5-5.0) g/dL Globulin 3.7 (1.7-4.1) g/dL Albumin/Globulin Ratio 1.2 (1.0-2.8) Lipase 56 (23-300) U/L Procalcitonin 0.163 (<0.5) ng/mL Urine RBC (0-5/HPF) Urine WBC (0-5/HPF) Ur Squamous Epith Cells (0-5/HPF) Urine Bacteria (None) Ur Culture Indicated? Vol Urine Centrifuged A.calcoaceticus-baumannii cmplx PCR Not detected (Not Detect) Bacteroides fragilis Not detected (Not Detect) Talia albicans (PCR) Not detected (Not Detect) Talia auris (PCR) Not detected (Not Detect) C. glabrata (PCR) Not detected (Not Detect) C. krusei (PCR) Not detected (Not Detect) C. parapsilosis (PCR) Not detected (Not Detect) C. tropicalis (PCR) Not detected (Not Detect) SARS-CoV-2 (PCR) Negative (Negative) C. neoform/gattii (PCR) Not detected (Not Detect) Enterobacterales (PCR) Detected (Not Detect) E. cloacae complex PCR Not detected (Not Detect) Enterococc faecalis PCR Not detected (Not Detect) Enterococc faecium PCR Not detected (Not Detect) E. coli (PCR) Not detected (Not Detect) H. influenzae (PCR) Not detected (Not Detect) Influenza A (RT-PCR) Flu a negative (NEGATIVE) Influenza B (RT-PCR) Flu b negative (NEGATIVE) Klebsiella aerogenes (PCR) Not detected (Not Detect) Klebsiella oxytoca PCR Not detected (Not Detect) Klebsiella pneumoniae Detected (Not Detect) List. monocytogenes PCR Not detected (Not Detect) N. meningitidis (PCR) Not detected (Not Detect) Proteus species (PCR) Not detected (Not Detect) RSV (PCR) Negative (Negative) Salmonella spp. (PCR) Not detected (Not Detect) Serratia marcescens PCR Not detected (Not Detect) Staphylococcus sp PCR Not detected (Not Detect) Staph aureus (PCR) Not detected (Not Detect) mecA/C & MREJ Resist Gene Not applicable (Not Detect) mecA/C-Methicil Resis Gene Not applicable (Not Detect) mcr-1 Colistin Res Gene PCR Not detected (Not Detect) Staph epidermidis (PCR) Not detected (Not Detect) Staph lugdunensis PCR Not detected (Not Detect) S. maltophilia (PCR) Not detected (Not Detect) Streptococcus sp PCR Not detected (Not Detect) Group A Strep (PCR) Not detected (Not Detect) Strep agalactiae (PCR) Not detected (Not Detect) Strep pneumoniae (PCR) Not detected (Not Detect) P. aeruginosa (PCR) Not detected (Not Detect) Sharan/B-Vanco Res Genes Not applicable (Not Detect) blaIMP Car res Gene PCR Not detected (Not Detect) KPC-Carbap Res Gene PCR Not detected (Not Detect) blaNDM Car Res Gene PCR Not detected (Not Detect) OXA-48 Carbapenem Resis Gene (PCR) Not detected (Not Detect) blaVIM Car Res Gene PCR Not detected (Not Detect) CTX-M Gene Resistance (PCR) Not detected (Not Detect) 12/17/24 12/17/24 12/17/24 Range/Units 17:47 17:48 18:10 WBC (4.5-11.0) X10^3/uL RBC (4.5-5.9) X10^6/uL Hgb (13.5-17.5) g/dL Hct (41-53) % MCV (80-100) fL MCH (26-34) PG MCHC (30-36) % RDW (11.6-14.8) % Plt Count (150-400) X10^3/uL Neut % (Auto) (50-75) % Lymph % (Auto) (25-40) % Pepin % (Auto) (3-14) % Eos % (Auto) (2-4) % Baso % (Auto) (0-2) % Neut # (Auto) (0373-7364) /uL Lymph # (Auto) (2938-9322) /uL Pepin # (Auto) (0-900) /uL Eos # (Auto) (0-450) /uL Baso # (Auto) (0-100) /uL PT (9.4-12.5) SECONDS INR (0.9-1.3) APTT (25.1-36.5) SECONDS ABG Sample Site Right radial ABG pH 7.40 (7.35-7.45) ABG pCO2 31.0 L (35-45) mmHg ABG pO2 60 L (80-100) mmHg ABG HCO3 19 L (23-27) mmol/L ABG Total CO2 18 L (23-27) mmol/L ABG O2 Saturation 91 L (95-100) % ABG Base Excess -4.5 L (-2-3) mmol/L Raji Test Positive O2 Delivery Device Cannula FiO2 % 28.0 % % Sodium (137-145) mmol/L Potassium (3.4-5.1) mmol/L Chloride (98-107) mmol/L Carbon Dioxide (22-32) mmol/L BUN (9-20) mg/dL Creatinine (0.66-1.25) mg/dL Estimated GFR (>60) mL/min BUN/Creatinine Ratio (6-22) Glucose (70-99) mg/dL Lactate 3.9 H (0.7-2.1) mmol/L Calcium (8.4-10.2) mg/dL Total Bilirubin (0.2-1.3) mg/dL AST (17-59) IU/L ALT (<50) IU/L Alkaline Phosphatase (38-126) U/L Ammonia < 9 L (9-30) umol/L Total Creatine Kinase (55-170) U/L Troponin I (0.01-0.034) ng/mL NT-Pro-B Natriuret Pep (<450) pg/mL Total Protein (6.3-8.2) g/dL Albumin (3.5-5.0) g/dL Globulin (1.7-4.1) g/dL Albumin/Globulin Ratio (1.0-2.8) Lipase (23-300) U/L Procalcitonin (<0.5) ng/mL Urine RBC None seen (0-5/HPF) Urine WBC None seen (0-5/HPF) Ur Squamous Epith Cells 0-1 /hpf (0-5/HPF) Urine Bacteria Occasional (0-1) D (None) Ur Culture Indicated? Cult not indicated Vol Urine Centrifuged 10ml (spun) A.calcoaceticus-baumannii cmplx PCR (Not Detect) Bacteroides fragilis (Not Detect) Talia albicans (PCR) (Not Detect) Talia auris (PCR) (Not Detect) C. glabrata (PCR) (Not Detect) C. krusei (PCR) (Not Detect) C. parapsilosis (PCR) (Not Detect) C. tropicalis (PCR) (Not Detect) SARS-CoV-2 (PCR) (Negative) C. neoform/gattii (PCR) (Not Detect) Enterobacterales (PCR) (Not Detect) E. cloacae complex PCR (Not Detect) Enterococc faecalis PCR (Not Detect) Enterococc faecium PCR (Not Detect) E. coli (PCR) (Not Detect) H. influenzae (PCR) (Not Detect) Influenza A (RT-PCR) (NEGATIVE) Influenza B (RT-PCR) (NEGATIVE) Klebsiella aerogenes (PCR) (Not Detect) Klebsiella oxytoca PCR (Not Detect) Klebsiella pneumoniae (Not Detect) List. monocytogenes PCR (Not Detect) N. meningitidis (PCR) (Not Detect) Proteus species (PCR) (Not Detect) RSV (PCR) (Negative) Salmonella spp. (PCR) (Not Detect) Serratia marcescens PCR (Not Detect) Staphylococcus sp PCR (Not Detect) Staph aureus (PCR) (Not Detect) mecA/C & MREJ Resist Gene (Not Detect) mecA/C-Methicil Resis Gene (Not Detect) mcr-1 Colistin Res Gene PCR (Not Detect) Staph epidermidis (PCR) (Not Detect) Staph lugdunensis PCR (Not Detect) S. maltophilia (PCR) (Not Detect) Streptococcus sp PCR (Not Detect) Group A Strep (PCR) (Not Detect) Strep agalactiae (PCR) (Not Detect) Strep pneumoniae (PCR) (Not Detect) P. aeruginosa (PCR) (Not Detect) Sharan/B-Vanco Res Genes (Not Detect) blaIMP Car res Gene PCR (Not Detect) KPC-Carbap Res Gene PCR (Not Detect) blaNDM Car Res Gene PCR (Not Detect) OXA-48 Carbapenem Resis Gene (PCR) (Not Detect) blaVIM Car Res Gene PCR (Not Detect) CTX-M Gene Resistance (PCR) (Not Detect) Urine Dip Bedside Urine Glucose 250 mg/dl Bedside Urine Bilirubin - Negative Bedside Urine Ketone + 15 Urine Specific Perkins 1.015 Bedside Urine Occult Blood - Negative Bedside Urine pH 5.0 Bedside Urine Protein +/- 15 Bedside Urine Urobilinogen - Negative Bedside Urine Nitrite - Negative Bedside Urine Leukocytes - Negative Esterase Point of care testing: Urine Dip Bedside Urine Glucose 250 mg/dl Bedside Urine Bilirubin - Negative Bedside Urine Ketone + 15 Urine Specific Perkins 1.015 Bedside Urine Occult Blood - Negative Bedside Urine pH 5.0 Bedside Urine Protein +/- 15 Bedside Urine Urobilinogen - Negative Bedside Urine Nitrite - Negative Bedside Urine Leukocytes - Negative Esterase Imaging Data Ultrasound right upper quadrant abdomen: Radiologist's Impression: [address] [address] Ultrasound Report Signed Patient: Marcelo Ledbetter MR#: [id number] : 1935 Acct:[id number] Age/Sex: 89 / M Date of Service: 12/17/24 Loc: ED Accession Number: [id number] Procedure: US abdomen limited Ordering Provider: Soraya Bedoya D.O. PROCEDURE: US ABDOMEN LIMITED INDICATIONS: ruq us, fever, abd pain, nausea TECHNIQUE: Real-time scanning was performed of the abdominal and retroperitoneal organs, with image documentation. COMPARISON: [facility], CT, CT ANGIO CHEST ABDOMEN PELVIS, 12/17/2024, 15:39. FINDINGS: Liver: Mildly enlarged measuring 17.35 cm in vertical diameter. Diffusely increased echogenicity. No focal lesion seen. Gallbladder: No gallstones. No wall thickening. No pericholecystic edema. Negative sonographic Marmolejo's sign. Biliary ducts: Intrahepatic bile ducts are non-dilated. Extrahepatic bile duct caliber measures 7 mm. Normal is 6-7 mm or less in diameter, or 10 mm or less post-cholecystectomy. Pancreas: Visualized portions of the pancreas are sonographically normal. Miscellaneous: No free abdominal fluid. There is a fat containing umbilical hernia with neck measuring 1.4 cm, the sac measured 4 x 2.[address] IMPRESSION: 1. No cholelithiasis or biliary dilatation seen. 2. Mild hepatomegaly with fatty infiltration of the liver. 3. There is a fat containing umbilical hernia which appears noncompressible on this examination. However, no edema was seen in this area on CT. Dictated by: Alex Disla M.D. on 12/17/2024 at 19:18 Approved by: Alex Disla M.D. on 12/17/2024 at 19:24 MDM Narrative Medical decision making narrative: 81-year-old male with the above problem set of abdominal pain nausea or vomiting appears to be in AFib with RVR tachypneic does have a history of aortic aneurysm as well as atrial fibrillation is reportedly anticoagulated on warfarin. Patient was old CT with contrast of the abdomen which does not show any change no recent CTs are upper chest imaging but family notes that they have had a check in the past year that noted he was aneurysm with stable. Labs labs show normal white count hemoglobin and platelets, INR is 2.5 patient is anticoagulated on warfarin, CO2 is 19 BUN creatinine are normal electrolytes are otherwise appropriate glucose is 268 initial lactate 4.2. Bilirubin is 2.6 with a AST is 291, ALT is 104, alk-phos is 115 total CK is 57 troponin less than 0.012 and a BNP of 409. Lipase is 56 with a procalcitonin 0.163. Repeat lactate he was improved but mildly at 3.9. Ammonia is negative. Urine positive for glucose, ketones negative for nitrates or leuks.? Urine micro pendin COVID/influenza/RSV is negative. ABG shows pH of 7 4 CO2 of 31 PO2 of [address] angio chest abdomen pelvis dissection protocol shows no aortic aneurysm no acute aortic syndrome. Bowel bilateral ground-glass densities well interlobular septal thickening. No consolidation. Cardiomegaly with left atrial prominence. No pericardial effusion. Top normal caliber via ascending aorta measures 4 mm no saccular aneurysm multiple mildly enlarged bilateral mediastinal nodes as well as right hilar node measuring up to 0.3 cm likely reactive to chronic heart disease. Patient has no tenderness on exam but LFTs with a bilirubin AST ALT are elevated no obvious changes on CT to the gallbladder but we will obtain as patient has a abdominal pain nausea or vomiting axillary fever although not oral fever here. Patient received fluids, Zofran and pain medication and acetaminophen, patient was covered with the IV antibiotic for presumptive bacterial infection. Patient signed out to Dr. Suarez while awaiting RUQ US and urine microscopy. 12/17/241829, Erick. Signout from Dr Bedoya. 89-year-old male DNR/DNI, history of atrial fibrillation on chronic warfarin anticoagulation, COPD, reported aortic aneurysm. Presenting with nausea nonbloody emesis. AFib noted with mild RVR, normotensive. Screening labs showed increased liver functions, troponin negative, lipase normal, INR 2.5 on warfarin, procalcitonin slight elevation, initial lactate 4 elevated, IV fluid bolus 1 L, repeat lactate 3.9 similar. Ammonia negative. Urine dip negative. COVID/influenza/RSV negative. Blood cultures, IV Zosyn empiric. CT chest abdomen pelvis, shows no acute changes, no aneurysm aorta confirmed, no aortic syndrome confirm, there was mention of ground-glass bilateral bibasilar pulmonary densities, no consolidations. Bilateral mediastinal nodes noted. Right upper quadrant ultrasound has been ordered, to be performed. Assumed care. Ultrasound shows no biliary ductal dilatation or hepatic lesions. Fat containing umbilical hernia without edema also seen. See radiology report. Elevated lactate with slight improvement after initial IV fluids, UA not convincing for infection, bibasilar ground-glass changes on lower lobes CT abdomen and pelvis imaging, COVID/RSV/flu negative. LFT elevation of unclear cause, right upper quadrant abdomen nontender. Empiric IV Zosyn given after blood cultures prior, we will add oral doxycycline for atypical pneumonia coverage. New hypoxia noted. Atrial fibrillation known, on warfarin anticoagulation, takes diltiazem 240 ER each evening, his evening doses to be given. Systolic blood pressure 150s, heart rate 120-130s. We will give IV diltiazem 10 mg dose for now, administer oral dose long-acting oral diltiazem requested from pharmacy. We will defer diltiazem infusion to hospitalist. Findings and course discussed with family at bedside and with patient, he prefer patient to be admitted. Will contact hospitalist. 2030, case discussed with hospitalist Dr. Herr, agrees with empiric antibiotics Zosyn with the addition of doxycycline for possible pneumonia, ground glass basilar changes lower lungs noted on imaging, new 2-L oxygen requirement, 1 L fluids given, BNP not elevated, no LE edema, requests another one liter fluid for sepsis treatment. Accepts patient for admission to inpatient. Critical Care Time <Carlin Suarez MD - Last Filed: 12/18/24 03:00> Critical Care Time Critical Care Time: Yes Total Critical Care Time: 35 Attestation: The high probability of a clinically significant, sudden or life threatening deterioration of the [cardiopulmonary, gastrointestinal] system(s) required my full and direct attention, intervention and personal management. The aggregate critical care time was [35] minutes. This time is in addition to time spent performing reported procedures but includes the following: [x] Data Review and interpretation [x] Patient assessment and monitoring of vital signs [x] Documentation [x] Medication orders and management Discharge Plan Departure Patient Disposition: Admitted As Inpatient Clinical Impression: Abdominal pain, Nausea & vomiting, Atrial fibrillation with rapid ventricular response, Pneumonia, Hypoxia, Sepsis Admit Date/Time: 12/17/24 20:27 Admit Provider: Hieu Herr
--- NOTE | 2024-12-17 15:37 | DI.CT.S_ITS ---
PROCEDURE: CT ANGIO CHEST ABDOMEN PELVIS INDICATIONS: abd pain, sudden onset, vomiting, chills, hx aortic aneurysm TECHNIQUE: Precontrast 5 mm thick sections acquired from the lung apices to the iliac crests. After the administration of intravenous contrast, 2.5 mm thick sections again acquired from the lung apices to the iliac crests. Maximum intensity projection (MIP) oblique sagittal and coronal reformats were then acquired. For radiation dose reduction, the following was used: automated exposure control. COMPARISON: None. FINDINGS: Image quality: Diagnostic. AORTA: No aortic aneurysm. No acute aortic syndrome. CHEST: Lower Neck: No enlarged lymph nodes. Thyroid: No thyroid nodules which require sonographic evaluation. Axillae: No enlarged lymph nodes. Chest Wall: Unremarkable. Lungs and Pleura: No pneumothorax or pleural effusions. There is mild bilateral ground-glass density as well as interlobular septal thickening. No consolidation. Heart: Cardiomegaly with left atrial prominence. No pericardial effusion. Thoracic Vessels: Pulmonary arteries demonstrate normal size. Top-normal caliber of the ascending aorta measuring 4 cm, no saccular aneurysm. Mediastinum and Carla: Multiple mildly enlarged bilateral mediastinal nodes as well as a right hilar node measuring up to 2.3 cm, likely reactive to chronic heart disease. Esophagus: No wall thickening. No hiatal hernia. ABDOMEN: Liver: No solid mass. Gallbladder: No radiopaque gallstones or wall thickening. Biliary ducts: No biliary dilation. Pancreas: No ductal dilation. Spleen: Size is within normal limits. Adrenal Glands: No adrenal nodules. Kidneys and Ureters: No hydronephrosis. No solid mass. No complex renal cystic lesion which requires follow up. Stomach and Bowel: Normal colonic caliber, without significant wall thickening. Peritoneum: No abnormal intraperitoneal fluid. No free air. Ventral Wall: No hernia. Abdominal Nodes: No retroperitoneal or mesenteric adenopathy by size criteria. Vessels: Inferior vena cava is normal in size. PELVIS: Pelvic Organs: Unremarkable. Bladder: Unremarkable. Pelvic Nodes: No enlarged lymph nodes. Miscellaneous: No inguinal hernias are seen. Bones: Unremarkable. IMPRESSION: 1. No signs of acute aortic syndrome. No aneurysm is seen. 2. Cardiomegaly with probable mild interstitial and alveolar pulmonary edema, no pleural effusion. Dictated by: Alex Disla M.D. on 12/17/2024 at 16:18 Approved by: Alex Disla M.D. on 12/17/2024 at 16:26
[2024-12-17 15:44] LABS: Add Manual Diff / Slide Review NO; Basophils Absolute Auto 0 /uL (0-100); Basophils Percent Auto 0.4 % (0-2); Eosinophils Absolute Auto 0 /uL (0-450); Eosinophils Percent Auto 0.2 % (2-4); Hematocrit 43.2 % (41-53); Hemoglobin 14.6 g/dL (13.5-17.5); Lymphocytes Absolute Auto 800 /uL (1100-4500); Lymphocytes Percent Auto 8.6 % (25-40); Mean Corpuscular HGB Conc 33.8 % (30-36); Mean Corpuscular Hemoglobin 31.4 PG (26-34); Mean Corpuscular Volume 92.8 fL (80-100); Monocytes Absolute Auto 200 /uL (0-900); Monocytes Percent Auto 2.6 % (3-14); Neutrophils Absolute Auto 8000 /uL (1500-7000); Neutrophils Percent Auto 88.2 % (50-75); Platelet Count 163 X10^3/uL (150-400); Red Blood Cell Count 4.66 X10^6/uL (4.5-5.9); Red Cell Distribution Width 14.4 % (11.6-14.8); White Blood Cell Count 9.1 X10^3/uL (4.5-11.0)
--- NOTE | 2024-12-17 15:46 | EKG_ITS ---
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
[2024-12-17] MEDS: SODIUM CHLORIDE 0.9% 1,000 ML 1000 ML IV ×2 (15:48→20:33)
[2024-12-17] MEDS: ONDANSETRON 4 MG/2 ML INJ IV (15:48)
[2024-12-17] MEDS: MORPHINE 4 MG/ML INJ IV (15:48)
[2024-12-17 15:55] LABS: Creatine Kinase 57 U/L (55-170)
[2024-12-17 15:56] LABS: Alanine Aminotransferase 104 IU/L (<50); Albumin 4.4 g/dL (3.5-5.0); Albumin Globulin Ratio 1.2 (1.0-2.8); Alkaline Phosphatase 115 U/L (38-126); Aspartate Aminotransferase 291 IU/L (17-59); BUN Creatinine Ratio 14.9 (6-22); Bilirubin Total 2.6 mg/dL (0.2-1.3); Blood Urea Nitrogen 13 mg/dL (9-20); Calcium 9.4 mg/dL (8.4-10.2); Carbon Dioxide 19 mmol/L (22-32); Chloride 104 mmol/L (98-107); Estimated Glomerular Filt Rate > 60 mL/min (>60); Globulin 3.7 g/dL (1.7-4.1); Glucose 268 mg/dL (70-99); HEMOLYSIS 27 (0-50); Lipase 56 U/L (23-300); Potassium 4.2 mmol/L (3.4-5.1); Sodium 138 mmol/L (137-145); Total Protein 8.1 g/dL (6.3-8.2)
[2024-12-17 16:04] LABS: Lactate (Lactic Acid) 4.2 mmol/L (0.7-2.1)
[2024-12-17 16:08] LABS: Troponin I < 0.012 ng/mL (0.01-0.034)
[2024-12-17 16:12] LABS: Procalcitonin 0.163 ng/mL (<0.5)
[2024-12-17] MEDS: METOCLOPRAMIDE 10 MG/2 ML INJ IV (16:13)
[2024-12-17 16:22] LABS: INR 2.5 (0.9-1.3); Prothrombin Time 27.3 SECONDS (9.4-12.5)
[2024-12-17 16:24] LABS: NT-proBNP (BNP-Adult 18+) 409 pg/mL (<450)
[2024-12-17 16:25] LABS: PTT Partial Thromboplastin Tim 39 SECONDS (25.1-36.5)
[2024-12-17] MEDS: ACETAMINOPHEN IV 1,000 MG/100 ML VIAL 400 MG IV (16:40)
[2024-12-17] MEDS: PIPERACILLIN/TAZO 4.5 GM in SODIUM CHLORIDE 0.9% 100 ML IV (17:02)
[2024-12-17 17:14] LABS: Reflexed Lactate in 2 Hours Y
[2024-12-17 17:28] LABS: Influenza A - CEPHEID Flu A NEGATIVE (NEGATIVE); Influenza B - CEPHEID Flu B NEGATIVE (NEGATIVE); Respiratory Syncytial Virus Negative (Negative)
[2024-12-17 17:30] LABS: COVID-19 CEPHEID 4-PLEX PCR Negative (Negative)
[2024-12-17 18:04] LABS: Ammonia (NH3) < 9 umol/L (9-30); Lactate 2HR (Lactic Acid Rflx) 3.9 mmol/L (0.7-2.1)
--- NOTE | 2024-12-17 18:10 | DI.US.S_ITS ---
PROCEDURE: US ABDOMEN LIMITED INDICATIONS: ruq us, fever, abd pain, nausea TECHNIQUE: Real-time scanning was performed of the abdominal and retroperitoneal organs, with image documentation. COMPARISON: [facility], CT, CT ANGIO CHEST ABDOMEN PELVIS, 12/17/2024, 15:39. FINDINGS: Liver: Mildly enlarged measuring 17.35 cm in vertical diameter. Diffusely increased echogenicity. No focal lesion seen. Gallbladder: No gallstones. No wall thickening. No pericholecystic edema. Negative sonographic Marmolejo's sign. Biliary ducts: Intrahepatic bile ducts are non-dilated. Extrahepatic bile duct caliber measures 7 mm. Normal is 6-7 mm or less in diameter, or 10 mm or less post-cholecystectomy. Pancreas: Visualized portions of the pancreas are sonographically normal. Miscellaneous: No free abdominal fluid. There is a fat containing umbilical hernia with neck measuring 1.4 cm, the sac measured 4 x 2.[address] IMPRESSION: 1. No cholelithiasis or biliary dilatation seen. 2. Mild hepatomegaly with fatty infiltration of the liver. 3. There is a fat containing umbilical hernia which appears noncompressible on this examination. However, no edema was seen in this area on CT. Dictated by: Alex Disla M.D. on 12/17/2024 at 19:18 Approved by: Alex Disla M.D. on 12/17/2024 at 19:24
[2024-12-17 18:13] LABS: Allen Test for ABG Passed? Positive; Base Excess ABG -4.5 mmol/L (-2-3); Blood Gas Collection Site Right Radial; Delivery System Cannula; HCO3 ABG 19 mmol/L (23-27); Oxygen Saturation ABG 91 % (95-100); PO2 ABG 60 mmHg (80-100); TCO2 ABG 18 mmol/L (23-27)
[2024-12-17 18:48] LABS: Bacteria Urine Occasional (0-1); RBC Urine None Seen (0-5/HPF); Squamous Epithelial Cell Urine 0-1 /HPF (0-5/HPF); Urine Volume 10mL (spun); WBC Urine None Seen (0-5/HPF)
[2024-12-17 18:49] LABS: Culture Indicated Urine Cult Not Indicated
--- NOTE | 2024-12-17 19:16 | PC.NURSE ---
the patient was not responding like he normally has been. When interviewed he is slow to respond but is oriented and stated to be very tired. His was asked if this is how he normally presents when tired. She stated his current presentation was not concerning to her since he usually is very hard to understand when he is this tired. Provider aware.
[2024-12-17] MEDS: dilTIAZem 25 MG/5 ML SDV 10 MG IV (20:17)
--- NOTE | 2024-12-17 20:24 | PC.NURSE ---
pt started breathing fast again. resp rate in the 40s. increased oxygen to 4L nasal cannula. provider aware.
--- NOTE | 2024-12-17 21:06 | PC.NURSE ---
condom cath placed today in the ER. approx 200 cc output in bag. briefs wet and heavy with urine prior to that.
[2024-12-17] MEDS: ALBUTEROL/IPRATROPIUM 3 ML AMPUL INH (21:07)
[2024-12-17] MEDS: SODIUM CHLORIDE 0.9% 1,000 ML 75 ML IV (21:43)
[2024-12-17 22:43] LABS: Lactate (Lactic Acid) 4.8 mmol/L (0.7-2.1)
[2024-12-17] MEDS: DOXYCYCLINE 100 MG in SODIUM CHLORIDE 0.9% 100 ML IV (23:16)
[2024-12-17 23:24] LABS: Reflexed Lactate in 2 Hours Y
[2024-12-17] MEDS: VANCOMYCIN 2,000 MG/400 ML PIGGYBACK 200 MG IV (23:54)
[2024-12-18] VITALS (10 sets, daily range): BP systolic 89–130; BP diastolic 53–68; PULSE 104–125; RESP 18–32; TEMP 36.4–38.4; O2SAT 90–97
[2024-12-18] MEDS: PIPERACILLIN/TAZO 3.375 GM in SODIUM CHLORIDE 0.9% 100 ML IV ×3 (00:06→16:53)
[2024-12-18] MEDS: SODIUM CHLORIDE 0.9% 500 ML 1000 ML IV (00:07)
[2024-12-18 00:15] LABS: Lactate 2HR (Lactic Acid Rflx) 4.7 mmol/L (0.7-2.1)
--- NOTE | 2024-12-18 02:00 | PM.HP.1 ---
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 Per report the patient started to have abdominal discomfort earlier this morning. The patient was reported to be in his normal state of health around 10 AM and was at [facility]. The patient then developed chills and rigors which followed by nausea, vomiting and abdominal pain. The patient denies any chest pain, coughing, dysuria, diarrhea or shortness of breath. However the patient's family does notice that he was having some respiratory distress. In the emergency room, the patient was hemodynamically stable though tachycardic. Patient WBC was 9 but lactate was 4.2. Bilirubin was 2.6 AST 291 ALT 104. Procalcitonin was only 0.163. Respiratory viral panel were negative. UA was also negative for UTI. CT angio of the chest abdomen and pelvics shows no acute finding other than possible atelectasis versus pneumonia at the bases. The patient then developed A-fib with RVR and required a dose of IV diltiazem which improved the heart rate from 200s. The patient remained hemodynamically. IV doxycycline and ceftriaxone were reported. The patient is DNR/DNI and the patient's family wishes no invasive or aggressive measures but they are okay with IV fluid and IV antibiotic. Repeat lactic acid only come down to 3.9 after IV fluid and IV antibiotics. Again CT angio of the abdomen shows no sign of bowel ischemia. Also CT scan of the chest and abdomen shows no acute finding with aneurysm. I did explain extensively to the patient's family that the patient did meet severe sepsis and is in critical condition. The patient family again states that patient is DNR/DNI and if things worsens they do not want to escalate care. [facility] Medical History (Updated 12/17/24 @ 20:27 by Carlin Suarez MD) Atrial fibrillation with controlled ventricular rate HTN (hypertension) Aortic aneurysm COPD (chronic obstructive pulmonary disease) Surgical History History of appendectomy Family History Mother Cancer Father Cancer Social History marital status: household members: spouse Smoking Status: Former smoker alcohol intake: never Meds Home Medications and Allergies Home Medications ?Medication ?Instructions ?Recorded ?Confirmed ?Type tamsulosin 0.4 mg capsule (Flomax) 1 cap PO QPM ##0 06/29/11 12/17/24 History atorvastatin 10 mg tablet (Lipitor) 10 mg PO BEDTIME ##0 09/20/12 12/17/24 History levothyroxine 75 mcg tablet 75 mcg PO DAILY ##0 03/18/17 12/17/24 History (Synthroid) metformin 500 mg tablet 500 mg PO BIDCC ##0 03/18/17 12/17/24 History (Glucophage) diltiazem HCl 240 mg 240 mg PO DAILY 09/27/18 12/17/24 History capsule,extended release 24 hr furosemide 20 mg tablet 20 mg PO DAILY 11/03/21 12/17/24 History gabapentin 100 mg capsule 100 mg PO BEDTIME 08/29/24 12/17/24 History glimepiride 2 mg tablet 2 mg DAILY 08/29/24 08/29/24 History acetaminophen 325 mg tablet 650 mg (2 x 325 mg) PO Q6H PRN 09/02/24 12/17/24 Rx Fever/Mild Pain (1-3) #30 tabs warfarin 2.5 mg tablet 2.5 mg PO MoWeSa@1700 #15 tabs 09/02/24 12/17/24 Rx warfarin 5 mg tablet 5 mg PO SuTuThFr@1700 #30 tabs 09/02/24 12/17/24 Rx Allergies Allergy/AdvReac Type Severity Reaction Status Date / Time No Known Drug Allergies Allergy Unverified 01/26/18 09:42 Review of Systems Review of Systems ROS: Yes All systems reviewed with the patient and are negative except as otherwise documented Exam Vital Signs (past 8 hours): - 12/17/24 18:04 12/17/24 18:04 12/17/24 18:20 Temperature Pulse Rate 106 H 106 H Respiratory Rate 29 H 28 H Blood Pressure 136/65 Pulse Oximetry 92 92 Oxygen Delivery Method Oxygen Flow Rate Fraction of Inspired Oxygen 12/17/24 18:20 12/17/24 18:30 12/17/24 18:40 Temperature Pulse Rate 104 H Respiratory Rate 26 H Blood Pressure 143/65 H 127/63 Pulse Oximetry 92 Oxygen Delivery Method Oxygen Flow Rate Fraction of Inspired Oxygen 12/17/24 18:40 12/17/24 19:00 12/17/24 19:00 Temperature Pulse Rate 106 H 104 H Respiratory Rate 22 20 Blood Pressure 120/57 L Pulse Oximetry 93 93 Oxygen Delivery Method Oxygen Flow Rate Fraction of Inspired Oxygen 12/17/24 19:20 12/17/24 19:20 12/17/24 19:30 Temperature Pulse Rate 105 H 103 H Respiratory Rate 26 H 25 H Blood Pressure 129/58 L Pulse Oximetry 92 93 Oxygen Delivery Method Nasal Cannula Nasal Cannula Oxygen Flow Rate 2 2 Fraction of Inspired Oxygen 12/17/24 19:40 12/17/24 19:40 12/17/24 19:59 Temperature Pulse Rate 107 H 114 H Respiratory Rate 18 20 Blood Pressure 131/60 Pulse Oximetry 92 93 Oxygen Delivery Method Nasal Cannula Nasal Cannula Oxygen Flow Rate 2 2 Fraction of Inspired Oxygen 12/17/24 20:00 12/17/24 20:17 12/17/24 20:58 Temperature Pulse Rate 125 H Respiratory Rate Blood Pressure 152/69 H 152/69 H Pulse Oximetry Oxygen Delivery Method Oximask Oxygen Flow Rate Fraction of Inspired Oxygen 12/17/24 21:08 12/17/24 21:47 12/17/24 22:12 Temperature 102.8 F H 100.2 F H Pulse Rate 92 H 109 H 103 H Respiratory Rate 24 21 22 Blood Pressure 98/46 L 102/56 L Pulse Oximetry 97 95 95 Oxygen Delivery Method Oximask Oxygen Flow Rate 4 4 Fraction of Inspired Oxygen 36 12/17/24 22:14 12/17/24 22:50 12/18/24 00:15 Temperature 101.1 F H Pulse Rate 102 H 102 H 106 H Respiratory Rate 24 Blood Pressure 116/61 115/62 114/58 L Pulse Oximetry 94 94 Oxygen Delivery Method Oxygen Flow Rate 4.5 Fraction of Inspired Oxygen 12/18/24 01:44 Temperature Pulse Rate 111 H Respiratory Rate Blood Pressure 123/60 Pulse Oximetry 94 Oxygen Delivery Method Oxygen Flow Rate 7 Fraction of Inspired Oxygen Fraction of Inspired Oxygen 36 SaO2/FiO2 Ratio 261 Oxygen Delivery Method Oximask Oxygen Flow Rate 7 Narrative Exam Narrative: Physical Exam: GENERAL: Drowsy HEENT: Nonicteric sclerae, PERRLA, EOMI. Oropharynx clear. Moist mucous membranes. Conjunctivae appear well perfused. HEART: Regular rate and rhythm without murmurs. No lower extremities edema. LUNGS: Clear to auscultation bilaterally. No wheezing, crackles or rhonchi ABDOMEN: Soft, positive bowel sounds, nontender. SKIN: No rash, no excessive bruising, petechiae, or purpura. NEUROLOGIC: drowsy Cranial nerves II-XII intact without motor/sensory deficit. Objective Labs 12/17/24 15:35 12/17/24 15:35 Labs: Laboratory Results - last 24 hr 12/17/24 12/17/24 12/17/24 15:35 16:36 17:47 WBC 9.1 RBC 4.66 Hgb 14.6 Hct 43.2 MCV 92.8 MCH 31.4 MCHC 33.8 RDW 14.4 Plt Count 163 Neut % (Auto) 88.2 H Lymph % (Auto) 8.6 L Rhea % (Auto) 2.6 L Eos % (Auto) 0.2 L Baso % (Auto) 0.4 Neut # (Auto) 8000 H Lymph # (Auto) 800 L Rhea # (Auto) 200 Eos # (Auto) 0 Baso # (Auto) 0 PT 27.3 H INR 2.5 H APTT 39 H ABG Sample Site ABG pH ABG pCO2 ABG pO2 ABG HCO3 ABG Total CO2 ABG O2 Saturation ABG Base Excess Raji Test O2 Delivery Device FiO2 % Sodium 138 Potassium 4.2 Chloride 104 Carbon Dioxide 19 L BUN 13 Creatinine 0.87 Estimated GFR > 60 BUN/Creatinine Ratio 14.9 Glucose 268 H Lactate 4.2 H* 3.9 H Calcium 9.4 Total Bilirubin 2.6 H AST 291 H ALT 104 H Alkaline Phosphatase 115 Ammonia < 9 L Total Creatine Kinase 57 Troponin I < 0.012 NT-Pro-B Natriuret Pep 409 Total Protein 8.1 Albumin 4.4 Globulin 3.7 Albumin/Globulin Ratio 1.2 Lipase 56 Procalcitonin 0.163 Urine RBC Urine WBC Ur Squamous Epith Cells Urine Bacteria Ur Culture Indicated? Vol Urine Centrifuged SARS-CoV-2 (PCR) Negative Influenza A (RT-PCR) Flu a negative Influenza B (RT-PCR) Flu b negative RSV (PCR) Negative 12/17/24 12/17/24 12/17/24 17:48 18:10 21:45 WBC RBC Hgb Hct MCV MCH MCHC RDW Plt Count Neut % (Auto) Lymph % (Auto) Rhea % (Auto) Eos % (Auto) Baso % (Auto) Neut # (Auto) Lymph # (Auto) Rhea # (Auto) Eos # (Auto) Baso # (Auto) PT INR APTT ABG Sample Site Right radial ABG pH 7.40 ABG pCO2 31.0 L ABG pO2 60 L ABG HCO3 19 L ABG Total CO2 18 L ABG O2 Saturation 91 L ABG Base Excess -4.5 L Raji Test Positive O2 Delivery Device Cannula FiO2 % 28.0 % Sodium Potassium Chloride Carbon Dioxide BUN Creatinine Estimated GFR BUN/Creatinine Ratio Glucose Lactate 4.8 H* Calcium Total Bilirubin AST ALT Alkaline Phosphatase Ammonia Total Creatine Kinase Troponin I NT-Pro-B Natriuret Pep Total Protein Albumin Globulin Albumin/Globulin Ratio Lipase Procalcitonin Urine RBC None seen Urine WBC None seen Ur Squamous Epith Cells 0-1 /hpf Urine Bacteria Occasional (0-1) D Ur Culture Indicated? Cult not indicated Vol Urine Centrifuged 10ml (spun) SARS-CoV-2 (PCR) Influenza A (RT-PCR) Influenza B (RT-PCR) RSV (PCR) 12/17/24 23:48 WBC RBC Hgb Hct MCV MCH MCHC RDW Plt Count Neut % (Auto) Lymph % (Auto) Rhea % (Auto) Eos % (Auto) Baso % (Auto) Neut # (Auto) Lymph # (Auto) Rhea # (Auto) Eos # (Auto) Baso # (Auto) PT INR APTT ABG Sample Site ABG pH ABG pCO2 ABG pO2 ABG HCO3 ABG Total CO2 ABG O2 Saturation ABG Base Excess Raji Test O2 Delivery Device FiO2 % Sodium Potassium Chloride Carbon Dioxide BUN Creatinine Estimated GFR BUN/Creatinine Ratio Glucose Lactate 4.7 H* Calcium Total Bilirubin AST ALT Alkaline Phosphatase Ammonia Total Creatine Kinase Troponin I NT-Pro-B Natriuret Pep Total Protein Albumin Globulin Albumin/Globulin Ratio Lipase Procalcitonin Urine RBC Urine WBC Ur Squamous Epith Cells Urine Bacteria Ur Culture Indicated? Vol Urine Centrifuged SARS-CoV-2 (PCR) Influenza A (RT-PCR) Influenza B (RT-PCR) RSV (PCR) Assessment & Plan Assessment & Plan narrative: Severe sepsis patient will medical telemetry inpatient. Of note the infection is not clearly possible pneumonia. Initially the patient was treated with doxycycline and ceftriaxone. However lactate came back the third time at 4.8. I have broadened antibiotic to doxcyclin, vancomycin and Zosyn. UA is negative. CT chest and abdomen shows no acute finding and patient is DNR/DNI and his family states that his condition worsens do not escalate or transfer. Possible pneumonia. Stated above were boaden antibiotics to IV's Doxycin Zosyn and vancomycin. Follow-up cultures. Nausea vomiting and abdominal pain. Unclear etiology. IV fluid and IV antiemetics. Pain control. CT abdomen and pelvis with contrast shows no acute finding. Elevated lactic acid. 4.2 then 3.9 then back to 4.8. Again IV fluid was given in the ER and continue continuous fluid. Will trend lactic acid to normal with IV fluid. Atrial fibrillation with RVR. Patient heart rate did improve with IV fluid and 1 dose of diltiazem. Continue to monitor rate and resume home oral diltiazem. As needed metoprolol also ordered. Resume home Coumadin per pharmacy open RS 2.5. Hypertension. Monitor blood pressure and treat as needed. However for now in the setting of severe sepsis we will hold off blood pressure medication. Hyperlipidemia. Resume home statin. Hypothyroidism. Resume home Synthroid. COPD. Patient on 2 L of oxygen. Possible mild exacerbation. IV Solu-Medrol and DuoNebs. DVT prophylaxis Coumadin. CODE STATUS DNR/DNI and do not escalate care if patient condition worsens. Patient family agrees to plan. Disposition to be determined by the patient continue need to improve possible discharge in 3 to 4 days. - As the provider of this telehealth evaluation, requested by the patient's evaluating physician, I attest that I introduced myself to the patient, provided my credentials and determined that telemedicine via a real-time, 2 way interactive audio and video platform is an appropriate and effective means of providing this service. - I reviewed the patient's chart and had a discussion with the member of the patient's treatment team. - The patient and I mutually agreed with continuation of this evaluation via telemedicine. The patient consented for the telemedicine evaluation. - This virtual encounter was taken place from [place] by Dr. Hieu Herr. The patient was evaluated at [facility]. The encounter was approximately 35 minutes. The nurse was present during the entire time of the encounter and was able to move the stethoscope in appropriate directions. Time-Based Coding :: [TOTAL MINUTES] spent with patient and on the chart (including review of chart, obtaining history, exam, reviewing outside data, placing orders, documenting exam and treatment plan, and counseling patient) on [DATE].
[2024-12-18] MEDS: methylPREDNISolone 125 MG/2 ML VIAL 60 MG IV (02:34)
[2024-12-18 02:38] LABS: Acinetobacter calcoa-baumannii Not Detected (Not Detect); Bacteroides fragilis Not Detected (Not Detect); CTX-M Resistance Not Detected (Not Detect); Candida albicans Not Detected (Not Detect); Candida auris Not Detected (Not Detect); Candida glabrata Not Detected (Not Detect); Candida krusei Not Detected (Not Detect); Candida parapsilosis Not Detected (Not Detect); Candida tropicalis Not Detected (Not Detect); Cryptococcus neoformans/gatti Not Detected (Not Detect); Enterobacter cloacae complex Not Detected (Not Detect); Enterobacterales Detected (Not Detect); Enterococcus faecalis Not Detected (Not Detect); Enterococcus faecium Not Detected (Not Detect); Haemophilus influenzae Not Detected (Not Detect); IMP Resistance Not Detected (Not Detect); KPC Resistance Not Detected (Not Detect); Klebsiella aerogenes Not Detected (Not Detect); Listeria monocytogenes Not Detected (Not Detect); NDM Resistance Not Detected (Not Detect); Neisseria meningitidis Not Detected (Not Detect); OXA-48-like Resistance Not Detected (Not Detect); Proteus species Not Detected (Not Detect); Pseudomonas aeruginosa Not Detected (Not Detect); Salmonella species Not Detected (Not Detect); Serratia marcescens Not Detected (Not Detect); Staphylococcus epidermidis Not Detected (Not Detect); Staphylococcus lugdunensis Not Detected (Not Detect); Staphylococcus species Not Detected (Not Detect); Stenotrophomonas maltophilia Not Detected (Not Detect); Streptococcus agalactiae (Gr B Not Detected (Not Detect); Streptococcus pneumonia Not Detected (Not Detect); Streptococcus pyogenes (Gr A) Not Detected (Not Detect); Streptococcus species Not Detected (Not Detect); VIM Resistance Not Detected (Not Detect); mcr-1 Resistance Not Detected (Not Detect)
--- NOTE | 2024-12-18 03:26 | DI.RAD.S_ITS ---
PROCEDURE: XR CHEST 1V INDICATIONS: hypoxemia TECHNIQUE: One view of the chest was acquired. COMPARISON: [facility], CR, XR CHEST 1V, 09/01/2024, 8:15. FINDINGS: Surgical changes and devices: None. Lungs and pleura: Blunting of left costophrenic angle is seen. Ill-defined airspace opacity in left lower lung field is noted. There is pulmonary vascular congestion. Mild pulmonary edema is seen. Underlying interstitial infiltrates cannot be excluded. No pneumothorax. Mediastinum: Mediastinal contours appear normal. Heart size is enlarged. Bones and chest wall: No suspicious bony lesions. Overlying soft tissues appear unremarkable. IMPRESSION: Small left pleural effusion and left basilar infiltrate/atelectasis. Pulmonary vascular congestion and suggestion of mild pulmonary edema. Underlying interstitial infiltrates cannot be excluded. No gross pneumothorax. Dictated by: Manoj Whiteside M.D. on 12/18/2024 at 9:02 Approved by: Manoj Whiteside M.D. on 12/18/2024 at 9:03
[2024-12-18 03:51] LABS: Add Manual Diff / Slide Review NO; Basophils Absolute Auto 0 /uL (0-100); Basophils Percent Auto 0.1 % (0-2); Eosinophils Absolute Auto 0 /uL (0-450); Hematocrit 39.4 % (41-53); Hemoglobin 13.1 g/dL (13.5-17.5); Lymphocytes Absolute Auto 300 /uL (1100-4500); Lymphocytes Percent Auto 2.8 % (25-40); Mean Corpuscular HGB Conc 33.2 % (30-36); Mean Corpuscular Hemoglobin 30.9 PG (26-34); Monocytes Absolute Auto 300 /uL (0-900); Neutrophils Absolute Auto 10400 /uL (1500-7000); Neutrophils Percent Auto 94.1 % (50-75); Platelet Count 111 X10^3/uL (150-400); Red Blood Cell Count 4.23 X10^6/uL (4.5-5.9); Red Cell Distribution Width 14.6 % (11.6-14.8)
[2024-12-18 03:53] LABS: Base Excess VBG -8.8 mmol/L (0-4); HCO3 VBG 15 mmol/L (24-28); Oxygen Saturation VBG 95 % (70-75); PCO2 VBG 27.8 mmHg (45-50); PO2 VBG 79 mmHg (35-45); Total CO2 VBG 15 mmol/L (24-29); pH VBG 7.35 (7.33-7.43)
[2024-12-18 04:01] LABS: Reflexed Lactate in 2 Hours Y
[2024-12-18 04:05] LABS: Alanine Aminotransferase 119 IU/L (<50); Albumin 3.4 g/dL (3.5-5.0); Albumin Globulin Ratio 1.1 (1.0-2.8); Alkaline Phosphatase 92 U/L (38-126); Aspartate Aminotransferase 171 IU/L (17-59); BUN Creatinine Ratio 13.9 (6-22); Bilirubin Total 5.1 mg/dL (0.2-1.3); Blood Urea Nitrogen 14 mg/dL (9-20); Calcium 8.4 mg/dL (8.4-10.2); Carbon Dioxide 13 mmol/L (22-32); Chloride 109 mmol/L (98-107); Estimated Glomerular Filt Rate > 60 mL/min (>60); Glucose 217 mg/dL (70-99); HEMOLYSIS < 15 (0-50); Potassium 3.9 mmol/L (3.4-5.1); Sodium 139 mmol/L (137-145); Total Protein 6.4 g/dL (6.3-8.2)
[2024-12-18 04:13] LABS: NT-proBNP (BNP-Adult 18+) 2900 pg/mL (<450)
[2024-12-18] MEDS: FUROSEMIDE 40 MG/4 ML VIAL IV (04:45)
--- NOTE | 2024-12-18 05:07 | PC.NURSE ---
Addendum entered by Saritha Sheets R.N. 12/18/24 08:01: 0615 update: Patient became SOB and experienced labored breathing again this morning after repositioning. Audible wheezes heard bilaterally, SpO2 maintained >90% on 7L oximask. Called RT, breathing tx given. Patient remains alert and answering basic questions. Notified MD Shore of patient condition. Patient currently resting in bed, WOB has improved after approximately 20 min. Family at bedside. 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 Slid patient from stretcher to bed, patient requiring total assistance. Patient is lethargic, eyes opening spontaneously, mostly responds to yes/no questions. Shakes head when asked if in pain. Family spoke with MD Herr via [place] [employer], verbalized understanding of plan of care, POLST form in chart. VSS (documented), tachycardic in 100s, showing afib on tele. SpO2 >92% on 4L oximask. Lung sounds are clear/diminished, PRN breathing tx given per RT when wheezing is audible. Lactate increasing, blood cx positive, notified MD Herr. IV abx & IVF infused as ordered (see MAR). Condom cath in place draining clear, orange urine. 0200 update: Patient's WOB increased, SpO2 91% on 7L oximask. Patient remains alert but has difficulty completing sentences. Exp. wheezing heard bilaterally. Called RT, breathing tx given with good effect. Notified MD Herr; IVF paused, CXR ordered, and labs drawn. Notified MD of elevated BNP, IV lasix given as ordered. Patient currently resting in bed with eyes closed, breathing unlabored. VSS.
[2024-12-18 05:44] LABS: Lactate 2HR (Lactic Acid Rflx) 4.9 mmol/L (0.7-2.1)
[2024-12-18] MEDS: ALBUTEROL/IPRATROPIUM 3 ML AMPUL INH (06:35)
--- NOTE | 2024-12-18 09:30 | PT-IP ANOTE ---
PT consult received. PT reviewed chart and checked in on pt who is sleeping, breathing hard through his nose and working with nsg and family nearby. Currently, it does not appear that pt is appropriate for skilled PT. Noted DNR/DNI information. Will discuss pt in rounds to determine plan.
--- NOTE | 2024-12-18 10:12 | PT-IP ANOTE ---
Discussed pt in rounds and per Dr. Shore, is appropriate to d/c. PT is unable to edit the order to complete and so documented discharge in the work list for communication. PT also communicates with OT.
--- NOTE | 2024-12-18 10:30 | OT.IPNOTE ---
Per PT, pt was discussed in rounds and per Dr. Shore, is appropriate to d/c. OT is unable to edit the order to complete and so documented discharge in the work list for communication.
[2024-12-18] MEDS: DOXYCYCLINE 100 MG in SODIUM CHLORIDE 0.9% 100 ML IV ×2 (11:24→23:08)
--- NOTE | 2024-12-18 12:27 | CM.DANOTE ---
Patient is an 89 yo male who was admitted INPT Status on 12/17/24 for Sepsis and Abd Pain. Pt has [employer] for insurance and his PCP is Kris Kaur. EMR was reviewed. Per MD, pt with hx of AFIB and COPD and DM and admitted for Sepsis and possible pneumonia and ongoing abdominal pain. Cultures pending. PT/OT on hold today as pt not medically appropriate to work with therapies. Per RT, pt currently on 8LO2 and typically not on home oxygen at baseline. Pt was last admitted in Aug 2024 a couple months ago for UTI/Sepsis. and was accepted at [facility] and they obtained [employer] auth but then pt was able to d/c home with new [facility] and family assist. SW met bedside with pt (mostly resting with oxygen on) and spouse and adult Dtr and explained role and spouse Liat confirms she is pt's POA and she confirms that pt lives at home with spouse and pt is mostly independent with ADLs at baseline and uses FWW and sometimes w/c and is A&Ox3 at baseline. Pt has a private RN that comes to the house 2x week through pt's [employer] (previous job where he was exposed to chemicals) since COPD dx was from job related injury. Spouse confirms that her preference would be for pt to d/c home if possible and wants to see how pt progresses with PT/OT before making determination on SNF vs Home. They have two local adult Dtrs Daphne and Bonnie who live nearby and Dtr confirms they can assist as needed at d/c. Discharge needs unclear at this time. If SNF needed, [facility] is not contracted with [employer] but [facility] confirms they are contracted. Plan: SW to follow closely for PT/OT when medically appropriate to participate to determine SNF vs home with increased assist and [facility]. GE Combs Discharge Planning/Care Management CM Discharge Assessment Start: 12/17/24 20:58 Freq: Status: Active Protocol: Document 12/18/24 12:16 BF (Rec: 12/18/24 12:26 BF [id number]) Discharge Planning Assessment Assigned Discharge GE Roach Perishable Freight Inspector DPOA/Assigned spouse Designee Name Advance Directives? No: POLST Advance Directives No on File History Provided By Patient,Family Member,Significant Other,Medical Record Has Patient been No admitted in last 30 days? Comment last admit Aug 2024 for similar and was able to d/c home with family assist and [facility] Prior Living House Arrangements Household Members spouse Type of Relies on Others transporation used prior to admit Independent with ADL Yes: mostly 's Is patient alert and Yes oriented? Needs Assistance Meal Prep,Managing Medications,Home Chores / Shopping With Caregiver for No Another Community Services Home Health Nurse used prior to admission: Comment Has a home nurse 2x week through pt's employer [employer]. DME Already Rented / Wheelchair,Elevated Toilet Seat,FWW / Walker Owned Patient/Family Assisted Facility,Home with Home Health Preference Comment SNF vs HH pending progress Comment [employer] and would need auth if SNF Discharge Plan Assisted Facility Transportation Family to provide transport if home vs Facility van Arrangement Referrals Initiated Assisted,Home Health Additional Comment Pending progress Whiteboard Updated Yes in Patient Room with name and ext. # of Motor Vehicle Assembly Supervisor Review Status In Process Please Provide Date 12/18/24 Initial DC Assessment Was Performed Next Review Type Continued Stay Review
[2024-12-18] MEDS: INSULIN LISPRO 100 UNIT/ML 3ML VIAL SUBCUT ×3 (13:17→21:48)
[2024-12-18] MEDS: TAMSULOSIN 0.4 MG CAPSULE PO (16:53)
--- NOTE | 2024-12-18 17:07 | PM.PN.1 ---
Subjective Subjective Interval history: 89-year-old male with atrial fibrillation on warfarin anticoagulation, hypertension, COPD, hyperlipidemia, hypothyroidism, diabetes mellitus type 2 and BPH admitted with nausea,vomiting and abdominal pain as well as acute encephalopathy. He is improved a bit this morning, denies complaints. Blood cultures were positive with gram negative rods. Tbili uptrending but negative RUQ US yesterday. Exam Vital Signs (past 8 hours): - 12/18/24 12:00 12/18/24 12:30 12/18/24 16:00 Temperature 97.5 F L 97.5 F L Pulse Rate 105 H 106 H 106 H Respiratory Rate 20 22 Blood Pressure 89/53 L 102/60 116/53 L Pulse Oximetry 97 97 95 Oxygen Flow Rate 6 5 3 Fraction of Inspired Oxygen 50 SaO2/FiO2 Ratio 180 Oxygen Delivery Method Aerosol Mask Oxygen Flow Rate 3 Narrative Exam Narrative: Gen: mildly confused, mildly ill appearing elderly male, but alert and appropriate. CV: tachycardic, with normal rhythm. no m/r/g Pulm: CTA b/l Abd: S NT ND, abdominal wall hernia reducible and non-tender Ext: No edema Objective Labs 12/18/24 03:43 12/18/24 03:43 Labs: Laboratory Results - last 24 hr 12/17/24 12/17/24 12/17/24 16:20 16:36 17:47 WBC RBC Hgb Hct MCV MCH MCHC RDW Plt Count Neut % (Auto) Lymph % (Auto) [place] % (Auto) Eos % (Auto) Baso % (Auto) Neut # (Auto) Lymph # (Auto) [place] # (Auto) Eos # (Auto) Baso # (Auto) ABG Sample Site ABG pH ABG pCO2 ABG pO2 ABG HCO3 ABG Total CO2 ABG O2 Saturation ABG Base Excess Raji Test VBG pH VBG pCO2 VBG pO2 VBG HCO3 VBG Total CO2 VBG O2 Saturation VBG Base Excess O2 Delivery Device FiO2 % Sodium Potassium Chloride Carbon Dioxide BUN Creatinine Estimated GFR BUN/Creatinine Ratio Glucose Lactate 3.9 H Calcium Total Bilirubin AST ALT Alkaline Phosphatase Ammonia < 9 L NT-Pro-B Natriuret Pep Total Protein Albumin Globulin Albumin/Globulin Ratio Urine RBC Urine WBC Ur Squamous Epith Cells Urine Bacteria Ur Culture Indicated? Vol Urine Centrifuged A.calcoaceticus-baumannii cmplx PCR Not detected Bacteroides fragilis Not detected Talia albicans (PCR) Not detected Talia auris (PCR) Not detected C. glabrata (PCR) Not detected C. krusei (PCR) Not detected C. parapsilosis (PCR) Not detected C. tropicalis (PCR) Not detected SARS-CoV-2 (PCR) Negative C. neoform/gattii (PCR) Not detected Enterobacterales (PCR) Detected E. cloacae complex PCR Not detected Enterococc faecalis PCR Not detected Enterococc faecium PCR Not detected E. coli (PCR) Not detected H. influenzae (PCR) Not detected Influenza A (RT-PCR) Flu a negative Influenza B (RT-PCR) Flu b negative Klebsiella aerogenes (PCR) Not detected Klebsiella oxytoca PCR Not detected Klebsiella pneumoniae Detected List. monocytogenes PCR Not detected N. meningitidis (PCR) Not detected Proteus species (PCR) Not detected RSV (PCR) Negative Salmonella spp. (PCR) Not detected Serratia marcescens PCR Not detected Staphylococcus sp PCR Not detected Staph aureus (PCR) Not detected mecA/C & MREJ Resist Gene Not applicable mecA/C-Methicil Resis Gene Not applicable mcr-1 Colistin Res Gene PCR Not detected Staph epidermidis (PCR) Not detected Staph lugdunensis PCR Not detected S. maltophilia (PCR) Not detected Streptococcus sp PCR Not detected Group A Strep (PCR) Not detected Strep agalactiae (PCR) Not detected Strep pneumoniae (PCR) Not detected P. aeruginosa (PCR) Not detected Sharan/B-Vanco Res Genes Not applicable blaIMP Car res Gene PCR Not detected KPC-Carbap Res Gene PCR Not detected blaNDM Car Res Gene PCR Not detected OXA-48 Carbapenem Resis Gene (PCR) Not detected blaVIM Car Res Gene PCR Not detected CTX-M Gene Resistance (PCR) Not detected 12/17/24 12/17/24 12/17/24 17:48 18:10 21:45 WBC RBC Hgb Hct MCV MCH MCHC RDW Plt Count Neut % (Auto) Lymph % (Auto) [place] % (Auto) Eos % (Auto) Baso % (Auto) Neut # (Auto) Lymph # (Auto) [place] # (Auto) Eos # (Auto) Baso # (Auto) ABG Sample Site Right radial ABG pH 7.40 ABG pCO2 31.0 L ABG pO2 60 L ABG HCO3 19 L ABG Total CO2 18 L ABG O2 Saturation 91 L ABG Base Excess -4.5 L Raji Test Positive VBG pH VBG pCO2 VBG pO2 VBG HCO3 VBG Total CO2 VBG O2 Saturation VBG Base Excess O2 Delivery Device Cannula FiO2 % 28.0 % Sodium Potassium Chloride Carbon Dioxide BUN Creatinine Estimated GFR BUN/Creatinine Ratio Glucose Lactate 4.8 H* Calcium Total Bilirubin AST ALT Alkaline Phosphatase Ammonia NT-Pro-B Natriuret Pep Total Protein Albumin Globulin Albumin/Globulin Ratio Urine RBC None seen Urine WBC None seen Ur Squamous Epith Cells 0-1 /hpf Urine Bacteria Occasional (0-1) D Ur Culture Indicated? Cult not indicated Vol Urine Centrifuged 10ml (spun) A.calcoaceticus-baumannii cmplx PCR Bacteroides fragilis Talia albicans (PCR) Talia auris (PCR) C. glabrata (PCR) C. krusei (PCR) C. parapsilosis (PCR) C. tropicalis (PCR) SARS-CoV-2 (PCR) C. neoform/gattii (PCR) Enterobacterales (PCR) E. cloacae complex PCR Enterococc faecalis PCR Enterococc faecium PCR E. coli (PCR) H. influenzae (PCR) Influenza A (RT-PCR) Influenza B (RT-PCR) Klebsiella aerogenes (PCR) Klebsiella oxytoca PCR Klebsiella pneumoniae List. monocytogenes PCR N. meningitidis (PCR) Proteus species (PCR) RSV (PCR) Salmonella spp. (PCR) Serratia marcescens PCR Staphylococcus sp PCR Staph aureus (PCR) mecA/C & MREJ Resist Gene mecA/C-Methicil Resis Gene mcr-1 Colistin Res Gene PCR Staph epidermidis (PCR) Staph lugdunensis PCR S. maltophilia (PCR) Streptococcus sp PCR Group A Strep (PCR) Strep agalactiae (PCR) Strep pneumoniae (PCR) P. aeruginosa (PCR) Sharan/B-Vanco Res Genes blaIMP Car res Gene PCR KPC-Carbap Res Gene PCR blaNDM Car Res Gene PCR OXA-48 Carbapenem Resis Gene (PCR) blaVIM Car Res Gene PCR CTX-M Gene Resistance (PCR) 12/17/24 12/18/24 12/18/24 23:48 02:22 03:43 WBC 11.0 RBC 4.23 L Hgb 13.1 L Hct 39.4 L MCV 93.0 MCH 30.9 MCHC 33.2 RDW 14.6 Plt Count 111 L Neut % (Auto) 94.1 H Lymph % (Auto) 2.8 L [place] % (Auto) 3.0 Eos % (Auto) 0.0 L Baso % (Auto) 0.1 Neut # (Auto) 69978 H Lymph # (Auto) 300 L [place] # (Auto) 300 Eos # (Auto) 0 Baso # (Auto) 0 ABG Sample Site ABG pH ABG pCO2 ABG pO2 ABG HCO3 ABG Total CO2 ABG O2 Saturation ABG Base Excess Raji Test VBG pH VBG pCO2 VBG pO2 VBG HCO3 VBG Total CO2 VBG O2 Saturation VBG Base Excess O2 Delivery Device FiO2 % Sodium 139 Potassium 3.9 Chloride 109 H Carbon Dioxide 13 L BUN 14 Creatinine 1.01 Estimated GFR > 60 BUN/Creatinine Ratio 13.9 Glucose 217 H Lactate 4.7 H* 5.0 H* Calcium 8.4 Total Bilirubin 5.1 H AST 171 H ALT 119 H Alkaline Phosphatase 92 Ammonia NT-Pro-B Natriuret Pep 2900 H Total Protein 6.4 Albumin 3.4 L Globulin 3.0 Albumin/Globulin Ratio 1.1 Urine RBC Urine WBC Ur Squamous Epith Cells Urine Bacteria Ur Culture Indicated? Vol Urine Centrifuged A.calcoaceticus-baumannii cmplx PCR Bacteroides fragilis Talia albicans (PCR) Talia auris (PCR) C. glabrata (PCR) C. krusei (PCR) C. parapsilosis (PCR) C. tropicalis (PCR) SARS-CoV-2 (PCR) C. neoform/gattii (PCR) Enterobacterales (PCR) E. cloacae complex PCR Enterococc faecalis PCR Enterococc faecium PCR E. coli (PCR) H. influenzae (PCR) Influenza A (RT-PCR) Influenza B (RT-PCR) Klebsiella aerogenes (PCR) Klebsiella oxytoca PCR Klebsiella pneumoniae List. monocytogenes PCR N. meningitidis (PCR) Proteus species (PCR) RSV (PCR) Salmonella spp. (PCR) Serratia marcescens PCR Staphylococcus sp PCR Staph aureus (PCR) mecA/C & MREJ Resist Gene mecA/C-Methicil Resis Gene mcr-1 Colistin Res Gene PCR Staph epidermidis (PCR) Staph lugdunensis PCR S. maltophilia (PCR) Streptococcus sp PCR Group A Strep (PCR) Strep agalactiae (PCR) Strep pneumoniae (PCR) P. aeruginosa (PCR) Sharan/B-Vanco Res Genes blaIMP Car res Gene PCR KPC-Carbap Res Gene PCR blaNDM Car Res Gene PCR OXA-48 Carbapenem Resis Gene (PCR) blaVIM Car Res Gene PCR CTX-M Gene Resistance (PCR) 12/18/24 12/18/24 03:49 05:00 WBC RBC Hgb Hct MCV MCH MCHC RDW Plt Count Neut % (Auto) Lymph % (Auto) [place] % (Auto) Eos % (Auto) Baso % (Auto) Neut # (Auto) Lymph # (Auto) [place] # (Auto) Eos # (Auto) Baso # (Auto) ABG Sample Site ABG pH ABG pCO2 ABG pO2 ABG HCO3 ABG Total CO2 ABG O2 Saturation ABG Base Excess Raji Test VBG pH 7.35 VBG pCO2 27.8 L VBG pO2 79 H VBG HCO3 15 L VBG Total CO2 15 L VBG O2 Saturation 95 H VBG Base Excess -8.8 L O2 Delivery Device FiO2 % 50.0 % Sodium Potassium Chloride Carbon Dioxide BUN Creatinine Estimated GFR BUN/Creatinine Ratio Glucose Lactate 4.9 H* Calcium Total Bilirubin AST ALT Alkaline Phosphatase Ammonia NT-Pro-B Natriuret Pep Total Protein Albumin Globulin Albumin/Globulin Ratio Urine RBC Urine WBC Ur Squamous Epith Cells Urine Bacteria Ur Culture Indicated? Vol Urine Centrifuged A.calcoaceticus-baumannii cmplx PCR Bacteroides fragilis Talia albicans (PCR) Talia auris (PCR) C. glabrata (PCR) C. krusei (PCR) C. parapsilosis (PCR) C. tropicalis (PCR) SARS-CoV-2 (PCR) C. neoform/gattii (PCR) Enterobacterales (PCR) E. cloacae complex PCR Enterococc faecalis PCR Enterococc faecium PCR E. coli (PCR) H. influenzae (PCR) Influenza A (RT-PCR) Influenza B (RT-PCR) Klebsiella aerogenes (PCR) Klebsiella oxytoca PCR Klebsiella pneumoniae List. monocytogenes PCR N. meningitidis (PCR) Proteus species (PCR) RSV (PCR) Salmonella spp. (PCR) Serratia marcescens PCR Staphylococcus sp PCR Staph aureus (PCR) mecA/C & MREJ Resist Gene mecA/C-Methicil Resis Gene mcr-1 Colistin Res Gene PCR Staph epidermidis (PCR) Staph lugdunensis PCR S. maltophilia (PCR) Streptococcus sp PCR Group A Strep (PCR) Strep agalactiae (PCR) Strep pneumoniae (PCR) P. aeruginosa (PCR) Sharan/B-Vanco Res Genes blaIMP Car res Gene PCR KPC-Carbap Res Gene PCR blaNDM Car Res Gene PCR OXA-48 Carbapenem Resis Gene (PCR) blaVIM Car Res Gene PCR CTX-M Gene Resistance (PCR) COUNT INCLUDES THE [facility] Medical History (Updated 12/17/24 @ 20:27 by Carlin Suraez MD) Atrial fibrillation with controlled ventricular rate HTN (hypertension) Aortic aneurysm COPD (chronic obstructive pulmonary disease) Surgical History History of appendectomy Family History Mother Cancer Father Cancer Social History marital status: household members: spouse Smoking Status: Former smoker alcohol intake: never Assessment & Plan Assessment & Plan narrative: Sepsis secondary to gram negative bacteremia, POA - Blood culture with Enterbacter and klebsiella, unclear etiology at this time as UA was negative. - CT without obvious source - continue with zosyn, can discontinue vancomycin. Narrow once sensitivities are available. Acute respiratory failure with hypoxia, elevated bilirubin, and acute metabolic encephalopathy due to #1 - continue antibiotics as above, wean from O2 as tolerated Elevated lactic acid. - will repeat tomorrow AM. Clinically improving today suspect transitient liver dysfunction leading to elevated lactate. Will re-check tomorrow. Atrial fibrillation with RVR - likely due to sepsis - resume home diltiazem - monitor with tele- - okay for prn metoprolol for persistent tachycardia Hyperlipidemia. Resume home statin. Hypothyroidism. Resume home Synthroid. COPD. Patient on 2 L of oxygen. Possible mild exacerbation. - patient was given solumedrol per admitting provider, however given sepsis more likely due to infectious etiology - hold on any additional steroids at this time. DVT prophylaxis - continue home Coumadin. CODE STATUS DNR/DNI and do not escalate care if patient condition worsens. Patient family agrees to plan. Disposition: floor care, will have PT/OT evaluations prior to discharge home likely in approx 3 days. Time-Based Coding :: [TOTAL MINUTES] spent with patient and on the chart (including review of chart, obtaining history, exam, reviewing outside data, placing orders, documenting exam and treatment plan, and counseling patient) on [DATE].
[2024-12-18 17:43] LABS: Adenovirus F 40/41 Not Detected (Not Detect); Astrovirus Not Detected (Not Detect); Campylobacter Not Detected (Not Detect); Clostridium difficile toxin AB Not Detected (Not Detect); Cryptosporidium Not Detected (Not Detect); Cyclospora cayetanensis Not Detected (Not Detect); Entamoeba histolytica Not Detected (Not Detect); Enteroaggregative E.coli Not Detected (Not Detect); Enteropathogenic E.coli Not Detected (Not Detect); Enterotoxigenic E.coli It/st Not Detected (Not Detect); Giardia lamblia Not Detected (Not Detect); Norovirus GI/GII Not Detected (Not Detect); Plesiomonsa shigelloides Not Detected (Not Detect); Rotavirus A Not Detected (Not Detect); Salmonella Not Detected (Not Detect); Sapovirus Not Detected (Not Detect); Shiga-like toxin-prod E.coli Not Detected (Not Detect); Shigella/Enteroinvasive E.coli Not Detected (Not Detect); Vibrio Not Detected (Not Detect); Vibrio cholerae Not Detected (Not Detect); Yersinia enterocolitica Not Detected (Not Detect)
[2024-12-18] MEDS: MORPHINE 2 MG/ML INJ IV (17:52)
[2024-12-18] MEDS: ONDANSETRON 4 MG/2 ML INJ IV (17:52)
[2024-12-18] MEDS: WARFARIN 2.5 MG TABLET PO (18:29)
[2024-12-18 18:55] LABS: Lactate (Lactic Acid) 5.7 mmol/L (0.7-2.1)
[2024-12-18 20:12] LABS: Reflexed Lactate in 2 Hours Y
[2024-12-18 20:47] LABS: Lactate 2HR (Lactic Acid Rflx) 4.4 mmol/L (0.7-2.1)
[2024-12-18] MEDS: GABAPENTIN 100 MG CAPSULE PO (21:47)
[2024-12-18] MEDS: ATORVASTATIN 20 MG TABLET 10 MG PO (21:47)
[2024-12-19] VITALS (11 sets, daily range): BP systolic 103–132; BP diastolic 62–90; PULSE 63–136; RESP 16–32; TEMP 36.3–37.2; O2SAT 91–96
[2024-12-19] MEDS: PIPERACILLIN/TAZO 3.375 GM in SODIUM CHLORIDE 0.9% 100 ML IV ×4 (00:38→23:40)
[2024-12-19 04:53] LABS: INR 2.5 (0.9-1.3); Prothrombin Time 27.2 SECONDS (9.4-12.5)
[2024-12-19 04:55] LABS: Add Manual Diff / Slide Review NO; Basophils Absolute Auto 0 /uL (0-100); Basophils Percent Auto 0.2 % (0-2); Eosinophils Absolute Auto 0 /uL (0-450); Eosinophils Percent Auto 0.2 % (2-4); Hematocrit 34.6 % (41-53); Hemoglobin 12.2 g/dL (13.5-17.5); Lymphocytes Absolute Auto 500 /uL (1100-4500); Lymphocytes Percent Auto 5.1 % (25-40); Mean Corpuscular HGB Conc 35.1 % (30-36); Mean Corpuscular Hemoglobin 32.3 PG (26-34); Mean Corpuscular Volume 92.1 fL (80-100); Monocytes Absolute Auto 700 /uL (0-900); Monocytes Percent Auto 6.4 % (3-14); Neutrophils Absolute Auto 9100 /uL (1500-7000); Neutrophils Percent Auto 88.1 % (50-75); Platelet Count 72 X10^3/uL (150-400); Red Blood Cell Count 3.76 X10^6/uL (4.5-5.9); Red Cell Distribution Width 14.8 % (11.6-14.8); White Blood Cell Count 10.4 X10^3/uL (4.5-11.0)
[2024-12-19 04:56] LABS: Lactate (Lactic Acid) 2.4 mmol/L (0.7-2.1)
[2024-12-19 05:02] LABS: Alanine Aminotransferase 146 IU/L (<50); Albumin 3.3 g/dL (3.5-5.0); Albumin Globulin Ratio 1.1 (1.0-2.8); Alkaline Phosphatase 68 U/L (38-126); Aspartate Aminotransferase 185 IU/L (17-59); BUN Creatinine Ratio 23.9 (6-22); Bilirubin Total 4.2 mg/dL (0.2-1.3); Blood Urea Nitrogen 33 mg/dL (9-20); Calcium 8.4 mg/dL (8.4-10.2); Carbon Dioxide 15 mmol/L (22-32); Chloride 108 mmol/L (98-107); Estimated Glomerular Filt Rate 49 mL/min (>60); Glucose 176 mg/dL (70-99); HEMOLYSIS < 15 (0-50); Magnesium 1.5 mg/dL (1.6-2.3); Potassium 4.1 mmol/L (3.4-5.1); Sodium 137 mmol/L (137-145); Total Protein 6.3 g/dL (6.3-8.2)
[2024-12-19] MEDS: LEVOTHYROXINE 75 MCG TABLET PO (05:29)
[2024-12-19] MEDS: ALBUTEROL/IPRATROPIUM 3 ML AMPUL INH (06:13)
[2024-12-19 06:15] LABS: Reflexed Lactate in 2 Hours Y
[2024-12-19] MEDS: MORPHINE 2 MG/ML INJ IV (06:15)
[2024-12-19] MEDS: guaiFENesin Solution 100 MG/5 ML UDC 200 MG PO ×2 (06:36→11:02)
[2024-12-19] MEDS: BENZONATATE 100 MG CAPSULE PO ×2 (06:37→21:14)
[2024-12-19] MEDS: METOPROLOL TARTRATE 5 MG/5 ML INJ IV ×2 (06:39→21:16)
--- NOTE | 2024-12-19 06:46 | PC.NURSE ---
0620 MD made aware of patient's aggressive cough. MD to order cough medication. Respiratory treatment previously administered.
[2024-12-19 06:56] LABS: Lactate 2HR (Lactic Acid Rflx) 2.5 mmol/L (0.7-2.1)
[2024-12-19] MEDS: INSULIN LISPRO 100 UNIT/ML 3ML VIAL SUBCUT ×3 (08:19→17:13)
[2024-12-19] MEDS: dilTIAZem CD 120 MG CAP 240 MG PO (08:20)
[2024-12-19] MEDS: MAGNESIUM CHLORIDE 64 MG TABLET 128 MG PO (11:02)
[2024-12-19] MEDS: DOXYCYCLINE 100 MG in SODIUM CHLORIDE 0.9% 100 ML IV ×2 (12:22→22:39)
[2024-12-19] MEDS: ALBUTEROL 2.5 MG/3 ML NEB (ADULT) INH ×2 (13:26→20:31)
[2024-12-19 14:14] LABS: Hemoglobin A1C% w Est Avg Glu 7.9 % (4.0-6.0)
[2024-12-19] MEDS: TAMSULOSIN 0.4 MG CAPSULE PO (17:13)
[2024-12-19] MEDS: WARFARIN 5 MG TABLET PO (17:13)
--- NOTE | 2024-12-19 18:20 | P.PN_ITS ---
Subjective Subjective Interval history: 89-year-old male with atrial fibrillation on warfarin anticoagulation, hypertension, COPD, hyperlipidemia, hypothyroidism, diabetes mellitus type 2 and BPH admitted with nausea,vomiting and abdominal pain as well as acute encephalopathy. He is improved a bit this morning, he feels a bit worse today, slightly more short of breath. Labs improving today with improved bilirubin. Cr up a bit to 1.38. Exam Vital Signs (past 8 hours): - 12/19/24 13:58 12/19/24 14:28 Temperature 97.7 F Pulse Rate 108 H 97 H Respiratory Rate 24 16 Blood Pressure 132/90 Pulse Oximetry 92 92 Oxygen Delivery Method Nasal Cannula Oxygen Flow Rate 3 0 Fraction of Inspired Oxygen 32 Fraction of Inspired Oxygen 32 SaO2/FiO2 Ratio 284 Oxygen Delivery Method Nasal Cannula Oxygen Flow Rate 0 Narrative Exam Narrative: Gen: mildly confused, mildly ill appearing elderly male, but alert and appropriate. CV: tachycardic, with normal rhythm. no m/r/g Pulm: CTA b/l Abd: S NT ND, abdominal wall hernia reducible and non-tender Ext: No edema Objective Labs 12/19/24 04:33 12/19/24 04:33 Labs: Laboratory Results - last 24 hr 12/17/24 12/18/24 12/18/24 16:20 18:29 20:25 WBC RBC Hgb Hct MCV MCH MCHC RDW Plt Count Neut % (Auto) Lymph % (Auto) [place] % (Auto) Eos % (Auto) Baso % (Auto) Neut # (Auto) Lymph # (Auto) [place] # (Auto) Eos # (Auto) Baso # (Auto) PT INR Sodium Potassium Chloride Carbon Dioxide BUN Creatinine Estimated GFR BUN/Creatinine Ratio Glucose Hemoglobin A1c Lactate 5.7 H* 4.4 H* Calcium Magnesium Total Bilirubin AST ALT Alkaline Phosphatase Total Protein Albumin Globulin Albumin/Globulin Ratio A.calcoaceticus-baumannii cmplx PCR Not detected Bacteroides fragilis Not detected Talia albicans (PCR) Not detected Talia auris (PCR) Not detected C. glabrata (PCR) Not detected C. krusei (PCR) Not detected C. parapsilosis (PCR) Not detected C. tropicalis (PCR) Not detected C. neoform/gattii (PCR) Not detected Enterobacterales (PCR) Detected E. cloacae complex PCR Not detected Enterococc faecalis PCR Not detected Enterococc faecium PCR Not detected E. coli (PCR) Not detected H. influenzae (PCR) Not detected Klebsiella aerogenes (PCR) Not detected Klebsiella oxytoca PCR Not detected Klebsiella pneumoniae Detected List. monocytogenes PCR Not detected N. meningitidis (PCR) Not detected Proteus species (PCR) Not detected Salmonella spp. (PCR) Not detected Serratia marcescens PCR Not detected Staphylococcus sp PCR Not detected Staph aureus (PCR) Not detected mecA/C & MREJ Resist Gene Not applicable mecA/C-Methicil Resis Gene Not applicable mcr-1 Colistin Res Gene PCR Not detected Staph epidermidis (PCR) Not detected Staph lugdunensis PCR Not detected S. maltophilia (PCR) Not detected Streptococcus sp PCR Not detected Group A Strep (PCR) Not detected Strep agalactiae (PCR) Not detected Strep pneumoniae (PCR) Not detected P. aeruginosa (PCR) Not detected Sharan/B-Vanco Res Genes Not applicable blaIMP Car res Gene PCR Not detected KPC-Carbap Res Gene PCR Not detected blaNDM Car Res Gene PCR Not detected OXA-48 Carbapenem Resis Gene (PCR) Not detected blaVIM Car Res Gene PCR Not detected CTX-M Gene Resistance (PCR) Not detected 12/19/24 12/19/24 04:33 06:28 WBC 10.4 RBC 3.76 L Hgb 12.2 L Hct 34.6 L MCV 92.1 MCH 32.3 MCHC 35.1 RDW 14.8 Plt Count 72 L Neut % (Auto) 88.1 H Lymph % (Auto) 5.1 L [place] % (Auto) 6.4 Eos % (Auto) 0.2 L Baso % (Auto) 0.2 Neut # (Auto) 9100 H Lymph # (Auto) 500 L [place] # (Auto) 700 Eos # (Auto) 0 Baso # (Auto) 0 PT 27.2 H INR 2.5 H Sodium 137 Potassium 4.1 Chloride 108 H Carbon Dioxide 15 L BUN 33 H Creatinine 1.38 H Estimated GFR 49 L BUN/Creatinine Ratio 23.9 H Glucose 176 H Hemoglobin A1c 7.9 H Lactate 2.4 H 2.5 H Calcium 8.4 Magnesium 1.5 L Total Bilirubin 4.2 H AST 185 H ALT 146 H Alkaline Phosphatase 68 Total Protein 6.3 Albumin 3.3 L Globulin 3.0 Albumin/Globulin Ratio 1.1 A.calcoaceticus-baumannii cmplx PCR Bacteroides fragilis Talia albicans (PCR) Talia auris (PCR) C. glabrata (PCR) C. krusei (PCR) C. parapsilosis (PCR) C. tropicalis (PCR) C. neoform/gattii (PCR) Enterobacterales (PCR) E. cloacae complex PCR Enterococc faecalis PCR Enterococc faecium PCR E. coli (PCR) H. influenzae (PCR) Klebsiella aerogenes (PCR) Klebsiella oxytoca PCR Klebsiella pneumoniae List. monocytogenes PCR N. meningitidis (PCR) Proteus species (PCR) Salmonella spp. (PCR) Serratia marcescens PCR Staphylococcus sp PCR Staph aureus (PCR) mecA/C & MREJ Resist Gene mecA/C-Methicil Resis Gene mcr-1 Colistin Res Gene PCR Staph epidermidis (PCR) Staph lugdunensis PCR S. maltophilia (PCR) Streptococcus sp PCR Group A Strep (PCR) Strep agalactiae (PCR) Strep pneumoniae (PCR) P. aeruginosa (PCR) Sharan/B-Vanco Res Genes blaIMP Car res Gene PCR KPC-Carbap Res Gene PCR blaNDM Car Res Gene PCR OXA-48 Carbapenem Resis Gene (PCR) blaVIM Car Res Gene PCR CTX-M Gene Resistance (PCR) [facility] Medical History (Updated 12/17/24 @ 20:27 by Carlin Suarez MD) Atrial fibrillation with controlled ventricular rate HTN (hypertension) Aortic aneurysm COPD (chronic obstructive pulmonary disease) Surgical History History of appendectomy Family History Mother Cancer Father Cancer Social History marital status: household members: spouse Smoking Status: Former smoker alcohol intake: never Assessment & Plan Assessment & Plan narrative: Sepsis secondary to gram negative bacteremia, POA - Blood culture with Enterbacter and klebsiella, unclear etiology at this time as UA was negative. Given elevated bilirubin cautious eye towards biliary but initial US negative. Consider repeat imaging study depending on clinical course. - CT on admission without obvious source - continue with zosyn, can discontinue vancomycin. Narrow once sensitivities are available. - also possible pulmonary source with cough noted today. Acute respiratory failure with hypoxia, elevated bilirubin, and acute metabolic encephalopathy due to #1 - continue antibiotics as above. Now off supplemental O2. Elevated lactic acid. - lactate improved, likely elevated to to transient liver dysfunction. No need for further trending uncless clinically worsens. Atrial fibrillation with RVR - likely due to sepsis - resumed home diltiazem - monitor with tele- - okay for prn metoprolol for persistent tachycardia Hyperlipidemia. Resume home statin. Hypothyroidism. Resume home Synthroid. COPD. Possible mild exacerbation. - patient was given solumedrol per admitting provider, however given sepsis more likely due to infectious etiology - hold on any additional steroids at this time. DVT prophylaxis - continue home Coumadin. CODE STATUS DNR/DNI and do not escalate care if patient condition worsens. Patient family agrees to plan. Disposition: floor care, home likely in approx 2 days once antibiotics are finalized Time-Based Coding :: [TOTAL MINUTES] spent with patient and on the chart (including review of chart, obtaining history, exam, reviewing outside data, placing orders, documenting exam and treatment plan, and counseling patient) on [DATE].
[2024-12-20] MEDS: ALBUTEROL/IPRATROPIUM 3 ML AMPUL INH ×2 (02:42→10:22)
[2024-12-20] MEDS: guaiFENesin Solution 100 MG/5 ML UDC 200 MG PO (02:56)
[2024-12-20] MEDS: BENZONATATE 100 MG CAPSULE PO (02:57)
[2024-12-20] MEDS: ACETAMINOPHEN 325 MG TABLET 650 MG PO (02:57)
[2024-12-20 05:36] LABS: Add Manual Diff / Slide Review NO; Basophils Absolute Auto 0 /uL (0-100); Basophils Percent Auto 0.2 % (0-2); Eosinophils Absolute Auto 0 /uL (0-450); Eosinophils Percent Auto 0.6 % (2-4); Hematocrit 34.3 % (41-53); Lymphocytes Absolute Auto 300 /uL (1100-4500); Lymphocytes Percent Auto 3.8 % (25-40); Mean Corpuscular HGB Conc 34.8 % (30-36); Mean Corpuscular Hemoglobin 31.8 PG (26-34); Mean Corpuscular Volume 91.4 fL (80-100); Monocytes Absolute Auto 400 /uL (0-900); Monocytes Percent Auto 5.5 % (3-14); Neutrophils Absolute Auto 7200 /uL (1500-7000); Neutrophils Percent Auto 89.9 % (50-75); Platelet Count 74 X10^3/uL (150-400); Red Blood Cell Count 3.76 X10^6/uL (4.5-5.9); Red Cell Distribution Width 14.7 % (11.6-14.8)
[2024-12-20 05:44] LABS: Alanine Aminotransferase 113 IU/L (<50); Albumin 3.3 g/dL (3.5-5.0); Alkaline Phosphatase 125 U/L (38-126); Aspartate Aminotransferase 100 IU/L (17-59); BUN Creatinine Ratio 28.6 (6-22); Bilirubin Total 4.6 mg/dL (0.2-1.3); Blood Urea Nitrogen 32 mg/dL (9-20); Calcium 8.5 mg/dL (8.4-10.2); Carbon Dioxide 19 mmol/L (22-32); Chloride 105 mmol/L (98-107); Estimated Glomerular Filt Rate > 60 mL/min (>60); Globulin 3.3 g/dL (1.7-4.1); Glucose 190 mg/dL (70-99); HEMOLYSIS < 15 (0-50); Magnesium 1.6 mg/dL (1.6-2.3); Potassium 3.8 mmol/L (3.4-5.1); Sodium 134 mmol/L (137-145); Total Protein 6.6 g/dL (6.3-8.2)
[2024-12-20 06:10] LABS: Vancomycin Trough < 5.0 ug/mL (10-20)
[2024-12-20 06:31] LABS: Appearance Urine UA CLEAR; Bilirubin Urine UA 1+ (NEGATIVE); Glucose Urine UA NEGATIVE (Negative); Ketones Urine UA TRACE (NEGATIVE); Leukocyte Esterase Urine UA TRACE (NEGATIVE); Nitrite Urine UA NEGATIVE (Negative); Occult Blood Urine UA NEGATIVE (Negative); Protein Urine UA 1+ (Negative); pH Urine UA 5.5 (4.5-8.0)
[2024-12-20 06:36] LABS: Color Urine UA Dark Yellow
[2024-12-20 06:39] LABS: Ictotest Urine Positive (Negative); Urine Volume 10mL (spun)
[2024-12-20 06:40] LABS: Bacteria Urine Few (2-10); RBC Urine 0-1/HPF (0-5/HPF); Squamous Epithelial Cell Urine 1-5 /HPF (0-5/HPF); WBC Urine 0-1/HPF (0-5/HPF)
[2024-12-20 06:41] LABS: Amorphous Sediment Urine 1+
[2024-12-20 06:42] LABS: Culture Indicated Urine Cult Not Indicated
[2024-12-20] MEDS: PIPERACILLIN/TAZO 3.375 GM in SODIUM CHLORIDE 0.9% 100 ML IV (07:06)
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
[2024-12-20] MEDS: QUETIAPINE 25 MG TABLET PO ×2 (08:49→20:55)
[2024-12-20] MEDS: dilTIAZem CD 120 MG CAP 240 MG PO (08:49)
[2024-12-20 09:14] VITALS: BP 147/74; PULSE 102; RESP 26; TEMP 36.4; O2SAT 93
[2024-12-20] MEDS: DOXYCYCLINE 100 MG in SODIUM CHLORIDE 0.9% 100 ML IV ×2 (10:05→20:55)
[2024-12-20] MEDS: cefTRIAXone 2,000 MG in SODIUM CHLORIDE 0.9% 100 ML 200 MG IV (11:25)
[2024-12-20] MEDS: METOPROLOL TARTRATE 5 MG/5 ML INJ IV (12:11)
--- NOTE | 2024-12-20 13:36 | CM.DPC ---
DCP Cont. Reviewed EMR and team rounds for pt's status updates. Per Hospitalist, pt remains very encephalopathic, had a difficult time last night with increased confusion, was combative, and required starting on Seroquel. [employer] continues to monitor for final d/c plan and needs.
[2024-12-20] MEDS: MAGNESIUM SULFATE 2 GM/50 ML PIGGYBACK IV (14:03)
--- NOTE | 2024-12-20 14:19 | PC.NURSE ---
Shift note: pt is confused. Alert to self and family. Refusing am labs, CBG checks, and brief change this am. Allowed this RN to check his vital signs, change his brief and take medications when arrived. Has NOT been combative just refusing some aspects of care. MD aware. Unable to safely take pills this afternoon, IV metoprolol given for heart rate greater than 150, patient tolerated well and heart rate in the high 90's- low 100s. Family at bedside. Bed alarm on and call light in reach.
[2024-12-20 15:00] VITALS: BP 124/83; PULSE 102; RESP 24; O2SAT 94
[2024-12-20 15:30] VITALS: RESP 22; TEMP 36.7; O2SAT 95
--- NOTE | 2024-12-20 18:06 | PM.PN.1 ---
Subjective Subjective Interval history: 89-year-old male with atrial fibrillation on warfarin anticoagulation, hypertension, COPD, hyperlipidemia, hypothyroidism, diabetes mellitus type 2 and BPH admitted with nausea,vomiting and abdominal pain as well as acute encephalopathy. Overnight was confused, agitated, paranoid. Given seroquel this AM. Redirectable at times with family. Exam Vital Signs (past 8 hours): - 12/20/24 15:00 Pulse Rate 102 H Respiratory Rate 24 Blood Pressure 124/83 Pulse Oximetry 94 Fraction of Inspired Oxygen 32 SaO2/FiO2 Ratio 284 Oxygen Delivery Method Nasal Cannula Oxygen Flow Rate 0 Narrative Exam Narrative: Gen: mildly ill appearing elderly male, sleeping, did not arouse given previous agitation. CV: tachycardic, with normal rhythm. Ext: No edema Objective Labs 12/20/24 05:02 12/20/24 05:02 Labs: Laboratory Results - last 24 hr 12/20/24 12/20/24 05:02 05:50 WBC 8.0 RBC 3.76 L Hgb 12.0 L Hct 34.3 L MCV 91.4 MCH 31.8 MCHC 34.8 RDW 14.7 Plt Count 74 L Neut % (Auto) 89.9 H Lymph % (Auto) 3.8 L [place] % (Auto) 5.5 Eos % (Auto) 0.6 L Baso % (Auto) 0.2 Neut # (Auto) 7200 H Lymph # (Auto) 300 L [place] # (Auto) 400 Eos # (Auto) 0 Baso # (Auto) 0 Sodium 134 L Potassium 3.8 Chloride 105 Carbon Dioxide 19 L BUN 32 H Creatinine 1.12 Estimated GFR > 60 BUN/Creatinine Ratio 28.6 H Glucose 190 H Calcium 8.5 Magnesium 1.6 Total Bilirubin 4.6 H AST 100 H ALT 113 H Alkaline Phosphatase 125 D Total Protein 6.6 Albumin 3.3 L Globulin 3.3 Albumin/Globulin Ratio 1.0 Urine Color Dark yellow Urine Appearance Clear Urine pH 5.5 Ur Specific [place] 1.020 Urine Protein 1+ H Urine Glucose (UA) Negative Urine Ketones Trace H Urine Occult Blood Negative Urine Nitrate Negative Urine Bilirubin 1+ H Ur Bilirubin Confirm Positive H Urine Urobilinogen 1.0 Ur Leukocyte Esterase Trace H Urine RBC 0-1/hpf Urine WBC 0-1/hpf Ur Squamous Epith Cells 1-5 /hpf Amorphous Sediment 1+ Urine Bacteria Few (2-10) H Urine Yeast 0-1/hpf Ur Culture Indicated? Cult not indicated Vol Urine Centrifuged 10ml (spun) Vancomycin Trough < 5.0 L [facility] Medical History (Updated 12/17/24 @ 20:27 by Carlin Suarez MD) Atrial fibrillation with controlled ventricular rate HTN (hypertension) Aortic aneurysm COPD (chronic obstructive pulmonary disease) Surgical History History of appendectomy Family History Mother Cancer Father Cancer Social History marital status: household members: spouse Smoking Status: Former smoker alcohol intake: never Assessment & Plan Assessment & Plan narrative: Sepsis secondary to gram negative bacteremia, POA - Blood culture with Enterbacter and klebsiella, unclear etiology at this time as UA was negative. Given elevated bilirubin cautious eye towards biliary but initial US negative. Consider repeat imaging study depending on clinical course. - CT on admission without obvious source - continued with zosyn, discontinued vancomycin. Narrowed today based on blood cultures to ceftriaxone 2g q24 hr. - also possible pulmonary source with cough noted. Acute respiratory failure with hypoxia, elevated bilirubin, and acute metabolic encephalopathy due to #1 - continue antibiotics as above. Now off supplemental O2. - started seroquel for delirium noted overnight 12/19-12/20. Elevated lactic acid. - lactate improved, likely elevated to to transient liver dysfunction. No need for further trending uncless clinically worsens. Atrial fibrillation with RVR - likely due to sepsis - resumed home diltiazem - monitor with tele- - okay for prn metoprolol for persistent tachycardia, received a 1x dose today. Hyperlipidemia. Resume home statin. Hypothyroidism. Resume home Synthroid. COPD. Possible mild exacerbation. - patient was given solumedrol per admitting provider, however given sepsis more likely due to infectious etiology - hold on any additional steroids at this time. DVT prophylaxis - continue home Coumadin. CODE STATUS DNR/DNI and do not escalate care if patient condition worsens. Patient family agrees to plan. Disposition: floor care, home likely in approx 2 days once antibiotics are finalized Time-Based Coding :: [TOTAL MINUTES] spent with patient and on the chart (including review of chart, obtaining history, exam, reviewing outside data, placing orders, documenting exam and treatment plan, and counseling patient) on [DATE].
[2024-12-20] MEDS: TAMSULOSIN 0.4 MG CAPSULE PO (18:26)
[2024-12-20] MEDS: WARFARIN 2.5 MG TABLET PO (18:26)
[2024-12-20 20:00] VITALS: BP 113/83; PULSE 107; RESP 22; TEMP 36.6; O2SAT 94
[2024-12-20] MEDS: GABAPENTIN 100 MG CAPSULE PO (20:55)
[2024-12-20] MEDS: ATORVASTATIN 20 MG TABLET 10 MG PO (20:55)
[2024-12-21] VITALS (7 sets, daily range): BP systolic 119–150; BP diastolic 71–102; PULSE 87–111; RESP 18–32; TEMP 36.3–37.7; O2SAT 90–95
[2024-12-21 04:54] LABS: Add Manual Diff / Slide Review NO; Basophils Absolute Auto 0 /uL (0-100); Basophils Percent Auto 0.5 % (0-2); Eosinophils Absolute Auto 100 /uL (0-450); Eosinophils Percent Auto 0.9 % (2-4); Hematocrit 34.3 % (41-53); Hemoglobin 11.8 g/dL (13.5-17.5); Lymphocytes Absolute Auto 300 /uL (1100-4500); Lymphocytes Percent Auto 4.9 % (25-40); Mean Corpuscular HGB Conc 34.3 % (30-36); Mean Corpuscular Hemoglobin 31.7 PG (26-34); Mean Corpuscular Volume 92.3 fL (80-100); Monocytes Absolute Auto 500 /uL (0-900); Monocytes Percent Auto 8.8 % (3-14); Neutrophils Absolute Auto 5000 /uL (1500-7000); Neutrophils Percent Auto 84.9 % (50-75); Platelet Count 76 X10^3/uL (150-400); Red Blood Cell Count 3.72 X10^6/uL (4.5-5.9); Red Cell Distribution Width 14.4 % (11.6-14.8); White Blood Cell Count 5.9 X10^3/uL (4.5-11.0)
[2024-12-21 05:04] LABS: Prothrombin Time 33.6 SECONDS (9.4-12.5)
[2024-12-21 05:20] LABS: Alanine Aminotransferase 96 IU/L (<50); Albumin 3.2 g/dL (3.5-5.0); Alkaline Phosphatase 208 U/L (38-126); Aspartate Aminotransferase 82 IU/L (17-59); BUN Creatinine Ratio 21.8 (6-22); Bilirubin Total 4.4 mg/dL (0.2-1.3); Blood Urea Nitrogen 22 mg/dL (9-20); Calcium 8.5 mg/dL (8.4-10.2); Carbon Dioxide 21 mmol/L (22-32); Chloride 108 mmol/L (98-107); Estimated Glomerular Filt Rate > 60 mL/min (>60); Globulin 3.3 g/dL (1.7-4.1); Glucose 155 mg/dL (70-99); HEMOLYSIS < 15 (0-50); Potassium 3.6 mmol/L (3.4-5.1); Sodium 137 mmol/L (137-145); Total Protein 6.5 g/dL (6.3-8.2)
[2024-12-21] MEDS: LEVOTHYROXINE 75 MCG TABLET PO (06:07)
[2024-12-21] MEDS: ALBUTEROL 2.5 MG/3 ML NEB (ADULT) INH ×4 (06:15→19:34)
[2024-12-21] MEDS: dilTIAZem CD 120 MG CAP 240 MG PO (09:03)
[2024-12-21] MEDS: DOXYCYCLINE 100 MG in SODIUM CHLORIDE 0.9% 100 ML IV ×2 (09:03→20:21)
[2024-12-21] MEDS: INSULIN LISPRO 100 UNIT/ML 3ML VIAL SUBCUT ×3 (09:15→16:58)
[2024-12-21] MEDS: BISACODYL 5 MG TABLET 10 MG PO (11:07)
[2024-12-21] MEDS: cefTRIAXone 2,000 MG in SODIUM CHLORIDE 0.9% 100 ML 200 MG IV (14:14)
--- NOTE | 2024-12-21 16:15 | P.PN_ITS ---
Subjective Subjective Interval history: 89-year-old male with atrial fibrillation on warfarin anticoagulation, hypertension, COPD, hyperlipidemia, hypothyroidism, diabetes mellitus type 2 and BPH admitted with nausea,vomiting and abdominal pain as well as acute encephalopathy. Somewhat improved with seroquel but mentation not back to normal. Exam Vital Signs (past 8 hours): - 12/21/24 10:00 12/21/24 14:00 12/21/24 14:40 Temperature 97.4 F L 99 F Pulse Rate 101 H 88 92 H Respiratory Rate 25 H 18 18 Blood Pressure 134/71 122/86 Pulse Oximetry 91 95 90 L Oxygen Delivery Method Room Air Oxygen Flow Rate 0 Fraction of Inspired Oxygen 32 SaO2/FiO2 Ratio 284 Oxygen Delivery Method Room Air Oxygen Flow Rate 0 Narrative Exam Narrative: Gen: mildly ill appearing elderly male, sleeping, did not arouse given previous agitation. CV: RRR no m/r/g Pulm: CTA b/l Ext: No edema Objective Labs 12/21/24 04:26 12/21/24 04:26 Labs: Laboratory Results - last 24 hr 12/21/24 04:26 WBC 5.9 RBC 3.72 L Hgb 11.8 L Hct 34.3 L MCV 92.3 MCH 31.7 MCHC 34.3 RDW 14.4 Plt Count 76 L Neut % (Auto) 84.9 H Lymph % (Auto) 4.9 L [place] % (Auto) 8.8 Eos % (Auto) 0.9 L Baso % (Auto) 0.5 Neut # (Auto) 5000 Lymph # (Auto) 300 L [place] # (Auto) 500 Eos # (Auto) 100 Baso # (Auto) 0 PT 33.6 H D INR 3.0 H Sodium 137 Potassium 3.6 Chloride 108 H Carbon Dioxide 21 L BUN 22 H Creatinine 1.01 Estimated GFR > 60 BUN/Creatinine Ratio 21.8 Glucose 155 H Calcium 8.5 Magnesium 2.0 Total Bilirubin 4.4 H AST 82 H ALT 96 H Alkaline Phosphatase 208 H D Total Protein 6.5 Albumin 3.2 L Globulin 3.3 Albumin/Globulin Ratio 1.0 PFSH Medical History (Updated 12/17/24 @ 20:27 by Carlin Suarez MD) Atrial fibrillation with controlled ventricular rate HTN (hypertension) Aortic aneurysm COPD (chronic obstructive pulmonary disease) Surgical History History of appendectomy Family History Mother Cancer Father Cancer Social History marital status: household members: spouse Smoking Status: Former smoker alcohol intake: never Assessment & Plan Assessment & Plan narrative: Sepsis secondary to Klebsiella bacteremia, POA - Blood culture with Enterbacter and klebsiella on PCR, unclear underlying source at this time as UA was negative. Given elevated bilirubin cautious eye towards biliary but initial US negative. Consider repeat imaging study depending on clinical course. - CT on admission without obvious source - continued with zosyn, discontinued vancomycin. Narrowed 12/20 based on blood cultures to ceftriaxone 2g q24 hr. - also possible pulmonary source with cough noted. Acute respiratory failure with hypoxia, elevated bilirubin, and acute metabolic encephalopathy due to #1 - continue antibiotics as above. Now off supplemental O2. - started seroquel for delirium noted overnight 12/19-12/20 with slight improvement thus far. Elevated lactic acid. - lactate improved, likely elevated to to transient liver dysfunction. No need for further trending uncless clinically worsens. Atrial fibrillation with RVR - likely due to sepsis - resumed home diltiazem, rate controlled today. - monitor with tele- - okay for prn metoprolol for persistent tachycardia, received a 1x dose on 12/20. - coumadin per pharmacy, INR is 3.0 today. Hyperlipidemia. Resume home statin. Hypothyroidism. Resume home Synthroid. COPD. Possible mild exacerbation. - patient was given solumedrol per admitting provider, however given sepsis more likely due to infectious etiology - hold on any additional steroids at this time. DVT prophylaxis - continue home Coumadin. CODE STATUS DNR/DNI and do not escalate care if patient condition worsens. Patient family agrees to plan. Disposition: floor care, home likely in approx 2 days once antibiotics are finalized Time-Based Coding :: [TOTAL MINUTES] spent with patient and on the chart (including review of chart, obtaining history, exam, reviewing outside data, placing orders, documenting exam and treatment plan, and counseling patient) on [DATE].
[2024-12-21] MEDS: WARFARIN 2.5 MG TABLET PO (16:57)
[2024-12-21] MEDS: TAMSULOSIN 0.4 MG CAPSULE PO (16:57)
[2024-12-21] MEDS: guaiFENesin Solution 100 MG/5 ML UDC 200 MG PO (18:09)
[2024-12-21] MEDS: QUETIAPINE 25 MG TABLET PO (20:21)
[2024-12-21] MEDS: SENNOSIDES 8.6 MG TABLET 17.2 MG PO (20:21)
[2024-12-21] MEDS: ATORVASTATIN 20 MG TABLET 10 MG PO (20:21)
[2024-12-21] MEDS: GABAPENTIN 100 MG CAPSULE PO (20:21)
[2024-12-22] VITALS (8 sets, daily range): BP systolic 137–157; BP diastolic 70–79; PULSE 84–113; RESP 19–24; TEMP 36.2–36.7; O2SAT 91–98
[2024-12-22 05:51] LABS: INR 3.2 (0.9-1.3); Prothrombin Time 34.9 SECONDS (9.4-12.5)
--- NOTE | 2024-12-22 08:58 | P.PN_ITS ---
Subjective Subjective Date Patient Seen: 12/22/24 Interval history: Chief complaint: Abdominal pain nausea and vomiting with sepsis and confusion secondary to Klebsiella History of present illness: 12/18: 89-year-old male with past medical history of atrial fibrillation on Coumadin, hypertension COPD not oxygen dependent, hyperlipidemia thyroidism, aortic aneurysm, [id number]-[id number] diabetes and BPH presents with nausea, vomiting and abdominal pain. Per report the patient started to have abdominal discomfort earlier this morning. The patient was reported to be in his normal state of health around 10 AM and was at denominational. The patient then developed chills and rigors which followed by nausea, vomiting and abdominal pain. The patient denies any chest pain, coughing, dysuria, diarrhea or shortness of breath. However the patient's family does notice that he was having some respiratory distress. In the emergency room, the patient was hemodynamically stable though tachycardic. Patient WBC was 9 but lactate was 4.2. Bilirubin was 2.6 AST 291 ALT 104. Procalcitonin was only 0.163. Respiratory viral panel were negative. UA was also negative for UTI. CT angio of the chest abdomen and pelvics shows no acute finding other than possible atelectasis versus pneumonia at the bases. The patient then developed A-fib with RVR and required a dose of IV diltiazem which improved the heart rate from 200s. The patient remained hemodynamically. IV doxycycline and ceftriaxone were reported. The patient is DNR/DNI and the patient's family wishes no invasive or aggressive measures but they are okay with IV fluid and IV antibiotic. Repeat lactic acid only come down to 3.9 after IV fluid and IV antibiotics. Again CT angio of the abdomen shows no sign of bowel ischemia. Also CT scan of the chest and abdomen shows no acute finding with aneurysm. I did explain extensively to the patient's family that the patient did meet severe sepsis and is in critical condition. The patient family again states that patient is DNR/DNI and if things worsens they do not want to escalate care. Initially the patient was treated with doxycycline and ceftriaxone. However lactate came back the third time at 4.8. I have broadened antibiotic to doxcyclin, vancomycin and Zosyn. UA is negative. CT chest and abdomen shows no acute finding and patient is DNR/DNI and his family states that his condition worsens do not escalate or transfer. Possible pneumonia. Stated above were boaden antibiotics to IV's Doxycin Zosyn and vancomycin. Follow-up cultures. Nausea vomiting and abdominal pain. Unclear etiology. IV fluid and IV antiemetics. Pain control. CT abdomen and pelvis with contrast shows no acute finding. Elevated lactic acid. 4.2 then 3.9 then back to 4.8. Again IV fluid was given in the ER and continue continuous fluid. Will trend lactic acid to normal with IV fluid. Hospital course: 12/19: He is improved a bit this morning, he feels a bit worse today, slightly more short of breath. Labs improving today with improved bilirubin. Cr up a bit to 1.38. 12/20: Overnight was confused, agitated, paranoid. Given seroquel this AM. Redirectable at times with family. 12/21: Somewhat improved with seroquel but mentation not back to normal. 12/22: Continues to be confused and somewhat paranoid although did participate with physical therapy today Review of systems: Cognitively incapable of participating in the new review of systems No vomiting noted No labored respirations noted No seizure activity observed Physical exam: Chronically ill-appearing elderly male appearing confused, ill and somnolent HEENT unremarkable Heart rate and rhythm regular Lungs diminished breath Abdomen distended and tympanitic Extremities 2 to 3+ lower extremity No focal neurologic abnormality Patient is encephalopathic and confused Assessment and plan: Sepsis secondary to Klebsiella bacteremia, * - Blood culture with Enterbacter and klebsiella on PCR, unclear underlying source at this time as UA was negative. Given elevated bilirubin cautious eye towards biliary but initial US negative. Consider repeat imaging study depending on clinical course. * - CT on admission without obvious source * - continued with zosyn, discontinued vancomycin. Narrowed 12/20 based on blood cultures to ceftriaxone 2g q24 hr. * - also possible pulmonary source with cough noted. Acute respiratory failure with hypoxia, elevated bilirubin, and acute metabolic encephalopathy due to #1 * - continue antibiotics as above. Now off supplemental O2. * - started seroquel for delirium noted overnight 12/19-12/20 with slight improvement thus far. Elevated lactic acid. - lactate improved, likely elevated to to transient liver dysfunction. No need for further trending uncless clinically worsens. Atrial fibrillation with RVR * - likely due to sepsis * - resumed home diltiazem, rate controlled today. * - monitor with tele- * - okay for prn metoprolol for persistent tachycardia, received a 1x dose on 12/20. * - coumadin per pharmacy, INR is 3.0 today. Hyperlipidemia. Resume home statin. Hypothyroidism. Resume home Synthroid. COPD. Possible mild exacerbation. * - patient was given solumedrol per admitting provider, however given sepsis more likely due to infectious etiology * - hold on any additional steroids at this time. DVT prophylaxis - continue home Coumadin. CODE STATUS DNR/DNI and do not escalate care if patient condition worsens. Patient family agrees to plan. Disposition: floor care, home likely in approx 2 days once antibiotics are finalized Time-Based Coding :: 35 minutes spent with patient and on the chart (including review of chart, obtaining history, exam, reviewing outside data, placing orders, documenting exam and treatment plan, and counseling patient) Exam Vital Signs (past 8 hours): - 12/22/24 04:00 12/22/24 08:00 Temperature 97.5 F L 97.6 F Pulse Rate 96 H 92 H Respiratory Rate 20 24 Blood Pressure 145/79 H 157/79 H Pulse Oximetry 91 98 Oxygen Flow Rate 0 Fraction of Inspired Oxygen 32 SaO2/FiO2 Ratio 284 Oxygen Delivery Method Room Air Oxygen Flow Rate 0 Objective Labs 12/21/24 04:26 12/21/24 04:26 Labs: Laboratory Results - last 24 hr 12/22/24 05:02 PT 34.9 H INR 3.2 H PFS Medical History (Updated 12/17/24 @ 20:27 by Carlin Suarez MD) Atrial fibrillation with controlled ventricular rate HTN (hypertension) Aortic aneurysm COPD (chronic obstructive pulmonary disease) Surgical History History of appendectomy Family History Mother Cancer Father Cancer Social History marital status: household members: spouse Smoking Status: Former smoker alcohol intake: never Assessment & Plan Time-Based Coding :: [TOTAL MINUTES] spent with patient and on the chart (including review of chart, obtaining history, exam, reviewing outside data, placing orders, documenting exam and treatment plan, and counseling patient) on [DATE].
[2024-12-22] MEDS: dilTIAZem CD 120 MG CAP 240 MG PO (09:04)
[2024-12-22] MEDS: DOXYCYCLINE 100 MG in SODIUM CHLORIDE 0.9% 100 ML IV ×2 (09:04→21:05)
[2024-12-22] MEDS: ACETAMINOPHEN 325 MG TABLET 650 MG PO (09:13)
--- NOTE | 2024-12-22 10:20 | PT.IIE ---
Current Diagnoses Sepsis, unspecified organism (12/17/24) Surgical History (Last Reviewed 12/17/24 @ 15:42 by Soraya Bedoya DO) History of appendectomy Medical History (Last Reviewed 12/17/24 @ 15:42 by Soraya Bedoya DO) Aortic aneurysm Atrial fibrillation with controlled ventricular rate COPD (chronic obstructive pulmonary disease) HTN (hypertension) Physical Therapy Inpatient Evaluation/Re-Eval M1 PT/OT-IP Prior Functional Status Start: 12/18/24 10:32 Freq: NEEDED Status: Active Protocol: Document 12/22/24 11:08 [facility] (Rec: 12/22/24 11:22 [facility] Desktop) Medical Review Prior Functional Status Mobility and Gait Prior per pt just able to walk 10-15 ft at the most and needing her to be SBA for safety and easily gets SOB. Activities of Daily Pt needing assist for LB dressing, toileting, showering Living and IADL's and all IADL needs. Social History Household Members spouse Living Arrangements House Number of Floors ( One Floor Floors) Home Environment Standard Height Toilet,Tub/Shower,Ramp Home Equipment Front Wheel Walker,Manual Wheelchair,Bedside Commode, Shower Seat with Backrest,Hand Held Shower,Lift Recliner M2 PT-IP Current Condition Start: 12/18/24 10:11 Freq: NEEDED Status: Active Protocol: Document 12/22/24 10:20 AB (Rec: 12/22/24 11:21 AB [id number]) Physical Therapy Current Condition Current Condition Evaluation Date 12/22/24 Treatment Diagnosis sepsis; PNA; difficulty in walking Onset Date 12/17/24 M3 PT-IP Subjective Start: 12/18/24 10:11 Freq: NEEDED Status: Active Protocol: Document 12/22/24 10:20 AB (Rec: 12/22/24 11:21 AB [id number]) Subjective Physical Therapy Visit Type Type Initial Evaluation Visit Start Time 10:20 Visit Stop Time 11:05 Number of BLOCK PLACER Visits 0 Therapy Pain Assessment Pain When Pain Assessed At Rest Pain Present Pain Present Pain Reported Location Generalized Scale Used pain scale not stated M4 PT-IP Mobility and Gait Start: 12/18/24 10:11 Freq: NEEDED Status: Active Protocol: Document 12/22/24 10:20 AB (Rec: 12/22/24 11:21 AB [id number]) PT-Bed Mobility Assessment Rolling Type of Rolling Bilateral Level of Assist Maximal Assistance,1 Person Assistance,2 Person Assistance Supine to Sit Supine to Sit Maximum Assistance,2 Person Assistance,Head of Bed Elevated,Bedrails Sit to Supine Sit to Supine Maximum Assistance,2 Person Assistance,Head of Bed Elevated,Bedrails Scooting Scooting to Edge of Maximum Assistance Bed Scooting Up and Down Maximum Assistance in Bed PT-Transfer Assessment Sit to and From Stand Sit to and from Maximum Assistance,2 Person Assistance,Use of Upper Stand Extremities Equipment Transfer Assistive Gait Belt,Front Wheeled Walker Device Orthotic/Prosthetic No Devices or Brace: Comments Mobility Comments pt in bed. family in room. obtained PLOF and home set up from spouse. pt is lethargic and needed frequent cues. BP: 144/70 O2 sat: 90-93% at RA completed supine to sit max A x 2 and max cues. HOB elevated. pt requiring max A x 2 for sitting balance on EOB. presents with increase forward leaning and tends to overshoot posteriorly once instructed to correct posture. (+) SOB. O2 sat: 88-89% at RA and with dypsnea. BP: 139/46. completed sit to stand from EOB max A x 2 and max cues. max A x 2 for standing balance and pt unable to stand to full upright position . attempted brief change in standing but pt only tolerated ~ 6-8 sec of standing using fWW for support. assisted pt back to bed. required max A x 2 for scooting towards HOB. completed sit to supine total A x 2-3. pt needing brief change. pt required max A x 1-2 for rolling to L and R side of bed with bed side tilted to assist. positioned pt in bed. call light and table placed within reach. Gait Assessment Comments Gait Comments unable at this time PT-Balance Assessment Sitting Balance and Reactions Static Sitting Poor Balance Ability Dynamic Sitting Poor Balance Ability Standing Balance and Reactions Static Standing Poor Balance Ability Dynamic Standing Poor Balance Ability Device Used FWW M5 PT-IP Objective Assessments Start: 12/18/24 10:11 Freq: NEEDED Status: Active Protocol: Document 12/22/24 10:20 AB (Rec: 12/22/24 11:21 AB [id number]) Orientation Orientation/Cognition Level of Alertness Lethargic Orientation Name Language Function Hard of Hearing Ability Safety Awareness Decreased Safety Awareness Memory Description Short Term Impaired Gross Range of Motion Lower Extremity ROM Assessment Within Functional Limits Strength Lower Extremity Strength Assessment Bilaterally Impaired Hip 3-/5 Knee 3+/5 Muscle Tone Muscle Tone WNL Yes M6 PT-IP Treatment Start: 12/18/24 10:11 Freq: NEEDED Status: Active Protocol: Document 12/22/24 10:20 AB (Rec: 12/22/24 11:21 AB [id number]) Physical Therapy Treatment Education Education Provided Safety M7 PT-IP Assessment and Plan Start: 12/18/24 10:11 Freq: NEEDED Status: Active Protocol: Document 12/22/24 10:20 AB (Rec: 12/22/24 11:25 AB [id number]) PT Summary Assessment and Plan Potential Rehabilitation Fair Potential Status of Condition Unstable at Evaluation Summary Impairments Pain,ROM,Strength,Balance,Coordination,Sensation,Tone, Cognition,Bed Mobility,Transfers,Gait,Activity Tolerance Assessment Summary pt is an 89 y/o M who is admitted for sepsis, PNA. pt with COPD and has been limited with mobility and activity tolerance due to this prior to admission. pt requiring max A x 2 to total Ax 2-3 for mobility and unable to tolerate standing to transfers and unable to ambulate. pt will require SNF rehab to improve overall strength and mobility. Goals Bed Mobility Goal Minimal Assistance Transfer Goal Minimal Assistance,Front Wheeled Walker Gait Goal Minimal Assistance,Front Wheel Walker Gait Distance 12 Days to Meet Goals 10 Frequency of Treatment Frequency Of Once a Day Treatment Treatment Plan Physical Therapy Bed Mobility Training,Transfer Training,Gait Training, Treatment Plan Therapeutic Exercise,Balance Retraining,Discharge Planning,Hot or Cold Pack,Neuromuscular Re-ed, Coordination Retraining,Manual Therapy Precautions Other Precautions O2 sat; fall risk Recommendations To Nursing Amount of Assist Mechanical Lift Needed Discharge Recommendations PT Discharge SNF Rehab Recommendations Transportation Needs Wheelchair/Cabulance,Stretcher/Ambulance at Discharge - PT assist 2-3
--- NOTE | 2024-12-22 10:28 | DIET.CONS ---
Dietary Consultation Note Admission Date: 12/17/2024 20:27 Assessment: 89 y M admitted for admitted with nausea,vomiting and abdominal pain and sepsis. Dietitian screened for LOS. Met with pt family outside of room. Reports pt thinks the food is poisoned. Family confirms before these 5 days pt with normal appetite and intakes and no weight loss PMH of type 2 DM, last A1c 7.9% on 12/19/24 Ht: 190.5 cm Wt: 119 kg BMI: 30.2 UBW: 111.5 kg on 08/29/24 Last BM: 12/21/24 (12/21/24 14:21) MNA: 14 Tomasz Score: 12 Diet: 12/18/24 Dinner Heart Healthy Diet Diet Modifications: carb consistent diet Sodium Level: 2 gm Sodium Food Texture: Level 7 - Regular Liquid Consistency: Level 0 - Thin Nutrition Percent Meal Consumed 0% 12/21/24 18:00 Percent Meal Consumed 0% 12/21/24 09:10 Labs: RBC 3.72 X10^6/uL (4.5-5.9) L 12/21/24 04:26 Hgb 11.8 g/dL (13.5-17.5) L 12/21/24 04:26 Hct 34.3 % (41-53) L 12/21/24 04:26 Creatinine 1.01 mg/dL (0.66-1.25) 12/21/24 04:26 Hemoglobin A1c 7.9 % (4.0-6.0) H 12/19/24 04:33 Lactate 2.5 mmol/L (0.7-2.1) H 12/19/24 06:28 NT-Pro-B Natriuret Pep 2900 pg/mL (<450) H 12/18/24 03:43 Nutrition Diagnosis: Inadequate oral intakes r/t pt thinks hospital food is poisoned aeb <25% PO intakes recorded for last 5 days and report from family Interventions: Coordination of care with unit host to provide food in to-go containers and give to family so that family can present food as being from home vs being from hospital. Monitoring/Evaluations: F/u on PO intakes Electronically Signed by: Montse Joaquin 12/22/24 10:28 Clinical Dietitian [address] [id number]
--- NOTE | 2024-12-22 11:07 | OT.IP.EVAL ---
Current Diagnoses Sepsis, unspecified organism (12/17/24) Past Medical History (Last Reviewed 12/17/24 @ 15:42 by Soraya Bedoya DO) Aortic aneurysm Atrial fibrillation with controlled ventricular rate COPD (chronic obstructive pulmonary disease) HTN (hypertension) Surgical History (Last Reviewed 12/17/24 @ 15:42 by Soraya Bedoya DO) History of appendectomy Occupational Therapy Inpatient Evaluation/Re-Eval M1 PT/OT-IP Prior Functional Status Start: 12/18/24 10:32 Freq: NEEDED Status: Active Protocol: Document 12/22/24 11:08 [facility] (Rec: 12/22/24 11:22 [facility] Desktop) Medical Review Prior Functional Status Mobility and Gait Prior per pt just able to walk 10-15 ft at the most and needing her to be SBA for safety and easily gets SOB. Activities of Daily Pt needing assist for LB dressing, toileting, showering Living and IADL's and all IADL needs. Social History Household Members spouse Living Arrangements House Number of Floors ( One Floor Floors) Home Environment Standard Height Toilet,Tub/Shower,Ramp Home Equipment Front Wheel Walker,Manual Wheelchair,Bedside Commode, Shower Seat with Backrest,Hand Held Shower,Lift Recliner M2 OT-IP Current Condition Start: 12/18/24 10:32 Freq: Status: Active Protocol: Document 12/22/24 11:08 [facility] (Rec: 12/22/24 11:22 [facility] Desktop) Occupational Therapy Current Condition Current Condition Evaluation Date 12/22/24 Treatment Diagnosis Sepsis, acute respiratory failure Diagnosis Onset Date 12/17/24 M3 OT- IP Subjective and Pain Start: 12/18/24 10:32 Freq: Status: Active Protocol: Document 12/22/24 11:08 [facility] (Rec: 12/22/24 11:22 [facility] Desktop) OT- Subjective Occupational Therapy Visit Type Type Initial Evaluation Visit Start Time 10:25 Visit Stop Time 11:07 Occupational Therapy Visit Comments Patient Comments Pt very sleepy, hard to arouse but agreed to get up. Pt 's in the room along with PT and nursing aid. Patient/Caregiver Pt did not state. Goals OT Pain Assessment Pain When Pain Assessed At Rest Pain Present Pain Present Pain Reported Location Bilateral Shoulder Pain Behaviors Facial Grimacing M4 OT- IP ADL's Start: 12/18/24 10:32 Freq: Status: Active Protocol: Document 12/22/24 11:08 [facility] (Rec: 12/22/24 11:22 [facility] Desktop) OT LLM-Vluv-Bnbnuxh Comments OT Self-Feeding Not at meal time. Comments OT ADL-Grooming General Evaluation Grooming Ability Maximum Assistance Comments OT Grooming Comments Pt too tired to hold wash cloth to attempt to wash his face. Pt's able to wash his face. OT ADL-Oral Care Comments Oral Care Comments Not performed. OT ADL-Dressing General Eval Lower Body Dressing Total Assistance Ability Areas Needing Socks Assistance OT ADL-Toileting General Evaluation Toileting Ability Total Assistance Areas Needing Manage Clothing,Perform Perineal Hygiene Assistance Comments OT Toileting Total assist while in supine to roll side side to side, Comments hygiene , and brief management needs. OT ADL-Bathing Comments OT Bathing Comments AT this time sponge bath more appropriate. M5 OT- IP IADL's Start: 12/18/24 10:32 Freq: Status: Active Protocol: Document 12/22/24 11:08 [facility] (Rec: 12/22/24 11:22 [facility] Desktop) OT-Instrumental Activities of Daily Living Medication Management Medication Caregiver Administers Management Money Management Money Management Caregiver Provides Assistance Meal Preparation Meal Preparation Caregiver Provides Assist Corporate Safety Manager Corporate Safety Manager Caregiver Provides Assist M6 OT- IP Functional Cognition Start: 12/18/24 10:32 Freq: Status: Active Protocol: Document 12/22/24 11:08 [facility] (Rec: 12/22/24 11:22 [facility] Desktop) Cognitive Factors Limiting Selfcare Function Cognitive Ability Level of Alertness Drowsy Patient Orientation Name Attention Span Capable of Focused Attention,Unable to Focus,Unable to Ability Sustain Attention Ability to Follow Able to Follow One Step Commands with Increased Time, Commands Able to Follow One Step Commands with Repetition Memory Description Short Term Impaired,Senior Designer Impaired Cognitive Comments Cognitive Assessment Pt very drowsy and hard to arouse. Pt needing step by Comments step commands to follow. OT- Vision and Hearing OT- Hearing Assessment OT- Hearing Hearing Impaired Assessment OT- Vision Assessment Vision Assessment Pt's glasses not in the hospital per . Comments M7 OT- IP Mobility and Balance Start: 12/18/24 10:32 Freq: Status: Active Protocol: Document 12/22/24 11:08 [facility] (Rec: 12/22/24 11:22 [facility] Desktop) OT- Bed Mobility Assessment Supine to Sit Supine to Sit Assist Maximum Assistance,2 Person Assistance,Bedrails Sit to Supine Sit to Supine Assist Total Assistance,2 Person Assistance Scooting Scooting to Edge of Maximum Assistance,1 Person Assistance,2 Person Bed Assistance Scooting Up and Down Maximum Assistance,2 Person Assistance in Bed OT-Transfer Assessment Sit to and From Stand Sit to and from Maximum Assistance,2 Person Assistance Stand Comments Mobility Comments BP supine 148/68 O2 93%, sitting 145/70 and after standing O2 drops to 89% and needing couple minutes to recover to 90%. MAX AX 2 to help move his legs and get his trunk upright to the edge of the bed. MAX AX 2 to stand to the FWW and not able to stand all the way. Pt too tired and wanting to lay back down. Able to scoot to the head of the bed with MAX AX 2. Total X 3 to help lie back down. Pt needing to try to use his hands to help scoot forwards and keep himself upright. Pt needing cues to keep his feet underneath his when coming to stand. Pt needing his feet block from sliding forwards. OT- Balance Assessment Sitting Balance and Reactions Static Sitting Poor Balance Ability Dynamic Sitting Poor Balance Ability Standing Balance and Reactions Static Standing Poor Balance Ability Dynamic Standing Poor Balance Ability M8 OT- IP Objective Assessments Start: 12/18/24 10:32 Freq: Status: Active Protocol: Document 12/22/24 11:08 [facility] (Rec: 12/22/24 11:22 [facility] Desktop) OT Gross Range of Motion Upper Extremity Range of Motion Assessment Bilaterally Impaired ROM Impairments B Shoulder flexion 0 80 RUE, 0-85 LUE OT Strength Upper Extremity Strength Assessment Bilaterally Impaired Comments Strength Comments At least 3-/5 for shoulders, elbow to distal 4-/5 to 4/ 5. M9 OT- IP Assessment and Plan Start: 12/18/24 10:32 Freq: Status: Active Protocol: Document 12/22/24 11:08 [facility] (Rec: 12/22/24 11:22 [facility] Desktop) OT Summary Assessment and Plan Potential Rehabilitation Good Potential Analytic Complexity High at Evaluation Summary OT Impairments Pain,Range of Motion,Strength,Balance,Functional Cognition,Functional Mobility,Self-Feeding,Grooming, Dressing,Toileting,Bathing,Toilet Transfers,Shower Transfers,Activity Tolerance Progress Towards Slow Progress due to Pain,Slow Progress due to Medical Goals Issues,Slow Progress due to Activity Tolerance,Slow Progress due to Cognition Assessment Summary Pt high complexity and main barriers are decreased strength, endurance, activity tolerance, drowsy, and now needing 2-3 person assist for all needs. Pt will benefit from skilled rehab. Prior per pt's able to walk minimally in the house with fww 10-15ft before tiring and needing occasional assist with LB dressing needs and assist for toilet and showering needs. Goals Self-Feeding Goal Independent Grooming Goal Independent Dressing Goal Minimal Assistance Toileting Goal Minimal Assistance Bathing Goal Moderate Assistance Toilet Transfer Goal Standby Assistance Shower Transfer Goal Contact Guard Assistance Days to Meet Goals 30 Frequency of Treatment Other frequency 5x/week Treatment Plan OT Treatment Plan ADL Training,Functional Cognition Training,Functional Mobility,Patient/Family Education,Discharge Planning Other Treatment Transfer to [facility] with MAX AX 2 with FWW. Recommendations and Next Treatment Focus Discharge Recommendations OT Discharge SNF Rehab Recommendations Transportation Needs Wheelchair/Cabulance at Discharge
--- NOTE | 2024-12-22 11:59 | CM.DPNOTE ---
DCP Continued: Reviewed EMR and team rounds for pt?s medical status. Per hospitalist, pt is more coherent today and managing new scheduled Seroquel and IV abx. Hospitalist states pt might not be medically cleared for discharge until Wednesday, 12/25. PT/OT orders placed for evaluation as pt is more appropriate for eval and treatment. Per PT/OT, SNF rehab is recommended before discharge back home. DCP entered room, pt was sound asleep. Pt /POA, Liat, and daughter are at bedside. DCP reviewed PT/OT recommendations with pt family, they are agreeable to referral being sent but would want to assess each day if pt is able to discharge home. DCP provided Medicare Choice List to pt , highlighted were facilities that were contracted with pt insurance. Pt stated a preference for remaining as close to [place] as possible. Preference at this time is to only send referral to [facility] and request for authorization with [facility] insurance. DCP educated family on referral process and that transfer is estimated to be early to mid next week, family verbalized understanding. DCP sent initial referral via secure email to [facility]. Plan: Anticipating discharge to SNF Rehab pending acceptance and insurance authorization. CM Team will continue to follow for coordination of discharge plans. MATTHEW Tovar
[2024-12-22] MEDS: INSULIN LISPRO 100 UNIT/ML 3ML VIAL SUBCUT (12:25)
[2024-12-22] MEDS: ALBUTEROL 2.5 MG/3 ML NEB (ADULT) INH (13:26)
[2024-12-22] MEDS: cefTRIAXone 2,000 MG in SODIUM CHLORIDE 0.9% 100 ML 200 MG IV (14:13)
[2024-12-22] MEDS: TAMSULOSIN 0.4 MG CAPSULE PO (17:17)
[2024-12-22] MEDS: WARFARIN 2.5 MG TABLET PO (17:18)
[2024-12-22] MEDS: GABAPENTIN 100 MG CAPSULE PO (21:06)
[2024-12-22] MEDS: SENNOSIDES 8.6 MG TABLET 17.2 MG PO (21:06)
[2024-12-22] MEDS: ATORVASTATIN 20 MG TABLET 10 MG PO (21:06)
[2024-12-22] MEDS: QUETIAPINE 25 MG TABLET PO (21:08)
[2024-12-22] MEDS: BENZONATATE 100 MG CAPSULE PO (21:11)
[2024-12-22] MEDS: ALBUTEROL/IPRATROPIUM 3 ML AMPUL INH (23:53)
[2024-12-23] VITALS (9 sets, daily range): BP systolic 129–153; BP diastolic 70–81; PULSE 82–104; RESP 18–22; TEMP 36.2–36.6; O2SAT 90–100
[2024-12-23] MEDS: MORPHINE 2 MG/ML INJ IV ×2 (01:02→20:11)
[2024-12-23] MEDS: ALBUTEROL 2.5 MG/3 ML NEB (ADULT) INH ×3 (06:47→20:37)
[2024-12-23 09:15] LABS: INR 3.5 (0.9-1.3); Prothrombin Time 38.3 SECONDS (9.4-12.5)
[2024-12-23] MEDS: DOXYCYCLINE 100 MG in SODIUM CHLORIDE 0.9% 100 ML IV ×2 (09:15→21:46)
[2024-12-23] MEDS: dilTIAZem CD 120 MG CAP 240 MG PO (09:16)
--- NOTE | 2024-12-23 10:15 | PT.IPTN ---
Current Diagnoses Sepsis, unspecified organism (12/17/24) Physical Therapy Treatment Note M2 PT-IP Current Condition Start: 12/18/24 10:11 Freq: NEEDED Status: Active Protocol: Document 12/22/24 10:20 [facility] (Rec: 12/22/24 11:21 [facility] [id number]) Physical Therapy Current Condition Current Condition Evaluation Date 12/22/24 Treatment Diagnosis sepsis; PNA; difficulty in walking Onset Date 12/17/24 M3 PT-IP Subjective Start: 12/18/24 10:11 Freq: NEEDED Status: Active Protocol: Document 12/23/24 10:15 [facility] (Rec: 12/23/24 12:00 [facility] Desktop) Subjective Physical Therapy Visit Type Type Treatment Note Visit Start Time 10:15 Visit Stop Time 10:45 Number of DAIRY NUTRITION CONSULTANT Visits 0 M4 PT-IP Mobility and Gait Start: 12/18/24 10:11 Freq: NEEDED Status: Active Protocol: Document 12/23/24 10:15 [facility] (Rec: 12/23/24 12:00 [facility] Desktop) PT-Bed Mobility Assessment Rolling Type of Rolling Bilateral Level of Assist Maximal Assistance,1 Person Assistance,2 Person Assistance Supine to Sit Supine to Sit Maximum Assistance,2 Person Assistance,Head of Bed Elevated,Bedrails Sit to Supine Sit to Supine Total Assistance,2 Person Assistance Scooting Scooting Up and Down Dependent in Bed PT-Transfer Assessment Sit to and From Stand Sit to and from Maximum Assistance,2 Person Assistance,Use of Upper Stand Extremities Equipment Transfer Assistive Front Wheeled Walker Device Orthotic/Prosthetic No Devices or Brace: Comments Mobility Comments pt in bed and family in room. pt slightly more alert today but continues to have confusion, usually keeps his eyes closed; able to talk more today but with unclear speech. pt needing to be cleaned up and brief change. O2 sat at RA 92-93% . NAC in room to assist. pt completed rolling L and R side max A x 1-2 and max cues. bed also side tilted to assist. completed supine to sit max A x 2 and max cues with HOB elevated. pt requiring max A for sitting balance on EOB. able to maintain sitting balance for ~ 3-5 sec and then tends to have increase retrolean and side leaning to the L. cued to correct and keep eyes open. completed sit to stand max A x 2 and and max cues using fWW for support. only tolerated ~ 3 sec of standing. pt stated that he needs to lay back in bed. assisted pt to scoot towards HOB max A x 2 and max cues. sit to supine total A x 2 and max cues. positioned pt in bed total A x 2. call light and table placed within reach. Left pt with family in room. M5 PT-IP Objective Assessments Start: 12/18/24 10:11 Freq: NEEDED Status: Active Protocol: Document 12/22/24 10:20 [facility] (Rec: 12/22/24 11:21 AB [id number]) Orientation Orientation/Cognition Level of Alertness Lethargic Orientation Name Language Function Hard of Hearing Ability Safety Awareness Decreased Safety Awareness Memory Description Short Term Impaired Gross Range of Motion Lower Extremity ROM Assessment Within Functional Limits Strength Lower Extremity Strength Assessment Bilaterally Impaired Hip 3-/5 Knee 3+/5 Muscle Tone Muscle Tone WNL Yes M6 PT-IP Treatment Start: 12/18/24 10:11 Freq: NEEDED Status: Active Protocol: Document 12/22/24 10:20 [facility] (Rec: 12/22/24 11:21 [facility] [id number]) Physical Therapy Treatment Education Education Provided Safety M7 PT-IP Assessment and Plan Start: 12/18/24 10:11 Freq: NEEDED Status: Active Protocol: Document 12/23/24 10:15 [facility] (Rec: 12/23/24 12:00 [facility] Desktop) PT Summary Assessment and Plan Summary Impairments Pain,ROM,Strength,Balance,Coordination,Sensation,Tone, Cognition,Bed Mobility,Transfers,Gait,Activity Tolerance Progress Towards Slow Progress due to Medical Issues,Slow Progress due Goals to Activity Tolerance,Slow Progress - Other Assessment Summary pt continues to require max A x 2 to total A x 2 with mobility and with decrease activity tolerance affecting participation and mobility level. pt will require SNF rehab to improve overall strength and function. Goals Bed Mobility Goal Minimal Assistance Transfer Goal Minimal Assistance,Front Wheeled Walker Gait Goal Minimal Assistance,Front Wheel Walker Gait Distance 12 Days to Meet Goals 10 Frequency of Treatment Frequency Of Once a Day Treatment Treatment Plan Physical Therapy Bed Mobility Training,Transfer Training,Gait Training, Treatment Plan Therapeutic Exercise,Balance Retraining,Discharge Planning,Hot or Cold Pack,Neuromuscular Re-ed, Coordination Retraining,Manual Therapy Precautions Other Precautions O2 sat; fall risk Recommendations To Nursing Amount of Assist Mechanical Lift Needed Discharge Recommendations PT Discharge SNF Rehab Recommendations Transportation Needs Wheelchair/Cabulance,Stretcher/Ambulance at Discharge - PT assist 2-3
[2024-12-23] MEDS: INSULIN LISPRO 100 UNIT/ML 3ML VIAL SUBCUT ×2 (12:19→17:45)
[2024-12-23 13:45] LABS: Hematocrit 36.5 % (41-53); Hemoglobin 12.6 g/dL (13.5-17.5); Mean Corpuscular HGB Conc 34.6 % (30-36); Mean Corpuscular Hemoglobin 31.2 PG (26-34); Mean Corpuscular Volume 90.1 fL (80-100); Platelet Count 108 X10^3/uL (150-400); Red Blood Cell Count 4.05 X10^6/uL (4.5-5.9); Red Cell Distribution Width 15.1 % (11.6-14.8)
[2024-12-23 13:48] LABS: Add Manual Diff / Slide Review YES
[2024-12-23 14:03] LABS: Alanine Aminotransferase 60 IU/L (<50); Albumin 3.1 g/dL (3.5-5.0); Albumin Globulin Ratio 0.9 (1.0-2.8); Alkaline Phosphatase 228 U/L (38-126); Aspartate Aminotransferase 50 IU/L (17-59); BUN Creatinine Ratio 18.3 (6-22); Bilirubin Total 2.3 mg/dL (0.2-1.3); Blood Urea Nitrogen 13 mg/dL (9-20); Calcium 8.5 mg/dL (8.4-10.2); Carbon Dioxide 20 mmol/L (22-32); Chloride 105 mmol/L (98-107); Estimated Glomerular Filt Rate > 60 mL/min (>60); Globulin 3.6 g/dL (1.7-4.1); Glucose 158 mg/dL (70-99); HEMOLYSIS < 15 (0-50); Potassium 3.3 mmol/L (3.4-5.1); Sodium 137 mmol/L (137-145); Total Protein 6.7 g/dL (6.3-8.2)
[2024-12-23 14:23] LABS: Neutrophils Absolute Manual 5040 /uL (3000-5900); Total Cells Counted 100
[2024-12-23 14:24] LABS: RBC Morphology Normal Morphology
[2024-12-23] MEDS: cefTRIAXone 2,000 MG in SODIUM CHLORIDE 0.9% 100 ML 200 MG IV (14:51)
--- NOTE | 2024-12-23 16:15 | P.PN_ITS ---
Subjective Subjective Date Patient Seen: 12/23/24 Interval history: Chief complaint: Abdominal pain nausea and vomiting with sepsis and confusion secondary to Klebsiella History of present illness: 12/18:89-year-old male with past medical history of atrial fibrillation on Coumadin, hypertension COPD not oxygen dependent, hyperlipidemia thyroidism, aortic aneurysm, [id number] diabetes and BPH presents with nausea, vomiting and abdominal pain. Per report the patient started to have abdominal discomfort earlier this morning. The patient was reported to be in his normal state of health around 10 AM and was at alevism. The patient then developed chills and rigors which followed by nausea, vomiting and abdominal pain. The patient denies any chest pain, coughing, dysuria, diarrhea or shortness of breath. However the patient's family does notice that he was having some respiratory distress. In the emergency room, the patient was hemodynamically stable though tachycardic. Patient WBC was 9 but lactate was 4.2. Bilirubin was 2.6 AST 291 ALT 104. Procalcitonin was only 0.163. Respiratory viral panel were negative. UA was also negative for UTI. CT angio of the chest abdomen and pelvics shows no acute finding other than possible atelectasis versus pneumonia at the bases. The patient then developed A-fib with RVR and required a dose of IV diltiazem which improved the heart rate from 200s. The patient remained hemodynamically. IV doxycycline and ceftriaxone were reported. The patient is DNR/DNI and the patient's family wishes no invasive or aggressive measures but they are okay with IV fluid and IV antibiotic. Repeat lactic acid only come down to 3.9 after IV fluid and IV antibiotics. Again CT angio of the abdomen shows no sign of bowel ischemia. Also CT scan of the chest and abdomen shows no acute finding with aneurysm. I did explain extensively to the patient's family that the patient did meet severe sepsis and is in critical condition. The patient family again states that patient is DNR/DNI and if things worsens they do not want to escalate care. Initially the patient was treated with doxycycline and ceftriaxone. However lactate came back the third time at 4.8. I have broadened antibiotic to doxcyclin, vancomycin and Zosyn. UA is negative. CT chest and abdomen shows no acute finding and patient is DNR/DNI and his family states that his condition worsens do not escalate or transfer. Possible pneumonia. Stated above were boaden antibiotics to IV's Doxycin Zosyn and vancomycin. Follow-up cultures. Nausea vomiting and abdominal pain. Unclear etiology. IV fluid and IV antiemetics. Pain control. CT abdomen and pelvis with contrast shows no acute finding. Elevated lactic acid. 4.2 then 3.9 then back to 4.8. Again IV fluid was given in the ER and continue continuous fluid. Will trend lactic acid to normal with IV fluid. Hospital course: 12/19: He is improved a bit this morning, he feels a bit worse today, slightly more short of breath. Labs improving today with improved bilirubin. Cr up a bit to 1.38. 12/20: Overnight was confused, agitated, paranoid. Given seroquel this AM. Redirectable at times with family. 12/21: Somewhat improved with seroquel but mentation not back to normal. 12/22: Continues to be confused and somewhat paranoid although did participate with physical therapy today 12/23: Continues to be confused but seems to be aware that he is confused white blood count is 6.0 but 80% neutrophils told the root bilirubin has reduced from 4.4-2.3 however all the alkaline phosphatase has increased slightly to 28 from to 0 8 Review of systems: Cognitively incapable of participating in the new review of systems No vomiting noted No labored respirations noted No seizure activity observed Physical exam: Chronically ill-appearing elderly male appearing confused, ill and somnolent HEENT unremarkable Heart rate and rhythm regular Lungs diminished breath Abdomen distended and tympanitic Extremities 2 to 3+ lower extremity No focal neurologic abnormality Patient is encephalopathic and confused Assessment and plan: Sepsis secondary to Klebsiella bacteremia, * - Blood culture with Enterbacter and klebsiella on PCR, unclear underlying source at this time as UA was negative. Given elevated bilirubin cautious eye towards biliary but initial US negative. Consider repeat imaging study depending on clinical course. * - CT on admission without obvious source * - continued with zosyn, discontinued vancomycin. Narrowed 12/20 based on blood cultures to ceftriaxone 2g q24 hr. * - also possible pulmonary source with cough noted. * -Repeat cultures drawn 12/23 Acute respiratory failure with hypoxia, elevated bilirubin, and acute metabolic encephalopathy due to #1 * - continue antibiotics as above. Now off supplemental O2. * - started seroquel for delirium effective for impulse control but not improving patient's confusion * Continue to monitor liver profile. Elevated lactic acid. - lactate improved, likely elevated to to transient liver dysfunction. No need for further trending uncless clinically worsens. Atrial fibrillation with RVR * - likely due to sepsis * - resumed home diltiazem, rate controlled today. * - monitor with tele- * - okay for prn metoprolol for persistent tachycardia, received a 1x dose on 12/20. * - coumadin per pharmacy, INR is 3.5 today. Hyperlipidemia. Resume home statin. Hypothyroidism. Resume home Synthroid. COPD. Possible mild exacerbation. * - patient was given solumedrol per admitting provider, however given sepsis more likely due to infectious etiology * - hold on any additional steroids at this time. DVT prophylaxis - continue home Coumadin. CODE STATUS DNR/DNI and do not escalate care if patient condition worsens. Patient family agrees to plan. Disposition: floor care, home when patient's used to be no longer septic or grossly encephalopathic Time-Based Coding :: 35 minutes spent with patient and on the chart (including review of chart, obtaining history, exam, reviewing outside data, placing orders, documenting exam and treatment plan, and counseling patient) Exam Vital Signs (past 8 hours): - 12/23/24 12:00 12/23/24 12:55 Temperature 97.9 F Pulse Rate 93 H 104 H Respiratory Rate 22 Blood Pressure 141/74 H Pulse Oximetry 91 91 Oxygen Delivery Method Room Air Oxygen Flow Rate 0 0 Fraction of Inspired Oxygen 21 Fraction of Inspired Oxygen 21 SaO2/FiO2 Ratio 433 Oxygen Delivery Method Room Air Oxygen Flow Rate 0 Objective Labs 12/23/24 13:36 12/23/24 13:36 Labs: Laboratory Results - last 24 hr 12/23/24 12/23/24 08:30 13:36 WBC 6.0 RBC 4.05 L Hgb 12.6 L Hct 36.5 L MCV 90.1 MCH 31.2 MCHC 34.6 RDW 15.1 H Plt Count 108 L Neut % (Auto) Not Reportable Lymph % (Auto) Not Reportable Irion % (Auto) Not Reportable Eos % (Auto) Not Reportable Baso % (Auto) Not Reportable Lymph # (Auto) Not Reportable Irion # (Auto) Not Reportable Baso # (Auto) Not Reportable Total Counted 100 Seg Neutrophils % 80.0 H Band Neutrophils % 4.0 Lymphocytes % (Manual) 9.0 L Monocytes % (Manual) 7.0 Neutrophils # (Manual) 5040 RBC Morphology Normal morphology PT 38.3 H INR 3.5 H Sodium 137 Potassium 3.3 L Chloride 105 Carbon Dioxide 20 L BUN 13 Creatinine 0.71 Estimated GFR > 60 BUN/Creatinine Ratio 18.3 Glucose 158 H Calcium 8.5 Total Bilirubin 2.3 H AST 50 ALT 60 H Alkaline Phosphatase 228 H Total Protein 6.7 Albumin 3.1 L Globulin 3.6 Albumin/Globulin Ratio 0.9 L [facility] Medical History (Updated 12/17/24 @ 20:27 by Carlin Suarez MD) Atrial fibrillation with controlled ventricular rate HTN (hypertension) Aortic aneurysm COPD (chronic obstructive pulmonary disease) Surgical History History of appendectomy Family History Mother Cancer Father Cancer Social History marital status: household members: spouse Smoking Status: Former smoker alcohol intake: never Assessment & Plan Time-Based Coding :: [TOTAL MINUTES] spent with patient and on the chart (including review of chart, obtaining history, exam, reviewing outside data, placing orders, documenting exam and treatment plan, and counseling patient) on [DATE].
[2024-12-23] MEDS: WARFARIN 2.5 MG TABLET PO (18:50)
[2024-12-23] MEDS: TAMSULOSIN 0.4 MG CAPSULE PO (18:51)
[2024-12-23] MEDS: guaiFENesin Solution 100 MG/5 ML UDC 200 MG PO (20:10)
[2024-12-23] MEDS: GABAPENTIN 100 MG CAPSULE PO (20:10)
[2024-12-23] MEDS: SENNOSIDES 8.6 MG TABLET 17.2 MG PO (20:11)
[2024-12-23] MEDS: QUETIAPINE 25 MG TABLET PO (20:11)
[2024-12-23] MEDS: ATORVASTATIN 20 MG TABLET 10 MG PO (20:11)
[2024-12-24 03:00] VITALS: BP 145/79; PULSE 90; RESP 18; TEMP 36.5; O2SAT 90
[2024-12-24] MEDS: ALBUTEROL/IPRATROPIUM 3 ML AMPUL INH (03:47)
[2024-12-24] MEDS: MORPHINE 2 MG/ML INJ IV ×2 (05:23→21:51)
[2024-12-24 07:00] VITALS: BP 152/71; PULSE 91; RESP 33; TEMP 36.3; O2SAT 95
--- NOTE | 2024-12-24 07:56 | DI.RAD.S_ITS ---
PROCEDURE: XR CHEST 1V INDICATIONS: pna TECHNIQUE: One view of the chest was acquired. COMPARISON: [facility], CT, CT ANGIO CHEST ABDOMEN PELVIS, 12/17/2024, 15:39. [facility], CR, XR CHEST 1V, 09/01/2024, 8:15. [facility], CR, XR CHEST 1V, 12/18/2024, 3:29. FINDINGS: Surgical changes and devices: None. Lungs and pleura: Abnormal interstitial prominence can be seen, which is more prominent inferiorly. This is worse than on the 01/07/2025 examination. Mediastinum: Mediastinal contours appear normal. Heart size is mildly enlarged. Bones and chest wall: No suspicious bony lesions. Age-appropriate bony degenerative changes are seen. Overlying soft tissues appear unremarkable. IMPRESSION: Cardiomegaly with worsening interstitial prominence. CHF is suspected. However, differential diagnosis includes viral/atypical infiltrate in this patient with this given history. Dictated by: José Miguel Ramos M.D. on 12/24/2024 at 7:38 Approved by: José Miguel Ramos M.D. on 12/24/2024 at 7:39
[2024-12-24 08:23] VITALS: PULSE 98; RESP 26; O2SAT 96
[2024-12-24] MEDS: ALBUTEROL 2.5 MG/3 ML NEB (ADULT) INH (08:23)
[2024-12-24] MEDS: INSULIN LISPRO 100 UNIT/ML 3ML VIAL SUBCUT (08:28)
[2024-12-24] MEDS: DOXYCYCLINE 100 MG in SODIUM CHLORIDE 0.9% 100 ML IV (08:29)
[2024-12-24] MEDS: ACETAMINOPHEN 325 MG TABLET 650 MG PO (08:29)
[2024-12-24] MEDS: polyethylene glycoL 3350 17 GM POWD.PACK PO (08:30)
[2024-12-24] MEDS: dilTIAZem CD 120 MG CAP 240 MG PO (08:30)
[2024-12-24 08:45] LABS: Add Manual Diff / Slide Review NO; Basophils Absolute Auto 0 /uL (0-100); Basophils Percent Auto 0.6 % (0-2); Eosinophils Absolute Auto 100 /uL (0-450); Eosinophils Percent Auto 1.5 % (2-4); Hematocrit 38.2 % (41-53); Lymphocytes Absolute Auto 500 /uL (1100-4500); Lymphocytes Percent Auto 7.9 % (25-40); Mean Corpuscular HGB Conc 34.1 % (30-36); Mean Corpuscular Hemoglobin 31.1 PG (26-34); Mean Corpuscular Volume 91.1 fL (80-100); Monocytes Absolute Auto 600 /uL (0-900); Monocytes Percent Auto 9.1 % (3-14); Neutrophils Absolute Auto 5600 /uL (1500-7000); Neutrophils Percent Auto 80.9 % (50-75); Platelet Count 123 X10^3/uL (150-400); Red Blood Cell Count 4.19 X10^6/uL (4.5-5.9); Red Cell Distribution Width 15.2 % (11.6-14.8)
[2024-12-24 08:56] LABS: INR 3.5 (0.9-1.3); Prothrombin Time 38.8 SECONDS (9.4-12.5)
[2024-12-24 09:01] LABS: Alanine Aminotransferase 54 IU/L (<50); Albumin 3.1 g/dL (3.5-5.0); Albumin Globulin Ratio 0.9 (1.0-2.8); Alkaline Phosphatase 221 U/L (38-126); Aspartate Aminotransferase 50 IU/L (17-59); BUN Creatinine Ratio 13.2 (6-22); Blood Urea Nitrogen 9 mg/dL (9-20); Calcium 8.5 mg/dL (8.4-10.2); Carbon Dioxide 20 mmol/L (22-32); Chloride 105 mmol/L (98-107); Estimated Glomerular Filt Rate > 60 mL/min (>60); Globulin 3.6 g/dL (1.7-4.1); Glucose 153 mg/dL (70-99); HEMOLYSIS < 15 (0-50); Potassium 3.3 mmol/L (3.4-5.1); Sodium 137 mmol/L (137-145); Total Protein 6.7 g/dL (6.3-8.2)
--- NOTE | 2024-12-24 09:05 | CM.DPC ---
Addendum entered by GE Combs 12/24/24 11:03: ADD: Per MD, pt appears to have some worsening in his medical condition rather than improvement and will repeat chest xray to compare to determine if any improvement. Otherwise family bedside are leaning towards comfort care at home currently but pt has not officially been switched to comfort measures. MIKE made initial [facility] referral and faxed clinicals to review and will need to call in the AM Wednesday when staff back in the office to determine availability and confirm plan is Comfort vs SNF rehab. GE Combs Original Note: DCP SNF Planning: MIKE faxed updated MD prog note and PT note from yesterday to [facility] to review and inquired if they can accept and have submitted auth yet to [employer] yet. Likely will not get answer until tomorrow Wednesday12/25/24. PASRR done in anticipation of SNF at d/c. GE Combs
--- NOTE | 2024-12-24 09:09 | PT-IP ANOTE ---
Reviewed chart and checked on pt and spoke with nsg and family. Pt is too lethargic for PT today and will hold PT.
--- NOTE | 2024-12-24 10:44 | P.PN_ITS ---
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 Per report the patient started to have abdominal discomfort earlier this morning. The patient was reported to be in his normal state of health around 10 AM and was at protestant. The patient then developed chills and rigors which followed by nausea, vomiting and abdominal pain. The patient denies any chest pain, coughing, dysuria, diarrhea or shortness of breath. However the patient's family does notice that he was having some respiratory distress. In the emergency room, the patient was hemodynamically stable though tachycardic. Patient WBC was 9 but lactate was 4.2. Bilirubin was 2.6 AST 291 ALT 104. Procalcitonin was only 0.163. Respiratory viral panel were negative. UA was also negative for UTI. CT angio of the chest abdomen and pelvics shows no acute finding other than possible atelectasis versus pneumonia at the bases. The patient then developed A-fib with RVR and required a dose of IV diltiazem which improved the heart rate from 200s. The patient remained hemodynamically. IV doxycycline and ceftriaxone were reported. The patient is DNR/DNI and the patient's family wishes no invasive or aggressive measures but they are okay with IV fluid and IV antibiotic. Repeat lactic acid only come down to 3.9 after IV fluid and IV antibiotics. Again CT angio of the abdomen shows no sign of bowel ischemia. Also CT scan of the chest and abdomen shows no acute finding with aneurysm. I did explain extensively to the patient's family that the patient did meet severe sepsis and is in critical condition. The patient family again states that patient is DNR/DNI and if things worsens they do not want to escalate care. Initially the patient was treated with doxycycline and ceftriaxone. However lactate came back the third time at 4.8. I have broadened antibiotic to doxcyclin, vancomycin and Zosyn. UA is negative. CT chest and abdomen shows no acute finding and patient is DNR/DNI and his family states that his condition worsens do not escalate or transfer. Possible pneumonia. Stated above were boaden antibiotics to IV's Doxycin Zosyn and vancomycin. Follow-up cultures. Nausea vomiting and abdominal pain. Unclear etiology. IV fluid and IV antiemetics. Pain control. CT abdomen and pelvis with contrast shows no acute finding. Elevated lactic acid. 4.2 then 3.9 then back to 4.8. Again IV fluid was given in the ER and continue continuous fluid. Will trend lactic acid to normal with IV fluid. Hospital course: 12/19: He is improved a bit this morning, he feels a bit worse today, slightly more short of breath. Labs improving today with improved bilirubin. Cr up a bit to 1.38. 12/20: Overnight was confused, agitated, paranoid. Given seroquel this AM. Redirectable at times with family. 12/21: Somewhat improved with seroquel but mentation not back to normal. 12/22: Continues to be confused and somewhat paranoid although did participate with physical therapy today 12/23: Continues to be confused but seems to be aware that he is confused white blood count is 6.0 but 80% neutrophils told the root bilirubin has reduced from 4.4-2.3 however all the alkaline phosphatase has increased slightly to 28 from to 0 8 12/24: Patient becoming less interactive confused but still pleasant diminished breath sounds on exam bilaterally chest x-ray shows significant worsening of bilateral interstitial airspace disease. Discussed with and daughters who have requested patient be transitioned to comfort measures based on worsening condition and poor prognosis and patient's wishes Review of systems: Cognitively incapable of participating in the new review of systems No vomiting noted No labored respirations noted No seizure activity observed Physical exam: Chronically ill-appearing elderly male appearing confused, ill and somnolent HEENT unremarkable Heart rate and rhythm regular Lungs diminished breath sounds Abdomen distended and tympanitic Extremities 2 to 3+ lower extremity No focal neurologic abnormality Patient is encephalopathic and confused Assessment and plan: Sepsis secondary to Klebsiella bacteremia, overwhelming despite definitive treatment patient has been transitioned to comfort measures * Comfort measures Acute respiratory failure with hypoxia, elevated bilirubin, and acute metabolic encephalopathy due to #1 * Comfort Measures Elevated lactic acid. - lactate improved, likely elevated to to transient liver dysfunction. No need for further trending uncless clinically worsens. Atrial fibrillation with RVR Comfort measures DVT prophylaxis comfort measures CODE STATUS DNR/DNI on comfort measures Disposition: Comfort measures in-hospital Time-Based Coding :: 35 minutes spent with patient and on the chart (including review of chart, obtaining history, exam, reviewing outside data, placing orders, documenting exam and treatment plan, and counseling patient) Exam Vital Signs (past 8 hours): - 12/24/24 03:00 12/24/24 07:00 12/24/24 08:23 Temperature 97.7 F 97.3 F L Pulse Rate 90 91 H 98 H Respiratory Rate 18 33 H 26 H Blood Pressure 145/79 H 152/71 H Pulse Oximetry 90 L 95 96 Oxygen Delivery Method Nasal Cannula Oxygen Flow Rate 0 2 Fraction of Inspired Oxygen 21 SaO2/FiO2 Ratio 452 Oxygen Delivery Method Nasal Cannula Oxygen Flow Rate 2 Objective Labs 12/24/24 08:28 12/24/24 08:20 Labs: Laboratory Results - last 24 hr 12/23/24 12/24/24 12/24/24 13:36 08:20 08:28 WBC 6.0 7.0 RBC 4.05 L 4.19 L Hgb 12.6 L 13.0 L Hct 36.5 L 38.2 L MCV 90.1 91.1 MCH 31.2 31.1 MCHC 34.6 34.1 RDW 15.1 H 15.2 H Plt Count 108 L 123 L Neut % (Auto) Not Reportable 80.9 H Lymph % (Auto) Not Reportable 7.9 L Nolan % (Auto) Not Reportable 9.1 Eos % (Auto) Not Reportable 1.5 L Baso % (Auto) Not Reportable 0.6 Neut # (Auto) 5600 Lymph # (Auto) Not Reportable 500 L Nolan # (Auto) Not Reportable 600 Eos # (Auto) 100 Baso # (Auto) Not Reportable 0 Total Counted 100 Seg Neutrophils % 80.0 H Band Neutrophils % 4.0 Lymphocytes % (Manual) 9.0 L Monocytes % (Manual) 7.0 Neutrophils # (Manual) 5040 RBC Morphology Normal morphology PT 38.8 H INR 3.5 H Sodium 137 137 Potassium 3.3 L 3.3 L Chloride 105 105 Carbon Dioxide 20 L 20 L BUN 13 9 Creatinine 0.71 0.68 Estimated GFR > 60 > 60 BUN/Creatinine Ratio 18.3 13.2 Glucose 158 H 153 H Calcium 8.5 8.5 Total Bilirubin 2.3 H 2.0 H AST 50 50 ALT 60 H 54 H Alkaline Phosphatase 228 H 221 H Total Protein 6.7 6.7 Albumin 3.1 L 3.1 L Globulin 3.6 3.6 Albumin/Globulin Ratio 0.9 L 0.9 L [facility] Medical History (Updated 12/17/24 @ 20:27 by Carlin Suarez MD) Atrial fibrillation with controlled ventricular rate HTN (hypertension) Aortic aneurysm COPD (chronic obstructive pulmonary disease) Surgical History History of appendectomy Family History Mother Cancer Father Cancer Social History marital status: household members: spouse Smoking Status: Former smoker alcohol intake: never Assessment & Plan Time-Based Coding :: [TOTAL MINUTES] spent with patient and on the chart (including review of chart, obtaining history, exam, reviewing outside data, placing orders, documenting exam and treatment plan, and counseling patient) on [DATE].
--- NOTE | 2024-12-24 11:01 | PC.NURSE ---
Addendum entered by Eun Mccoy R.N. 12/24/24 16:21: Patient changed and incontinent of a large amount of yellow urine. Patient repositioned on his r.side, he is now comfort care and he has been coughing up some green/pink tinged sputum. Original Note: Patients family and have decided that patient will be on comfort care now. Per , his cxr is looking worse. Patient is coherent at times, he knows his family and that he is in the hospital. He has garbled speech, he can be understood at times. He was just turned and changed and incontinent of a large amount of urine. Patients mepelex dressing intact to back side. Family in room, patient is expecting a lot of company from his mandaeism today. Repositioned to l.side.
[2024-12-24 15:00] VITALS: BP 121/70; PULSE 93; RESP 20; TEMP 36.2; O2SAT 95
[2024-12-24 19:00] VITALS: BP 162/74; PULSE 93; RESP 22; TEMP 36.3; O2SAT 92
[2024-12-25] MEDS: MORPHINE 2 MG/ML INJ IV ×3 (06:54→18:08)
[2024-12-25 07:00] VITALS: BP 154/82; PULSE 87; RESP 16; TEMP 36.4; O2SAT 94
--- NOTE | 2024-12-25 10:16 | OT.IPNOTE ---
D/C OT order at this time. Per rounds, pt is transitioning to comfort care measures only.
--- NOTE | 2024-12-25 13:32 | CM.DPC ---
DCP Home with Hospice Cont: Per MD, pt remains comfort care and masters ordered for urinary retension and comfort and pt fairly stable today and does not currently appear imminent. MIKE spoke to pt's [employer] [employer] Najma [phone] and updated on pt status and faxed requested clinicals to fax [phone] to review. Najma aware of need to work on plan of discharge from the hospital and she confirms pt is currently approved for 10 hours a week RN care in the home but could place emergent request for increased hours at d/c for up to 30 hours while waiting for 24/7 RN hours to be approved. Najma needs d/c summary faxed to her at discharge to complete the 24/7 RN request in the home. MIKE called [facility] and spoke to Beth and she confirms she is reviewing the new referral now and states they have openings for SOC tomorrow . Per RN and SW observation, pt not eating for the past couple days but still producing urine and he will open eyes and mumble some words and move his arms around some but not attempting to get up and mostly sleeping comfortably. Met with pt's spouse and two adult Dtrs Bonnie and Daphne and they are aware if pt does not in the hospital overnight then will need a plan of d/c to home or facility with Hospice. Provided the [facility] brochure and discussed services provided and process of Info Visit and delivering DME etc.. Spouse and Dtrs confirm pt's preference is to be at home. 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 Family in agreement that pt needs BLS transport home and MIKE states no guarantee it will be fully covered by insurance and they remain agreeable to stretcher transport at d/c. [facility] confirms they completed Info Visit with family and ordering stat DME delivery for hospital bed and oxygen and their RN can do SOC tomorrow 12/26 between [id number]. MIKE called [facility] and scheduled BLS stretcher transport for 0900 tomorrow to home and completed the BLS form and updated MD and he signed form. Updated Estelita at [facility] that SNF no longer needed at d/c. Plan: Patient to d/c home tomorrow 12/26 via [facility] at 0900 and [facility] to start at 1000. SW to fax d/c summary to [facility] and Najma at [employer] at d/c. GE Combs
--- NOTE | 2024-12-25 16:45 | P.PN_ITS ---
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 Per report the patient started to have abdominal discomfort earlier this morning. The patient was reported to be in his normal state of health around 10 AM and was at taoist. The patient then developed chills and rigors which followed by nausea, vomiting and abdominal pain. The patient denies any chest pain, coughing, dysuria, diarrhea or shortness of breath. However the patient's family does notice that he was having some respiratory distress. In the emergency room, the patient was hemodynamically stable though tachycardic. Patient WBC was 9 but lactate was 4.2. Bilirubin was 2.6 AST 291 ALT 104. Procalcitonin was only 0.163. Respiratory viral panel were negative. UA was also negative for UTI. CT angio of the chest abdomen and pelvics shows no acute finding other than possible atelectasis versus pneumonia at the bases. The patient then developed A-fib with RVR and required a dose of IV diltiazem which improved the heart rate from 200s. The patient remained hemodynamically. IV doxycycline and ceftriaxone were reported. The patient is DNR/DNI and the patient's family wishes no invasive or aggressive measures but they are okay with IV fluid and IV antibiotic. Repeat lactic acid only come down to 3.9 after IV fluid and IV antibiotics. Again CT angio of the abdomen shows no sign of bowel ischemia. Also CT scan of the chest and abdomen shows no acute finding with aneurysm. I did explain extensively to the patient's family that the patient did meet severe sepsis and is in critical condition. The patient family again states that patient is DNR/DNI and if things worsens they do not want to escalate care. Initially the patient was treated with doxycycline and ceftriaxone. However lactate came back the third time at 4.8. I have broadened antibiotic to doxcyclin, vancomycin and Zosyn. UA is negative. CT chest and abdomen shows no acute finding and patient is DNR/DNI and his family states that his condition worsens do not escalate or transfer. Possible pneumonia. Stated above were broaden antibiotics to IV's Doxycin Zosyn and vancomycin. Follow-up cultures. Nausea vomiting and abdominal pain. Unclear etiology. IV fluid and IV antiemetics. Pain control. CT abdomen and pelvis with contrast shows no acute finding. Elevated lactic acid. 4.2 then 3.9 then back to 4.8. Again IV fluid was given in the ER and continue continuous fluid. Will trend lactic acid to normal with IV fluid. Hospital course: 12/19: He is improved a bit this morning, he feels a bit worse today, slightly more short of breath. Labs improving today with improved bilirubin. Cr up a bit to 1.38. 12/20: Overnight was confused, agitated, paranoid. Given seroquel this AM. Redirectable at times with family. 12/21: Somewhat improved with seroquel but mentation not back to normal. 12/22: Continues to be confused and somewhat paranoid although did participate with physical therapy today 12/23: Continues to be confused but seems to be aware that he is confused white blood count is 6.0 but 80% neutrophils told the root bilirubin has reduced from 4.4-2.3 however all the alkaline phosphatase has increased slightly to 28 from to 0 8 12/24: Patient becoming less interactive confused but still pleasant diminished breath sounds on exam bilaterally chest x-ray shows significant worsening of bilateral interstitial airspace disease. Discussed with and daughters who have requested patient be transitioned to comfort measures based on worsening condition and poor prognosis and patient's wishes 12/25: Patient minimally responsive but appear to be in a discomfort Review of systems: Cognitively incapable of participating in the new review of systems No vomiting noted No labored respirations noted No seizure activity observed Physical exam: Chronically ill-appearing elderly male appearing confused, ill and somnolent HEENT unremarkable Heart rate and rhythm regular Lungs diminished breath sounds Abdomen distended and tympanitic Extremities 2 to 3+ lower extremity No focal neurologic abnormality Patient is encephalopathic and confused Assessment and plan: Sepsis secondary to Klebsiella bacteremia, overwhelming despite definitive treatment patient has been transitioned to comfort measures * Comfort measures Acute respiratory failure with hypoxia, elevated bilirubin, and acute metabolic encephalopathy due to #1 * Comfort Measures Elevated lactic acid. - lactate improved, likely elevated to to transient liver dysfunction. No need for further trending uncless clinically worsens. Atrial fibrillation with RVR * Comfort measures DVT prophylaxis comfort measures CODE STATUS DNR/DNI on comfort measures Disposition: Comfort measures in-hospital Time-Based Coding :: 35 minutes spent with patient and on the chart (including review of chart, obtaining history, exam, reviewing outside data, placing orders, documenting exam and treatment plan, and counseling patient) Disposition: * Home with hospice manager service desk note: Met with pt's spouse and two adult Dtrs Bonnie and Daphne and they are aware if pt does not in the hospital overnight then will need a plan of d/c to home or facility with Hospice. Provided the [facility] brochure and discussed services provided and process of Info Visit and delivering DME etc.. Spouse and Dtrs confirm pt's preference is to be at home. They have a large family and supportive taoist community locally and are in agreement to work on plan of home with [facility] and increasing his [employer] home RN hours. Family in agreement that pt needs BLS transport home and states no guarantee it will be fully covered by insurance and they remain agreeable to stretcher transport at d/c. [facility] confirms they completed Info Visit with family and ordering stat DME delivery for hospital bed and oxygen and their RN can do SOC tomorrow 12/26 between [id number]. MIKE called [facility] and scheduled BLS stretcher transport for 0900 tomorrow to home and completed the BLS form and updated MD and he signed form. Updated Estelita at [facility] that SNF no longer needed at d/c. Plan: Patient to d/c home tomorrow 12/26 via [facility] at 0900 and [facility] to start at 1000. SW to fax d/c summary to [facility] and Najma at [employer] at d/c. Exam Vital Signs (past 8 hours): Fraction of Inspired Oxygen 21 SaO2/FiO2 Ratio 452 Oxygen Delivery Method Room Air Oxygen Flow Rate 2 Objective Labs 12/24/24 08:28 12/24/24 08:20 [facility] Medical History (Updated 12/17/24 @ 20:27 by Carlin Suarez MD) Atrial fibrillation with controlled ventricular rate HTN (hypertension) Aortic aneurysm COPD (chronic obstructive pulmonary disease) Surgical History History of appendectomy Family History Mother Cancer Father Cancer Social History marital status: household members: spouse Smoking Status: Former smoker alcohol intake: never Assessment & Plan Time-Based Coding :: [TOTAL MINUTES] spent with patient and on the chart (including review of chart, obtaining history, exam, reviewing outside data, placing orders, documenting exam and treatment plan, and counseling patient) on [DATE].
[2024-12-25] MEDS: MORPHINE 10 MG/0.5 ML ORAL SYRINGE SL (16:49)
[2024-12-25] MEDS: TAMSULOSIN 0.4 MG CAPSULE PO (17:50)
[2024-12-25 20:00] VITALS: PULSE 95; RESP 20; O2SAT 89
[2024-12-26] MEDS: MORPHINE 2 MG/ML INJ IV ×3 (03:54→08:46)
[2024-12-26] MEDS: MORPHINE 10 MG/0.5 ML ORAL SYRINGE SL (05:00)
[2024-12-26 07:00] VITALS: BP 178/99; PULSE 101; RESP 14; TEMP 36.2; O2SAT 92
--- NOTE | 2024-12-26 08:11 | P.DS_ITS ---
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 Per report the patient started to have abdominal discomfort earlier this morning. The patient was reported to be in his normal state of health around 10 AM and was at adventism. The patient then developed chills and rigors which followed by nausea, vomiting and abdominal pain. The patient denies any chest pain, coughing, dysuria, diarrhea or shortness of breath. However the patient's family does notice that he was having some respiratory distress. In the emergency room, the patient was hemodynamically stable though tachycardic. Patient WBC was 9 but lactate was 4.2. Bilirubin was 2.6 AST 291 ALT 104. Procalcitonin was only 0.163. Respiratory viral panel were negative. UA was also negative for UTI. CT angio of the chest abdomen and pelvics shows no acute finding other than possible atelectasis versus pneumonia at the bases. The patient then developed A-fib with RVR and required a dose of IV diltiazem which improved the heart rate from 200s. The patient remained hemodynamically. IV doxycycline and ceftriaxone were reported. The patient is DNR/DNI and the patient's family wishes no invasive or aggressive measures but they are okay with IV fluid and IV antibiotic. Repeat lactic acid only come down to 3.9 after IV fluid and IV antibiotics. Again CT angio of the abdomen shows no sign of bowel ischemia. Also CT scan of the chest and abdomen shows no acute finding with aneurysm. I did explain extensively to the patient's family that the patient did meet severe sepsis and is in critical condition. The patient family again states that patient is DNR/DNI and if things worsens they do not want to escalate care. Initially the patient was treated with doxycycline and ceftriaxone. However lactate came back the third time at 4.8. I have broadened antibiotic to doxcyclin, vancomycin and Zosyn. UA is negative. CT chest and abdomen shows no acute finding and patient is DNR/DNI and his family states that his condition worsens do not escalate or transfer. Possible pneumonia. Stated above were broaden antibiotics to IV's Doxycin Zosyn and vancomycin. Follow-up cultures. Nausea vomiting and abdominal pain. Unclear etiology. IV fluid and IV antiemetics. Pain control. CT abdomen and pelvis with contrast shows no acute finding. Elevated lactic acid. 4.2 then 3.9 then back to 4.8. Again IV fluid was given in the ER and continue continuous fluid. Will trend lactic acid to normal with IV fluid. Hospital course: 12/19: He is improved a bit this morning, he feels a bit worse today, slightly more short of breath. Labs improving today with improved bilirubin. Cr up a bit to 1.38. 12/20: Overnight was confused, agitated, paranoid. Given seroquel this AM. Redirectable at times with family. 12/21: Somewhat improved with seroquel but mentation not back to normal. 12/22: Continues to be confused and somewhat paranoid although did participate with physical therapy today 12/23: Continues to be confused but seems to be aware that he is confused white blood count is 6.0 but 80% neutrophils told the root bilirubin has reduced from 4.4-2.3 however all the alkaline phosphatase has increased slightly to 28 from to 0 8 12/24: Patient becoming less interactive confused but still pleasant diminished breath sounds on exam bilaterally chest x-ray shows significant worsening of bilateral interstitial airspace disease. Discussed with and daughters who have requested patient be transitioned to comfort measures based on worsening condition and poor prognosis and patient's wishes 12/25: Patient minimally responsive but appear to be in a discomfort 12/26: Patient discharged home with hospice services Review of systems: Cognitively incapable of participating in the new review of systems No vomiting noted No labored respirations noted No seizure activity observed Physical exam: Chronically ill-appearing elderly male appearing confused, ill and somnolent HEENT unremarkable Heart rate and rhythm regular Lungs diminished breath sounds Abdomen distended and tympanitic Extremities 2 to 3+ lower extremity No focal neurologic abnormality Patient is encephalopathic and confused Assessment and plan: Sepsis secondary to Klebsiella bacteremia, overwhelming despite definitive treatment patient has been transitioned to comfort measures * Comfort measures Acute respiratory failure with hypoxia, elevated bilirubin, and acute metabolic encephalopathy due to #1 * Comfort Measures Elevated lactic acid. - lactate improved, likely elevated to to transient liver dysfunction. No need for further trending uncless clinically worsens. Atrial fibrillation with RVR * Comfort measures DVT prophylaxis comfort measures CODE STATUS DNR/DNI on comfort measures Disposition: Comfort measures in-hospital Time-Based Coding :: 35 minutes spent with patient and on the chart (including review of chart, obtaining history, exam, reviewing outside data, placing orders, documenting exam and treatment plan, and counseling patient) Disposition: * Home with hospice corporate general manager note: Met with pt's spouse and two adult Dtrs Bonnie and Daphne and they are aware if pt does not in the hospital overnight then will need a plan of d/c to home or facility with Hospice. Provided the [facility] brochure and discussed services provided and process of Info Visit and delivering DME etc.. Spouse and Dtrs confirm pt's preference is to be at home. They have a large family and supportive adventism community locally and are in agreement to work on plan of home with [facility] and increasing his [facility] home RN hours. Family in agreement that pt needs BLS transport home and states no guarantee it will be fully covered by insurance and they remain agreeable to stretcher transport at d/c. [facility] confirms they completed Info Visit with family and ordering stat DME delivery for hospital bed and oxygen and their RN can do SOC tomorrow 12/26 between [id number]. called [facility] and scheduled BLS stretcher transport for 0900 tomorrow to home and completed the BLS form and updated MD and he signed form. Updated Estelita at [facility] that SNF no longer needed at d/c. Plan: Patient to d/c home tomorrow 12/26 via [facility] at 0900 and [facility] to start at 1000. SW to fax d/c summary to [facility] and Najma at [employer] at d/c. Discharge Providers Provider Date of admission: 12/17/24 20:27 Discharge Date: 12/26/24 Primary care physician: Kris Kaur MD Consults: 12/22/24 10:12 Consult to Occupational Therapy Evaluate & Treat Comment: Physician Instructions: Evaluate and treat 12/24/24 10:49 Consult to Discharge Planning Routine Comment: 12/24/24 10:50 Consult to Hospice Referral Urgent Comment: Discharge provider: Manuel Hooper MD Exam Vital Signs (past 8 hours): - 12/26/24 07:00 Temperature 97.2 F L Pulse Rate 101 H Respiratory Rate 14 Blood Pressure 178/99 H Pulse Oximetry 92 Oxygen Flow Rate 0 Fraction of Inspired Oxygen 21 SaO2/FiO2 Ratio 452 Oxygen Delivery Method Room Air Oxygen Flow Rate 0 Objective Labs 12/24/24 08:28 12/24/24 08:20 PFSH Medical History (Updated 12/17/24 @ 20:27 by Carlin Suarez MD) Atrial fibrillation with controlled ventricular rate HTN (hypertension) Aortic aneurysm COPD (chronic obstructive pulmonary disease) Surgical History History of appendectomy Family History Mother Cancer Father Cancer Social History marital status: household members: spouse Smoking Status: Former smoker alcohol intake: never Discharge Plan Discharge Plan Patient Disposition: Hospice - Home Discharge orders & Medications Prescriptions: New morphine 10 mg/5 mL solution 10 mg PO Q6H Qty: 150 0RF ondansetron 4 mg tablet,disintegrating 4 mg PO Q8H PRN (Reason: nausea and vomiting) Qty: 20 0RF lorazepam [Lorazepam Intensol] 2 mg/mL concentrate 1 mg PO Q6H PRN (Reason: agitation) Qty: 30 0RF Continued acetaminophen 325 mg Tablet 650 mg PO Q6H PRN (Reason: Fever/Mild Pain (1-3)) Qty: 30 0RF Discontinued tamsulosin [Flomax] 0.4 MG capsule,extended release 24hr 1 cap PO QPM Qty: 0 Patient Comments: 0.4mg capsule atorvastatin [Lipitor] 10 MG tablet 10 mg PO BEDTIME Qty: 0 levothyroxine [Synthroid] 75 MCG tablet 75 mcg PO DAILY Qty: 0 metformin [Glucophage] 500 MG tablet 500 mg PO BIDCC Qty: 0 diltiazem HCl 240 mg capsule,extended release 24hr 240 mg PO DAILY furosemide 20 mg tablet 20 mg PO DAILY Patient Comments: TAKE 1 TABLET BY MOUTH TWICE DAILY glimepiride 2 mg tablet 2 mg PO DAILY gabapentin 100 mg capsule 100 mg PO BEDTIME Patient Comments: [NO ORIGINAL SIG] warfarin 2.5 mg Tablet 2.5 mg PO MoWeSa@1700 Qty: 15 0RF warfarin 5 mg Tablet 5 mg PO SuTuThFr@1700 Qty: 30 0RF Follow up/Referrals: Kris Kaur MD [Primary Care Provider, Family Practice] Visit Report/Discharge Packet Stand Alone Forms: Patient Portal/API, Stroke Signs & Symptoms Discharge Data Primary Care Provider: Kris Kaur
--- NOTE | 2024-12-26 08:21 | CM.DPC ---
DCP Cont. Reviewed EMR and team rounds for pt's status updates. Pt been medically cleared for home d/c, [facility] will be meeting them at the home to start care. [employer] CENTER ATTENDANT will fax the d/c summary to the [employer] immigration case manager in order for her to move forward with increasing pt's hired caregiver hours in the home. BLS will transport at 9:00am. No further d/c needs are indicated at this time.
== END 2024-12-26 08:59 | disposition hospice, home (50) | DRG 871 ==
LOC: ED 20:27 → AC 20:28
PROVIDERS: Emergency Medicine; Internal Medicine; Admitting Provider Internal Medicine; Emergency Provider Emergency Medicine; Family Provider Physician Assistant Medical; PCP Family Medicine; Referring Provider Emergency Medicine; Visit Provider Internal Medicine
DX: A41.59 Other Gram-negative sepsis (principal); G93.41 Metabolic encephalopathy; J96.01 Acute respiratory failure with hypoxia; R65.20 Severe sepsis without septic shock; I48.91 Unspecified atrial fibrillation; R11.2 Nausea with vomiting, unspecified; R19.7 Diarrhea, unspecified; E78.5 Hyperlipidemia, unspecified; E03.9 Hypothyroidism, unspecified; B96.1 Klebsiella pneumoniae [K. pneumoniae] as the cause of diseases classified elsewhere; B96.89 Other specified bacterial agents as the cause of diseases classified elsewhere; J44.9 Chronic obstructive pulmonary disease, unspecified; K76.89 Other specified diseases of liver; E11.9 Type 2 diabetes mellitus without complications; Z87.891 Personal history of nicotine dependence; Z66 Do not resuscitate; Z79.01 Long term (current) use of anticoagulants; Z79.84 Long term (current) use of oral hypoglycemic drugs; Z79.890 Hormone replacement therapy; Z51.5 Encounter for palliative care
CPT/HCPCS: 0241U; 36415; 36600; 71045; 71275; 74174; 76705; 80053; 80202; 81001; 81003; 81015; 82140; 82550; 82805; 82962; 83036; 83605; 83690; 83735; 83880; 84145; 84484; 85007; 85025; 85610; 85730; 87040; 87077; 87154; 87186; 87507; 93005; 94640; 96361; 96365; 96367; 96375; 97163; 97167; 97530; 99285; 99291; A9270; J0131; J0696; J1815; J1938; J2270; J2405; J2543; J2765; J2919; J3475; J7613; Q9967